=== PATIENT | male | born 1945 | race Caucasian/White ===

== ENCOUNTER → 2020-03-09 10:51 | Outpatient (BNVA) | payer MEDICARE, OTHER, SELFPAY | PROVIDERS: PCP Internal Medicine; Referring Provider Internal Medicine; Visit Provider Urology | DX: Z76.89 Persons encountering health services in other specified circumstances (principal) | CPT/HCPCS: 99202 ==

== ENCOUNTER → 2020-06-08 10:59 | Outpatient (BNVA) | payer MEDICARE, OTHER, SELFPAY | PROVIDERS: PCP Internal Medicine; Visit Provider Urology | DX: Z76.89 Persons encountering health services in other specified circumstances (principal) | CPT/HCPCS: Q3014 ==

== ENCOUNTER 2020-06-17 11:50 | Outpatient (REF) | payer MEDICARE, OTHER, SELFPAY ==
[2020-06-17 11:59] VITALS: BP 125/67; PULSE 93; RESP 16; TEMP 36.5; O2SAT 98
[2020-06-17 12:00] VITALS: BMI 27.7
--- NOTE | 2020-06-17 12:46 | PM.OP ---
Brief Operative Note Date of Service: 06/17/20 Pre-op diagnosis: elevated PSA Post-op diagnosis: same Procedure: TRUS - measurement - guided prostate nerve block - Prostate biopsy Surgeon: Sudheer Mcclelland MD Anesthesia: local Estimated blood loss (mL): 0 Pathology: other (9 cores - 6 right, 3 left) Condition: stable Disposition: same day
--- NOTE | 2020-06-17 12:47 | W.PM.OPN ---
Operative Note Operative Note Date of Service: 06/17/20 Narrative: Preoperative diagnosis: Elevated PSA Postoperative diagnosis: Elevated PSA Procedure: 1. transrectal ultrasound measurement of prostate 2. transrectal ultrasound-guided pudendal nerve block 3. transrectal ultrasound-guided prostate biopsy 6 cores right, 3 cores left Surgeon: Dr. Sudheer Mcclelland Anesthetic: Local Indications for procedure: Elevated PSA Procedure: After informed consent was verified, the patient was brought into the procedure area and lay left-hand side down on the table. Patient identity confirmed. Perioperative antibiotics confirmed. Gel was placed per rectum Ultrasound probe was placed per rectum The prostate was measured in 3 dimensions Total volume equals 30 gm There were no cystic structures and no calcifications noted and the prostate was homogeneous in nature - the rectal muscle was noticed to be overdeveloped and unable to be effectively targeted for local anesthetic A ultrasound-guided pudendal nerve block was performed using 10 cc of 1% lidocaine. 8 cc was placed at the base and 2 cc of the apex. A 9 core biopsy was performed with 6 cores on right and 3 cores on left. Two cores were taken at the apex, mid and base. Cores were spaced between lateral and medial. Left side was reduced secondary to patient discomfort. He tolerated the procedure well. Was able to ambulate to bathroom after 5 minutes. Printed instructions regarding antibiotic use and common side effects such as low-grade temperature and bleeding were given.
== END 2020-06-17 11:51 | disposition home or self-care (01) ==
LOC: HO.MS 11:50
PROVIDERS: PCP Internal Medicine; Visit Provider Urology
PROC: (CPT 55700; principal; 2020-06-17 12:00)
DX: C61 Malignant neoplasm of prostate (principal)
CPT/HCPCS: 55700; 76942; 88305; 88344

== ENCOUNTER → 2020-06-25 15:21 | Outpatient (BNVA) | payer OTHER, SELFPAY | PROVIDERS: PCP Internal Medicine; Visit Provider Urology ==

== ENCOUNTER 2020-12-27 15:02 | Outpatient (REF) | payer MEDICARE, OTHER, SELFPAY ==
[2020-12-27 16:09] LABS: PSA,Total (Free>4and<10) 4.08 ng/mL (0.00-4.00)
[2020-12-30 12:31] LABS: Free Prostate Spec Ag 0.2 ng/mL; Percent Free Prostate Spec Ag 6 % (calc) (>25); Prostate Specific Ag Total 3.3 ng/mL (< OR = 4.0)
== END 2020-12-27 15:03 | disposition home or self-care (01) ==
LOC: HO.LAB 15:02
PROVIDERS: PCP Internal Medicine; Visit Provider Urology
DX: Z12.5 Encounter for screening for malignant neoplasm of prostate (principal); N13.8 Other obstructive and reflux uropathy; N40.1 Benign prostatic hyperplasia with lower urinary tract symptoms
CPT/HCPCS: 36415; 84153; 84154

== ENCOUNTER → 2021-03-22 08:26 | Outpatient (BNVA) | payer OTHER, SELFPAY | PROVIDERS: PCP Internal Medicine; Visit Provider Urology ==

== ENCOUNTER 2021-07-27 10:58 | Outpatient (REF) | payer MEDICARE, OTHER, SELFPAY ==
[2021-07-27 12:57] LABS: PSA,Total (Free>4and<10) 2.98 ng/mL (0.00-4.00)
== END 2021-07-27 10:59 | disposition home or self-care (01) ==
LOC: HO.LAB 10:58
PROVIDERS: PCP Internal Medicine; Visit Provider Urology
DX: Z12.5 Encounter for screening for malignant neoplasm of prostate (principal); C61 Malignant neoplasm of prostate
CPT/HCPCS: 36415; 84153

== ENCOUNTER → 2021-08-09 08:21 | Outpatient (BNVA) | payer MEDICARE, OTHER, SELFPAY | PROVIDERS: PCP Internal Medicine; Visit Provider Urology | DX: C61 Malignant neoplasm of prostate (principal); N40.1 Benign prostatic hyperplasia with lower urinary tract symptoms; N13.8 Other obstructive and reflux uropathy | CPT/HCPCS: Q3014 ==

== ENCOUNTER 2022-02-01 11:17 | Outpatient (REF) | payer MEDICARE, OTHER, SELFPAY ==
[2022-02-01 12:47] LABS: Prostate Specific Antigen 3.55 ng/mL (<0.05-4.0)
== END 2022-02-01 11:18 | disposition home or self-care (01) ==
LOC: HO.LAB 11:17
PROVIDERS: PCP Internal Medicine; Visit Provider Urology
DX: Z12.5 Encounter for screening for malignant neoplasm of prostate (principal); C61 Malignant neoplasm of prostate
CPT/HCPCS: 36415; 84153

== ENCOUNTER → 2022-02-08 14:17 | Outpatient (BNVA) | payer MEDICARE, OTHER, SELFPAY | PROVIDERS: PCP Internal Medicine; Visit Provider Urology | DX: C61 Malignant neoplasm of prostate (principal) | CPT/HCPCS: 51798; 99212 ==

== ENCOUNTER 2022-06-02 14:41 | Outpatient (REF) | payer MEDICARE, OTHER, SELFPAY | END 2022-06-02 14:42 | disposition home or self-care (01) | LOC: HO.LAB 14:41 | PROVIDERS: PCP Internal Medicine; Visit Provider Urology | DX: Z12.5 Encounter for screening for malignant neoplasm of prostate (principal); C61 Malignant neoplasm of prostate | CPT/HCPCS: 36415; 84153 ==

== ENCOUNTER → 2022-06-07 13:14 | Outpatient (BNVA) | payer MEDICARE, OTHER, SELFPAY | PROVIDERS: PCP Internal Medicine; Visit Provider Urology | DX: C61 Malignant neoplasm of prostate (principal) | CPT/HCPCS: Q3014 ==

== ENCOUNTER → 2022-09-28 11:17 | Outpatient (BNVA) | payer MEDICARE, OTHER, SELFPAY | PROVIDERS: PCP Internal Medicine; Visit Provider Urology | DX: C61 Malignant neoplasm of prostate (principal) | CPT/HCPCS: Q3014 ==

== ENCOUNTER 2023-08-22 15:32 | Outpatient (AMB) | payer MEDICARE, OTHER, SELFPAY ==
--- NOTE | 2023-08-22 15:35 | A.OFFVIS_ITS ---
Intake Visit Reasons: elevated PSA Intake Note: Patient is present for PSA Allergies No Known Allergies Allergy (Verified 09/28/22 11:19) Medication List - Last Reconciled 08/22/23 by Sudheer Mcclelland MD atorvastatin 80 mg PO DAILY cephalexin 500 mg PO TID ciprofloxacin HCl 500 mg PO BID 3 days clopidogrel 75 mg PO DAILY clotrimazole 1% mL topical finasteride 5 mg PO DAILY 90 days furosemide 20 mg PO DAILY ipratropium bromide intranasal levothyroxine 137 mcg PO DAILY levothyroxine 150 mcg PO DAILY nicotine 1 patch topical DAILY pantoprazole 40 mg PO DAILY sulfacetamide sodium 10% 0 drps ophthalmic (eye) HPI Comments Details: Jayy is a very pleasant male. He is a patient of Dr. Dhillon. He is seen for the following urologic conditions - prostate cancer - active surveillance PSA 8.0 jump from 3.8 Has been off finasteride Had colorectal cancer and has recent cover colostomy Did discuss restarting finasteride and repeating prostate MRI in 3 months Stroke late 2020 with left-sided deficit Remains on finasteride for low volume, low-grade disease PSA 08/05 2.9, 02/04 3.5, 06/08 3.5, 09/05 3.8 Prostate cancer low-grade, low volume diagnosed May 2020 - initial therapy active surveillance PSA 01/04 4 F6%, 08/05 2.9 Adenocarcinoma of the prostate (T1c N0 M0, Deonna score 6, Grade Group 1) NCCN low risk localized disease Prostate cancer was diagnosed Dr Mcclelland Diagnosis was reached by - May 2020 TRUS Biopsy, PSA 6.3, 30 g - well- developed rectal muscle, if repeat biopsy needed should be under sedation Histologic type: Prostatic acinar adenocarcinoma. Histologic grade: Deonna score: 3 + 3 = 6 Tumor quantitation: Number cores positive: 1 left mid medial, 60% (Part B) Total number of cores: 9 Periprostatic fat inv.: Not identified Seminal vesicle inv.: Not identified Perineural inv.: Not identified LVI: Not identified Prostate small nodule left base PFSH Medical History BPH loc w urin obs/LUTS Elevated PSA Hypothyroidism Prostate cancer Review of Systems Const Denies chills and Denies fever(s) Card Reports no additional complaints and Denies syncope Resp Denies cough GI Denies abdominal pain and Denies heartburn Reports as per HPI and Denies change in libido Neuro Denies syncope Psych Denies change in libido Endo Denies change in libido Physical Exam Const General: cooperative, healthy appearing, comfortable and no acute distress Orientation/consciousness: patient oriented x3 HEENT Face and sinus: Yes normal facial exam Mouth: moist mucous membranes Neck Neck: Yes normal visual inspection, Yes full ROM and Yes trachea midline Chest Chest palpation & inspection: normal inspection of the chest Resp Effort & Inspection: normal respiratory effort, able to speak in complete sentences and no respiratory distress GI Inspection: Yes normal to inspection Back/Spine/Pelvis Cervical Spine: normal cervical lordosis Thoracic/Lumbar Spine: thoracic and lumbar spine normal to inspection Skin General skin exam: no rashes or lesions noted Neuro General: patient oriented x3, gait normal, tone normal and moves all extremities Extrem General: Yes normal to inspection and Yes capillary refill normal Assessment & Plan Assessment & Plan (1) Prostate cancer: Comment: May 2020 low volume, low risk Code(s): C61 - Malignant neoplasm of prostate Category: Medical Plan MRI Repeat PSA May require repeat biopsy Orders: Orders Creatinine 3 Months C61 - Malignant neoplasm of prostate MR pelvis wo/w con 3 Months C61 - Malignant neoplasm of prostate Prostate Specific Antigen 3 Months C61 - Malignant neoplasm of prostate Blood Urea Nitrogen 3 Months C61 - Malignant neoplasm of prostate Patient Instructions: Imaging studies, laboratory and physical exam results were discussed and reviewed in detail. No major barriers to patient understanding were identified. An opportunity to ask questions regarding the treatment plan was provided. All questions were answered. The patient expressed understanding and agreement with the above treatment plan. The patient is aware they should contact our office by phone for worsening of their current condition or the appearance of new urologic symptoms. Compliance is encouraged with any medications and followup testing that is ordered. It is a privilege to participate in the urologic care of your patient. If you have any questions or concerns regarding treatment for the above conditions, or other urologic issues, please do not hesitate to contact me. The office telephone contact is [phone]. This note is constructed using voice recognition software. While every effort has been made to ensure accuracy inspector balance bridge errors may have been included. Yours sincerely, Dr Sudheer Mcclelland MD, [facility] - Urology Providers of Expert, Compassionate Care for the Genitourinary System Coding Level of Care Code Est Pt Level 4 (21687) Diagnoses Prostate cancer C61
== END 2023-08-22 15:57 | disposition home or self-care (01) ==
PROVIDERS: PCP Internal Medicine; Visit Provider Urology
DX: C61 Malignant neoplasm of prostate (principal)
CPT/HCPCS: 99214

== ENCOUNTER → 2023-08-22 15:32 | Outpatient (BNVA) | payer MEDICARE, OTHER, SELFPAY | PROVIDERS: PCP Internal Medicine; Visit Provider Urology | DX: C61 Malignant neoplasm of prostate (principal) | CPT/HCPCS: 99212 ==

== ENCOUNTER 2023-11-23 12:49 | Outpatient (REF) | payer MEDICARE, OTHER, SELFPAY ==
[2023-11-23 14:06] LABS: Prostate Specific Antigen 5.07 ng/mL (<0.05-4.0)
== END 2023-11-23 12:50 | disposition home or self-care (01) ==
LOC: HO.LAB 12:49
PROVIDERS: PCP Internal Medicine; Visit Provider Urology
DX: C61 Malignant neoplasm of prostate (principal); Z12.5 Encounter for screening for malignant neoplasm of prostate
CPT/HCPCS: 36415; 84153

== ENCOUNTER 2023-11-28 11:39 | Outpatient (AMB) | payer MEDICARE, OTHER, SELFPAY ==
--- NOTE | 2023-11-28 11:42 | A.OFFVIS_ITS ---
Intake Visit Reasons: 3M Follow Up-PSA(set) Intake Note: Patient is Present for Follow Up PSA Urology Medication: Finasteride Antibiotic Allergies:None Blood Thinners:Plavix Portable Power Tool Repairer Required: No Customer Sales Consultant: Customer Sales Consultant Present Accompanied by: Spouse Allergies No Known Allergies Allergy (Verified 09/28/22 11:19) HPI Comments Details: Jayy is a very pleasant male. He is a patient of Dr. Dhillon. He is seen for the following urologic conditions - prostate cancer - active surveillance Discussion of targeted biopsy Prostate MRI shows 2 areas PI-RADS 5 1.2cm Right and left posterolateral mid gland 1 cm lesions Stroke late 2020 with left-sided deficit Remains on finasteride for low volume, low-grade disease PSA 08/05 2.9, 02/04 3.5, 06/08 3.5, 09/05 3.8, 12/07 5.1 Prostate cancer low-grade, low volume diagnosed May 2020 - initial therapy active surveillance PSA 01/04 4 F6%, 08/05 2.9 Adenocarcinoma of the prostate (T1c N0 M0, [place] score 6, Grade Group 1) NCCN low risk localized disease Prostate cancer was diagnosed Dr Mcclelland Diagnosis was reached by - May 2020 TRUS Biopsy, PSA 6.3, 30 g - well- developed rectal muscle, if repeat biopsy needed should be under sedation Histologic type: Prostatic acinar adenocarcinoma. Histologic grade: [place] score: 3 + 3 = 6 Tumor quantitation: Number cores positive: 1 left mid medial, 60% (Part B) Total number of cores: 9 Periprostatic fat inv.: Not identified Seminal vesicle inv.: Not identified Perineural inv.: Not identified LVI: Not identified Prostate small nodule left base PFSH Medical History BPH loc w urin obs/LUTS Elevated PSA Hypothyroidism Prostate cancer Review of Systems Const Denies chills and Denies fever(s) Card Reports no additional complaints and Denies syncope Resp Denies cough GI Denies abdominal pain and Denies heartburn Reports as per HPI and Denies change in libido Neuro Denies syncope Psych Denies change in libido Endo Denies change in libido Physical Exam Const General: cooperative, healthy appearing, comfortable and no acute distress Orientation/consciousness: patient oriented x3 HEENT Face and sinus: Yes normal facial exam Mouth: moist mucous membranes Neck Neck: Yes normal visual inspection, Yes full ROM and Yes trachea midline Chest Chest palpation & inspection: normal inspection of the chest Resp Effort & Inspection: normal respiratory effort, able to speak in complete sentences and no respiratory distress GI Inspection: Yes normal to inspection Back/Spine/Pelvis Cervical Spine: normal cervical lordosis Thoracic/Lumbar Spine: thoracic and lumbar spine normal to inspection Skin General skin exam: no rashes or lesions noted Neuro General: patient oriented x3, gait normal, tone normal and moves all extremities Extrem General: Yes normal to inspection and Yes capillary refill normal Assessment & Plan Assessment & Plan (1) Prostate cancer: Comment: May 2020 low volume, low risk Code(s): C61 - Malignant neoplasm of prostate Category: Medical Plan Risks, benefits and alternatives to therapy were discussed. These include but ar e not limited to infection, bleeding, damage to local organs and tissues, need for further interventions. Anesthetic risks regarding cardiac arrhythmia, blood clots, and potential mortality were discussed. The patient understands the typical recovery time and the outpatient nature of the procedure. After consideration of these risks the patient gives full informed consent and they wish to move ahead with the procedure. Targeted prostate biopsy Patient Instructions: Imaging studies, laboratory and physical exam results were discussed and reviewed in detail. No major barriers to patient understanding were identified. An opportunity to ask questions regarding the treatment plan was provided. All questions were answered. The patient expressed understanding and agreement with the above treatment plan. The patient is aware they should contact our office by phone for worsening of their current condition or the appearance of new urologic symptoms. Compliance is encouraged with any medications and followup testing that is ordered. It is a privilege to participate in the urologic care of your patient. If you have any questions or concerns regarding treatment for the above conditions, or other urologic issues, please do not hesitate to contact me. The office telephone contact is [phone]. This note is constructed using voice recognition software. While every effort has been made to ensure accuracy director of accounts payable errors may have been included. Yours sincerely, Dr Sudheer Mcclelland MD, [facility] - Urology Providers of Expert, Compassionate Care for the Genitourinary System Coding Level of Care Code Est Pt Level 3 (01231) Diagnoses Prostate cancer C61
== END 2023-11-28 12:19 | disposition home or self-care (01) ==
PROVIDERS: PCP Internal Medicine; Visit Provider Urology
DX: C61 Malignant neoplasm of prostate (principal)
CPT/HCPCS: 99213

== ENCOUNTER → 2023-11-28 11:39 | Outpatient (BNVA) | payer MEDICARE, OTHER, SELFPAY | PROVIDERS: PCP Internal Medicine; Visit Provider Urology | DX: C61 Malignant neoplasm of prostate (principal); I69.30 Unspecified sequelae of cerebral infarction; Z79.01 Long term (current) use of anticoagulants | CPT/HCPCS: 99212 ==

== ENCOUNTER 2024-03-20 13:47 | Outpatient (AMB) | payer MEDICARE, OTHER, SELFPAY ==
--- NOTE | 2024-03-20 13:47 | MHC.OFFVIS ---
Intake Visit Reasons: H&P Targeted Prostate Biopsy [phone] Intake Note: Patient is present for H&P TARGETED PROSTATE BIOPSY Urology Medication:NONE Antibiotic Allergy:NONE Blood Thinner:NONE Supervisor Tree Trimming Required: No Allergies No Known Allergies Allergy (Verified 03/24/24 10:12) HPI Comments Details: Jayy is a very pleasant male. He is a patient of Dr. Dhillon. 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 Histologic grade: Waddy score: 3 + 3 = 6 Tumor quantitation: Number cores positive: 1 left mid medial, 60% (Part B) Total number of cores: 9 Periprostatic fat inv.: Not identified Seminal vesicle inv.: Not identified Perineural inv.: Not identified LVI: Not identified Prostate MRI shows 2 areas PI-RADS 5 1.2cm Right and left posterolateral mid gland 1 cm lesions PFSH Medical History (Updated 03/28/24 @ 10:35 by Sudheer Mcclelland MD) Hormone sensitive prostate cancer History of blood transfusion History of chemotherapy Wears hearing aid in both ears Wears dentures ABSENTEE-SHAWNEE (hard of hearing) Ascending aortic aneurysm Hx of Meckel's diverticulum Gait instability Colon adenocarcinoma Presence of ileostomy Malignant neoplasm of ascending colon BPH (benign prostatic hyperplasia) HLD (hyperlipidemia) 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 CVA (cerebral vascular accident) Tobacco abuse, in remission Elevated PSA Prostate cancer BPH loc w urin obs/LUTS Hypothyroidism Surgical History Hx of colonoscopy (03/17/24) History of ankle surgery (~03/2018) S/P right colectomy (~06/2023) Hx of appendectomy Surgically created abdominal mucous fistula Hx of prostate biopsy (06/09/20) Social History (Updated 03/20/24 @ 15:32 by Bernadette Zepeda RN) Household Members: Spouse Housing: House Are you a primary respiratory care program director to a significant other at home: No Do you presently have visiting nurse or other home services: No 75 years or older and lives alone: No Patient Tobacco Use Status: Former Tobacco user Tobacco use type: Cigarette Review of Systems Const All systems reviewed & are unremarkable except as noted in HPI and below Reports no additional complaints Resp Reports no additional complaints GI Reports no additional complaints Reports as per HPI Musc Reports no additional complaints Physical Exam Telemedicine evaluation Appropriate responses Regular breathing rate and rhythm HEENT Head: Yes normal to inspection Ears: hearing grossly normal bilaterally Eyes General: appearance normal, both eyes and all related structures Neck Neck: Yes normal visual inspection Chest Chest palpation & inspection: normal inspection of the chest Resp Effort & Inspection: normal respiratory effort and able to speak in complete sentences Telehealth Telehealth Telehealth Platform: [employer] Location of provider rendering services: practice address Location of patient: address on file Patient Identification confirmed using: Name, : Yes Telehealth method: video Patient verbally consented to treatment: Yes Patient verbally consented to billing insurance company: Yes Patient informed of any privacy concerns related to visit: Yes Minutes spent on Phone/Video with Pt.: 15 Assessment & Plan Assessment & Plan (1) Prostate cancer: Comment: May 2020 low volume, low risk Code(s): C61 - Malignant neoplasm of prostate Category: Medical Plan Risks and benefits regarding trans rectal ultrasound with prostate biopsy were discussed. Options of continued surveillance, no treatment and biopsy were offered. The risks include but are not limited to, urinary tract infection, sepsis, difficulty urinating, bleeding into the rectum or bladder that requires intervention and transfusion,and failure to diagnose prostate cancer. The patient understands the options and the risks involved. They wish to proceed. Printed information was provided to ensure he remains off anticoagulation for the appropriate length of time. He may require cardiology or PCP clearance. An antibiotic will be administered prior to, and following the procedure Ultrasound guided MRI fusion Patient Instructions: Imaging studies, laboratory and physical exam results were discussed and reviewed in detail. No major barriers to patient understanding were identified. An opportunity to ask questions regarding the treatment plan was provided. All questions were answered. The patient expressed understanding and agreement with the above treatment plan. The patient is aware they should contact our office by phone for worsening of their current condition or the appearance of new urologic symptoms. Compliance is encouraged with any medications and followup testing that is ordered. It is a privilege to participate in the urologic care of your patient. If you have any questions or concerns regarding treatment for the above conditions, or other urologic issues, please do not hesitate to contact me. The office telephone contact is [phone]. This note is constructed using voice recognition software. While every effort has been made to ensure accuracy executive assistant to general counsel errors may have been included. Yours sincerely, Dr Sudheer Mcclelland MD, [facility] - Urology Providers of Expert, Compassionate Care for the Genitourinary System Coding Level of Care Code Tele Est Pt Level 3 (24327) Diagnoses Prostate cancer C61
== END 2024-03-20 14:39 | disposition home or self-care (01) ==
LOC: HO.HUSH 13:47
PROVIDERS: PCP Internal Medicine; Visit Provider Urology
DX: C61 Malignant neoplasm of prostate (principal)
CPT/HCPCS: 99213

== ENCOUNTER 2024-03-24 09:47 | Day surgery (SDC) | payer MEDICARE, OTHER, SELFPAY ==
[2024-03-20 12:12] VITALS: BMI 27.8
[2024-03-20 13:40] VITALS: BMI 30.3
--- NOTE | 2024-03-20 14:07 | P.CONAN_ITS ---
Documented by User: Aura Allen NP 03/20/24 14:21 HPI - Anesthesia Eval Consult details Narrative: 78yo M for Targeted Prostate Biopsy Follows Outside Vascular for carotid ds s/p CVA (occluded R ICA, stable near 50% stenosis), AAA (shelter stable at 4.2cm) Prostate ca surveillance Colon ca s/p hemicolectomy 06/2023 [facility] Active Problems Active Problems: All Active Problems BPH w urinary obs/LUTS (Acute) Prostate cancer (Acute) Elevated PSA (Acute) Past Medical History Medical History (Updated 03/24/24 @ 12:44 by Sudheer Mcclelland MD) History of blood transfusion History of chemotherapy Wears hearing aid in both ears Wears dentures [place] (hard of hearing) Ascending aortic aneurysm Hx of Meckel's diverticulum Gait instability Colon adenocarcinoma Presence of ileostomy Malignant neoplasm of ascending colon BPH (benign prostatic hyperplasia) HLD (hyperlipidemia) 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 CVA (cerebral vascular accident) Tobacco abuse, in remission Elevated PSA Prostate cancer BPH loc w urin obs/LUTS Hypothyroidism Surgical History Surgical History Hx of colonoscopy (03/17/24) History of ankle surgery (~03/2018) S/P right colectomy (~06/2023) Hx of appendectomy Surgically created abdominal mucous fistula Hx of prostate biopsy (06/09/20) Social History Social History (Updated 03/20/24 @ 15:32 by Bernadette Zepeda RN) Household Members: Spouse Housing: House Are you a primary home child care provider to a significant other at home: No Do you presently have visiting nurse or other home services: No Patient Tobacco Use Status: Former Tobacco user Tobacco use type: Cigarette Smoked in Last 30 Days: No Use of substances other than those prescribed or required for medical reasons: No Have you been hit, kicked, punched, or otherwise hurt by someone within the past year? If so, by whom?: No Are you DNR?: No Advance Directives: No (will bring dos) Advance Directives Information Provided: Yes Advance Directives on File: No Recently lost weight without trying: No Meds Allergies Allergy/AdvReac Type Severity Reaction Status Date / Time No Known Allergies Allergy Verified 03/24/24 10:12 Home Medications ?Medication ?Instructions ?Recorded ?Confirmed ?Last Taken ?Type atorvastatin 80 mg tablet 80 mg PO DAILY 06/25/20 03/24/24 Unknown History clopidogrel 75 mg tablet 75 mg PO DAILY 06/25/20 03/24/24 03/13/24 History furosemide 20 mg tablet 20 mg PO DAILY 02/08/22 03/24/24 Unknown History ascorbic acid (vitamin C) 1,000 mg 1,000 mg PO DAILY 03/20/24 03/24/24 Unknown History tablet (Vitamin C) aspirin 81 mg chewable tablet 81 mg PO DAILY 03/20/24 03/24/24 03/23/24 History cyanocobalamin (vitamin B-12) 1,000 mcg PO DAILY 03/20/24 03/24/24 Unknown History 1,000 mcg tablet (Vitamin B-12) ferrous sulfate 325 mg (65 mg 325 mg PO DAILY 03/20/24 03/24/24 Unknown History iron) tablet (Iron (ferrous sulfate)) levothyroxine 125 mcg tablet 125 mcg PO DAILY 03/20/24 03/24/24 03/24/24 History Exam Height,Weight and Vital Signs: Height 5 ft 11 in Weight 98.43 kg Pertinent Lab Results Pertinent Lab Results: Outside CBC and BMP 06/2023 [place] Narrative Narrative: ECHO 10/2023 Technically difficult Grossly nml LV size aith overall nml sys function. Maybe small region of hypokenisis at apex, but cannot be certain. EF 55-60% Nml RV size and sys function No hemodynamically signif valve disease mild dilated asc aorta and aortic arch for age and body surface area as above Findings roughly stable c/w 2021 echo Assessment and Plan Assessment Anesthesia Assessment: Chart Reviewed Documented by User: Pb Wesley MD 03/24/24 13:44 HPI - Anesthesia Eval Consult details Narrative: 78yo M for Targeted Prostate Biopsy Follows Outside Vascular for carotid ds s/p CVA (occluded R ICA, stable near 50% stenosis of L ICA), AAA (shelter stable at 4.2cm) Prostate ca surveillance Colon ca s/p hemicolectomy 06/2023 [facility] Past Medical History Medical History (Updated 03/24/24 @ 12:44 by Sudheer Mcclelland MD) History of blood transfusion History of chemotherapy Wears hearing aid in both ears Wears dentures [place] (hard of hearing) Ascending aortic aneurysm Hx of Meckel's diverticulum Gait instability Colon adenocarcinoma Presence of ileostomy Malignant neoplasm of ascending colon BPH (benign prostatic hyperplasia) HLD (hyperlipidemia) 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 CVA (cerebral vascular accident) Tobacco abuse, in remission Elevated PSA Prostate cancer BPH loc w urin obs/LUTS Hypothyroidism Family History Family history of problems with anesthesia: No Surgical History Surgical History Hx of colonoscopy (03/17/24) History of ankle surgery (~03/2018) S/P right colectomy (~06/2023) Hx of appendectomy Surgically created abdominal mucous fistula Hx of prostate biopsy (06/09/20) History of Problems with Anesthesia: No Social History Social History (Updated 03/20/24 @ 15:32 by Bernadette Zepeda RN) Household Members: Spouse Housing: House Are you a primary home child care provider to a significant other at home: No Do you presently have visiting nurse or other home services: No Patient Tobacco Use Status: Former Tobacco user Tobacco use type: Cigarette Smoked in Last 30 Days: No Use of substances other than those prescribed or required for medical reasons: No Have you been hit, kicked, punched, or otherwise hurt by someone within the past year? If so, by whom?: No Are you DNR?: No Advance Directives: No (will bring dos) Advance Directives Information Provided: Yes Advance Directives on File: No Recently lost weight without trying: No Meds Allergies Allergy/AdvReac Type Severity Reaction Status Date / Time No Known Allergies Allergy Verified 03/24/24 10:12 Home Medications ?Medication ?Instructions ?Recorded ?Confirmed ?Last Taken ?Type atorvastatin 80 mg tablet 80 mg PO DAILY 06/25/20 03/24/24 Unknown History clopidogrel 75 mg tablet 75 mg PO DAILY 06/25/20 03/24/24 03/13/24 History furosemide 20 mg tablet 20 mg PO DAILY 02/08/22 03/24/24 Unknown History ascorbic acid (vitamin C) 1,000 mg 1,000 mg PO DAILY 03/20/24 03/24/24 Unknown History tablet (Vitamin C) aspirin 81 mg chewable tablet 81 mg PO DAILY 03/20/24 03/24/24 03/23/24 History cyanocobalamin (vitamin B-12) 1,000 mcg PO DAILY 03/20/24 03/24/24 Unknown History 1,000 mcg tablet (Vitamin B-12) ferrous sulfate 325 mg (65 mg 325 mg PO DAILY 03/20/24 03/24/24 Unknown History iron) tablet (Iron (ferrous sulfate)) levothyroxine 125 mcg tablet 125 mcg PO DAILY 03/20/24 03/24/24 03/24/24 History Exam Airway Mallampati Class: II TM Dist: <=3cm Neck ROM: Full Denture: Upper Partial: Lower Loose/Missing/Broken Teeth: No Heart: ok Lungs: ok Assessment and Plan Assessment Anesthesia Assessment: Anesthesia Plan Discussed Final Anesthetic Review Family History of Problems with Anesthesia: No History of Problems with Anesthesia: No NPO: Yes ASA Class: IV Final Preanesthetic Review: No Changes in Pt Med Stat, Meds/Allgs Chart Reviewed, Consent Obtained/Reviewed and Anes Risks/Benef Reviewed Patient Risk: High Procedure Risk: Low Anesthetic Plan Anesthetic Plan: MAC:, Agree w/ Assess. and Plan and TIVA Disposition: Standard PACU
[2024-03-24 10:30] VITALS: BP 152/71; PULSE 91; RESP 16; TEMP 36.6; O2SAT 99; BMI 28.8
[2024-03-24] MEDS: Lactated Ringers 1,000 ML 100 ML IVCONT (10:46)
--- NOTE | 2024-03-24 12:45 | P.HPSUR_ITS ---
Pre-Procedural Eval Section A - 24 Hr Update-Section A only Date of Service: 03/24/24 The patient is an INPATIENT: No Changes since office visit: No Cold of Flu in the past 2 weeks, No New Medical Problems, No Changes in Medication and No Patient answered all questions The patient has been examined within 24 hours of the surgical procedure. The History & Physical has been completed within 30 days and I have reviewed it.: Yes Section B - Complete if H&P > 30 days Chief Complaint: Elevated prostate specific antigen [PSA] Details of Present Illness: Prostate cancer Relevant Family History (Specify if Yes): No Relevant Social History: None Present Medications: see Short Stay Collaborative assessment Medical History: No relevant PMH History of Previous Operations: No relevant previous surgery Allergies: Allergies Allergy/AdvReac Type Severity Reaction Status Date / Time No Known Allergies Allergy Verified 03/24/24 10:12 Review of Systems Sugical H&P ROS: Negative: Constitution, Cardiovascular, Respiratory, Neurological, Psychiatric, Hem-Onc, Allergic/Immunologic, Gastrointestinal, Genitourinary, Musculoskeletal, Integumentary, Endocrine and Eyes/Ears /Nose/Throat Exam Surgical H&P Exam: Normal: HEENT, Normal: Heart, Normal: Lungs, Normal: Extremities, Normal: Abdomen, Normal: Skin and Normal: Neurological Plan Diagnosis/Plan: Unchanged (MRI guided ultrasound fusion prostate biopsy) I have reviewed the history and physical and performed a pertinent physical examination on my patient. No changes have occurred unless specified. Time Spent With Patient Time: Total time managing care of this patient today ____ minutes.
--- NOTE | 2024-03-24 12:54 | PC.NURSE ---
Patient in preop, took baby aspirin yesterday. Okay to proceed with biopsy per Dr. Mcclelland.
--- NOTE | 2024-03-24 13:55 | P.OP_ITS ---
Operative Note Operative Note Date of Service: 03/24/24 Narrative: Preoperative diagnosis: Elevated PSA Postoperative diagnosis: Elevated PSA Procedure: 1. transrectal ultrasound-guided pudendal nerve block 2. MRI-US fusion image registration performed 3. transperineal ultrasound-guided prostate biopsy 15 core including targets Surgeon: Dr. Sudheer Mcclelland Anesthetic: Sedation plus local Indications for procedure: Elevated PSA Imaging PiRADS 5 lesions Procedure: After informed consent was verified, the patient was brought into the procedure area. Patient identity confirmed. Perioperative antibiotics confirmed. Safety pause time out performed. Anesthesia performed per protocol. Scrotum taped out of operative area. Iodine prep used. Perineal injection of local anesthetic. Digital guided prostate pudendal nerve block performed with 10 cc of 1% lidocaine. 5cc each side. Combination 10cc iodine with 50cc gel was mixed and placed in the rectum. Ultrasound probe was placed per rectum. Ultrasound probe stabilized on a prostate stepper with attached grid. Everlater software and hardware platform used for US image acquisition, US 3D model creation and MRI-US fusion image overlay. Ultrasound placement was made with external grid calibration for height and prostate diameter in both the transverse and longitudinal planes. Grid A-C covering right prostate and c-F covering left prostate. Numbers 1.0-2.5 covering posterior prostate and 2.5-4.0 covering anterior prostate. Once grid calibration was confirmed prostate ultrasound data acquisition was performed in the transverse fashion. The US images were registered to create model boundaries. A three dimensional ultrasound model was created using Everlater software. The model was reviewed against acquired US images. The planned needle targeting, based on prior acquisition of MRI imaging, was overlaid on the ultrasound images and targets confirmed through ultrasound review. Adjustments were then made between real time and projected model targeting locations. Based on pre-planning evaluation 15 targets had been identified. These included 2 targets PioRads 5 0 left lateral posterior zone identified lesion/s. He tolerated the procedure well. Was transferred to stable condition in the PACU. Printed instructions regarding antibiotic use and common side effects such as low-grade temperature, potential infection and bleeding were given Pathology: 16 prostate biopsy CPT 34800 Modifier 22 for complexity of procedure execution (Perineal prostate biopsy) CPT code 38064: Transrectal ultrasound; this is a diagnostic test for evaluation of the prostate and surrounding structures, looking for abnormalities or suspicious areas worrisome for cancer CPT code 26559: Ultrasonic guidance for needle placement (eg, biopsy, aspiration, injection, localization device), imaging supervision and interpretation CPT 88947: 3D rendering with interpretation and reporting of computed tomography (CT), MRI, ultrasound, or other tomographic modality with image postprocessing under concurrent supervision; not requiring image postprocessing on an [facility] workstation
[2024-03-24 14:03] VITALS: BP 138/78; PULSE 90; RESP 18; TEMP 36.3; O2SAT 96
[2024-03-24 14:18] VITALS: BP 146/83; PULSE 88; RESP 18; TEMP 36.3; O2SAT 99
== END 2024-03-24 14:42 | disposition home or self-care (01) ==
PROVIDERS: PCP Internal Medicine; Visit Provider Urology
PROC: (CPT 55700; principal; 2024-03-24 12:50)
DX: C61 Malignant neoplasm of prostate (principal); N40.0 Benign prostatic hyperplasia without lower urinary tract symptoms; R97.20 Elevated prostate specific antigen [PSA]; E03.9 Hypothyroidism, unspecified; I69.354 Hemiplegia and hemiparesis following cerebral infarction affecting left non-dominant side; Z79.02 Long term (current) use of antithrombotics/antiplatelets; Z79.899 Other long term (current) drug therapy; Z87.891 Personal history of nicotine dependence
CPT/HCPCS: 55706; 88305; J1956; J2003; J2704; J2795; J3010

== ENCOUNTER → 2024-03-24 09:47 | Outpatient (BNV) | payer MEDICARE, OTHER, SELFPAY | PROVIDERS: PCP Internal Medicine; Visit Provider Urology | DX: R97.20 Elevated prostate specific antigen [PSA] (principal) | CPT/HCPCS: 55706; 76376; 76872; 76942 ==

== ENCOUNTER 2024-04-03 13:34 | Outpatient (AMB) | payer MEDICARE, OTHER, SELFPAY ==
--- NOTE | 2024-04-03 13:34 | A.OFFVIS_ITS ---
Intake Visit Reasons: Prostate biopsy results [phone] Intake Note: Patient is present for PROSTATE BIOPSY RESULTS Urology Medication:FINASTERIDE,VITAMIN B12 Antibiotic Allergy:NONE Blood Thinner:ASPIRIN Surgical Instrument Technician Required: No Allergies No Known Allergies Allergy (Verified 04/03/24 13:35) HPI Comments Details: Jayy is a very pleasant male. He is a patient of Dr. Dhillon. He is seen for the following urologic conditions - prostate cancer - grade migration Telemedicine Evaluation 15 min Consultation [employer] Video Discussed results Grade migration from grade 1 to grade 3 Plan PET-CT Would benefit from either targeted cryotherapy versus external beam radiation Will discuss at follow-up appointment pT1, N0, M0 35 gm Prostate cancer grade migration - unfavorable intermediate Grade Group 3 NCCN 2023 Histologic grade: Deonna score: 4+3=7 (e 2.5, E 2.5, E 2.0), 3+4=7 (e 2.0, C 1.5), 3+3=6 (c 2.0) % of pattern 4: Approximately 50% of the tumor Number cores positive: 6 Total number of cores: 15 - % of tissue involved: Approximately 20% of all tissue examined Periprostatic fat inv.: Not identified Seminal vesicle inv.: Not identified Perineural inv.: Suspicious Stroke late 2020 with left-sided deficit Remains on finasteride for low volume, low-grade disease PSA 08/05 2.9, 02/04 3.5, 06/08 3.5, 09/05 3.8, 12/07 5.1 Prostate cancer low-grade, low volume diagnosed May 2020 - initial therapy active surveillance PSA 01/04 4 F6%, 08/05 2.9 Adenocarcinoma of the prostate (T1c N0 M0, Colton score 6, Grade Group 1) NCCN 2023 low risk localized disease Prostate cancer was diagnosed Dr Mcclelland Diagnosis was reached by - May 2020 TRUS Biopsy, PSA 6.3, 30 g - well- developed rectal muscle, if repeat biopsy needed should be under sedation Histologic type: Prostatic acinar adenocarcinoma. Histologic grade: Colton score: 3 + 3 = 6 Tumor quantitation: Number cores positive: 1 left mid medial, 60% (Part B) Total number of cores: 9 Periprostatic fat inv.: Not identified Seminal vesicle inv.: Not identified Perineural inv.: Not identified LVI: Not identified Prostate MRI shows 2 areas PI-RADS 5 1.2cm - 35 gm prostate Right and left posterolateral mid gland 1 cm lesions PFSH Medical History (Updated 04/03/24 @ 14:02 by Sudheer Mcclelland MD) Hormone sensitive prostate cancer History of blood transfusion History of chemotherapy Wears hearing aid in both ears Wears dentures [employer] [facility] (hard of hearing) Ascending aortic aneurysm Hx of Meckel's diverticulum Gait instability Colon adenocarcinoma Presence of ileostomy Malignant neoplasm of ascending colon BPH (benign prostatic hyperplasia) HLD (hyperlipidemia) 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 CVA (cerebral vascular accident) Tobacco abuse, in remission Elevated PSA Prostate cancer BPH loc w urin obs/LUTS Hypothyroidism Surgical History Hx of colonoscopy (03/17/24) History of ankle surgery (~03/2018) S/P right colectomy (~06/2023) Hx of appendectomy Surgically created abdominal mucous fistula Hx of prostate biopsy (06/09/20) Social History (Updated 03/20/24 @ 15:32 by Bernadette Zepeda RN) Household Members: Spouse Housing: House Are you a primary lawn care technician to a significant other at home: No Do you presently have visiting nurse or other home services: No 75 years or older and lives alone: No Patient Tobacco Use Status: Former Tobacco user Tobacco use type: Cigarette Review of Systems Const All systems reviewed & are unremarkable except as noted in HPI and below Reports no additional complaints Resp Reports no additional complaints GI Reports no additional complaints Reports as per HPI Musc Reports no additional complaints Physical Exam Telemedicine evaluation Appropriate responses Regular breathing rate and rhythm HEENT Head: Yes normal to inspection Ears: hearing grossly normal bilaterally Eyes General: appearance normal, both eyes and all related structures Neck Neck: Yes normal visual inspection Chest Chest palpation & inspection: normal inspection of the chest Resp Effort & Inspection: normal respiratory effort and able to speak in complete sentences Telehealth Telehealth Telehealth Platform: [employer] Location of provider rendering services: practice address Location of patient: address on file Patient Identification confirmed using: Name, : Yes Telehealth method: video Patient verbally consented to treatment: Yes Patient verbally consented to billing insurance company: Yes Patient informed of any privacy concerns related to visit: Yes Minutes spent on Phone/Video with Pt.: 15 Assessment & Plan Assessment & Plan (1) Prostate cancer: Comment: May 2020 low volume, low risk, March 2024 grade group 3, multi core Code(s): C61 - Malignant neoplasm of prostate Category: Medical Plan Complete staging Follow-up discussion regarding treatment therapy Patient Instructions: Imaging studies, laboratory and physical exam results were discussed and reviewed in detail. No major barriers to patient understanding were identified. An opportunity to ask questions regarding the treatment plan was provided. All questions were answered. The patient expressed understanding and agreement with the above treatment plan. The patient is aware they should contact our office by phone for worsening of their current condition or the appearance of new urologic symptoms. Compliance is encouraged with any medications and followup testing that is ordered. It is a privilege to participate in the urologic care of your patient. If you have any questions or concerns regarding treatment for the above conditions, or other urologic issues, please do not hesitate to contact me. The office telephone contact is [phone]. This note is constructed using voice recognition software. While every effort has been made to ensure accuracy director of claims errors may have been included. Yours sincerely, Dr Sudheer Mcclelland MD, [facility] - Urology Providers of Expert, Compassionate Care for the Genitourinary System Coding Level of Care Code Tele Est Pt Level 4 (94195) Diagnoses Prostate cancer C61
== END 2024-04-03 16:01 | disposition home or self-care (01) ==
LOC: HO.HUSH 13:34
PROVIDERS: PCP Internal Medicine; Visit Provider Urology
DX: C61 Malignant neoplasm of prostate (principal)
CPT/HCPCS: 99024

== ENCOUNTER → 2024-04-03 13:34 | Outpatient (BNVA) | payer MEDICARE, OTHER, SELFPAY | PROVIDERS: PCP Internal Medicine; Visit Provider Urology | DX: C61 Malignant neoplasm of prostate (principal); Z71.2 Person consulting for explanation of examination or test findings | CPT/HCPCS: 99212 ==

== ENCOUNTER 2024-05-13 11:13 | Outpatient (REF) | payer MEDICARE, OTHER, SELFPAY ==
--- NOTE | ~2024-05-13 | PE_ITS ---
EXAMINATION: FLUORINE-18 FDG PET/CT SCAN CLINICAL INFORMATION: Malignant neoplasm of prostate. TECHNIQUE: 60 minutes following the intravenous administration of 5.4 mCi of fluorine 18 PMSA, images from the skull base to proximal thigh were obtained using a combined PET/CT scanner with CT scan based attenuation correction. No oral or intravenous contrast was administered. Transverse, coronal, sagittal, and volume reconstruction projections were obtained. The radiotracer was injected intravenously through left antecubital vein, without any complications. Total CT exam dose-length product 1172 mGy-cm. * These CT images were obtained using dose optimization techniques as appropriate, variously including the following: Automated exposure control * Adjustment of mA and/or kV according to patient size (this includes techniques or standardized protocols for targeted exams where dose is matched to indication/reason for exam; i.e. extremities or head) * Use of iterative reconstruction technique COMPARISON: None available. FINDINGS: HEAD AND NECK: No abnormal radiotracer uptake. No large intracranial hemorrhage, acute territorial infarct or significant shift of midline structures. CHEST: Ports and Devices: None Lungs: No abnormal radiotracer uptake. Pleura: No significant pleural effusion. Lymph Nodes: No tracer-avid mediastinal, hilar or internal mammary or axillary lymphadenopathy. Mediastinum: There is no significant pericardial effusion/thickening. Breasts/Chest Wall: No abnormal radiotracer uptake. ABDOMEN/PELVIS: Liver/Biliary System: No focal tracer-avid liver lesion. The gallbladder appears unremarkable. Pancreas: Normal. Spleen: No abnormal radiotracer uptake. No evidence of splenomegaly. Adrenal Glands: No abnormal radiotracer uptake. Kidneys: No abnormal p.m. is a activity in the kidneys. There is a punctate activity seen within the right mid ureter in the upper pelvis. No lymph nodes are seen on CT at this site. No hydronephrosis, hydroureter or renal calculi bilaterally. Bowel: There are postsurgical changes along the midline anterior abdominal wall with a thick scar metabolically inactive. Nonspecific metallic activity seen in second, third and the fourth segment of the duodenum. The no corresponding abnormality seen on the CT. Patient may have undergone surgical changes. Correlate with clinical history. Lymph Nodes: No tracer avid retroperitoneal, mesenteric or pelvic and/or groin lymphadenopathy. Pelvic Organs: There is mild metabolic is seen in the lateral lobes of prostate gland most activity in the left lateral lobe on axial CT slice 50/3 and axial color PET slice 263/301. On CT the prostate gland is not enlarged with dystrophic central gland calcification seen. No abnormal activity seen in the lymph nodes along the pelvic wall, external iliac or inguinal lymph nodes The urinary bladder is underdistended. MUSCULOSKELETAL: No abnormal metabolic activity seen VASCULAR: Unremarkable. PET/PET CT fusion skull to thigh IMPRESSION: Intense focal metabolic activity seen in the left lateral prostate gland likely site of tumor. In addition there is mild metabolic activity seen in bilateral lateral lobes as well. There is central gland calcification on CT. No abnormal metabolic activity seen in the lymph nodes in the pelvis, inguinal region, retroperitoneum or mesentery. No abnormal metabolic activity seen in the osseous structures either. Electronically signed by: Tyree Sparrow MD 05/14/2024 07:55 AM [facility]
--- OUTSIDE RECORDS SUMMARY | 2024-05-13 12:27 | XMS_ITS | Encounter Summary ---
Author Organization [facility] Address [address] [place] [address] Care Team Providers Care State'S Attorney Name Role Phone Joey Dhillon MD Primary Care Provider Reason for Visit * Auth/Cert (Routine) Specialty Diagnoses / Procedures Referred By Kwabena t Referred To Contact Diagnoses Presence of ileostomy (CMS/HCC) Presence of colostomy (CMS/HCC) Presence of colostomy Procedures [place] CLOSURE ENTEROSTOMY LARGE/SMALL INTESTINE Gustavo Stone MD [address] [address] Referral ID Status Reason Start Date Expiration Date Visits Re quested Visits Authorized [id number] 03/12/2024 1 1 Encounter Details Date Type Department Care Team (Late st Contact Info) Description 05/05/2024 10:48 AM EST Anesthesia Event [facility] Main OR [address] [place] [address] Matt Herzog MD [address] [place], [place] [id number] Anesthesia Record Procedure Summary Procedure Name Responsible Anesthesiologist Anesthesia Start Time Anesthesia Stop Time ILEOSTOMY CLOSURE (Abdomen) Matt Herzog MD 05/05/24 1048 05/05/24 1234 Events Date Time Event Comment 05/05/2024 0921 1048 An Start 1050 In Room 1050 An Start Data The patient wa s reevaluated immediately before moderate or deep sedation use and before anesthesia induction. 1054 An Induction 1057 An Intubation Smooth inducti on, easy mask w/ 100 mm OPA, Grade I view w/ gentle CP for visualization; ETT placed, verified & secured, VSS. -OSMAN Vieira 1105 Anesthesia Ready 1116 Trav Surgical time-o ut completed. 1116 Proc Start 1134 Break I, Latonya Swann CRNA, attest that I have reviewed the pertinent information of this case with the next laundry bag punch operator assuming care of this patient (OSMAN Loyola) including a summary of events during my staffing of the case. I will be readily available via text for any additional information needed. 1200 Break I, TRINA Vieira, resumed patient care. 1222 Proc Fin 1225 An Extubation 1227 an stop data 1230 Out of Room 1230 Transport to PACU/ICU Patien t reassessed and ready for transfer, airway stable. Patient transport to designated recovery area. {Transport to PACU/ICU:[id number]} 1234 Handoff to RN I completed my handoff to the receiving nurse during which we: 1. Identified the patient 2. Identified the responsible provider 3. Reviewed the pertinent medical history 4. Discussed the surgical course 5. Reviewed intra-op anesthesia management and issues during anesthesia 6. Set expectations for post-procedure period 7. Allowed opportunity for questions and acknowledgement of understanding. 1234 An Stop Meds Name Total fentaNYL (SUBLIMAZE) injection 150 mcg propofol (DIPRIVAN) injection 10 mg/mL 1 75 mg rocuronium 100 mg ondansetron 2 mg/mL 4 mg glycopyrrolate 0.2 mg/mL 0.2 mg phenylephrine (LUIS E-SYNEPHRINE) 100 mcg/m L syringe 10 mL 500 mcg dexamethasone (DECADRON) injection 4 mg/ mL 4 mg lidocaine PF (XYLOCAINE-MPF) local injec tion 2% 100 mg ketamine (KETALAR) injection 50 mg/mL sy ringe 50 mg sugammadex (BRIDION) injection 100 mg/mL 200 mg ceFAZolin (ANCEF) 2 g in sterile water 2 0 mL IV syringe 2 g metroNIDAZOLE (FLAGYL) IVPB 500 mg 500 m g esmolol (BREVIBLOC) injection 10 mg/mL ( 10,000 mcg/mL) 60,000 mcg lactated Ringer's infusion 1,000 mL * Agents Name O2 * Blood No blood administrations on file. Lines, Drains, and Airways Type Details Placement Removal Wound Incision; Abdomen; Mid 05/05/24 1124 by Wound Other (OSTOMY SITE); Abdomen; Medial, Right 05/05/24 1135 by Peripheral IV Placement Date: 04/17 ; Existing LDA Placed by: Other (Comment) (returned goods inspector); Catheter Size: 22 G; Orientation: Posterior; Location: Hand; Site Prep: Chlorhexidine; Inserted by: ad Izquierdo rn; Insertion Attempts: 1; Patient Tolerance: Tolerated well 05/05/24 0000 by Earline Izquierdo RN Peripheral IV Placement Date: 04/17 ; Placement Time: 0908; Catheter Size: 20 G; Orientation: Posterior, Right; Location: Hand; Site Prep: Chlorhexidine; Insertion Attempts: 1; Patient Tolerance: Tolerated well; Removal Date: 05/05/24; Removal Time: 1645; Removal Reason: Infiltrated/Extravasated (nurse in pacu reported it infiltrated and was removed in PACU) 05/05/24 0908 by Danay Ford RN 05/05/24 1645 by Robson Pascual RN ETT Placement Date: 04/17 ; Placement Time: 1106 (created via procedure documentation); Mask Ventilation: 2; Technique: Direct laryngoscopy; Type: ETT; Cuffed: Yes; Blade Size: 3; Location: Oral; Insertion Attempts: 1; Placement Verification: Auscultation, Capnometry; Airway Comments: Smooth induction, easy mask w/ 100 mm OPA, Grade I view w/ gentle CP for visualization; ETT placed, verified & secured, VSS. OSMAN Fischer; Removal Date: 05/05/24; Removal Time: 1227 05/05/24 1106 by Latonya Swann CRNA 05/05/24 1227 by Latonya Swann CRNA documented in this encounter Social History Tobacco Use Types Packs/Day Years Used Date Smoking Tobacco: Former Cigarettes Smokeless Tobacco: Never Alcohol Use Standard Drinks/Week Comments Yes 6 (1 standard drink = 0.6 oz pur e alcohol) Interpersonal Safety Answer Date Record ed Physical Abuse 05/05/2024 Verbal Abuse 05/05/2024 Sex and Gender Information Value Date Recorded Sex Assigned at Male 04/29/2024 1:34 PM EST Gender Identity Male 04/29/2024 1:34 PM EST Sexual Orientation Something else 05/05/2024 8: 18 AM EST Sexual Orientation Straight 05/05/2024 8: 18 AM EST Job Start Date Occupation Industry Not on file Not on file Not on file documented as of this encounter Progress Notes * Latonya Swann CRNA - 05/05/2024 12:33 PM EST Patient: Hernan Veras Procedure Summary Date: 05/05/24 Room / Location: [facility] OR 02 / [facility] OR Anesthesia Start: 1048 Anesthesia Stop: Procedure: ILEOSTOMY CLOSURE (Abdomen) Diagnosis: Presence of ileostomy (CMS/HCC) Presence of colostomy (CMS/HCC) (Presence of colostomy) Surgeons: Gustavo Stone MD Responsible Provider: Matt Herzog MD Anesthesia Type: general ASA Status: 2 Anesthesia Plan: general Last Vitals: Vitals Value Taken Time BP 135/65 05/05/24 1233 Temp 97.8 05/05/24 1233 Pulse 86 05/05/24 1233 Resp 16 05/05/24 1233 SpO2 100 05/05/24 1233 Pain Score: 0 - No pain Anesthesia Post Evaluation Patient location during evaluation: PACU Patient participation: complete - patient participated Level of consciousness: sleepy but conscious and awake Pain score: 0 Pain management: adequate Airway patency: patent Anesthetic complications: no Cardiovascular status: acceptable Respiratory status: acceptable and spontaneous ventilation Hydration status: acceptable Comments: Patient extubated w/out incident, VSS, simple mask in place, on 6 L O2. Transferred from OR to Main PACU, stable throughout transfer, vital signs reviewed & remain stable (see nursing record), report accepted by CASE MANAGEMENT DIRECTOR. Stable on release, transfer of care guidelines followed. No complications noted upon sign-out. -OSMAN Vieira Nausea: No Vomiting: No There were no known notable events for this encounter. * Latonya Swann CRNA - 05/05/2024 11:05 AM ESTAssociated Order(s): Intubation General Information and Staff Patient location during procedure: OR Resident/LOADING AND UNLOADING SUPERVISOR: Latonya Swann CRNA Performed by: Latonya Swann CRNA Authorized by: Matt Herzog MD Intubation Additional Comments Smooth induction, easy mask w/ 100 mm OPA, Grade I view w/ gentle CP for visualization; ETT placed,verified & secured, VSS. -OSMAN Vieira Airway not difficult Urgency: elective Final Airway Details Successful airway: ETT Cuffed: yes Successful intubation technique: direct laryngoscopy Facilitating devices/methods: intubating stylet and cricoid pressure Endotracheal tube insertion site: oral Blade: Fatuma Blade size: #3 ETT size (mm): 7.5 Cormack-Lehane Classification: grade I - full view of glottis Placement verified by: chest auscultation and capnometry Measured from: teeth ETT to teeth (cm): 22 Number of attempts at approach: 1 Number of other approaches attempted: 0Final airway type: endotracheal airway Indications and Patient Condition Indications for airway management: anesthesia Spontaneous Ventilation: absent Sedation level: Yes Preoxygenated: yes Soft Tissue Damage: No Dentition Unchanged: Yes Patient position: sniffing MILS maintained throughout Mask difficulty assessment: 2 - vent by mask + OA or adjuvant +/- NMBA * Matt Herzog MD - 05/05/2024 9:19 AM EST 78 y.o. male scheduled for [[place] CLOSURE ENTEROSTOMY LARGE/SMALL INTESTINE [75661] (ILEOS*] Ht Readings from Last 1 Encounters: 04/15/24 1.829 m (72 ) Wt Readings from Last 1 Encounters: 04/15/24 95.3 kg (210 lb) Body mass index is 28.48 kg/m??. 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 Current Outpatient Medications on File Prior to Encounter Medication Sig Dispense Refill aspirin 81 mg EC tablet Take 1 tablet (81 mg total) by mouth 1 (one) time each day. atorvastatin (LIPITOR) 80 mg tablet Take 1 tablet (80 mg total) by mouth 1 (one) time each day. cyanocobalamin, vitamin B-12, 1,000 mcg capsule Take by mouth. finasteride (PROSCAR) 5 mg tablet Take 1 tablet (5 mg total) by mouth 1 (one) time each day. levothyroxine (SYNTHROID, LEVOTHROID) 125 mcg tablet Take by mouth 1 (one) time each day before breakfast. clopidogreL (PLAVIX) 75 mg tablet Take 1 tablet (75 mg total) by mouth 1 (one) time each day. Current In-hospital Medications ceFAZolin, 2 g, intravenous, Once metroNIDAZOLE, 500 mg, intravenous, Once Social History Tobacco Use Smoking status: Former Current packs/day: 1.00 Types: Cigarettes Smokeless tobacco: Never Substance Use Topics Alcohol use: Yes Alcohol/week: 6.0 standard drinks of alcohol Types: 6 Cans of beer per week Drug use: Never Is the patient a current smoker (e.g. cigarette, cigar, pip, e-cigarette, or mariajuana)? Yes [] No[x] Patient previously instructed to abstain from smoking on the day of procedure? Yes [] No[] Patient smoked on the day of procedure? Yes [] No[] ASPIRE smoking VBR: [] Not interested in quitting [] Interested in quitting- referred to treatment [] Interested in quitting - treatment provided Visit Vitals BP (!) 144/74 Pulse 94 Temp 36.6 ??C (97.9 ??F) Resp 16 Ht 1.829 m (72 ) Wt 95.3 kg (210 lb) SpO2 98% BMI 28.48 kg/m?? Smoking Status Former BSA 2.18 m?? Available cardiac studies reviewed: No results found. EKG No results found for this or any previous visit (from the past 4464 hour(s)). ECHO No results found for this or any previous visit. CATH No results found for this or any previous visit. LABS: No results found for: WBC , HGB , HCT , MCV , PLT No results found for: GLUCOSE , CALCIUM , NA , K , CO2 , CL , BUN , CREATININE No results found for: INR , PROTIME No results found for: PTT Denies cardiac, pulm, neuro, hepatic or renal s/sx. Patient meets ASA guidelines for NPO status. > 4 mets without anginal symptoms. Relevant labs, vitals, imaging, cardiac and pulmonary studies as well as HPI, Meds, Allergies, ROS,PMH, PSH, SH, and FH reviewed. Relevant Problems Cardio (+) Right internal carotid occlusion (+) Stenosis of left internal carotid artery Neuro/Psych (+) CVA (cerebral vascular accident) (CMS/HCC) (+) Stroke (CMS/HCC) Endo (+) Hypothyroidism Other (+) Colon adenocarcinoma (CMS/HCC) (+) Malignant neoplasm of ascending colon (CMS/HCC) Clinical information reviewed: Tobacco Allergies Meds Med Hx Surg Hx Fam Hx Soc Hx Anesthesia Plan ASA 2 Anesthesia Plan: general Anesthesia Considerations general ETT Anesthesia Risks Discussed dental injury, nausea, pain, sore throat, corneal abrasion, allergic reaction and serious complications Plan Factors Patient is not a current smoker Smoking cessation education has not been provided Induction method: intravenous Postoperative administration of opioids is intended. Anesthetic plan and risks discussed with patient and spouse. Use of blood products discussed with patient and spouse who. Anesthesia Plan discussed with LOADING AND UNLOADING SUPERVISOR. Anesthesia Evaluation Patient summary reviewed and Nursing notes reviewed Airway Mallampati: III Thyromental distance: >3 FB Neck ROM: fullnot intubatedno noted risk Dental (+) upper dentures and lower dentures Comment: Full upper. Partial lower. Pulmonary breath sounds clear to auscultation Cardiovascular Rhythm: regular Rate: normal Neuro/Psych (+) CVA Mental Status: alert and oriented GI/Hepatic/Renal Endo/Other (+) hypothyroidism Abdominal Abdomen: soft. Bowel sounds: normal. PONV RISK SCORE: 1 Vitals: 04/15/24 1000 05/05/24 0836 BP: (!) 144/74 Pulse: 94 Resp: 16 Temp: 36.6 ??C (97.9 ??F) SpO2: 98% Weight: 95.3 kg (210 lb) Height: 1.829 m (72 ) SpO2 Readings from Last 1 Encounters: 05/05/24 98% No results found for: WBC , RBC , HGB , HCT , PLT , MCV No Known Allergies STOP BANG: STOP-Bang Total Score: 2 (05/05/2024 8:37 AM) NPO Status: Time of Last Liquid: 30 Time of Last Solid: 1899 documented in this encounter Plan of Treatment Upcoming Encounters Date Type Department Care Team (Late st Contact Info) Description 05/20/2024 10:00 AM EST Office Visit General Surgery - [place] 175 [facility] [address] [place] [phone] Gustavo Stone MD 175 [facility] [address] [place] [address] documented as of this encounter Procedures Procedure Name Priority Date/Time Associated Diagnosis Comments TH AN ENDOTRACHEAL(NO CHARGE) Routine 05/05/2024 11:05 AM EST documented in this encounter Results * TH AN ENDOTRACHEAL(NO CHARGE) (05/05/2024 11:05 AM EST) Narrative Latonya Swann CRNA - 05/05/2024 11:05 AM EST Latonya Swann CRNA ? 05/05/2024 11:21 AM General Information and Staff Patient location during procedure: OR Resident/LOADING AND UNLOADING SUPERVISOR: Latonya Swann CRNA Performed by: Latonya Swann CRNA Authorized by: Matt Herzog MD ?? Intubation Additional Comments Smooth induction, easy mask w/ 100 mm OPA, Grade I view w/ gentle CP for visualization; ETT placed, verified & secured, VSS. ??-OSMAN Vieira Airway not difficult Urgency: elective Final Airway Details Successful airway: ETT Cuffed: yes Successful intubation technique: direct laryngoscopy Facilitating devices/methods: intubating stylet and cricoid pressure Endotracheal tube insertion site: oral Blade: Fatuma Blade size: #3 ETT size (mm): 7.5 Cormack-Lehane Classification: grade I - full view of glottis Placement verified by: chest auscultation and capnometry Measured from: teeth ETT to teeth (cm): 22 Number of attempts at approach: 1 Number of other approaches attempted: 0Final airway type: endotracheal airway Indications and Patient Condition Indications for airway management: anesthesia Spontaneous Ventilation: absent Sedation level: Yes Preoxygenated: yes Soft Tissue Damage: No Dentition Unchanged: Yes Patient position: sniffing MILS maintained throughout Mask difficulty assessment: 2 - vent by mask + OA or adjuvant +/- NMBA Matt Herzog MD ANESTHESIA ORDERABLE S documented in this encounter Visit Diagnoses Not on filedocumented in this encounter Administered Medications Inactive Administered Medications - up to 3 most recent administrations Medication Order MAR Action Action Date Dose Rate Site ceFAZolin (ANCEF) 2 g in sterile water 20 mL IV syringe 2 g, intravenous, Administer over 3 Minutes, Once, On Sun05/05/24 at 0845, For 1 dose, Preprocedure, -IV Push over 3 minutes -Administer within 60 minutes of incision, Indication: Prophylaxis-Surgical New Bag 05/05/2024 11:02 AM EST 2 g dexAMETHasone (DECADRON) injection intravenous, As needed, Starting on Sun05/05/24 at 1110, Anesthesia Intraprocedure Given 05/05/2024 11:10 AM EST 4 mg esmoloL (BREVIBLOC) injection intravenous, As needed, Starting on Sun05/05/24 at 1129, Anesthesia Intraprocedure Given 05/05/2024 12:17 PM EST 20,000 mcg Given 05/05/2024 12:03 PM EST 20,000 mcg Given 05/05/2024 11:29 AM EST 20,000 mcg fentaNYL (PF) (SUBLIMAZE) injection intravenous, As needed, Starting on Sun05/05/24 at 1048, Anesthesia Intraprocedure Given 05/05/2024 12:[address] 50 mcg Given 05/05/2024 11:27 AM EST 50 mcg Given 05/05/2024 11:00 AM EST 25 mcg glycopyrrolate (ROBINUL) injection intravenous, As needed, Starting on Sun05/05/24 at 1048, Anesthesia Intraprocedure Given 05/05/2024 11:[address] 0.1 mg Given 05/05/2024 10:48 AM EST 0.1 mg ketamine (KETALAR) injection intravenous, As needed, Starting on Sun05/05/24 at 1112, Anesthesia Intraprocedure Given 05/05/2024 12:04 PM EST 25 mg Given 05/05/2024 11:12 AM EST 25 mg lactated Ringer's infusion 75 mL/hr, intravenous, Continuous, Starting on Sun05/05/24 at 1045, Preprocedure Continued from OR 05/05/2024 12:41 PM EST 75 mL/hr 75 mL/hr New Bag 05/05/2024 12:24 PM EST 75 mL/hr New Bag 05/05/2024 10:00 AM EST 75 mL/hr lidocaine (PF) (XYLOCAINE-MPF) 2 % injection injection, As needed, Starting on Sun05/05/24 at 1054, Anesthesia Intraprocedure Given 05/05/2024 10:[address] 100 mg metroNIDAZOLE (FLAGYL) IVPB 500 mg 500 mg, intravenous, at 100 mL/hr, Administer over 60 Minutes, Once, On Sun05/05/24 at 0845, For 1 dose, Preprocedure, Administer within 60 minutes of incision. premix bag, Indication: Prophylaxis-Surgical Given 05/05/2024 11:10 AM EST 500 mg ondansetron (PF) (ZOFRAN) injection intravenous, As needed, Starting on Sun05/05/24 at 1110, Anesthesia Intraprocedure Given 05/05/2024 11:10 AM EST 4 mg phenylephrine (LUIS E-SYNEPHRINE) injection intravenous, As needed, Starting on Sun05/05/24 at 1113, Anesthesia Intraprocedure Given 05/05/2024 11:46 AM EST 100 mcg Given 05/05/2024 11:42 AM EST 100 mcg Given 05/05/2024 11:40 AM EST 100 mcg propofoL (DIPRIVAN) injection intravenous, As needed, Starting on Sun05/05/24 at 1054, Anesthesia Intraprocedure Given 05/05/2024 10:[address] 175 mg rocuronium (ZEMURON) injection intravenous, As needed, Starting on Sun05/05/24 at 1054, Anesthesia Intraprocedure Given 05/05/2024 11:26 AM EST 40 mg Given 05/05/2024 10:54 AM EST 60 mg sugammadex (BRIDION) 100 mg/mL injection intravenous, As needed, Starting on Sun05/05/24 at 1214, Anesthesia Intraprocedure Given 05/05/2024 12:[address] 200 mg documented in this encounter Care Teams State'S Attorney Relationship Specialty Start Date End Date Joey Dhillon MD [address] [place] [address] PCP - General Internal Medicine 02/29/24 documented as of this encounter
--- OUTSIDE RECORDS SUMMARY | 2024-05-13 12:27 | XMS_ITS | Clinical Summary ---
Author Organization [facility] Address [address] [place] [address] Care Team Providers Care Travel Med Surg Rn Name Role Phone Joey Dhillon MD Primary Care Provider + [phone] Allergies No known active allergies Medications Medication Sig Dispensed Refills Start Date End Date Status levothyroxine (SYNTHROID) tablet 125 mcg Take 1 tablet (125 mcg total) by mouth every morning on an empty stomach. 0 Active atorvastatin (LIPITOR) tablet 80 mg Take 1 tablet (80 mg total) by mouth daily. 0 06/12/2023 Active clopidogrel (PLAVIX) 75 MG tablet Take 1 tablet (75 mg total) by mouth daily. 0 08/24/2023 Active folic acid (FOLVITE) tablet 1 mg Take 1 tablet (1,000 mcg total) by mouth daily. for 30 days 0 06/15/2023 Active finasteride (PROSCAR) 5 MG tablet Take 1 tablet (5 mg total) by mouth daily. for 30 days 0 08/27/2023 Active levothyroxine (SYNTHROID) tablet 137 mcg Take 1 tablet (137 mcg total) by mouth daily. 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 Gait instability 07/23/2023 Social History Tobacco Use Types Packs/Day Years Used Date Smoking Tobacco: Former Cigarettes Q uit: 2019 Smokeless Tobacco: Never Alcohol Use Standard Drinks/Week Comments Yes 2 (1 standard drink = 0.6 oz pur e alcohol) Sex and Gender Information Value Date Recorded Sex Assigned at Not on file Gender Identity Not on file Sexual Orientation Not on file Job Start Date Occupation Industry Not on file Not on file Not on file Last Filed Vital Signs Vital Sign Reading Time Taken Comments Blood Pressure 127/65 09/03/2023 11:40 AM EDT Pulse 84 09/03/2023 11:40 AM EDT Temperature 36.4 ??C (97.6 ??F) 09/03/2023 11:40 AM E DT Respiratory Rate - - Oxygen Saturation 100% 09/03/2023 11:40 AM EDT Inhaled Oxygen Concentration - - Weight 86 kg (189 lb 9.6 oz) 09/03/2023 11:40 AM EDT Height 182.9 cm (6') 09/03/2023 11:40 AM EDT Body Mass Index 25.71 09/03/2023 11:40 AM EDT Plan of Treatment Health Maintenance Due Date Last Done Comments Hepatitis C Screening 1945 Depression Screening 1958 Preventative Health Evaluation 1964 DTap / Tdap / Td (1 - Tdap) 1965 Shingrix-Zoster Vaccine (1 of 2) 1965 Fall Risk Assessment 2011 Pneumococcal Vaccine (2 of 2 - PPSV23 or PCV20) 03/26/2020 01/30/2020 COVID-19 Vaccine (2 - Pfizer risk series) 07/20/2020 06/29/2020 RSV Adult > 60+ Yrs or Pregn ant (1 - 1-dose 75+ series) 2021 Influenza Vaccine (#1) 2023 01/20/2020 Hepatitis B Vaccines Aged Out No long er eligible based on patient's age to complete this topic RSV Ped < 20 months Aged Out No longe r eligible based on patient's age to complete this topic Care Teams Travel Med Surg Rn Relationship Specialty Start Date End Date Joey Dhillon MD [address] [facility] [address] [place] [address] PCP - General Internal Medicine 07/13/23
--- OUTSIDE RECORDS SUMMARY | 2024-05-13 12:27 | XMS_ITS | Encounter Summary ---
Author Organization [facility] Address [address] [place] [address] Care Team Providers Care Endodontics Dentist Name Role Phone Joey Dhillon MD Primary Care Provider Reason for Visit * Reason Onset Date Comments Medical Records 04/30/2024 Encounter Details Date Type Department Care Team (Late st Contact Info) Description 04/30/2024 Telephone [facility] Cardiology [facility] [address] [place] [phone] Joey Dhillon MD [address] [place] [address] Medical Records Social History Tobacco Use Types Packs/Day Years Used Date Smoking Tobacco: Former Cigarettes Smokeless Tobacco: Never Alcohol Use Standard Drinks/Week Comments Yes 6 (1 standard drink = 0.6 oz pur e alcohol) Interpersonal Safety Answer Date Record ed Physical Abuse 03/17/2024 Verbal Abuse 03/17/2024 Sex and Gender Information Value Date Recorded Sex Assigned at Male 04/29/2024 1:34 PM EST Gender Identity Male 04/29/2024 1:34 PM EST Sexual Orientation Something else 05/05/2024 8: 18 AM EST Sexual Orientation Straight 05/05/2024 8: 18 AM EST Job Start Date Occupation Industry Not on file Not on file Not on file documented as of this encounter Progress Notes * Dina Velazco - 04/30/2024 11:44 AM EST Faxed 11/07/2023 Echo report to [facility] Stay Att: Pat at [phone] on 03/20/2024 documented in this encounter Plan of Treatment Upcoming Encounters Date Type Department Care Team (Late st Contact Info) Description 05/20/2024 10:00 AM EST Office Visit General Surgery - [place] [address] [place] [phone] Gustavo Stone MD [address] [place] [address] documented as of this encounter Visit Diagnoses Not on filedocumented in this encounter Care Teams Endodontics Dentist Relationship Specialty Start Date End Date Joey Dhillon MD [address] [place] [id number] PCP - General Internal Medicine 02/29/24 documented as of this encounter
--- OUTSIDE RECORDS SUMMARY | 2024-05-13 12:28 | XMS_ITS | Encounter Summary ---
Author Organization [facility] Address [address] [place] [address] Care Team Providers Care Loss Prevention Agent Name Role Phone Joey Dhillon MD Primary Care Provider [phone] Reason for Visit * Auth/Cert (Routine) Specialty Diagnoses / Procedures Referred By Kwabena t Referred To Contact Diagnoses Presence of ileostomy (CMS/HCC) Presence of colostomy (CMS/HCC) Presence of colostomy Procedures [place] CLOSURE ENTEROSTOMY LARGE/SMALL INTESTINE Gustavo Stone MD [address] [address] Referral ID Status Reason Start Date Expiration Date Visits Re quested Visits Authorized [id number] 03/12/2024 1 1 Encounter Details Date Type Department Care Team (Late st Contact Info) Description 05/05/2024 10:00 AM EST - 05/05/2024 12:00 PM EST Surgery [facility] Main OR [address] [place] [address] Gustavo Stone MD [address] [address] ILEOSTOMY CLOSURE [[id number] (CPT??)] Surgery Details Date/Time Status Location OR Service Patient Class Case Class Case Type Trauma Case? 05/05/2024 10:00 AM Posted [facility] OR OR 02 General Surgery to the Floor F - Elective Panel 1 Procedure [facility] Anes Op Region Wound Class Comments ILEOSTOMY CLOSURE N/A general Abdomen Class I I/ Clean Contaminated Open ileostomy closure/mucoseal fistula - asking 120 minutes for this case Surgeon Surgeon Role Service Panel Gustavo Stone MD Primary General 1 Case Notes ERAS. documented in this encounter Social History Tobacco Use Types Packs/Day Years Used Date Smoking Tobacco: Former Cigarettes Smokeless Tobacco: Never Tobacco Cessation:Counseling Given: Not Answered Alcohol Use Standard Drinks/Week Comments Yes 6 [...] on file documented as of this encounter Last Filed Vital Signs Vital Sign Reading Time Taken Comments Blood Pressure 144/74 05/05/2024 8:36 AM EST Pulse 94 05/05/2024 8:36 AM EST Temperature 36.6 ??C (97.9 ??F) 05/05/2024 8:36 AM ES T Respiratory Rate 16 05/05/2024 8:36 AM EST Oxygen Saturation 98% 05/05/2024 8:36 AM EST Inhaled Oxygen Concentration - - Weight 95.3 kg (210 lb) 04/15/2024 10:00 AM EST Height 182.9 cm (6') 04/15/2024 10:00 AM EST Body Mass Index 29.65 05/08/2024 1:13 PM EST documented in this encounter Discharge Summaries * GIOVANNI Oliver - 05/09/2024 2:29 PM EST Discharge Final Diagnosis: Presence of ileostomy (CMS/HCC) Past Medical History: BPH Hyperlipidemia Hypothyroidism Carotid artery stenosis CVA on Plavix Colon cancer Past Surgical History: Right colectomy on 06/21/[address] Stone Ex lap, washout, resection of ileocolic anastomosis, creation of ileostomy, creation of colonic mucous fistula 06/26/[address] Stone Thyroidectomy Appendectomy HPI: 78 year old male with the above past medical history was admitted following and elective ileostomy and mucus fistula reversal on 05/05/[address] Stone. For further details, please see Dr. Stone's operative note. He was admitted to [facility]. Hospital Course: 1. Ileostomy: ERAS protocols were followed. Diet was advanced as tolerated. Patient with bowel function on POD#2. Entereg and mag ox were discontinued. He continued to have loose stools, so Metamucilwas added once daily. Will continue Metamucil on discharge. 2. Urinary retention: Patient required straight cath x 1 overnight following surgery. Was able to void, but still had elevated PVR. Flomax was initiated, will continue on discharge. 3. Atrial fibrillation with RVR: Patient became tachycardic to 130s on 05/07. EKG showed a fib with RVR. Vitals otherwise stable. Received 1 dose of IV metoprolol, TANA was consulted, and he was transferred to telemetry. He was started on a diltiazem drip and Eliquis. Echo was obtained which showed EF 60- 65%. Diltiazem drip switched to oral on 05/08, he was also on PO metoprolol. Seen by cardiologyon 05/09 who recommend long-acting diltiazem 180 mg, discontinue metoprolol, continue Eliquis 5 mg BID, and resume Plavix. Will follow-up outpatient. 4. GUSTAVO: Creatinine 1.58 on 05/06 and 1.36 on 05/08. Normalized on day of discharge. On day of discharge, his vitals and labs are stable. He is having bowel function, tolerating diet, and pain is controlled. He was evaluated by the surgical team and deemed stable for discharge home. He will follow-up with Dr. Stone as previously scheduled. Discharge Disposition: Home with services Consulting Services: [facility]- Leti Flores NP Cardiology- Dr. Tori Hernández Procedures Performed: Ileostomy and mucus fistula reversal on 05/05/[address] Stone Issues Requiring Follow-Up Care: New onset atrial fibrillation Outpatient Follow-Up Care: Future Appointments Date Time Provider Department Center 05/20/2024 10:00 AM Gustavo Stone MD [facility] Discharge Medication List: Your medication list START taking these medications Instructions Last Dose Given Next Dose Due apixaban 5 mg tablet Commonly known as: ELIQUIS Take 1 tablet (5 mg total) by mouth 2 (two) times a day. dilTIAZem CD 180 mg 24 hr capsule Commonly known as: CARDIZEM CD Take 1 capsule (180 mg total) by mouth 1 (one) time each day. oxyCODONE 5 mg immediate release tablet Commonly known as: ROXICODONE Take 1 tablet (5 mg total) by mouth every 6 (six) hours if needed for severe pain. psyllium 3.4 gram packet Commonly known as: METAMUCIL Take 1 packet by mouth 1 (one) time each day. tamsulosin 0.4 mg 24 hr capsule Commonly known as: FLOMAX Start taking on: 2024 Take 1 capsule (0.4 mg total) by mouth 1 (one) time each day. Capsules should be taken 30 minutes following the same meal each day. CHANGE how you take these medications Instructions Last Dose Given Next Dose Due acetaminophen 500 mg tablet Commonly known as: TYLENOL What changed: when to take this reasons to take this Take 2 tablets (1,000 mg total) by mouth every 8 (eight) hours. CONTINUE taking these medications Instructions Last Dose Given Next Dose Due ascorbic acid 500 mg tablet Commonly known as: VITAMIN C Take 1 tablet (500 mg total) by mouth daily. atorvastatin 80 mg tablet Commonly known as: LIPITOR Take 1 tablet (80 mg total) by mouth 1 (one) time each day. clopidogreL 75 mg tablet Commonly known as: PLAVIX Take 1 tablet (75 mg total) by mouth 1 (one) time each day. cyanocobalamin (vitamin B-12) 1,000 mcg capsule Take by mouth. ferrous sulfate 325 mg (65 mg elemental iron) tablet Take 1 tablet (325 mg total) by mouth 1 (one) time each day. finasteride 5 mg tablet Commonly known as: PROSCAR Take 1 tablet (5 mg total) by mouth 1 (one) time each day. levothyroxine 125 mcg tablet Commonly known as: SYNTHROID, LEVOTHROID Take by mouth 1 (one) time each day before breakfast. STOP taking these medications aspirin 81 mg EC tablet Where to Get Your Medications These medications were sent to [facility]/pharmacy #[id number] [facility] [address] [address] acetaminophen 500 mg tablet apixaban 5 mg tablet dilTIAZem CD 180 mg 24 hr capsule oxyCODONE 5 mg immediate release tablet psyllium 3.4 gram packet tamsulosin 0.4 mg 24 hr capsule Discharge Instructions: You underwent an ileostomy and mucous fistula reversal with Dr. Stone. You may resume a regular diet. Drink plenty of fluids to keep yourself hydrated. Remove Band-Aids 48 hours after surgery. You may shower 48 hours after surgery. Gently cleanse wounds with soap and water. Pat dry. No soaking, scrubbing, pools or hot tubs until after your follow-up appointment. Apply ice to the surgical areas as needed to reduce pain and swelling. Please continue to ambulate as tolerated. No lifting, pushing, or pulling greater than 15 pounds for the next 6 weeks[address] within 24 hours of taking narcotic pain medication. Follow-up as previously scheduled. If you do not have a follow-up appointment, please call the office to schedule one to be seen in the next 10-14 days. Call the office for any questions or concerns including fever greater than 101.5, chills, chest pain, shortness of breath, severe abdominal pain, nausea, vomiting, or signs of wound infection. Medications: Tylenol 1000 mg every 8 hours Oxycodone 5 mg every 6 hours as needed for severe pain. Do not drive within 24 hours of taking thismedication. Metamucil 1 packet daily Flomax 0.4 mg daily Eliquis 5 mg twice daily Diltiazem 180 mg daily STOP aspirin RESUME Plavix and the rest of your home medications as previously prescribed Follow-up Appointments: Follow-up with Dr. Stone as previously scheduled Follow-up with your PCP in 1-2 weeks Follow-up with cardiology. They will contact you to schedule the appointment documented in this encounter Discharge Instructions * Discharge Instructions* GIOVANNI Oliver - 05/06/2024 10:45 AM EST You underwent an ileostomy and mucous fistula reversal with Dr. Stone. You may resume a regular diet. Drink plenty of fluids to keep yourself hydrated. Remove Band-Aids 48 hours after surgery. You may shower 48 hours after surgery. Gently cleanse wounds with soap and water. Pat dry. No soaking, scrubbing, pools or hot tubs until after your follow-up appointment. Apply ice to the surgical areas as needed to reduce pain and swelling. Please continue to ambulate as tolerated. No lifting, pushing, or pulling greater than 15 pounds for the next 6 weeks[address] within 24 hours of taking narcotic pain medication. Follow-up as previously scheduled. If you do not have a follow-up appointment, please call the office to schedule one to be seen in the next 10-14 days. Call the office for any questions or concerns including fever greater than 101.5, chills, chest pain, shortness of breath, severe abdominal pain, nausea, vomiting, or signs of wound infection. Medications: Tylenol 1000 mg every 8 hours Oxycodone 5 mg every 6 hours as needed for severe pain. Do not drive within 24 hours of taking thismedication. Metamucil 1 packet daily Flomax 0.4 mg daily Eliquis 5 mg twice daily Diltiazem 180 mg daily STOP aspirin RESUME Plavix and the rest of your home medications as previously prescribed Follow-up Appointments: Follow-up with Dr. Stone as previously scheduled Follow-up with your PCP in 1-2 weeks Follow-up with cardiology. They will contact you to schedule the appointment documented in this encounter Medications at Time of Discharge Medication Sig Dispensed Refills Start Date End Date acetaminophen (TYLENOL) 500 mg tablet Take 2 tablets (1,000 mg total) by mouth every 8 (eight) hours. 30 tablet 05/09/2024 apixaban (ELIQUIS) 5 mg tablet Take 1 tablet (5 mg total) by mouth 2 (two) times a day. 60 tablet 05/09/2024 ascorbic acid (VITAMIN C) 500 mg tablet Take 1 tablet (500 mg total) by mouth daily. atorvastatin (LIPITOR) 80 mg tablet Take 1 tablet (80 mg total) by mouth 1 (one) time each day. 06/12/2023 clopidogreL (PLAVIX) 75 mg tablet Take 1 tablet (75 mg total) by mouth 1 (one) time each day. 08/24/2023 cyanocobalamin, vitamin B-12, 1,000 mcg capsule Take by mouth. dilTIAZem CD (CARDIZEM CD) 180 mg 24 hr capsule Take 1 capsule (180 mg total) by mouth 1 (one) time each day. 30 each 05/09/2024 06/08/2024 ferrous sulfate 325 mg (65 mg elemental iron) tablet Take 1 tablet (325 mg total) by mouth 1 (one) time each day. finasteride (PROSCAR) 5 mg tablet Take 1 tablet (5 mg total) by mouth 1 (one) time each day. levothyroxine (SYNTHROID, LEVOTHROID) 125 mcg tablet Take by mouth 1 (one) time each day before breakfast. oxyCODONE (ROXICODONE) 5 mg immediate release tablet Take 1 tablet (5 mg total) by mouth every 6 (six) hours if needed for severe pain. 12 tablet 05/09/2024 psyllium (METAMUCIL) 3.4 gram packet Take 1 packet by mouth 1 (one) time each day. 30 packet 05/09/2024 tamsulosin (FLOMAX) 0.4 mg 24 hr capsule Take 1 capsule (0.4 mg total) by mouth 1 (one) time each day. Capsules should be taken 30 minutes following the same meal each day. 30 capsule 2024 documented as of this encounter Ordered Prescriptions Prescription Sig Dispensed Refills Start Date End Da te dilTIAZem CD (CARDIZEM CD) 180 mg 24 hr capsule Take 1 capsule (180 mg total) by mouth 1 (one) time each day. 30 each 05/09/2024 06/08/2024 tamsulosin (FLOMAX) 0.4 mg 24 hr capsule Take 1 capsule (0.4 mg total) by mouth 1 (one) time each day. Capsules should be taken 30 minutes following the same meal each day. 30 capsule 2024 apixaban (ELIQUIS) 5 mg tablet Take 1 tablet (5 mg total) by mouth 2 (two) times a day. 60 tablet 05/09/2024 psyllium (METAMUCIL) 3.4 gram packet Take 1 packet by mouth 1 (one) time each day. 30 packet 05/09/2024 oxyCODONE (ROXICODONE) 5 mg immediate release tablet Take 1 tablet (5 mg total) by mouth every 6 (six) hours if needed for severe pain. 12 tablet 05/09/2024 acetaminophen (TYLENOL) 500 mg tablet Take 2 tablets (1,000 mg total) by mouth every 8 (eight) hours. 30 tablet 05/09/2024 documented in this encounter Discharge Disposition Disposition Code Departure Means Destination Comment s Home-Health Care Svc documented in this encounter Progress Notes * Soni Galloway RN - 05/09/2024 2:27 PM EST 05/09/24 1427 Transportation Transportation at discharge Family What day is the transport expected? 05/09/24 Final Discharge Disposition Home Health Care Services Pt medically cleared for discharge. Dispo is home with Keyla ARABELLA. Pt spouse to provide transportation. * Tori Hernández MD - 05/09/2024 12:38 PM ESTAssociated Problem(s): HLD (hyperlipidemia) Continue high-dose statin for history of vascular disease * Tori Hernández MD - 05/09/2024 12:38 PM ESTAssociated Problem(s): Paroxysmal atrial fibrillation (CMS/HCC) Postoperative atrial fibrillation with spontaneous conversion. I reviewed the pathophysiology, etiology, treatment strategies in relation to atrial fibrillation highlighting the differences between rate and rhythm control strategies. I also reviewed that several trials have indicated that the outcomes between rate and rhythm control are not significantly different. The only reason to pursue rhythm control would be for symptomatic relief. I also reviewed the importance of stroke prevention basedon the [id number] score. I reviewed that in many cases, anticoagulation is initiated to prevent cardio strokes. In his case, he is asymptomatic so rate control is perfectly fine as a strategy. He is an extremely high stroke risk given prior history of stroke and numerous other risk factors. He has already been initiated on Eliquis 5 twice daily which I agree with. Would recommend transitioning to long-acting diltiazem 180 mg daily upon discharge. Metoprolol is probably unnecessary given that while in sinus rhythm his heart rate is quite well-controlled. Because he is on Plavix at baseline for peripheral vascular disease and carotid vascular disease per his vascular surgeon, would probablyresume this when safe from a general surgery standpoint. Currently, he and his report that they have been on aspirin in lieu of Plavix awaiting the surgery. They are uncertain of how long he needs to remain on baby aspirin before transitioning back to Plavix as an outpatient postoperatively. * Gustavo Stone MD - 05/09/2024 10:52 AM EST I saw Jayy early this morning. He awakened to voice, had no specific abdominal complaints, severalbowel movements yesterday, ambulating without too much difficulty. Exam not repeated. Surgically he remains stable. If continued hospitalization is required for his coexisting medical/cardiac rhythm issues, we will ask that medicine take him on their service for eventual discharge when stable. * Leti Flores NP - 05/09/2024 10:24 AM EST Images from the original note were not included. TANA PROGRESS NOTE Date: 05/09/2024 Author: Leti Flores NP Patient ID: Hernan Veras is a 78 y.o. male : 1945 MR#: [id number] SUBJECTIVE Patient seen and examined in room 201 Awake and alert Tolerating oral Cardizem S/P Echocardiogram showing LVEF of 60-65% Successfully converted to NSR with HR 70's Denies sob or chest pain Ambulating in hallway Awaiting cardiology consultation Continues on Eliquis 5 mg BID POD # 4 Case discussed with patient, nursing staff, ICC nurse and attending MD Dr. Flowers Allergies: Patient has no known allergies. Current Medications: acetaminophen, 1,000 mg, oral, q8h JASPREET apixaban, 5 mg, oral, BID atorvastatin, 80 mg, oral, Daily dilTIAZem, 60 mg, oral, q6h finasteride, 5 mg, oral, Daily levothyroxine, 125 mcg, oral, q AM AC metoprolol tartrate, 5 mg, intravenous, Once metoprolol tartrate, 25 mg, oral, Once metoprolol tartrate, 25 mg, oral, BID psyllium, 1 packet, oral, Daily tamsulosin, 0.4 mg, oral, Daily PRN medications: buprenorphine HCL, buprenorphine HCL, ondansetron, oxyCODONE, oxyCODONE OBJECTIVE Vitals: 05/08/24 1907 05/08/24 2328 05/09/24 0327 05/09/24 0711 BP: 104/52 117/58 106/51 111/62 BP Location: Left arm Left arm Right arm Patient Position: Lying Lying Lying Pulse: 89 69 70 66 Resp: 16 16 16 Temp: 37 ??C (98.6 ??F) 36.7 ??C (98 ??F) 36.7 ??C (98 ??F) 36.3 ??C (97.3 ??F) TempSrc: Temporal Temporal Temporal SpO2: 97% 96% 97% 95% Weight: Height: Physical Exam General: 78-year-old male lying semierect in no acute distress. He is alert and oriented HEENT: Pulls are equal, round and reactive to light. No facial asymmetry. Mucous membranes moist. Cardiovascular: S1S2, no murmur appreciated. Lungs: Clear to auscultation bilaterally. No wheezing, rhonchi and or rales. Abdomen: Hypoactive bowel sounds, soft, nontender without rebound and or guarding. Extremities: No erythema and/or edema. Active range of motion all 4 extremities. Cranial Nerves: II through XII grossly intact. LABS HEMATOLOGY Lab Results Component Value Date WBC 7.6 05/09/2024 HGB 12.1 (L) 05/09/2024 HCT 37.1 (L) 05/09/2024 MCV 99.7 (H) 05/09/2024 PLT 173 05/09/2024 CHEMISTRY Lab Results Component Value Date GLUCOSE 104 (H) 05/09/2024 NA 142 05/09/2024 K 3.9 05/09/2024 CO2 26 05/09/2024 CL 111 (H) 05/09/2024 BUN 14 05/09/2024 CREATININE 1.29 05/09/2024 EGFR 57 (L) 05/09/2024 CALCIUM 8.1 (L) 05/09/2024 MG 2.2 05/09/2024 PHOS 3.0 05/09/2024 ANIONGAP 5 05/09/2024 Imaging: Transthoracic echocardiogram (TTE) complete with PRN contrast, bubble, strain, and 3D order panel Left ventricle cavity size is normal. No regional LV wall motion abnormalities noted.Left ventricular systolic function is in the normal range with an ejection fraction of 60-65%.Unable to assess diastolic function due to arrhythymia. Right ventricle cavity is mildly enlarged. Right ventricular systolic function is normal. Aortic valve leaflets are mildly thickened. Mild regurgitation. The ascending aorta is mildly dilated (4.1 cm). No significant change from November 07, 2023. ASSESSMENT & PLAN New onset Atrial fibrillation with RVR Currently in atrial fibrillation HR now controlled 79 bpm D/C Cardizem drip Transition to Oral Cardizem Echocardiogram is pending Continue to closely monitor on telemetry Secondary hypercoagulable state due to atrial fibrillation/ Colon Cancer On Eliquis BMI is 29 POD # 4 S/P Ileostomy and mucous fistula reversal (Please see operative note by Dr. Stone) Continue care and management by Surgical Team Hypothyroidism Continue levothyroxine TSH was 0.69 BPH Continue finasteride and Flomax Voiding freely Hyperlipidemia Continue statin Colon Cancer hx of perforated malignancy of the ascending colon, associated retroperitoneal abscess, complicatedcourse including initial right colectomy with takeback for anastomotic dehiscence culminating in anend ileostomy and transverse colon mucous fistula. S/p reversal of ileostomy/mucous fistula Dr. Stone on 05/06/2024. Followed by Dr. Xiao at [facility]. Anemia of chronic illness H and H stable 12 and 38 CVA with left upper extremity weakness Continue ASA, plavix and Statin Prostate Lesions notes that patient has 2 lesions and is scheduled to have a PET scan next 05/13/[address] Mathis will subsequently perform cryoablation therapy. DVT prophylaxis On Eliquis GUSTAVO Improved Creatinine now 1.19 Avoid nephrotoxins Renal dose all medications Repeat BMP in am FULL CODE My total time spent is approximately 60 minutes I have discussed the above assessment and plan with my attending physician Dr. Flowers who Agrees with the above assessment and plan. Associated attestation - Emely Flowers MD - 2024 3:20 PM EST This is a split/shared visit with Leti Flores NP. Patient seen and examined at the bedside, I independently interviewed the patient, performed physical examination, reviewed pertinent studies and performed clinical decision making. Care reviewed with Leti Flores NP, on 05/09/24, plan as below. Continue further diuresis, monitor output and electrolytes closely. Adjust medications as recommended by cardiology. Emely Flowers MD 05/10/24 3:19 PM EST * Hattie Wilkerson RN - 05/09/2024 5:29 AM EST Goals: Patient is going home Identify possible barriers to meeting goals/advancing plan of care: Stability of the patient: Moderately Stable - Low risk of patient condition declining or worsening End of Shift Summary: * Leti Flores NP - 05/08/2024 7:48 AM EST TANA PROGRESS NOTE Date: 05/08/2024 Author: Leti Flores NP Patient ID: Hernan Veras is a 78 y.o. male : 1945 MR#: [id number] SUBJECTIVE Patient seen and examined in room 201 Awake and alert Agreeable to have blood drawn now Telemetry monitoring reveals atrial fibrillation with HR 79 bpm D/C Cardizem drip Transition to oral Cardizem Denies sob or chest pain Echocardiogram pending Continues on Eliquis 5 mg BID Continue to closely monitor on telemetry Case discussed with patient, nursing staff, ICC nurse and attending MD Dr. Flowers Allergies: Patient has no known allergies. Current Medications: acetaminophen, 1,000 mg, oral, q8h JASPREET apixaban, 5 mg, oral, BID [Held by provider] aspirin, 81 mg, oral, Daily atorvastatin, 80 mg, oral, Daily [Held by provider] clopidogreL, 75 mg, oral, Daily finasteride, 5 mg, oral, Daily levothyroxine, 125 mcg, oral, q AM AC metoprolol tartrate, 5 mg, intravenous, Once metoprolol tartrate, 25 mg, oral, q6h perflutren lipid microsphere (DEFINITY) 1.3 mL in sodium chloride 0.9% 8.7 mL injection, 10 mL, intravenous, Once in imaging psyllium, 1 packet, oral, Daily tamsulosin, 0.4 mg, oral, Daily dilTIAZem, 5-15 mg/hr, Last Rate: 10 mg/hr (05/08/24 0026) PRN medications: buprenorphine HCL, buprenorphine HCL, ondansetron, oxyCODONE, oxyCODONE OBJECTIVE Vitals: 05/07/24 1540 05/07/24 1920 05/08/24 0022 05/08/24 0525 BP: 95/60 105/69 122/71 111/61 BP Location: Left arm Left arm Right arm Left arm Patient Position: Lying Lying Pulse: 89 81 83 78 Resp: 17 17 22 16 Temp: 36.8 ??C (98.2 ??F) 37.2 ??C (98.9 ??F) 37.2 ??C (98.9 ??F) 36.5 ??C (97.7 ??F) TempSrc: Temporal Temporal SpO2: 95% 97% 94% 96% Weight: Height: Physical Exam General: 78-year-old male lying semierect in no acute distress. He is alert and oriented HEENT: Pulls are equal, round and reactive to light. No facial asymmetry. Mucous membranes moist. Cardiovascular: S1S2, no murmur appreciated. Lungs: Clear to auscultation bilaterally. No wheezing, rhonchi and or rales. Abdomen: Hypoactive bowel sounds, soft, nontender without rebound and or guarding. Extremities: No erythema and/or edema. Active range of motion all 4 extremities. Cranial Nerves: II through XII grossly intact. LABS HEMATOLOGY Lab Results Component Value Date WBC 9.3 05/07/2024 HGB 12.5 (L) 05/07/2024 HCT 37.9 (L) 05/07/2024 MCV 100.3 (H) 05/07/2024 PLT 161 05/07/2024 CHEMISTRY Lab Results Component Value Date GLUCOSE 107 (H) 05/07/2024 NA 140 05/07/2024 K 3.7 05/07/2024 CO2 27 05/07/2024 CL 111 (H) 05/07/2024 BUN 13 05/07/2024 CREATININE 1.19 05/07/2024 EGFR 63 05/07/2024 CALCIUM 8.5 05/07/2024 MG 2.1 05/07/2024 PHOS 2.8 05/07/2024 ANIONGAP 2 (L) 05/07/2024 Imaging: COLONOSCOPY Anesthesia - MAC; [facility] ENDOSCOPY Narrative: [facility] Patient Name: Hernan Veras Procedure Date: 03/17/2024 7:25 AM Date of : 1945 Age: 78 Gender: Male Note Status: Finalized Attending MD: Jaun Enriquez MD, Procedure Date No Time: 03/17/2024 Procedure: Colonoscopy Indications: High risk colon cancer surveillance: Personal history of colon cancer Providers: Jaun Enriquez MD Referring MD: Jaun Enriquez MD Medicines: Monitored Anesthesia Care Complications: No immediate complications. Estimated Blood Loss: Estimated blood loss: none. Procedure: After I obtained informed consent, the scope was passed under direct vision. Throughout the procedure, the patient's blood pressure, pulse, and oxygen saturations were monitored continuously. The Colonoscope was introduced through the anus and advanced to the surgical stoma. The colonoscopy was performed without difficulty. The patient tolerated the procedure well. The quality of the bowel preparation was good. Findings: The entire examined colon appeared normal. Scope passed to directly below mucous fistula. Could see light, and feel scope directly below the fistula. The colonic mucosa was a bit friable, with some thick mucous (as I would expect) but otherwise negative. Procedure Code(s): --- Professional --- G0105, Colorectal cancer screening; colonoscopy on individual at high risk Diagnosis Code(s): --- Professional --- Z85.038, Personal history of other malignant neoplasm of large intestine CPT copyright 2020 [employer]. All rights reserved. The codes documented in this report are preliminary and upon television inspector review may be revised to meet current compliance requirements. MD Jaun Azar MD 03/17/2024 8:01:40 AM This report has been signed electronically.Jaun Enriquez MD Number of Addenda: 0 Note Initiated On: 03/17/2024 7:25 AM Scope In: Scope Out: Endoscopy Department at [facility] - [address] [place] [id number] Impression: - The entire examined colon is normal. - No specimens collected. Recommendation: - Patient has a contact number available for emergencies. The signs and symptoms of potential delayed complications were discussed with the patient. Return to normal activities tomorrow. Written discharge instructions were provided to the patient. - Resume previous diet. - Continue present medications. - Resume Plavix (clopidogrel) at prior dose today. - Repeat colonoscopy in 1 year for surveillance. ASSESSMENT & PLAN New onset Atrial fibrillation with RVR Currently in atrial fibrillation HR now controlled 79 bpm D/C Cardizem drip Transition to Oral Cardizem Echocardiogram is pending Continue to closely monitor on telemetry Secondary hypercoagulable state due to atrial fibrillation/ Colon Cancer On Eliquis BMI is 29 POD # 3 S/P Ileostomy and mucous fistula reversal (Please see operative note by Dr. Stone) Continue care and management by Surgical Team Hypothyroidism Continue levothyroxine TSH was 0.69 BPH Continue finasteride and Flomax Voiding freely Hyperlipidemia Continue statin Colon Cancer hx of perforated malignancy of the ascending colon, associated retroperitoneal abscess, complicatedcourse including initial right colectomy with takeback for anastomotic dehiscence culminating in anend ileostomy and transverse colon mucous fistula. S/p reversal of ileostomy/mucous fistula Dr. Stone on 05/06/2024. Followed by Dr. Xiao at [facility]. Anemia of chronic illness H and H stable 12 and 38 CVA with left upper extremity weakness Continue ASA, plavix and Statin Prostate Lesions notes that patient has 2 lesions and is scheduled to have a PET scan next 05/13/[address] Mathis will subsequently perform cryoablation therapy. DVT prophylaxis On Eliquis GUSTAVO Improved Creatinine now 1.19 Avoid nephrotoxins Renal dose all medications Repeat BMP in am FULL CODE My total time spent is approximately 60 minutes I have discussed the above assessment and plan with my attending physician Dr. Flowers who Agrees with the above assessment and plan. Associated attestation - Emely Flowers MD - 05/08/2024 3:58 PM EST This is a split/shared visit with Leti Flores NP. I personally performed the medical decision making (MDM) for the care of this patient on 05/08/24 as documented below With controlled currently on Cardizem drip --> transition to oral, also on metoprolol. Follow-upon echo. Potential DC next 24 hours if heart rate remains controlled with oral medications. He willneed outpatient follow-up with cardiology. We also reviewed anticoagulation and risk of stroke, apixaban initiated on 05/07. He told me he was taking aspirin and Plavix for stroke history, Plavix was stopped 5 days before his surgery and currently is on hold. He will need to reviewed with PCP whether he should continue plavix with aspirin while taking new anticoagulant -Apixaban. Emely Flowers MD 05/08/24 3:54 PM EST * Gustavo Stone MD - 05/08/2024 7:21 AM EST Patient seen and examined. In general feeling well, expected incisional discomfort, no nausea/belching but he is not eating much for some reason. Feels like he should not eat much yet. Had 4 loose bowel movements yesterday, no blood in the stool. No blood work from today; as of yesterday, hemoglobin stable since operation. Eliquis initiated yesterday. Patient also frustrated; apparently multiple attempts to draw blood yesterday, and he refused labs this morning. Heart rate better controlled, as high as about 139 yesterday, normal by palpation this morning. Abdomen soft, nondistended, infrequent bowel sounds, appropriate incisional tenderness. Voiding better on his Flomax. From my strictly surgical perspective, Jayy is ready for discharge to home today. Await 2D echo results and tana assessment. Will initiate Metamucil today to help bind up excess fluid in his stool. * Layla Bonilla RN - 05/07/2024 2:26 PM EST CM Progress Note STEPHANIE: unknown Barriers: new Afib, Cardizem gtt,s/p ileostomy and mucous fistula reversal 05/05 Plan: HOME SELF * Jyoti Andrew MD - 05/07/2024 10:52 AM EST The patient was seen and examined this morning. He states he feels well, has no major complaints. Abdominal pain well-controlled, he is tolerating his diet, has bowel function and has been able to void more freely. However was called to bedside for tachycardia to 150s. Blood pressure normal. Saturating in the mid 90s. He denies any chest pain or shortness of breath. On exam abdomen is soft, nondistended, minimally tender at incisions. No calf tenderness or swelling in extremities. Labs were repeated and are stable. EKG showed atrial fibrillation with RVR. Blood pressure is holding steady. He received 1 dose of IV metoprolol. [facility] was consulted, started Cardizem [facility]. Will continue close observation. * Bing Knight - 05/06/2024 1:06 PM EST [facility] Physical Therapy Evaluation & Treatment PT Discharge Recommendations: (P) Home independent, Other (Comment) (pt believes he is at baseline and refuses home PT) Staff Recommendations for safe patient handling: supervision and cueing for safety for gait and transfers Precautions Medical Precautions: Fall Risk, Other (Comment) (abdominal precautions due to surgical incisions) Safety Interventions: Call carlson within reach, ID band on, Bed alarm RUE Weight Bearing Status: Full LUE Weight Bearing Status: Full RLE Weight Bearing Status: Full LLE Weight Bearing Status: Full Fall prevention education provided including use of call light in hospital, use of appropriate assistive device, safe mobility techniques, and safety measures at home. PT Received On: 05/06/24 PT Start Time: 1045 PT Stop Time: 1115 PT Time Calculation (min): 30 min Precautions Medical Precautions: Fall Risk, Other (Comment) (abdominal precautions due to surgical incisions) Safety Interventions: Call carlson within reach, ID band on, Bed alarm RUE Weight Bearing Status: Full LUE Weight Bearing Status: Full RLE Weight Bearing Status: Full LLE Weight Bearing Status: Full Cognition Overall Cognitive Status: Within Functional Limits Arousal/Alertness: Appropriate responses to stimuli Orientation Level: Oriented X4 Following Commands: Follows all commands and directions without difficulty Safety Judgment: Decreased awareness of need for assistance Hearing: Intact Vision: Intact Speech: Intact Integumentary: dressed by surgeon History of Present Illness: Patient is a 78 y.o. male admitted to [facility] on 05/05/2024. Patient Active Problem List Diagnosis BPH (benign prostatic hyperplasia) Gait instability HLD (hyperlipidemia) Hypothyroidism Malignant neoplasm of ascending colon (CMS/HCC) 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 Stroke (CMS/HCC) Colon adenocarcinoma (CMS/HCC) CVA (cerebral vascular accident) (CMS/HCC) Presence of ileostomy (CMS/HCC) Presence of colostomy (CMS/HCC) Past Medical History: Diagnosis Date BPH (benign [...] [place] UNLISTED PX [employer] MESENT[employer] Social History Home Living Environment: Home Living Type of Home: House Lives With: Spouse Home Adaptive Equipment: Cane Home Living Comments: 13 stairs to second floor where bedroom/bathroom is located Home Layout: Two level Home Access: Stairs to enter with rails Entrance Stairs-Rails: Rail on both sides Entrance Stairs-Number of Steps: 3 Prior Function Level of Temple: Independent with mobility and functional transfers Ambulation Status: Community ambulator, Household ambulator Receives Help From: Family () Indoor Mobility Assistance: Independent Stairs Assistance : Independent Prior Device Use: Cane (only when walking long distances) Which is your dominant hand?: Right General Assessment 05/06/24 1045 PT Last Visit PT Received On 05/06/24 PT Time Calculation PT Start Time 1045 PT Stop Time 1115 PT Time Calculation (min) 30 min Precautions Medical Precautions Fall Risk;Other (Comment) (abdominal precautions due to surgical incisions) Safety Interventions Call carlson within reach;ID band on;Bed alarm RUE Weight Bearing Status Full LUE Weight Bearing Status Full RLE Weight Bearing Status Full LLE Weight Bearing Status Full Pain Assessment Pain Assessment 0-10 Pain Score 2 Pain Type Surgical pain Pain Location Abdomen Pain Onset Other (Comment) (after PT session and getting back in bed) Cognition Overall Cognitive Status WFL Arousal/Alertness Appropriate responses to stimuli Orientation Level Oriented X4 Following Commands Follows all commands and directions without difficulty Safety Judgment Decreased awareness of need for assistance Home Living Type of Home House Lives With Spouse Home Adaptive Equipment Cane Home Living Comments 13 stairs to second floor where bedroom/bathroom is located Home Layout Two level Home Access Stairs to enter with rails Entrance Stairs-Rails Rail on both sides Entrance Stairs-Number of Steps 3 Prior Function Level of Temple Independent with mobility and functional transfers Ambulation Status Community ambulator;Household ambulator Receives Help From Family () Indoor Mobility Assistance Independent Stairs Assistance Independent Prior Device Use Cane (only when walking long distances) Which is your dominant hand? Right Activity Tolerance Endurance Tolerates 20 - 30 min activity with multiple rests Static Sitting Balance Static Sitting-Level of Assistance Supervision Static Sitting-Balance Support Feet supported Static Standing Balance Static Standing-Level of Assistance Close supervision Dynamic Standing Balance Dynamic Standing-Level of Assistance Close supervision Bed Mobility Rolling Left and Right Assistance Standby assistance Rolling Left and Right Deficit Verbal cueing;Supervision/safety awareness (cueing to log roll rather and grab bar on side of bed rather than strain abdominal muscles pullinghimself directly up) Sitting to Lying Assistance Minimum assistance Sitting to Lying Deficit Assist lifting left leg onto bed;Assist lifting right leg onto bed;Verbal cueing;Supervision/safety awareness (assistance lifting legs onto bed but was able to bridge up and position his body on his own) Lying to Sitting Assistance Standby assistance Lying to Sitting Deficit Verbal cueing;Supervision/safety awareness (cueing to roll and then push with upper extremities rather than abdominal muscles) Transfers Sit to Stand Assistance Standby assistance Sit to Stand Deficit Steadying Ambulation Walking Assistance Standby assistance Walking Deficit Increased time to complete;Limited endurance;Supervision/safety awareness;Verbal cueing Device Single point cane (`) Distance Ambulated (ft) 250 Comments 50ft with walker and standbyA, 200 ft with cane and standbyA to and from the stairs. took break at stairs. pt sounded SOB on walk back, but took o2 and was 98%. Stairs 4 steps: Assistance Contact guard 4 steps: Deficit Supervision/safety awareness;Verbal cueing;Steadying 12 steps: Assistance Contact guard 12 steps: Deficit Steadying;Verbal cueing;Supervision/safety awareness Rails Right (uses rail with R hand bc L hand has gripping deficit from stroke) Device No device Number of Stairs 4 x 2 Stairs Comments reciprocal pattern going up stairs, step to going down. pt tried recpricol gait going down but weight was shifted anterior and intructed pt to go one stair at a time on the way down. RUE Assessment RUE Assessment Within Functional Limits LUE Assessment LUE Assessment Impaired LUE Assessment Comments weaker from previous stroke, unable to stock patcher RLE Assessment RLE Assessment Within Functional Limits LLE Assessment LLE Assessment Impaired LLE Assessment Comments slightly weaker than right but at least a 3/5 PT Assessment PT Assessment Results At baseline Prognosis Good Evaluation/Treatment Tolerance Patient tolerated treatment well Medical Staff Made Aware Yes Plan PT Discharge Recommendations Home independent PT - Evaluation Status Complete PT - OK to Discharge Yes PT Evaluation Time Entry PT Evaluation (Moderate) Time Entry 30 Treatment performed during evaluation: None performed ADDITIONAL COMMENTS: Chart reviewed. RN clears pt for session. Pt agrees to participate and presented in bed upon PT arrival. All lines in place. Gait belt utilized throughout treatment to maximize safety. Medical precautions observed appropriately. Initiated education on the importance of PT, bed mobility safety, Transfer Safety, Ambulation Safety , Therapy Plan of Care, Home Safety, Energy Conservations strategies, and importance of OOB activity . Pt verbalized understanding. EXIT STATUS: Session ended with patient in bed, tray table and call light within reach, and RN made aware. Physical Therapy Assessment/Plan Hernan Veras is a 78 y.o. male admitted to [facility] on 05/05/2024 for Presence of ileostomy (CMS/HCC) [Z93.2] Presence of colostomy (CMS/HCC) [Z93.3] . Pt presents with decreased BLE strength, balance deficits, decreased activity tolerance, and far below functional baseline. Pt performed bed mobility Stand by assist, Bedrail and HOB elevated, Transfers with Supervision, None and ambulates Supervision with Cane 250 ft . PT recommends (P) Home independent, Other (Comment) (pt believes he is at baseline [facility] PT) when medically stable for safe discharge and to optimize functional mobility and independence. Goals Encounter Problems Encounter Problems (Active) There are no active problems. Encounter Problems (Resolved) There are no resolved problems. Education Documentation Precautions, taught by Bing Knight at 05/06/2024 1:03 PM. Learner: Patient Readiness: Eager Method: Explanation, Demonstration Response: Verbalizes Understanding, Demonstrated Understanding Comment: abdominal precautions instructed to pt and was able to follow all safely. bit impulsive attimes so needs extra cueing to slow down and safely ambulate. Body Mechanics, taught by Bing Knight at 05/06/2024 1:03 PM. Learner: Patient Readiness: Eager Method: Explanation, Demonstration Response: Verbalizes Understanding, Demonstrated Understanding Comment: abdominal precautions instructed to pt and was able to follow all safely. bit impulsive attimes so needs extra cueing to slow down and safely ambulate. Mobility Training, taught by Bing Knight at 05/06/2024 1:03 PM. Learner: Patient Readiness: Eager Method: Explanation, Demonstration Response: Verbalizes Understanding, Demonstrated Understanding Comment: abdominal precautions instructed to pt and was able to follow all safely. bit impulsive attimes so needs extra cueing to slow down and safely ambulate. Education Comments No comments found. Bing Knight Associated attestation - Sofia Farris PT - 05/06/2024 1:45 PM EST Pt was integrally and physically involved in the decision making, delivery of interventions, and ongoing assessment during the pt's care session. * Ml Lucas RN - 05/06/2024 9:12 AM EST 05/06/24 0911 Initial Transition Plan Initial Transition Plan Home Discharge Planning Living Arrangements Spouse/significant other Type of Residence Private residence Assistive Devices Hearing aid - right;Hearing aid - left;Eyeglasses;Cane Support Systems Spouse/significant other Transportation Transportation at discharge Family ICC met w Pt at bedside, confirmed demographics, declined VNA. Pt anticipates D/C today, to transport. Barriers: status post ileostomy and mucous fistula reversal 05/05, urinary retention Dispo: home w * Audrey Silva RN - 05/06/2024 6:44 AM EST Problem: Sensory:Periop Procedure - Major Goal: Demonstrates/reports adequate pain control 05/06/2024 06 by Audrey Mark RN Outcome: Progressing 05/06/2024 0644 by Audrey Mark RN Outcome: Adequate for Discharge 05/06/2024 0643 by Audrey Mark RN Outcome: Progressing 05/06/2024 0643 by Audrey Mark RN Outcome: Progressing Problem: Sensory: Acute Pain Goal: Pain level will improve or be tolerable 05/06/2024 0644 by Audrey Mark RN Outcome: Progressing 05/06/2024 0644 by Audrey Mark RN Outcome: Adequate for Discharge 05/06/2024 0643 by Audrey Mark RN Outcome: Progressing Goal: Ability to develop a pain control plan will improve 05/06/2024643 by Audrey Mark RN Outcome: Progressing 05/06/2024 0644 by Audrey Mark RN Outcome: Adequate for Discharge 05/06/2024 0643 by Audrey Mark RN Outcome: Progressing Problem: Cognitive: Acute Pain Goal: Expressions of feelings of enhanced comfort will increase 05/06/2024 0644 by Audrey Mark RN Outcome: Progressing 05/06/2024 0644 by Audrey Mark RN Outcome: Adequate for Discharge 05/06/2024 0643 by Audrey Mark RN Outcome: Progressing Problem: Patient Specific Problem: Acute Pain Goal: Patient Specific Outcome 05/06/2024 0644 by Audrey Mark RN Outcome: Progressing 05/06/2024 0644 by Audrey Mark RN Outcome: Adequate for Discharge 05/06/2024 0643 by Audrey Mark RN Outcome: Progressing Problem: Urinary Retention:Urinary-Retention Goal: Understanding of proper healthcare maintenance will improve 05/06/202444 by Audrey Mark RN Outcome: Progressing 05/06/2024 0644 by Audrey Mark RN Outcome: Adequate for Discharge Goal: Amount of urine per voiding will increase 05/06/2024643 by Audrey Mark RN Outcome: Progressing 05/06/2024643 by Audrey Mark RN Outcome: Adequate for Discharge Goal: Experiences of bladder distention will decrease 05/06/2024643 by Audrey Mark RN Outcome: Progressing 05/06/2024643 by Audrey Mark RN Outcome: Adequate for Discharge Goal: Verbalization of signs and symptoms of infection will improve 05/06/2024643 by Audrey Mark RN Outcome: Progressing 05/06/2024643 by Audrey Mark RN Outcome: Adequate for Discharge Goal: Compliance with treatment plan for underlying cause of condition will improve 05/06/2024643 by Audrey Mark RN Outcome: Progressing 05/06/2024643 by Audrey Mark RN Outcome: Adequate for Discharge Goal: Patient Specific Outcome 05/06/2024643 by Audrey Mark RN Outcome: Progressing 05/06/2024643 by Audrey Mark RN Outcome: Adequate for Discharge Problem: Falls: Fall Risk (Adult IP BH) Goal: (Goal) Patient will experience maximum safety and reduce risk for falls. 05/06/2024643 by Audrey Mark RN Outcome: Progressing 05/06/2024643 by Audrey Mark RN Outcome: Adequate for Discharge Goal: Patient will not fall or injure themselves during hospitalization. 05/06/2024643 by Audrey Mark RN Outcome: Progressing 05/06/2024643 by Audrey Mark RN Outcome: Adequate for Discharge Problem: Falls: Fall Risk (Adult IP BH) Goal: (Goal) Patient will experience maximum safety and reduce risk for falls. 05/06/2024643 by Audrey Mark RN Outcome: Progressing 05/06/2024643 by Audrey Mark RN Outcome: Adequate for Discharge Goals: Identify possible barriers to meeting goals/advancing plan of care: Stability of the patient: Moderately Stable - Low risk of patient condition declining or worsening End of Shift Summary: Patient safety and comfort maintained. Patient been retaining urine had to straight cath x1. Will continue to monitor documented in this encounter H&P Notes * Gustavo Stone MD - 05/05/2024 10:18 AM EST Progress Notes Gustavo Stone MD (Physician) General Surgery Expand All Collapse All Referring MD:Joey Dhillon, Hernan Veras is a 78 y.o. year old male who presents for a follow-up visit for history of emergent presentation in June of this year with perforated malignancy of the ascending colon, associatedretroperitoneal abscess, complicated course including initial right colectomy with takeback for anas tomotic dehiscence culminating in end ileostomy and transverse colon mucous fistula. After consultation locally he transferred his oncologic care to [facility] and has completed adjuvant capecitabine. Mostrecent CT scanning in late December of this year shows no evidence of recurrent or persistent disease. He remains anxious to have his stoma is reversed. He is with his Becki as always. Intercurrent events, he will evidently be having TRUS/biopsy in [place] with Dr. Mathis and possibly cryotherapy to follow depending on results. Initial procedure scheduled for mid-March. Last colonoscopy was around 4 years ago, it would be prudent to interrogate his remaining colon prior to reversal. Currently a patient of Dr. Odalis Downey. Primary oncologist in [place] is Dr. Nabil Xiao. Patient and note that he has offered to arrange colonoscopy there, or it can be done here at home of course. ROS: GENERAL: No malaise, significant weight loss or fever RESPIRATORY: No cough, wheezing or shortness of breath CARDIOVASCULAR: No chest pain, leg swelling or palpitations GI: No abdominal discomfort, blood in stools or black stools : Mild chronic LUTS MUSCULOSKELETAL: No NEW joint pain or swelling, back pain, or muscle pain. SKIN: No lesions, rash or itching HEMATOLOGY/LYMPHOLOGY No swollen nodes. Occasional bruising, on clopidogrel ENDOCRINE: No cold or heat intolerance, polyuria, polydipsia or goiter. NEURO: Fixed post-stroke deficits PSYCH: No mood disorders PAST MEDICAL HISTORY: Patient Active Problem List Diagnosis Date Noted Presence of ileostomy (CMS/HCC) 03/07/2024 Presence of colostomy (CMS/HCC) 03/07/2024 BPH (benign prostatic hyperplasia) 01/21/2024 HLD (hyperlipidemia) 01/21/2024 Hypothyroidism 01/21/2024 Right internal carotid occlusion 01/21/2024 Stenosis of left internal carotid artery 01/21/2024 Stroke [place] 01/21/2024 Colon adenocarcinoma ([facility]) 01/21/2024 CVA (cerebral vascular accident) ([facility]) 01/21/2024 Gait instability 07/23/2023 Malignant neoplasm of ascending colon ([facility]) 07/13/2023 PAST SURGICAL HISTORY: Surgical History Past Surgical History: Procedure Laterality Date APPENDECTOMY PROCEDURE: HISTORICAL APPENDECTOMY OTHER SURGICAL HISTORY Right PROCEDURE: [place] ARTHRODESIS ANKLE OPEN OTHER SURGICAL HISTORY PROCEDURE: [place] UNLISTED PX MEC[employer]'S DIV[employer]ICULUM [employer] MESENTERY SOCIAL HISTORY: Social History Tobacco Use Smoking status: Former Current packs/day: 1.00 Types: Cigarettes Smokeless tobacco: Never Substance Use Topics Alcohol use: Yes FAMILY HISTORY: Family History No family history on file. No family status information on file. ACTIVE MEDICATIONS: Medications Taking Outpatient Medications Marked as Taking for the 03/07/24 encounter (Office Visit) with Gustavo Stone MD Medication Sig Dispense Refill atorvastatin (LIPITOR) 80 mg tablet Take 1 tablet (80 mg total) by mouth 1 (one) time each day. clopidogreL (PLAVIX) 75 mg tablet Take 1 tablet (75 mg total) by mouth 1 (one) time each day. cyanocobalamin, vitamin B-12, 1,000 mcg capsule Take by mouth. finasteride (PROSCAR) 5 mg tablet Take 1 tablet (5 mg total) by mouth 1 (one) time each day. levothyroxine sodium (TIROSINT) 137 mcg capsule Take 125 mcg by mouth. ALLERGIES: Allergies No Known Allergies PHYSICAL EXAM: Visit Vitals BP (!) 141/78 (BP Location: Left arm, Patient Position: Sitting, BP Cuff Size: Large adult) Pulse 91 Temp 36.9 ??C (98.4 ??F) (Temporal) Ht 1.854 m (73 ) Wt 99.6 kg (219 lb 8 oz) BMI 28.96 kg/m?? Smoking Status Former BSA 2.24 m?? Pleasant well nourished , well developed older white male in no acute distress. His sclera are non-icteric. His pupils are round. His extraocular muscles are grossly intact. His lungs are clear. His heart has a regular rate and rhythm. His abdomen is non-tender. Opaque bag surrounds his right lowerquadrant ileostomy, healthy transverse colon mucous fistula upper midline, small amounts of mucus drainage, well-healed midline laparotomy without hernia or wound implant, abdomen soft in general without palpable deep mass. There is no apparent organomegaly. His skin is warm without obvious cancersin the limited areas seen. He is alert and oriented to time and place and reason for this consultation. LABS: No results found for: WBC , HGB , HCT , MCV No results found for: NA , K , CO2 , CL , BUN , GLU , ALB , ALKPHOS , TP IMAGING: CT results from [facility], December 2023, as above IMPRESSION: 1. Presence of ileostomy (CMS/HCC) 2. Malignant neoplasm of ascending colon (CMS/HCC) 3. Presence of colostomy (CMS/HCC) Plan: It is reasonable to pursue reversal of his ileostomy/mucous fistula at some point over the next couple of months. He and his are really trying to push hard to get everything done immediately, which is not possible; we will try and move things along at a steady pace. I would like him to have colonoscopy of his remaining colon; I did reach out by text to Dr. Downey who agrees to bring him in for evaluation and scheduling. Any pathology found on that study will of course mandate a change in surgical planning. He needs to have his prostate issues squared away for a few weeks prior to embarking on major abdominal surgery. They understand and agree. Risks and benefits of reversal of the ileostomy/mucous fistula reviewed together. No mechanical prep indicated. Enhanced recovery protocol measures discussed. Further education provided by booking staff. Inpatient procedure at [facility], follow-up 2 weeks later if all goes well. Expected convalescence and outcome discussed. Risks include, but are not limited to, bleeding, infection, anastomotic dehiscence requiring further operation and possibly more ostomies, injury to other abdominal organs, DVT or PE, atelectasis or pneumonia, heart attack or stroke, and . I do not think any particular risk stratification necessary at this point. He needs to hold his clopidogrel at least 10 days prior to surgery but he may initiate baby aspirin. All questions asked were answered to the best of my ability. History and Physical Update ( H&P completed prior to thirty days ago) I personally reviewed the History and Physical, interviewed and examined the patient prior to surgery. No changes have occurred in the patient's condition since the History and Physical was completed. documented in this encounter Procedure Notes * GIOVANNI Granado - 05/07/2024 6:05 AM EST Subjective: Overnight events: POD 2 status post ileostomy and mucous fistula reversal. Patient was retaining urine, he has had 1 dose of Flomax and is voiding more freely. Patient developed bowel function overnight with 4-5 loose bowel movements. His abdomen is less distended. He feels much better. No chest pain or shortness of breath. No lower extremity pain or swelling. Objective: Visit Vitals BP 118/61 (BP Location: Right arm, Patient Position: Lying) Pulse 96 Temp 37.3 ??C (99.1 ??F) (Temporal) Resp 20 Intake/Output Summary (Last 24 hours) at 05/07/2024 0605 Last data filed at 05/06/2024 1700 Gross per 24 hour Intake -- Output 200 ml Net -200 ml Admission on 05/05/2024 Component Date Value Sodium 05/06/2024 139 Potassium 05/06/2024 4.5 Chloride 05/06/2024 105 CO2 05/06/2024 27 Anion Gap 05/06/2024 7 Glucose 05/06/2024 106 (H) BUN 05/06/2024 16 Creatinine 05/06/2024 1.58 (H) eGFR 05/06/2024 45 (L) BUN/Creatinine Ratio 05/06/2024 10.1 Calcium 05/06/2024 8.6 Magnesium 05/06/2024 2.1 Phosphorus 05/06/2024 4.3 WBC 05/06/2024 15.7 (H) RBC 05/06/2024 4.30 (L) Hemoglobin 05/06/2024 14.5 Hematocrit 05/06/2024 43.8 MCV 05/06/2024 101.4 (H) MCH 05/06/2024 33.6 (H) MCHC 05/06/2024 33.1 RDW 05/06/2024 12.1 Platelets 05/06/2024 263 MPV 05/06/2024 10.7 NRBC 05/06/2024 0.0 NRBC Absolute 05/06/2024 0.00 Neutrophils Relative 05/06/2024 82.7 Lymphocytes Relative 05/06/2024 9.2 Monocytes Relative 05/06/2024 7.3 Eosinophils Relative 05/06/2024 0.1 Basophils Relative 05/06/2024 0.4 Immature Granulocytes Re* 05/06/2024 0.3 Neutrophils Absolute 05/06/2024 12.98 (H) Lymphocytes Absolute 05/06/2024 1.45 Monocytes Absolute 05/06/2024 1.14 (H) Eosinophils Absolute 05/06/2024 0.01 Basophils Absolute 05/06/2024 0.06 Immature Granulocytes Ab* 05/06/2024 0.04 (H) COLONOSCOPY Anesthesia - MAC; [facility] ENDOSCOPY Narrative: [facility] GI Patient Name: Hernan Veras Procedure Date: 03/17/2024 7:25 AM Date of : 1945 Age: 78 Gender: Male Note Status: Finalized Attending MD: Jaun Enriquez MD, Procedure Date No Time: 03/17/2024 Procedure: Colonoscopy Indications: High risk colon cancer surveillance: Personal history of colon cancer Providers: Jaun Enriquez MD Referring MD: Jaun Enriquez MD Medicines: Monitored Anesthesia Care Complications: No immediate complications. Estimated Blood Loss: Estimated blood loss: none. Procedure: After I obtained informed consent, the scope was passed under direct vision. Throughout the procedure, the patient's blood pressure, pulse, and oxygen saturations were monitored continuously. The Colonoscope was introduced through the anus and advanced to the surgical stoma. The colonoscopy was performed without difficulty. The patient tolerated the procedure well. The quality of the bowel preparation was good. Findings: The entire examined colon appeared normal. Scope passed to directly below mucous fistula. Could see light, and feel scope directly below the fistula. The colonic mucosa was a bit friable, with some thick mucous (as I would expect) but otherwise negative. Procedure Code(s): --- Professional --- G0105, Colorectal cancer screening; colonoscopy on individual at high risk Diagnosis Code(s): --- Professional --- Z85.038, Personal history of other malignant neoplasm of large intestine CPT copyright 2020 [employer]. All rights reserved. The codes documented in this report are preliminary and upon television inspector review may be revised to meet current compliance requirements. MD Jaun Azar MD 03/17/2024 8:01:40 AM This report has been signed electronically.Jaun Enriquez MD Number of Addenda: 0 Note Initiated On: 03/17/2024 7:25 AM Scope In: Scope Out: Endoscopy Department at [facility] - [address] [place] [phone] Impression: - The entire examined colon is normal. - No specimens collected. Recommendation: - Patient has a contact number available for emergencies. The signs and symptoms of potential delayed complications were discussed with the patient. Return to normal activities tomorrow. Written discharge instructions were provided to the patient. - Resume previous diet. - Continue present medications. - Resume Plavix (clopidogrel) at prior dose today. - Repeat colonoscopy in 1 year for surveillance. General: no apparent distress HNT: moist mucous membranes Eyes: sclera anicteric Thorax: clear to auscultation bilaterally Cardiovascular: no murmurs, pulse regular rate and rhythm Abdomen: soft, non-tender, non-distended, bowel sounds noted, dressings changed incisions clean dryand intact Extremities: no cyanosis or edema Neurologic: alert/awake/oriented Assessment: 78 y.o male Post op day #: 2 s/p ileostomy and mucous fistula reversal performed by Dr.Daniel Stone on 05/05/24. Patient is voiding more freely following a single dose of Flomax. Plan: Patient with increased voids and stronger stream since starting Flomax. [facility]. He has developed bowel function with 4-5 loose stools. Encourage out of bedambulating hallways. Advance diet as tolerated, postop diet ordered for this morning. Patient likely ready for discharge home later today without services.. * GIOVANNI Granado - 05/06/2024 6:15 AM EST Subjective: Overnight events: POD 1 status post ileostomy and mucous fistula reversal. Stable, afebrile. Patient with urinary retention overnight requiring straight cath of 500 cc. Patient bladder scan this morning 460 cc, has not voided on his own. No chest pain or shortness of breath. No nausea or vomiting. No fever or chills. Lower extremity pain or swelling. Objective: Visit Vitals BP 130/71 (BP Location: Right arm, Patient Position: Lying) Pulse 89 Temp 37.1 ??C (98.8 ??F) (Oral) Resp 16 Intake/Output Summary (Last 24 hours) at 05/06/2024 0615 Last data filed at 05/05/2024 2300 Gross per 24 hour Intake 1110 ml Output 520 ml Net 590 ml No visits with results within 1 Day(s) from this visit. Latest known visit with results is: Abstract on 01/21/2024 Component Date Value Annual BMP Blood Test 11/19/2023 abstracted COLONOSCOPY Anesthesia - MAC; [facility] END[facility]COPY Narrative: [facility] GI Patient Name: Hernan Veras Procedure Date: 03/17/2024 7:25 AM Date of : 1945 Age: 78 Gender: Male Note Status: Finalized Attending MD: Jaun Enriquez MD, Procedure Date No Time: 03/17/2024 Procedure: Colonoscopy Indications: High risk colon cancer surveillance: Personal history of colon cancer Providers: Jaun Enriquez MD Referring MD: Jaun Enriquez MD Medicines: Monitored Anesthesia Care Complications: No immediate complications. Estimated Blood Loss: Estimated blood loss: none. Procedure: After I obtained informed consent, the scope was passed under direct vision. Throughout the procedure, the patient's blood pressure, pulse, and oxygen saturations were monitored continuously. The Colonoscope was introduced through the anus and advanced to the surgical stoma. The colonoscopy was performed without difficulty. The patient tolerated the procedure well. The quality of the bowel preparation was good. Findings: The entire examined colon appeared normal. Scope passed to directly below mucous fistula. Could see light, and feel scope directly below the fistula. The colonic mucosa was a bit friable, with some thick mucous (as I would expect) but otherwise negative. Procedure Code(s): --- Professional --- G0105, Colorectal cancer screening; colonoscopy on individual at high risk Diagnosis Code(s): --- Professional --- Z85.038, Personal history of other malignant neoplasm of large intestine CPT copyright 2020 [employer]. All rights reserved. The codes documented in this report are preliminary and upon television inspector review may be revised to meet current compliance requirements. MD Jaun Azar MD 03/17/2024 8:01:40 AM This report has been signed electronically.Jaun Enriquez MD Number of Addenda: 0 Note Initiated On: 03/17/2024 7:25 AM Scope In: Scope Out: Endoscopy Department at [facility] - [address] [place] [phone] Impression: - The entire examined colon is normal. - No specimens collected. Recommendation: - Patient has a contact number available for emergencies. The signs and symptoms of potential delayed complications were discussed with the patient. Return to normal activities tomorrow. Written discharge instructions were provided to the patient. - Resume previous diet. - Continue present medications. - Resume Plavix (clopidogrel) at prior dose today. - Repeat colonoscopy in 1 year for surveillance. General: no apparent distress HNT: moist mucous membranes Eyes: sclera anicteric Thorax: clear to auscultation bilaterally Cardiovascular: no murmurs, pulse regular rate and rhythm Abdomen: Mildly tender to palpation, softly distended with tympany, bowel sounds absent, midline dressing stained and marked otherwise incisions clean dry and intact. Extremities: no cyanosis or edema Neurologic: alert/awake/oriented Assessment: 78 y.o male Post op day #: 1 s/p reversal of ileostomy and mucous fistula performed by Dr. Gustavo Stone on 05/06/2024. Patient with urinary retention overnight requiring straight cath. No bowel function as of yet. Plan: Monitor for urinary retention with bladder scan. Encourage patient to be up and out of bed and ambulating and/or up at bedside. Encouraged incentive spirometry. Will need to resume aspirin and Plavix. Continue clears and supplements hold on advancement of diet until bowel function apparent. Morning labs pending. * Gustavo Stone MD - 05/05/2024 11:16 AM EST ILEOSTOMY CLOSURE OPERATIVE NOTE Date: 05/05/2024 Location: [facility] OR Name: Hernan Veras, : 1945, Diagnosis Pre-Op Diagnosis Codes: * Presence of ileostomy (CMS/HCC) [Z93.2] * Presence of colostomy (CMS/HCC) [Z93.3] Post-op Diagnosis * Presence of ileostomy (CMS/HCC) [Z93.2] * Presence of colostomy (CMS/HCC) [Z93.3] Procedures ILEOSTOMY CLOSURE 09024 - [place] CLOSURE ENTEROSTOMY LARGE/SMALL INTESTINE 91169 - [place] CLOSURE ENTEROSTOMY LARGE/SMALL INTESTINE 73193 - [place] CLOSURE ENTRSTMY LRG/SM INTESTINE W/RESEC & ANAST OTH THAN COLORECTAL Indications: Hernan Veras is a 78 y.o. male who is having surgery for Pre-Op Diagnosis Codes: * Presence of ileostomy (CMS/HCC) [Z93.2] * Presence of colostomy (CMS/HCC) [Z93.3]. Surgeon(s) & Weblogic Administrator(s) * Gustavo Stone MD - Primary Weblogic Administrator: Nasreen Grewal PA-C Anesthesia: general ASA: II Estimated Blood Loss: 20 mL Drains: * No LDAs found * Specimen: Ileostomy; colostomy Specimens ID Source Type Tests Collected By Collected At Frozen? Priority Lab ID 1 Colon Tissue TISSUE EXAM Gustavo Stone MD 05/05/24 [id number] Description: ILEOSTOMY (LARGER) AND COLOSTOMY Procedure Details: We identified Mr. Veras and he was given intravenous antibiotics and general anesthesia. Abdomen was shaved. Both ostomies were closed with a running locked Vicryl. Abdominal wall prep was performed and he was draped out. Timeout was done. Prior upper midline laparotomy was reopened sharply, carrying a narrow skin ellipse around his colostomy/mucous fistula which is at the apexof the incision. Dissection was carried through scar and eventually linea alba with cautery. Sharp and cautery adhesiolysis was done in the peritoneal space until we had safely the transverse colon from the attachments to the abdominal wall, adjacent small bowel loops, and greater omentum. Colostomy was now taken down fully from the abdominal wall. Additional blunt, sharp and cautery adhesiolysis was performed until we had the small bowel loops directly subjacent to his right-sided ileostomy mobilized. Elliptical incision was created around the ileostomy and taken down through subcutaneous fat to the fascia with cautery in the usual fashion. We entered a small parastomal hernia, excised the sac, took the ostomy down fully from the abdominal wall. Mesentery for the portion of theileostomy that traversed the abdominal wall was divided with LigaSure, for both the ileostomy and the colostomy. [id number]-[id number] ileocolic anastomosis was created in usual fashion with approximately 60 mm of a 75 MELLISSA blue stapler. The anastomosis was closed and the 2 ostomies amputated with transverse application of a TA 60 blue stapler. We had healthy/pulsatile capillary bleeding from multiple points along the TA staple line that was controlled with either suture ligature or cautery. Tissues are well-perfusedand there is absolutely no tension. [place] reinforced with seromuscular Vicryl per usual. With clean gloves and instruments we closed the fascia at the ileostomy site with a running 0 PDS. The midline fascia was also closed with running 0 PDS, small-bite technique. Counts at this point were correct. We irrigated both wounds. Midline was closed with skin [place], ileostomy site with deep3-0 nylon mattress sutures. Neosporin and dry dressings were applied and he was awakened and transferred recovery in stable condition. He tolerated this procedure well. His was updated. Counts are again correct. Standard debrief was carried out with all room personnel at the close of the case. Findings: As above Complications: None; patient tolerated the procedure well. Disposition: PACU - hemodynamically stable. * Danay Ford RN - 05/05/2024 9:12 AM EST SPOUSE BECKI Paul [id number] documented in this encounter Consult Notes * Tori Hernández MD - 05/09/2024 12:31 PM ESTAssociated Order(s): IP CONSULT TO CARDIOLOGY Images from the original note were not included. [facility] Cardiology- Cardiology Consultation Note PATIENT NAME: Hernan Veras ([id number]) DATE OF CONSULT: 05/09/24 REFERRING PROVIDER: Dr Flowers PRIMARY DIRECTOR OF PUBLIC SAFETY: Dr Hernández ASSESSMENT & PLAN 78 y.o. male who presented for elective ileostomy and mucous fistula reversal by Dr. Stone aftertreatment for colon cancer on 05/06/2024. On 05/07/2024, he was noted to be in postoperative atrial fibrillation with RVR. This is a new diagnosis for him. However, he was completely asymptomatic and was easily rate controlled with IV metoprolol and eventually oral diltiazem. He then spontaneously converted to sinus rhythm. This is not at all uncommon postoperatively I explained. Paroxysmal atrial fibrillation (CMS/HCC) Postoperative atrial fibrillation with spontaneous conversion. I reviewed the pathophysiology, etiology, treatment strategies in relation to atrial fibrillation highlighting the differences between rate and rhythm control strategies. I also reviewed that several trials have indicated that the outcomes between rate and rhythm control are not significantly different. The only reason to pursue rhythm control would be for symptomatic relief. I also reviewed the importance of stroke prevention basedon the [id number] score. I reviewed that in many cases, anticoagulation is initiated to prevent cardio strokes. In his case, he is asymptomatic so rate control is perfectly fine as a strategy. He is an extremely high stroke risk given prior history of stroke and numerous other risk factors. He has already been initiated on Eliquis 5 twice daily which I agree with. Would recommend transitioning to long-acting diltiazem 180 mg daily upon discharge. Metoprolol is probably unnecessary given that while in sinus rhythm his heart rate is quite well-controlled. Because he is on Plavix at baseline for peripheral vascular disease and carotid vascular disease per his vascular surgeon, would probablyresume this when safe from a general surgery standpoint. Currently, he and his report that they have been on aspirin in lieu of Plavix awaiting the surgery. They are uncertain of how long he needs to remain on baby aspirin before transitioning back to Plavix as an outpatient postoperatively. HLD (hyperlipidemia) Continue high-dose statin for history of vascular disease [facility] CARDIOLOGY RECOMMENDATIONS: Transition to long-acting diltiazem 180 mg daily of long-acting preparation Continue Eliquis 5 twice daily Ultimately, patient will need to go back on Plavix for vascular disease-would determine with surgery the timing of switching from aspirin to Plavix Discussed with Dr Flowers. SUBJECTIVE REASON FOR CONSULTATION: Paroxysmal atrial fibrillation HISTORY OF PRESENT ILLNESS: 78 y.o. male who presents for elective ileostomy and mucous fistula reversal on 05/06/2024. He has alongstanding history of colon cancer that was treated at [facility] [place] and was complicated by perforated malignancy of the ascending colon with associated retroperitoneal abscess. He had a complicated course with colectomy with takeback for anastomotic dehiscence culminating in an end ileostomy and transverse colonic mucous fistula. He had the surgery without major complications asscheduled. However the next day he went into atrial fibrillation with rapid ventricular response rate. He ultimately required treatment with both metoprolol and diltiazem for rate control. However, the next day he spontaneously converted to sinus rhythm which he remains in in the 60s. He was completely asymptomatic for all of this. He denied any palpitations. Recently he has not had any issues with chest pain, dyspnea on exertion, lightheadedness, syncope, lower extremity edema. He has never seen a carburetor mechanic because he has not had cardiac issues. He does see Dr. 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 He also has a history of an ascending aortic aneurysm as well as an abdominal aortic aneurysm-both of which are being surveyed. Workup of his atrial fibrillation, he had the echocardiogram below. Briefly it showed that he had apreserved ejection fraction. REVIEW OF SYSTEMS (ROS): Negative except as mentioned in the HPI. PAST MEDICAL HISTORY He has a past medical history of BPH (benign prostatic hyperplasia), Colon cancer (CMS/HCC) (2023),HL (hearing loss), HLD (hyperlipidemia), Hypothyroidism, Prostate CA (CMS/HCC), Right internal carotid occlusion, Stenosis of left internal carotid artery, Stroke (CMS/HCC), and Tobacco abuse. PAST SURGICAL HISTORY He has a past surgical history that includes Other surgical history (Right); Appendectomy; Other surgical history; Colonoscopy; ORIF ankle fracture; and Ileostomy (2023). SOCIAL HISTORY Tob: reports that he has quit smoking. His smoking use included cigarettes. He has never used smokeless tobacco. ETOH: reports current alcohol use of about 6.0 standard drinks of alcohol per week. Drug: reports no history of drug use. FAMILY HISTORY He family history includes Atrial fibrillation in his brother; Stroke in his father; Uterine cancerin his sister. MEDICATIONS: Current Facility-Administered Medications: acetaminophen (TYLENOL) tablet 1,000 mg, 1,000 mg, oral, q8h JASPREET, GIOVANNI Pappas, 1,000 mg at05/09/24 0611 apixaban (ELIQUIS) tablet 5 mg, 5 mg, oral, BID, GIOVANNI Gallo, 5 mg at 05/09/24 0820 atorvastatin (LIPITOR) tablet 80 mg, 80 mg, oral, Daily, Jenysa Arthur Bunn, GIOVANNI, 80 mg at 05/09/24 0821 buprenorphine HCL (BUPRENEX) injection solution 0.075 mg, 0.075 mg, intravenous, q4h PRN, GIOVANNI Pappas buprenorphine HCL (BUPRENEX) injection solution 0.15 mg, 0.15 mg, intravenous, q4h PRN, GIOVANNI Pappas dilTIAZem (CARDIZEM) immediate release tablet 60 mg, 60 mg, oral, q6h, Emely Flowers MD, 60 mg at05/09/24 1024 finasteride (PROSCAR) tablet 5 mg, 5 mg, oral, Daily, GIOVANNI Hargrove, 5 mg at 05/09/24 0821 levothyroxine (SYNTHROID, LEVOTHROID) tablet 125 mcg, 125 mcg, oral, q AM AC, GIOVANNI Pappas,125 mcg at 05/09/24 0611 metoprolol tartrate (LOPRESSOR) 5 mg in sodium chloride 0.9 % 50 mL IVPB, 5 mg, intravenous, Once, GIOVANNI Saldana metoprolol tartrate (LOPRESSOR) tablet 25 mg, 25 mg, oral, Once, Emely Flowers MD metoprolol tartrate (LOPRESSOR) tablet 25 mg, 25 mg, oral, BID, Emely Flowers MD, 25 mg at 05/09/24 1026 ondansetron (PF) (ZOFRAN) injection 4 mg, 4 mg, intravenous, q6h PRN, GIOVANNI Pappas oxyCODONE (ROXICODONE) immediate release tablet 10 mg, 10 mg, oral, q4h PRN, GIOVANNI Saldana oxyCODONE (ROXICODONE) immediate release tablet 5 mg, 5 mg, oral, q4h PRN, GIOVANNI Saldana psyllium (METAMUCIL) packet 1 packet, 1 packet, oral, Daily, Gustavo Stone MD, 1 packet at 05/09/24 0823 tamsulosin (FLOMAX) 24 hr capsule 0.4 mg, 0.4 mg, oral, Daily, GIOVANNI Granado, 0.4 mg at 05/09/24 0823 ALLERGIES: He has No Known Allergies. OBJECTIVE Vitals: 05/09/24 1057 BP: 119/64 Pulse: 66 Resp: Temp: 36.3 ??C (97.3 ??F) SpO2: 99% Body mass index is 29.65 kg/m??. PHYSICAL EXAMINATION: General/constitutional: No acute distress, pleasant and cooperative Eyes: EOMI, normal convergence HENT: Atraumatic and normocephalic, moist mucous membranes Neck: Supple, no jugular venous distention Cardiovascular: Regular rate and rhythm, 2 out of 6 systolic ejection murmur rubs or gallops Lungs: Clear to auscultation bilaterally Extremities: No cyanosis or edema MSK: Moves all extremities, normal gait Skin: Warm and dry Neuro: Alert and oriented x3, grossly nonfocal Psych: Mood and affect are appropriate LABS: Lab Results Component Value Date GLUCOSE 104 (H) 05/09/2024 CALCIUM 8.1 (L) 05/09/2024 NA 142 05/09/2024 K 3.9 05/09/2024 CO2 26 05/09/2024 CL 111 (H) 05/09/2024 BUN 14 05/09/2024 CREATININE 1.29 05/09/2024 Lab Results Component Value Date WBC 7.6 05/09/2024 HGB 12.1 (L) 05/09/2024 HCT 37.1 (L) 05/09/2024 MCV 99.7 (H) 05/09/2024 PLT 173 05/09/2024 Lab Results Component Value Date INR 0.9 05/07/2024 Lab Results Component Value Date HSTROPI 8 05/07/2024 CARDIOVASCULAR TESTING 05/05/24 TRANSTHORACIC ECHOCARDIOGRAM (TTE) COMPLETE (CONTRAST/BUBBLE/3D PRN) 05/08/2024 05/08/2024 Interpretation Summary Left ventricle cavity size is normal. No regional LV wall motion abnormalities noted.Left ventricular systolic function is in the normal range with an ejection fraction of 60-65%.Unable to assess diastolic function due to arrhythymia. Right ventricle cavity is mildly enlarged. Right ventricular systolic function is normal. Aortic valve leaflets are mildly thickened. Mild regurgitation. The ascending aorta is mildly dilated (4.1 cm). No significant change from November 07, 2023. Signed by: Marky Davis MD on 05/08/2024 1:32 PM EKG (05/07/2024) atrial fibrillation with ventricular response rate in the 150s, no significant ST-[facility] changes Thank you for allowing us to participate in this consultation. Please feel free to contact us with questions or concerns. We will continue to follow as an outpatient and are signing off. . 35 minutes was spent reviewing the medical record, imaging, labs, and seeing the patient which included explaining relevant diagnosis, providing patient education, discussing treatment options, in addition to documenting in the record. [facility] [address] [place] [address] documented in this encounter Plan of Treatment Upcoming Encounters Date Type Department Care Team (Late st Contact Info) Description 05/20/2024 10:00 AM EST Office Visit General Surgery - [place] [address] [phone] Gustavo Stone MD [address] [facility] [address] [place] [address] documented as of this encounter Procedures Procedure Name Priority Date/Time Associated Diagnosis Comments CBC WITH AUTO DIFFERENTIAL Routine 05/09/2024 6:34 AM EST CBC AND DIFFERENTIAL Routine 05/09/2024 6:34 AM EST PHOSPHORUS Routine 05/09/2024 6:34 AM EST MAGNESIUM Routine 05/09/2024 6:34 AM EST BASIC METABOLIC PANEL Routine 05/09/2024 6:34 AM EST TRANSTHORACIC ECHOCARDIOGRAM (TTE) COMPLETE W/ CONTRAST Routine 05/08/2024 1:14 PM EST Atrial fibrillation, unspecified type (CMS/HCC) EXTRA TUBES Routine 05/08/2024 9:23 AM EST CBC WITH AUTO DIFFERENTIAL Routine 05/08/2024 9:23 AM EST LT BLUE - NA CITRATE Routine 05/08/2024 9:23 AM EST COMPLETE BLOOD COUNT Timed 05/08/2024 9:23 AM EST CBC AND DIFFERENTIAL Routine 05/08/2024 9:23 AM EST BASIC METABOLIC PANEL Routine 05/08/2024 9:23 AM EST ACTIVATED PARTIAL THROMBOPLASTIN TIME STAT 05/07/2024 4:14 PM EST PROTHROMBIN TIME WITH INR STAT 05/07/2024 4:14 PM EST TROPONIN I HIGH SENSITIVITY STAT 05/07/2024 12:15 PM EST THYROID STIMULATING HORMONE Add-On 05/07/2024 12:15 PM EST B-TYPE NATRIURETIC PEPTIDE STAT 05/07/2024 12:15 PM EST HEPATIC FUNCTION PANEL STAT Add-on 05/07/2024 12:15 PM EST TROPONIN I HIGH SENSITIVITY STAT 05/07/2024 8:58 AM EST CBC WITH AUTO DIFFERENTIAL STAT 05/07/2024 8:58 AM EST CBC AND DIFFERENTIAL STAT 05/07/2024 8:58 AM EST MAGNESIUM STAT 05/07/2024 8:58 AM EST BASIC METABOLIC PANEL Routine 05/07/2024 8:58 AM EST ECG 12-LEAD STAT 05/07/2024 8:41 AM EST CBC WITH AUTO DIFFERENTIAL Routine 05/07/2024 6:25 AM EST CBC AND DIFFERENTIAL Routine 05/07/2024 6:25 AM EST PHOSPHORUS Routine 05/07/2024 6:25 AM EST MAGNESIUM Routine 05/07/2024 6:25 AM EST BASIC METABOLIC PANEL Routine 05/07/2024 6:25 AM EST PHOSPHORUS Routine 05/06/2024 6:18 AM EST MAGNESIUM Routine 05/06/2024 6:18 AM EST BASIC METABOLIC PANEL Routine 05/06/2024 6:18 AM EST CBC WITH AUTO DIFFERENTIAL Routine 05/06/2024 6:17 AM EST CBC AND DIFFERENTIAL Routine 05/06/2024 6:17 AM EST TISSUE EXAM Routine 05/05/2024 11:55 AM EST 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 documented in this encounter Results * (ABNORMAL) CBC auto differential (05/09/2024 6:34 AM EST) WBC 7.6 4.8 - 10.8 K/mcL LAB HEMETOLOGY METHOD 05/09/2024 7:22 AM EST [facility] RBC 3.70(L) 4.50 - 5.50 M/mcL LAB HEMETOLOGY METHOD 05/09/2024 7:22 AM [facility] Hemoglobin 12.1(L) 13.5 - 17.5 g/dL LAB HEMETOLOGY METHOD 05/09/2024 7:22 AM [facility] Hematocrit 37.1(L) 42.0 - 54.0 % LAB HEMETOLOGY METHOD 05/09/2024 7:22 AM [facility] MCV 99.7(H) 79.0 - 98.0 FL LAB HEMETOLOGY METHOD 05/09/2024 7:22 AM [facility] MCH 32.5(H) 27.0 - 32.0 pcg LAB HEMETOLOGY METHOD 05/09/2024 7:22 AM [facility] MCHC 32.6 32.0 - 37.0 g/dL LAB HEMETOLOGY METHOD 05/09/2024 7:22 AM [facility] RDW 12.1 11.0 - 15.0 % LAB HEMETOLOGY METHOD 05/09/2024 7:22 AM [facility] Platelets 173 130 - 400 K/mcL LAB HEMETOLOGY METHOD 05/09/2024 7:22 AM [facility] MPV 10.9 7.0 - 11.0 FL LAB HEMETOLOGY METHOD 05/09/2024 7:22 AM [facility] NRBC 0.0 <1.0 % LAB HEMETOLOGY METHOD 05/09/2024 7:22 AM [facility] NRBC Absolute 0.00 <0.10 K/mcL LAB HEMETOLOGY METHOD 05/09/2024 7:22 AM [facility] Neutrophils Relative 68.0 % LAB HEMETOLOGY METHOD 05/09/2024 7:22 AM [facility] Lymphocytes Relative 15.5 % LAB HEMETOLOGY METHOD 05/09/2024 7:22 AM [facility] Monocytes Relative 9.0 % LAB HEMETOLOGY METHOD 05/09/2024 7:22 AM [facility] Eosinophils Relative 6.3 % LAB HEMETOLOGY METHOD 05/09/2024 7:22 AM [facility] Basophils Relative 0.9 % LAB HEMETOLOGY METHOD 05/09/2024 7:22 AM [facility] Immature Granulocytes Relative 0.3 % LAB HEMETOLOGY METHOD 05/09/2024 7:22 AM [facility] Neutrophils Absolute 5.14 1.50 - 7.00 K/mcL LAB HEMETOLOGY METHOD 05/09/2024 7:22 AM [facility] Lymphocytes Absolute 1.17 1.00 - 5.00 K/mcL LAB HEMETOLOGY METHOD 05/09/2024 7:22 AM [facility] Monocytes Absolute 0.68 0.20 - 1.00 K/mcL LAB HEMETOLOGY METHOD 05/09/2024 7:22 AM [facility] Eosinophils Absolute 0.48 0.00 - 0.50 K/mcL LAB HEMETOLOGY METHOD 05/09/2024 7:22 AM [facility] Basophils Absolute 0.07 0.00 - 0.20 K/mcL LAB HEMETOLOGY METHOD 05/09/2024 7:22 AM [facility] Immature Granulocytes Absolute 0.02 0.00 - 0.03 K/mcL LAB HEMETOLOGY METHOD 05/09/2024 7:22 AM [facility] Blood Venous blood specimen / Unknown Venipuncture / Unknown 05/09/2024 6:34 AM EST 05/09/2024 6:54 AM EST Leti Flores NP LAB BLOOD ORDERABLES [facility]) [facility] [address] [place] [address], * Phosphorus (05/09/2024 6:34 AM EST) Pathologist [facility] Phosphorus 3.0 2.5 - 4.5 mg/dL LAB CHEMISTRY METHOD 05/09/2024 8:05 AM [facility] Blood Venous blood specimen / Unknown Venipuncture / Unknown 05/09/2024 6:34 AM EST 05/09/2024 6:52 AM EST Leti Flores [employer] LAB BLOOD ORDERABLES Performing Organization Address City/[facility]/ZIP Co de Phone Number [facility] [address] [place] [address], * Magnesium (05/09/2024 6:34 AM EST) [facility] Magnesium 2.2 1.9 - 2.6 mg/dL LAB CHEMISTRY METHOD 05/09/2024 8:05 AM [facility] Blood Venous blood specimen / Unknown Venipuncture / Unknown 05/09/2024 6:34 AM EST 05/09/2024 6:52 AM EST Leti Flores NP LAB BLOOD ORDERABLES Performing Organization Address City/[facility]/ZIP Co de Phone Number [facility] [address] [place] [address], * (ABNORMAL) Basic metabolic panel (05/09/2024 6:34 AM EST) Pathologist [facility] Sodium 142 133 - 145 mmol/L LAB CHEMISTRY METHOD 05/09/2024 8:05 AM [facility] Potassium 3.9 3.5 - 5.5 mmol/L LAB CHEMISTRY METHOD 05/09/2024 8:05 AM [facility] Chloride 111(H) 96 - 110 mmol/L LAB CHEMISTRY METHOD 05/09/2024 8:05 AM [facility] CO2 26 21 - 32 mmol/L LAB CHEMISTRY METHOD 05/09/2024 8:05 AM [facility] Anion Gap 5 3 - 11 LAB CHEMISTRY METHOD 05/09/2024 8:05 AM [facility] Glucose 104(H) 70 - 100 mg/dL LAB CHEMISTRY METHOD 05/09/2024 8:05 AM [facility] BUN 14 5 - 25 mg/dL LAB CHEMISTRY METHOD 05/09/2024 8:05 AM [facility] Creatinine 1.29 0.70 - 1.30 mg/dL LAB CHEMISTRY METHOD 05/09/2024 8:05 AM [facility] eGFR 57(L) >=60 mL/min/1. 73m2 LAB CHEMISTRY METHOD 05/09/2024 8:05 AM [facility] Comment:Calculation based on the??Chronic Kidney Disease Epidemiology Collaboration (CKD-EPI) equation refit??without adjustment for race. BUN/Creatinine Ratio 10.9 LAB CHEMISTRY METHOD 05/09/2024 8:05 AM [facility] Calcium 8.1(L) 8.5 - 10.5 mg/dL LAB CHEMISTRY METHOD 05/09/2024 8:05 AM [facility] Blood Venous blood specimen / Unknown Venipuncture / Unknown 05/09/2024 6:34 AM EST 05/09/2024 6:52 AM EST Leti Flores NP LAB BLOOD ORDERABLES [facility] [address] [place] [address], * (ABNORMAL) TRANSTHORACIC ECHOCARDIOGRAM (TTE) COMPLETE W/ CONTRAST (05/08/2024 1:14 PM EST) BSA 2.24 m2 CV PACS Left Atrium Minor Lucas 6.3 cm CV PACS Left Atrium Major Lucas 5.6 cm CV PACS LA Area Sys (A2C) 23 cm2 CV PACS LA Area Sys (A4C) 18 cm2 CV PACS LA Volume (BP) 56 mL CV PACS RA Area 14.3 cm2 CV PACS RA 2D Volume 35 mL CV PACS AV Regurgitation PHT 437 ms CV PACS AR Max Velocity 3.4 m/s CV PACS Aortic Sinus Valsalva 3.8 cm CV PACS Ascending Aorta 4.1 cm CV PACS MV E' Tissue Velocity Lateral 11 cm/s CV PACS MV E' Tissue Velocity Septal 10 cm/s CV PACS MV Peak E Venancio 1.30 m/s CV PACS MV Peak E Venancio 1.30 m/s CV PACS RV Diastolic Basal Dimension 4.4(A) 2.5 - 4.1 cm CV PACS RV S' 11 cm/s CV PACS TAPSE 17 mm CV PACS Ascending Aorta Index 1.86 cm/m2 CV PACS RA 2D Volume Index 16 mL/m2 CV PACS LA Volume Index (BP) 25 mL/m2 CV PACS Anatomical Region Laterality Modality Ultrasound Narrative 05/08/2024 1:32 PM EST ?Left ventricle cavity size is normal. No regional LV wall motion abnormalities noted.Left ventricular systolic function is in the normal range with an ejection fraction of 60-65%.Unable to assess diastolic function due to arrhythymia. ?Right ventricle cavity is mildly enlarged. Right ventricular systolic function is normal. ?Aortic valve leaflets are mildly thickened. Mild regurgitation. ?The ascending aorta is mildly dilated (4.1 cm). ?No significant change from November 07, 2023. Left Ventricle Left ventricle cavity size is normal. Wall thickness was not well visualized. Systolic function is normal with an ejection fraction of 60-65%. There are no regional LV wall motion abnormalities. Unable to assess diastolic function due to arrhythymia. Right Ventricle Right ventricle cavity is mildly dilated. Systolic function is normal. Left Atrium Left atrium cavity size is normal. Right Atrium Right atrium cavity is normal. Mitral Valve The leaflets are not thickened. There is no regurgitation or stenosis. Tricuspid Valve The leaflets exhibit normal excursion. There is no regurgitation or stenosis. Aortic Valve The leaflets are mildly thickened. There is mild regurgitation. There is no evidence of aortic valve stenosis. Pulmonic Valve There is no regurgitation or stenosis. Ascending Aorta The ascending aorta is mildly dilated (4.1 cm). Pericardium Pericardium appears normal. There is no pericardial effusion. Study Details Overall the study quality was technically difficult. Definity contrast was given to enhance imaging. Mert Jorgensen MD CV ECHO PROCEDURES * Light blue tube (05/08/2024 9:23 AM EST) Pathologist [facility] Extra Tube Hold for add-ons. 05/08/2024 11:01 AM EST [facility] Comment:Auto resulted. Blood Venous blood specimen / Unknown 05/08/2024 9:23 AM EST 05/08/2024 9:50 AM EST Emely Flowers MD LAB BLOOD ORDERABLES [facility] [address] [place] [address], * (ABNORMAL) CBC auto differential (05/08/2024 9:23 AM EST) [facility] WBC 9.2 4.8 - 10.8 K/mcL LAB HEMETOLOGY METHOD 05/08/2024 10:00 AM [facility] RBC 3.80(L) 4.50 - 5.50 M/mcL LAB HEMETOLOGY METHOD 05/08/2024 10:00 AM [facility] Hemoglobin 12.9(L) 13.5 - 17.5 g/dL LAB HEMETOLOGY METHOD 05/08/2024 10:00 AM [facility] Hematocrit 38.9(L) 42.0 - 54.0 % LAB HEMETOLOGY METHOD 05/08/2024 10:00 AM [facility] MCV 101.8(H) 79.0 - 98.0 FL LAB HEMETOLOGY METHOD 05/08/2024 10:00 AM [facility] MCH 33.8(H) 27.0 - 32.0 pcg LAB HEMETOLOGY METHOD 05/08/2024 10:00 AM [facility] MCHC 33.2 32.0 - 37.0 g/dL LAB HEMETOLOGY METHOD 05/08/2024 10:00 AM [facility] RDW 12.3 11.0 - 15.0 % LAB HEMETOLOGY METHOD 05/08/2024 10:00 AM [facility] Platelets 179 130 - 400 K/mcL LAB HEMETOLOGY METHOD 05/08/2024 10:00 AM [facility] MPV 10.8 7.0 - 11.0 FL LAB HEMETOLOGY METHOD 05/08/2024 10:00 AM [facility] NRBC 0.0 <1.0 % LAB HEMETOLOGY METHOD 05/08/2024 10:00 AM [facility] NRBC Absolute 0.00 <0.10 K/mcL LAB HEMETOLOGY METHOD 05/08/2024 10:00 AM [facility] Neutrophils Relative 74.2 % LAB HEMETOLOGY METHOD 05/08/2024 10:00 AM [facility] Lymphocytes Relative 13.3 % LAB HEMETOLOGY METHOD 05/08/2024 10:00 AM [facility] Monocytes Relative 7.4 % LAB HEMETOLOGY METHOD 05/08/2024 10:00 AM [facility] Eosinophils Relative 4.0 % LAB HEMETOLOGY METHOD 05/08/2024 10:00 AM [facility] Basophils Relative 0.8 % LAB HEMETOLOGY METHOD 05/08/2024 10:00 AM [facility] Immature Granulocytes Relative 0.3 % LAB HEMETOLOGY METHOD 05/08/2024 10:00 AM [facility] Neutrophils Absolute 6.81 1.50 - 7.00 K/mcL LAB HEMETOLOGY METHOD 05/08/2024 10:00 AM EST [facility] Lymphocytes Absolute 1.22 1.00 - 5.00 K/[facility] LAB HEMETOLOGY METHOD 05/08/2024 10:00 AM EST [facility] Monocytes Absolute 0.68 0.20 - 1.00 K/[facility] LAB HEMETOLOGY METHOD 05/08/2024 10:00 AM EST [facility] Eosinophils Absolute 0.37 0.00 - 0.50 K/[facility] LAB HEMETOLOGY METHOD 05/08/2024 10:00 AM EST [facility] Basophils Absolute 0.07 0.00 - 0.20 K/[facility] LAB HEMETOLOGY METHOD 05/08/2024 10:00 AM EST [facility] Immature Granulocytes Absolute 0.03 0.00 - 0.03 K/[facility] LAB HEMETOLOGY METHOD 05/08/2024 10:00 AM EST [facility] Blood Venous blood specimen / Unknown Venipuncture / Unknown 05/08/2024 9:23 AM EST 05/08/2024 9:49 AM EST Mayda DAVILA LAB BLOOD ORDERABLES [facility] [address] [place] [address], * (ABNORMAL) CBC - Every 3 Days (05/08/2024 9:23 AM EST) WBC 9.2 4.8 - 10.8 K/[facility] LAB HEMETOLOGY METHOD 05/08/2024 10:00 AM EST [facility] RBC 3.80(L) 4.50 - 5.50 M/[facility] LAB HEMETOLOGY METHOD 05/08/2024 10:00 AM EST [facility] Hemoglobin 12.9(L) 13.5 - 17.5 g/dL LAB HEMETOLOGY METHOD 05/08/2024 10:00 AM [facility] Hematocrit 38.9(L) 42.0 - 54.0 % LAB HEMETOLOGY METHOD 05/08/2024 10:00 AM [facility] MCV 101.8(H) 79.0 - 98.0 FL LAB HEMETOLOGY METHOD 05/08/2024 10:00 AM [facility] MCH 33.8(H) 27.0 - 32.0 pcg LAB HEMETOLOGY METHOD 05/08/2024 10:00 AM [facility] MCHC 33.2 32.0 - 37.0 g/dL LAB HEMETOLOGY METHOD 05/08/2024 10:00 AM [facility] RDW 12.3 11.0 - 15.0 % LAB HEMETOLOGY METHOD 05/08/2024 10:00 AM [facility] Platelets 179 130 - 400 K/mcL LAB HEMETOLOGY METHOD 05/08/2024 10:00 AM [facility] MPV 10.8 7.0 - 11.0 FL LAB HEMETOLOGY METHOD 05/08/2024 10:00 AM [facility] NRBC 0.0 <1.0 % LAB HEMETOLOGY METHOD 05/08/2024 10:00 AM [facility] NRBC Absolute 0.00 <0.10 K/mcL LAB HEMETOLOGY METHOD 05/08/2024 10:00 AM [facility] Blood Venous blood specimen / Unknown Venipuncture / Unknown 05/08/2024 9:23 AM EST 05/08/2024 9:49 AM EST Brittny DAVILA LAB BLOOD ORDERABLES [facility] [address] [place] [address], * (ABNORMAL) Basic metabolic panel (05/08/2024 9:23 AM EST) Sodium 142 133 - 145 mmol/L LAB CHEMISTRY METHOD 05/08/2024 10:33 AM [facility] Potassium 3.9 3.5 - 5.5 mmol/L LAB CHEMISTRY METHOD 05/08/2024 10:33 AM [facility] Chloride 110 96 - 110 mmol/L LAB CHEMISTRY METHOD 05/08/2024 10:33 AM [facility] CO2 26 21 - 32 mmol/L LAB CHEMISTRY METHOD 05/08/2024 10:33 AM [facility] Anion Gap 6 3 - 11 LAB CHEMISTRY METHOD 05/08/2024 10:33 AM [facility] Glucose 136(H) 70 - 100 mg/dL LAB CHEMISTRY METHOD 05/08/2024 10:33 AM [facility] BUN 14 5 - 25 mg/dL LAB CHEMISTRY METHOD 05/08/2024 10:33 AM [facility] Creatinine 1.36(H) 0.70 - 1.30 mg/dL LAB CHEMISTRY METHOD 05/08/2024 10:33 AM [facility] eGFR 54(L) >=60 mL/min/1. 73m2 LAB CHEMISTRY METHOD 05/08/2024 10:33 AM [facility] Comment:Calculation based on the??Chronic Kidney Disease Epidemiology Collaboration (CKD-EPI) equation refit??without adjustment for race. BUN/Creatinine Ratio 10.3 LAB CHEMISTRY METHOD 05/08/2024 10:33 AM [facility] Calcium 8.3(L) 8.5 - 10.5 mg/dL LAB CHEMISTRY METHOD 05/08/2024 10:33 AM [facility] Blood Venous blood specimen / Unknown Venipuncture / Unknown 05/08/2024 9:23 AM EST 05/08/2024 9:49 AM EST Mayda DAVILA LAB BLOOD ORDERABLES Performing Organization Address [facility]/ZIP Co de Phone Number [facility] [address] [place] [address], * Activated Partial Thromboplastin Time - STAT (05/07/2024 4:14 PM EST) aPTT 29.8 24.1 - 39.3 sec LAB COAGULATION METHOD 05/07/2024 5:23 PM EST [facility] Blood Venous blood specimen / Unknown Venipuncture / Unknown 05/07/2024 4:14 PM EST 05/07/2024 5:06 PM EST Brittny DAVILA LAB BLOOD ORDERABLES Performing Organization Address [facility]/ZIP Co de Phone Number [facility] [address] [place] [address], * Prothrombin Time with INR - STAT (05/07/2024 4:14 PM EST) Pathologist [facility] Protime 11.5 10.6 - 13.9 sec LAB COAGULATION METHOD 05/07/2024 5:23 PM EST [facility] INR 0.9 LAB COAGULATION METHOD 05/07/2024 5:23 PM EST [facility] Blood Venous blood specimen / Unknown Venipuncture / Unknown 05/07/2024 4:14 PM EST 05/07/2024 5:06 PM EST Brittny DAVILA LAB BLOOD ORDERABLES Performing Organization Address City/[facility]/ZIP Co de Phone Number [facility] [address] [place] [address], [place] [phone] * (ABNORMAL) Hepatic Function Panel - STAT (05/07/2024 12:15 PM EST) Total Protein 5.9(L) 6.0 - 8.0 g/dL LAB CHEMISTRY METHOD 05/07/2024 4:01 PM [facility] Albumin 3.1(L) 3.2 - 5.0 g/dL LAB CHEMISTRY METHOD 05/07/2024 4:01 PM [facility] Total Bilirubin 0.6 0.0 - 1.4 mg/dL LAB CHEMISTRY METHOD 05/07/2024 4:01 PM [facility] Bilirubin, Direct 0.2 0.0 - 0.3 mg/dL LAB CHEMISTRY METHOD 05/07/2024 4:01 PM [facility] Bilirubin, Indirect 0.4 0.0 - 1.1 mg/dL LAB CHEMISTRY METHOD 05/07/2024 4:01 PM [facility] ALT (SGPT) 27 10 - 60 unit/L LAB CHEMISTRY METHOD 05/07/2024 4:01 PM [facility] AST (SGOT) 12 10 - 42 unit/L LAB CHEMISTRY METHOD 05/07/2024 4:01 PM [facility] Alkaline Phosphatase 85 42 - 121 unit/L LAB CHEMISTRY METHOD 05/07/2024 4:01 PM [facility] Blood Venous blood specimen / Unknown Venipuncture / Unknown 05/07/2024 12:15 PM EST 05/07/2024 12:42 PM EST Brittny DAVILA LAB BLOOD ORDERABLES [facility] [address] [place] [address], * B-type natriuretic peptide (05/07/2024 12:15 PM EST) BNP 43 <=100 pcg/mL LAB CHEMISTRY METHOD 05/07/2024 1:27 PM [facility] Blood Venous blood specimen / Unknown Venipuncture / Unknown 05/07/2024 12:15 PM EST 05/07/2024 12:42 PM EST Mert Jorgensen MD LAB BLOOD ORDERABLES Performing Organization Address City/[facility]/ZIP Co de Phone Number [facility] [address] [place] [address], [place] [phone] * Troponin I high sensitivity (05/07/2024 12:15 PM EST) [facility] High Sensitivity Troponin I 8 <=79 ng/L LAB CHEMISTRY METHOD 05/07/2024 1:15 PM EST [facility] Blood Venous blood specimen / Unknown Venipuncture / Unknown 05/07/2024 12:15 PM EST 05/07/2024 12:42 PM EST Narrative [facility] - 05/07/2024 1:15 PM EST High levels of biotin in samples may falsely decrease hsTroponin values. ??Use caution when interpreting hsTroponin results in patients taking biotin who exhibit renal impairment (eGFR <60) or in patients taking more than 20 mg/day of biotin. Mert Jorgensen MD LAB BLOOD ORDERABLES Performing Organization Address City/[facility]/ZIP Co de Phone Number [facility] [address] [place] [address], [place] [phone] * Thyroid stimulating hormone (05/07/2024 12:15 PM EST) [facility] TSH 0.69 0.40 - 4.00 mcIU/mL LAB CHEMISTRY METHOD 05/07/2024 1:29 PM EST [facility] Blood Venous blood specimen / Unknown Venipuncture / Unknown 05/07/2024 12:15 PM EST 05/07/2024 12:42 PM EST Mert Jorgensen MD LAB BLOOD ORDERABLES [facility] [address] [place] [address], [place] [phone] * (ABNORMAL) CBC auto differential (05/07/2024 8:58 AM EST) [facility] Signature WBC 9.3 4.8 - 10.8 K/mcL LAB HEMETOLOGY METHOD 05/07/2024 9:13 AM [facility] RBC 3.80(L) 4.50 - 5.50 M/mcL LAB HEMETOLOGY METHOD 05/07/2024 9:13 AM [facility] Hemoglobin 12.5(L) 13.5 - 17.5 g/dL LAB HEMETOLOGY METHOD 05/07/2024 9:13 AM [facility] Hematocrit 37.9(L) 42.0 - 54.0 % LAB HEMETOLOGY METHOD 05/07/2024 9:13 AM [facility] MCV 100.3(H) 79.0 - 98.0 FL LAB HEMETOLOGY METHOD 05/07/2024 9:13 AM [facility] MCH 33.1(H) 27.0 - 32.0 pcg LAB HEMETOLOGY METHOD 05/07/2024 9:13 AM [facility] MCHC 33.0 32.0 - 37.0 g/dL LAB HEMETOLOGY METHOD 05/07/2024 9:13 AM [facility] RDW 12.2 11.0 - 15.0 % LAB HEMETOLOGY METHOD 05/07/2024 9:13 AM [facility] Platelets 161 130 - 400 K/mcL LAB HEMETOLOGY METHOD 05/07/2024 9:13 AM [facility] MPV 10.6 7.0 - 11.0 FL LAB HEMETOLOGY METHOD 05/07/2024 9:13 AM [facility] NRBC 0.0 <1.0 % LAB HEMETOLOGY METHOD 05/07/2024 9:13 AM [facility] NRBC Absolute 0.00 <0.10 K/mcL LAB HEMETOLOGY METHOD 05/07/2024 9:13 AM [facility] Neutrophils Relative 74.6 % LAB HEMETOLOGY METHOD 05/07/2024 9:13 AM [facility] Lymphocytes Relative 12.7 % LAB HEMETOLOGY METHOD 05/07/2024 9:13 AM [facility] Monocytes Relative 9.1 % LAB HEMETOLOGY METHOD 05/07/2024 9:13 AM [facility] Eosinophils Relative 2.3 % LAB HEMETOLOGY METHOD 05/07/2024 9:13 AM [facility] Basophils Relative 1.0 % LAB HEMETOLOGY METHOD 05/07/2024 9:13 AM [facility] Immature Granulocytes Relative 0.3 % LAB HEMETOLOGY METHOD 05/07/2024 9:13 AM [facility] Neutrophils Absolute 6.96 1.50 - 7.00 K/mcL LAB HEMETOLOGY METHOD 05/07/2024 9:13 AM [facility] Lymphocytes Absolute 1.18 1.00 - 5.00 K/mcL LAB HEMETOLOGY METHOD 05/07/2024 9:13 AM [facility] Monocytes Absolute 0.85 0.20 - 1.00 K/mcL LAB HEMETOLOGY METHOD 05/07/2024 9:13 AM [facility] Eosinophils Absolute 0.21 0.00 - 0.50 K/mcL LAB HEMETOLOGY METHOD 05/07/2024 9:13 AM [facility] Basophils Absolute 0.09 0.00 - 0.20 K/mcL LAB HEMETOLOGY METHOD 05/07/2024 9:13 AM [facility] Immature Granulocytes Absolute 0.03 0.00 - 0.03 K/mcL LAB HEMETOLOGY METHOD 05/07/2024 9:13 AM [facility] Blood Venous blood specimen / Unknown Venipuncture / Unknown 05/07/2024 8:58 AM EST 05/07/2024 9:08 AM EST Faith DAVILA LAB BLOOD ORDERABLES Performing Organization Address [facility] Co de Phone Number [facility] [address] [place] [address], * Troponin I high sensitivity (05/07/2024 8:58 AM EST) [facility] High Sensitivity Troponin I 6 <=79 ng/L LAB CHEMISTRY METHOD 05/07/2024 9:37 AM EST [facility] Blood Venous blood specimen / Unknown Venipuncture / Unknown 05/07/2024 8:58 AM EST 05/07/2024 9:08 AM EST Narrative [facility] - 05/07/2024 9:37 AM EST High levels of biotin in samples may falsely decrease hsTroponin values. ??Use caution when interpreting hsTroponin results in patients taking biotin who exhibit renal impairment (eGFR <60) or in patients taking more than 20 mg/day of biotin. Faith DAVILA LAB BLOOD ORDERABLES Performing Organization Address [facility] de Phone Number [facility] [address] [place] [address], * Magnesium (05/07/2024 8:58 AM EST) [facility] Magnesium 2.1 1.9 - 2.6 mg/dL LAB CHEMISTRY METHOD 05/07/2024 9:41 AM EST [facility] Blood Venous blood specimen / Unknown Venipuncture / Unknown 05/07/2024 8:58 AM EST 05/07/2024 9:08 AM EST Faith DAVILA LAB BLOOD ORDERABLES Performing Organization Address City/[facility]/ZIP Co de Phone Number [facility] [address] [place] [address], * (ABNORMAL) Basic metabolic panel (05/07/2024 8:58 AM EST) Sodium 140 133 - 145 mmol/L LAB CHEMISTRY METHOD 05/07/2024 9:47 AM EST [facility] Potassium 3.7 3.5 - 5.5 mmol/L LAB CHEMISTRY METHOD 05/07/2024 9:47 AM [facility] Chloride 111(H) 96 - 110 mmol/L LAB CHEMISTRY METHOD 05/07/2024 9:47 AM [facility] CO2 27 21 - 32 mmol/L LAB CHEMISTRY METHOD 05/07/2024 9:47 AM [facility] Anion Gap 2(L) 3 - 11 LAB CHEMISTRY METHOD 05/07/2024 9:47 AM [facility] Glucose 107(H) 70 - 100 mg/dL LAB CHEMISTRY METHOD 05/07/2024 9:47 AM [facility] BUN 13 5 - 25 mg/dL LAB CHEMISTRY METHOD 05/07/2024 9:47 AM [facility] Creatinine 1.19 0.70 - 1.30 mg/dL LAB CHEMISTRY METHOD 05/07/2024 9:47 AM [facility] eGFR 63 >=60 mL/min/1. 73m2 LAB CHEMISTRY METHOD 05/07/2024 9:47 AM [facility] Comment:Calculation based on the??Chronic Kidney Disease Epidemiology Collaboration (CKD-EPI) equation refit??without adjustment for race. BUN/Creatinine Ratio 10.9 LAB CHEMISTRY METHOD 05/07/2024 9:47 AM [facility] Calcium 8.5 8.5 - 10.5 mg/dL LAB CHEMISTRY METHOD 05/07/2024 9:47 AM [facility] Blood Venous blood specimen / Unknown Venipuncture / Unknown 05/07/2024 8:58 AM EST 05/07/2024 9:08 AM EST Faith DAVILA LAB BLOOD ORDERABLES Performing Organization Address City/[facility]/ZIP Co de Phone Number [facility] [address] [place] [address], [place] [phone] * ECG 12 lead (05/07/2024 8:41 AM EST) [facility] Ventricular Rate ECG 146 BPM G[facility] Atrial Rate 133 BPM [facility] QRS Duration 90 ms GEM[facility] Q-T Interval 294 ms GEM[facility] QTc 458 ms GEMUSE R Lucas -11 degrees GEMUSE T Lucas 35 degrees GEMUSE ECG Interpretation Critical Test Result: High HR Atrial fibrillation with rapid ventricular response Inferior infarct , age undetermined Abnormal ECG When compared with ECG of 19-JUL-2023 16:34, Atrial fibrillation has replaced Sinus rhythm Vent. rate has increased BY ??48 BPM Non-specific change in ST segment in Inferior leads Nonspecific T wave abnormality now evident in Inferior leads Confirmed by Keri SCHAFFER JOHN ([id number]) on 05/08/2024 10:40:33 AM [facility] 05/07/2024 8:41 AM EST 05/08/2024 10:40 AM EST Gustavo Stone MD ECG ORDERABLES Performing Organization Address City/[facility]/ZIP Co de Phone Number [facility] * (ABNORMAL) CBC auto differential (05/07/2024 6:25 AM EST) [facility] WBC 8.5 4.8 - 10.8 K/[facility] LAB HEMETOLOGY METHOD 05/07/2024 7:16 AM EST [facility] RBC 3.70(L) 4.50 - 5.50 M/[facility] LAB HEMETOLOGY METHOD 05/07/2024 7:16 AM EST [facility] Hemoglobin 12.4(L) 13.5 - 17.5 g/dL LAB HEMETOLOGY METHOD 05/07/2024 7:16 AM [facility] Hematocrit 38.0(L) 42.0 - 54.0 % LAB HEMETOLOGY METHOD 05/07/2024 7:16 AM [facility] MCV 102.4(H) 79.0 - 98.0 FL LAB HEMETOLOGY METHOD 05/07/2024 7:16 AM [facility] MCH 33.4(H) 27.0 - 32.0 pcg LAB HEMETOLOGY METHOD 05/07/2024 7:16 AM [facility] MCHC 32.6 32.0 - 37.0 g/dL LAB HEMETOLOGY METHOD 05/07/2024 7:16 AM [facility] RDW 12.3 11.0 - 15.0 % LAB HEMETOLOGY METHOD 05/07/2024 7:16 AM [facility] Platelets 179 130 - 400 K/mcL LAB HEMETOLOGY METHOD 05/07/2024 7:16 AM [facility] MPV 10.7 7.0 - 11.0 FL LAB HEMETOLOGY METHOD 05/07/2024 7:16 AM [facility] NRBC 0.0 <1.0 % LAB HEMETOLOGY METHOD 05/07/2024 7:16 AM [facility] NRBC Absolute 0.00 <0.10 K/mcL LAB HEMETOLOGY METHOD 05/07/2024 7:16 AM [facility] Neutrophils Relative 72.9 % LAB HEMETOLOGY METHOD 05/07/2024 7:16 AM [facility] Lymphocytes Relative 13.7 % LAB HEMETOLOGY METHOD 05/07/2024 7:16 AM [facility] Monocytes Relative 9.6 % LAB HEMETOLOGY METHOD 05/07/2024 7:16 AM [facility] Eosinophils Relative 2.6 % LAB HEMETOLOGY METHOD 05/07/2024 7:16 AM EST [facility] Basophils Relative 0.8 % LAB HEMETOLOGY METHOD 05/07/2024 7:16 AM EST [facility] Immature Granulocytes Relative 0.4 % LAB HEMETOLOGY METHOD 05/07/2024 7:16 AM [facility] Neutrophils Absolute 6.21 1.50 - 7.00 K/mcL LAB HEMETOLOGY METHOD 05/07/2024 7:16 AM EST [facility] Lymphocytes Absolute 1.17 1.00 - 5.00 K/mcL LAB HEMETOLOGY METHOD 05/07/2024 7:16 AM EST [facility] Monocytes Absolute 0.82 0.20 - 1.00 K/mcL LAB HEMETOLOGY METHOD 05/07/2024 7:16 AM EST [facility] Eosinophils Absolute 0.22 0.00 - 0.50 K/mcL LAB HEMETOLOGY METHOD 05/07/2024 7:16 AM EST [facility] Basophils Absolute 0.07 0.00 - 0.20 K/mcL LAB HEMETOLOGY METHOD 05/07/2024 7:16 AM EST [facility] Immature Granulocytes Absolute 0.03 0.00 - 0.03 K/mcL LAB HEMETOLOGY METHOD 05/07/2024 7:16 AM [facility] Blood Venous blood specimen / Unknown Venipuncture / Unknown 05/07/2024 6:25 AM EST 05/07/2024 6:39 AM EST Mayda DAVILA LAB BLOOD ORDERABLES [facility] [address] [place] [address], * Phosphorus (05/07/2024 6:25 AM EST) Phosphorus 2.8 2.5 - 4.5 mg/dL LAB CHEMISTRY METHOD 05/07/2024 7:30 AM [facility] Blood Venous blood specimen / Unknown Venipuncture / Unknown 05/07/2024 6:25 AM EST 05/07/2024 6:38 AM EST Mayda DAVILA LAB BLOOD ORDERABLES Performing Organization Address City/[facility]/ZIP Co de Phone Number [facility] [address] [place] [address], * Magnesium (05/07/2024 6:25 AM EST) Magnesium 2.2 1.9 - 2.6 mg/dL LAB CHEMISTRY METHOD 05/07/2024 7:28 AM [facility] Blood Venous blood specimen / Unknown Venipuncture / Unknown 05/07/2024 6:25 AM EST 05/07/2024 6:38 AM EST Mayda DAVILA LAB BLOOD ORDERABLES Performing Organization Address City/[facility]/ZIP Co de Phone Number [facility] [address] [place] [address], * (ABNORMAL) Basic metabolic panel (05/07/2024 6:25 AM EST) Sodium 141 133 - 145 mmol/L LAB CHEMISTRY METHOD 05/07/2024 7:30 AM [facility] Potassium 4.0 3.5 - 5.5 mmol/L LAB CHEMISTRY METHOD 05/07/2024 7:30 AM [facility] Chloride 109 96 - 110 mmol/L LAB CHEMISTRY METHOD 05/07/2024 7:30 AM [facility] CO2 29 21 - 32 mmol/L LAB CHEMISTRY METHOD 05/07/2024 7:30 AM [facility] Anion Gap 3 3 - 11 LAB CHEMISTRY METHOD 05/07/2024 7:30 AM [facility] Glucose 96 70 - 100 mg/dL LAB CHEMISTRY METHOD 05/07/2024 7:30 AM [facility] BUN 13 5 - 25 mg/dL LAB CHEMISTRY METHOD 05/07/2024 7:30 AM [facility] Creatinine 1.29 0.70 - 1.30 mg/dL LAB CHEMISTRY METHOD 05/07/2024 7:30 AM [facility] eGFR 57(L) >=60 mL/min/1. 73m2 LAB CHEMISTRY METHOD 05/07/2024 7:30 AM [facility] Comment:Calculation based on the??Chronic Kidney Disease Epidemiology Collaboration (CKD-EPI) equation refit??without adjustment for race. BUN/Creatinine Ratio 10.1 LAB CHEMISTRY METHOD 05/07/2024 7:30 AM [facility] Calcium 8.3(L) 8.5 - 10.5 mg/dL LAB CHEMISTRY METHOD 05/07/2024 7:30 AM [facility] Blood Venous blood specimen / Unknown Venipuncture / Unknown 05/07/2024 6:25 AM EST 05/07/2024 6:38 AM EST Mayda DAVILA LAB BLOOD ORDERABLES [facility] [address] [place] [address], * Phosphorus (05/06/2024 6:18 AM EST) Phosphorus 4.3 2.5 - 4.5 mg/dL LAB CHEMISTRY METHOD 05/06/2024 8:01 AM EST [facility] Blood Venous blood specimen / Unknown Venipuncture / Unknown 05/06/2024 6:18 AM EST 05/06/2024 7:21 AM EST Jeny DAVILA LAB BLOOD ORDERABLES [facility] [address] [place] [address], [place] [phone] * Magnesium (05/06/2024 6:18 AM EST) [facility] Magnesium 2.1 1.9 - 2.6 mg/dL LAB CHEMISTRY METHOD 05/06/2024 8:01 AM [facility] Blood Venous blood specimen / Unknown Venipuncture / Unknown 05/06/2024 6:18 AM EST 05/06/2024 7:21 AM EST Jeny DAVILA LAB BLOOD ORDERABLES [facility] [address] [place] [address], [place] [phone] * (ABNORMAL) Basic metabolic panel (05/06/2024 6:18 AM EST) [facility] Sodium 139 133 - 145 mmol/L LAB CHEMISTRY METHOD 05/06/2024 8:01 AM [facility] Potassium 4.5 3.5 - 5.5 mmol/L LAB CHEMISTRY METHOD 05/06/2024 8:01 AM [facility] Chloride 105 96 - 110 mmol/L LAB CHEMISTRY METHOD 05/06/2024 8:01 AM [facility] CO2 27 21 - 32 mmol/L LAB CHEMISTRY METHOD 05/06/2024 8:01 AM [facility] Anion Gap 7 3 - 11 LAB CHEMISTRY METHOD 05/06/2024 8:01 AM [facility] Glucose 106(H) 70 - 100 mg/dL LAB CHEMISTRY METHOD 05/06/2024 8:01 AM [facility] BUN 16 5 - 25 mg/dL LAB CHEMISTRY METHOD 05/06/2024 8:01 AM [facility] Creatinine 1.58(H) 0.70 - 1.30 mg/dL LAB CHEMISTRY METHOD 05/06/2024 8:01 AM EST [facility] eGFR 45(L) >=60 mL/min/1. 73m2 LAB CHEMISTRY METHOD 05/06/2024 8:01 AM [facility] Comment:Calculation based on the??Chronic Kidney Disease Epidemiology Collaboration (CKD-EPI) equation refit??without adjustment for race. BUN/Creatinine Ratio 10.1 LAB CHEMISTRY METHOD 05/06/2024 8:01 AM EST [facility] Calcium 8.6 8.5 - 10.5 mg/dL LAB CHEMISTRY METHOD 05/06/2024 8:01 AM [facility] Blood Venous blood specimen / Unknown Venipuncture / Unknown 05/06/2024 6:18 AM EST 05/06/2024 7:21 AM EST GIOVANNI Pappas LAB BLOOD ORDERABLE S [facility] [address] [place] [address], * (ABNORMAL) CBC auto differential (05/06/2024 6:17 AM EST) WBC 15.7(H) 4.8 - 10.8 K/mcL LAB HEMETOLOGY METHOD 05/06/2024 7:43 AM [facility] RBC 4.30(L) 4.50 - 5.50 M/mcL LAB HEMETOLOGY METHOD 05/06/2024 7:43 AM [facility] Hemoglobin 14.5 13.5 - 17.5 g/dL LAB HEMETOLOGY METHOD 05/06/2024 7:43 AM [facility] Hematocrit 43.8 42.0 - 54.0 % LAB HEMETOLOGY METHOD 05/06/2024 7:43 AM [facility] MCV 101.4(H) 79.0 - 98.0 FL LAB HEMETOLOGY METHOD 05/06/2024 7:43 AM [facility] MCH 33.6(H) 27.0 - 32.0 pcg LAB HEMETOLOGY METHOD 05/06/2024 7:43 AM [facility] MCHC 33.1 32.0 - 37.0 g/dL LAB HEMETOLOGY METHOD 05/06/2024 7:43 AM [facility] RDW 12.1 11.0 - 15.0 % LAB HEMETOLOGY METHOD 05/06/2024 7:43 AM [facility] Platelets 263 130 - 400 K/mcL LAB HEMETOLOGY METHOD 05/06/2024 7:43 AM [facility] MPV 10.7 7.0 - 11.0 FL LAB HEMETOLOGY METHOD 05/06/2024 7:43 AM [facility] NRBC 0.0 <1.0 % LAB HEMETOLOGY METHOD 05/06/2024 7:43 AM [facility] NRBC Absolute 0.00 <0.10 K/mcL LAB HEMETOLOGY METHOD 05/06/2024 7:43 AM [facility] Neutrophils Relative 82.7 % LAB HEMETOLOGY METHOD 05/06/2024 7:43 AM [facility] Lymphocytes Relative 9.2 % LAB HEMETOLOGY METHOD 05/06/2024 7:43 AM [facility] Monocytes Relative 7.3 % LAB HEMETOLOGY METHOD 05/06/2024 7:43 AM [facility] Eosinophils Relative 0.1 % LAB HEMETOLOGY METHOD 05/06/2024 7:43 AM [facility] Basophils Relative 0.4 % LAB HEMETOLOGY METHOD 05/06/2024 7:43 AM [facility] Immature Granulocytes Relative 0.3 % LAB HEMETOLOGY METHOD 05/06/2024 7:43 AM [facility] Neutrophils Absolute 12.98(H) 1.50 - 7.00 K/mcL LAB HEMETOLOGY METHOD 05/06/2024 7:43 AM EST [facility] Lymphocytes Absolute 1.45 1.00 - 5.00 K/mcL LAB HEMETOLOGY METHOD 05/06/2024 7:43 AM EST [facility] Monocytes Absolute 1.14(H) 0.20 - 1.00 K/mcL LAB HEMETOLOGY METHOD 05/06/2024 7:43 AM EST [facility] Eosinophils Absolute 0.01 0.00 - 0.50 K/mcL LAB HEMETOLOGY METHOD 05/06/2024 7:43 AM EST [facility] Basophils Absolute 0.06 0.00 - 0.20 K/mcL LAB HEMETOLOGY METHOD 05/06/2024 7:43 AM [facility] Immature Granulocytes Absolute 0.04(H) 0.00 - 0.03 K/mcL LAB HEMETOLOGY METHOD 05/06/2024 7:43 AM EST [facility] Blood Venous blood specimen / Unknown 05/06/2024 6:17 AM EST 05/06/2024 7:43 AM EST GIOVANNI Pappas LAB BLOOD ORDERABLE S [facility] [address] [place] [address], * Tissue exam (05/05/2024 11:55 AM EST) Final Diagnosis Colon, ileostomy (larger) and colostomy: Segment of small bowel with focal granulation tissue and adjacent skin, compatible with ileostomy. Segment of large bowel and adjacent skin, compatible with colostomy. No mass lesions, dysplasia, or neoplasia identified. Margins appear viable. 05/08/2024 9:37 AM EST [facility] Gross Description A. Colon, ileostomy (larger) and colostomy: Labeled ileostomy: . Received in red, blood-stained formalin is a focally disrupted at the center, 7.0 cm in length portion of tissue. One end shows a 2.5 cm elliptical portion of white skin which is sutured together adjacent to this is disrupted and opened bowel which has a dixon velvety mucosa and communicates to the opposing end which shows a 4.5 cm in greatest diameter sutured white skin ellipse with adjacent dixon-pink mucosa. Polyps, masses and diverticula are absent. The attached adipose tissue is unremarkable. Tow Feeder longitudinal sections from both marginal one are submitted in one cassette, two pieces. TS 05/08/2024 9:37 AM EST [facility] Disclaimer Unless otherwise specified, all tissue is 10% NB formalin fixed and paraffin embedded. 05/08/2024 9:37 AM EST [facility] Tissue (Colon) 05/05/2024 11 :55 AM EST 05/05/2024 1:42 PM EST Gustavo Stone MD LAB PATHOLOGY ORDER SANDRO [facility] [address] [place] [address], documented in this encounter Visit Diagnoses Diagnosis Presence of ileostomy (CMS/HCC)- Primary Presence of ileostomy (CMS/HCC) Presence of colostomy (CMS/HCC) Atrial fibrillation, unspecified type (CMS/HCC) Presence of colostomy (CMS/HCC) Presence of ileostomy (CMS/HCC) Presence of colostomy (CMS/HCC) documented in this encounter Admitting Diagnoses Diagnosis Presence of ileostomy (CMS/HCC) Presence of colostomy (CMS/HCC) documented in this encounter Administered Medications Inactive Administered Medications - up to 3 most recent administrations Medication Order MAR Action Action Date Dose Rate Site acetaminophen (TYLENOL) tablet 1,000 mg 1,000 mg, oral, Every 8 hours scheduled, First dose on 05/05/24 at 1400, [facility] Unit Given 05/09/2024 1:30 PM EST 1,000 mg Given 05/09/2024 6:11 AM EST 1,000 mg Given 05/08/2024 8:26 PM EST 1,000 mg apixaban (ELIQUIS) tablet 5 mg 5 mg, oral, 2 times daily, First dose on Sun05/07/24 at 2100, Indication: Atrial Fibrillation Given 05/09/2024 8:20 AM EST 5 mg Given 05/08/2024 8:23 PM EST 5 mg Given 05/08/2024 8:39 AM EST 5 mg atorvastatin (LIPITOR) tablet 80 mg 80 mg, oral, Daily, First dose on Sun05/06/24 at 0900, Phase II/On Unit Given 05/09/2024 8:21 AM EST 80 mg Given 05/08/2024 8:39 AM EST 80 mg Given 05/07/2024 8:33 AM EST 80 mg bacitracin ointment As needed, Starting on Sun05/05/24 at 1219, Intraprocedure Given 05/05/2024 12:19 PM EST 1 Application bupivacaine-EPINEPHrine (MARCAINE w/EPI) 0.25 %-1:200,000 injection As needed, Starting on Sun05/05/24 at 1116, Intraprocedure Given 05/05/2024 11:16 AM EST 60 mL buprenorphine HCL (BUPRENEX) injection solution 0.075 mg 0.075 mg, intravenous, Every 4 hours PRN, moderate pain, Starting on Sun05/05/24 at 1730, Recovery & On Unit buprenorphine HCL (BUPRENEX) injection solution 0.15 mg 0.15 mg, intravenous, Every 4 hours PRN, severe pain, Starting on Sun05/05/24 at 1730, Recovery & On Unit dilTIAZem (CARDIZEM) immediate release tablet 60 mg 60 mg, oral, Every 6 hours, First dose (after last modification) on Sun05/09/24 at 1000 Given 05/09/2024 10:24 AM EST 60 mg finasteride (PROSCAR) tablet 5 mg 5 mg, oral, Daily, First dose on Sun05/05/24 at 1630, HAZARDOUS Drug Precautions - Low Risk (Category A/NIOSH Group 3) Reproductive Risk Only: - Do NOT split, crush, or open dosage units - Single pair of ASTM standard [id number] certified chemotherapy gloves - Eye protection (goggles or face shield) required only with a potential for facial contact (i.e. concern for spitting or vomiting of the dose during or after administration) Given 05/09/2024 8:21 AM EST 5 mg Given 05/08/2024 8:39 AM EST 5 mg Given 05/07/2024 8:33 AM EST 5 mg levothyroxine (SYNTHROID, LEVOTHROID) tablet 125 mcg 125 mcg, oral, Every morning before breakfast, First dose on Sun05/06/24 at 0700, Recovery & On Unit, ORAL ROUTE: take on an empty stomach and separate from other medications. ENTERAL TUBE ROUTE: If newly initiated enteral nutrition duration is over 5 days, hold enteral nutrition 1 hour before and after drug administration, per ASPEN guidelines. Given 05/09/2024 6:11 AM EST 125 mcg Given 05/08/2024 5:58 AM EST 125 mcg Given 05/07/2024 6:32 AM EST 125 mcg metoprolol tartrate (LOPRESSOR) tablet 25 mg 25 mg, oral, 2 times daily, First dose (after last modification) on Sun05/09/24 at 0900 Given 05/09/2024 10:26 AM EST 25 mg oxyCODONE (ROXICODONE) immediate release tablet 10 mg 10 mg, oral, Every 4 hours PRN, severe pain, Starting on Sun05/06/24 at 0955, First line for severe pain (7-10) oxyCODONE (ROXICODONE) immediate release tablet 5 mg 5 mg, oral, Every 4 hours PRN, moderate pain, Starting on Sun05/06/24 at 0955, 1st line for moderate pain (4-6) psyllium (METAMUCIL) packet 1 packet 1 packet, oral, Daily, First dose on Sun05/08/24 at 0900, Give with at least 8 ounces of water or juice Given 05/09/2024 8:23 AM EST 1 packet Given 05/08/2024 8:40 AM EST 1 packet tamsulosin (FLOMAX) 24 hr capsule 0.4 mg 0.4 mg, oral, Daily, First dose on Sun05/06/24 at 2000, For oral administration: capsules should be swallowed whole (Do not crush, chew, or open). For tube administration: open capsule and administer with water (granules should NOT be crushed). Given 05/09/2024 8:23 AM EST 0.4 mg Given 05/08/2024 8:39 AM EST 0.4 mg Given 05/07/2024 8:32 AM EST 0.4 mg documented in this encounter Discontinued Medications Medication Sig Discontinue Reason Start Date End Da te pantoprazole (PROTONIX) 20 mg EC tablet Take 1 tablet (20 mg total) by mouth 1 (one) time each day. 04/15/2024 capecitabine (XELODA) 500 mg tablet Take by mouth Sig - Route: Take 3 Tablets by mouth. 04/15/2024 levothyroxine sodium (TIROSINT) 137 mcg capsule Take 125 mcg by mouth. 04/15/2024 acetaminophen (TYLENOL) 500 mg tablet Take 2 tablets (1,000 mg total) by mouth every 6 (six) hours if needed for moderate pain. Stop Taking at Discharge 07/04/2023 05/09/2024 aspirin 81 mg EC tablet Take 1 tablet (81 mg total) by mouth 1 (one) time each day. Stop Taking at Discharge 05/09/2024 documented as of this encounter Historical Medications * This list may reflect changes made after this encounter. Medication Sig Dispensed Refills Start Date End Date levothyroxine (SYNTHROID, LEVOTHROID) 125 mcg tablet Take by mouth 1 (one) time each day before breakfast. aspirin 81 mg EC tablet Take 1 tablet (81 mg total) by mouth 1 (one) time each day. 05/09/2024 added in this encounter Active and Recently Administered Medications Times are shown in EST. Scheduled Medication Order 05/07/2024 05/08/2024 05/09/2024 acetaminophen (TYLENOL) tablet 1,000 mg 1,000 mg, oral, Every 8 hours scheduled, First dose on Sun05/05/24 at 1400, Recovery & On Unit 0542 (Given - Provider: Nicole Mayes RN)1300 (Given - Provider: Sissy Erwin RN) 0024 (Given - Provider: Sandee Yoder RN)0559 (Given - Provider: Sandee Yoder, VIC)1533 (Not Given - Provider: Melinda Cardenas RN - Reason: Patient/Resident/Agen t refused - education provided )2025 (Given - Provider: Hattie Brown, RN) 0611 (Given - Provider: Hattie Wilkerson RN)1330 (Given - Provider: Kylee Mai, VIC) alvimopan (ENTEREG) capsule 12 mg (CANCELED) 12 mg, oral, Every 12 hours, First dose on Sun05/06/24 at 0900, For 14 doses, Recovery & On Unit, -Start in the morning of the day AFTER surgery -Do NOT open or crush capsule -MAX: 15 TOTAL doses (includes the Pre-Operative dose) -Nurse to contact physician for discontinuation orders at discharge or upon recovery of the GI tract (e.g., bowel sounds, flatus, or bowel movement, whichever occurs first) Alvimopan (ENTEREG??) is part of a [facility] Program and training materials, available at [facility] and in order Reference Links, must be reviewed prior to ordering, dispensing, or administration., I am aware of the [facility] Program requirements and have reviewed the [facility] Training Kits, available at [facility]: Yes 0832 (Given - Provider: Maria Dolores Ly RN)2038 (Given - Provider: Sandee Yoder, VIC) apixaban (ELIQUIS) tablet 5 mg 5 mg, oral, 2 times daily, First dose on Sun05/07/24 at 2100, Indication: Atrial Fibrillation 2039 (Given - Provider: Sandee Yoder RN) 0839 (Given - Provider: Melinda Cardenas, VIC)2022 (Given - Provider: Hattie Wilkerson RN) 0820 (Given - Provider: Kylee Mai, VIC) atorvastatin (LIPITOR) tablet 80 mg 80 mg, oral, Daily, First dose on Sun05/06/24 at 0900, Phase II/On Unit 0833 (Given - Provider: Maria Dolores Ly RN) 0839 (Given - Provider: Melinda Cardenas, VIC) 0821 (Given - Provider: Kylee Mai, VIC) dilTIAZem (CARDIZEM) bolus from infusion 5 mg (COMPLETED) 5 mg, intravenous, Administer over 2 Minutes, Once, On Sun05/07/24 at 1100, For 1 dose, Bolus from infusion. 1049 (Bolus from Bag - Provider: Sissy Erwin RN) dilTIAZem (CARDIZEM) immediate release tablet 60 mg (CANCELED) 60 mg, oral, Every 6 hours scheduled, First dose (after last modification) on Sun05/08/24 at 1000 1004 (Given - Provider: Melinda Cardenas, RN)3 (Given - Provider: aHttie Wilkerson, RN) dilTIAZem (CARDIZEM) immediate release tablet 60 mg (CANCELED) 60 mg, oral, Every 6 hours scheduled, First dose (after last modification) on Sun05/09/24 at 0200 0425 (Given - Provider: Hattie Wilkerson, RN) dilTIAZem (CARDIZEM) immediate release tablet 60 mg 60 mg, oral, Every 6 hours, First dose (after last modification) on Sun05/09/24 at 1000 1024 (Given - Provider: Kylee Mai, VIC)1600 (Canceled Entry - Provider: Automatic Discharge Provider - Comment: Automatically canceled at discontinue of medication order) dilTIAZem (CARDIZEM) injection 10 mg (COMPLETED) 10 mg, intravenous, Once, On Sun05/07/24 at 1315, For 1 dose, For IV Push - administer over 2 minutes with continuous ECG and blood pressure monitoring 1257 (Given - Provider: Sissy Erwin RN) finasteride (PROSCAR) tablet 5 mg 5 mg, oral, Daily, First dose on Sun05/05/24 at 1630, HAZARDOUS Drug Precautions - Low Risk (Category A/NIOSH Group 3) Reproductive Risk Only: - Do NOT split, crush, or open dosage units - Single pair of ASTM standard D6978 certified chemotherapy gloves - Eye protection (goggles or face shield) required only with a potential for facial contact (i.e. concern for spitting or vomiting of the dose during or after administration) 0833 (Given - Provider: Maria Dolores Ly RN) 0839 (Given - Provider: Melinda Cardenas, VIC) 0821 (Given - Provider: Kylee Mai, VIC) heparin (UFH) injection 5,000 Units (CANCELED) 5,000 Units, subcutaneous, Every 12 hours scheduled, First dose on Sun05/06/24 at 2100 0833 (Given - Provider: Maria Dolores Ly RN) levothyroxine (SYNTHROID, LEVOTHROID) tablet 125 mcg 125 mcg, oral, Every morning before breakfast, First dose on Sun05/06/24 at 0700, Recovery & On Unit, ORAL ROUTE: take on an empty stomach and separate from other medications. ENTERAL TUBE ROUTE: If newly initiated enteral nutrition duration is over 5 days, hold enteral nutrition 1 hour before and after drug administration, per ASPEN guidelines. 0632 (Given - Provider: Nicole Mayes RN) 0558 (Given - Provider: Sandee Yoder, VIC) 0611 (Given - Provider: Hattie Wilkerson RN) magnesium oxide (MAG-OX) tablet 400 mg (CANCELED) 400 mg, oral, 2 times daily, First dose on Sun05/06/24 at 0900, Recovery & On Unit 0832 (Given - Provider: Maria Dolores Ly RN)2040 (Given - Provider: Sandee Yoder, VIC) metoprolol tartrate (LOPRESSOR) 5 mg in sodium chloride 0.9 % 50 mL IVPB 5 mg, intravenous, at 100 mL/hr, Administer over 30 Minutes, Once, On Sun05/07/24 at 0900, For 1 dose, For IV Push - Administer undiluted over 2 minutes 1025 (Not Given - Provider: Sissy Erwin RN - Reason: Other - Comment: Given during rapid response.) metoprolol tartrate (LOPRESSOR) tablet 25 mg (CANCELED) 25 mg, oral, Every 6 hours, First dose on Sun05/07/24 at 1230 1239 (Given - Provider: Sissy Erwin RN)1805 (Given - Provider: Sissy Erwin RN) 0024 (Given - Provider: Sandee Yoder RN)0559 (Given - Provider: Sandee Yoder RN) metoprolol tartrate (LOPRESSOR) tablet 25 mg 25 mg, oral, Once, On Sun05/08/24 at 0915, For 1 dose 0915 (Canceled Entry - Provider: Automatic Discharge Provider - Comment: Automatically canceled at discontinue of medication order) metoprolol tartrate (LOPRESSOR) tablet 25 mg 25 mg, oral, 2 times daily, First dose (after last modification) on Sun05/09/24 at 0900 1026 (Given - Provider: Kylee Mai, VIC) metoprolol tartrate (LOPRESSOR) tablet 50 mg (CANCELED) 50 mg, oral, 2 times daily, First dose (after last modification) on Sun05/08/24 at 2100 0900 (Hold - Provider: Melinda Cardenas RN - Reason: See Provider Order)2023 (Given - Provider: Hattie Wilkerson RN) perflutren lipid microsphere (DEFINITY) 1.3 mL in sodium chloride 0.9% 8.7 mL injection (COMPLETED) 10 mL, intravenous, Administer over 10 Minutes, Once in imaging, Starting on Sun05/07/24 at 1537, For 1 dose, CV Medication Orders 1313 (Given - Provider: Hattie Briceno) psyllium (METAMUCIL) packet 1 packet 1 packet, oral, Daily, First dose on Sun05/08/24 at 0900, Give with at least 8 ounces of water or juice 0840 (Given - Provider: Melinda Cardenas RN) 0823 (Given - Provider: Kylee Mai, VIC) tamsulosin (FLOMAX) 24 hr capsule 0.4 mg 0.4 mg, oral, Daily, First dose on Sun05/06/24 at 2000, For oral administration: capsules should be swallowed whole (Do not crush, chew, or open). For tube administration: open capsule and administer with water (granules should NOT be crushed). 0832 (Given - Provider: Maria Dolores Ly RN) 0839 (Given - Provider: Melinda Cardenas RN) 0823 (Given - Provider: Kylee Mai, VIC) Continuous Medication Order 05/07/2024 05/08/2024 05/09/2024 dilTIAZem (CARDIZEM) 125 mg in sodium chloride (non-PVC) 0.9 % 125 mL (1 mg/mL) infusion (CANCELED) 5-15 mg/hr (5-15 mL/hr), intravenous, Continuous, Starting on Sun05/07/24 at 1100, GOAL EFFECT: Decrease HR to LESS than 110 BPM INITIAL RATE: 5 mg/hr USUAL DOSE RANGE: 5 - 15 mg/hr TITRATION DOSE: 2.5 mg/hr TITRATION FREQUENCY: 30 min CONTACT PRESCRIBER: -HR LESS than 60 BPM -HR GREATER than 120 BPM -SBP LESS than 80 mmHg -SBP GREATER than 180 mmHg -Prolongation of KS interval + QRS complex *Individual cases may deviate from parameters and would REQUIRE an order from the provider documented in the patient record* 1043 (New Bag - Provider: Sissy Erwin RN)1045 (New Bag - Provider: Sissy Erwin, RN)1145 (Rate/Dose Change - Provider: Sissy Erwin RN)1246 (Rate/Dose Change - Provider: Sissy Erwin RN)2038 (New Bag - Provider: Sandee Yoder, RN) 0026 (Rate/Dose Verify - Provider: Sandee Yoder, RN)1100 (Stopped - Provider: Melinda Cardenas RN) PRN Medication Order 05/07/2024 05/08/2024 05/09/2024 buprenorphine HCL (BUPRENEX) injection solution 0.075 mg 0.075 mg, intravenous, Every 4 hours PRN, moderate pain, Starting on Sun05/05/24 at 1730, Recovery & On Unit buprenorphine HCL (BUPRENEX) injection solution 0.15 mg 0.15 mg, intravenous, Every 4 hours PRN, severe pain, Starting on Sun05/05/24 at 1730, Recovery & On Unit ondansetron (PF) (ZOFRAN) injection 4 mg 4 mg, intravenous, Every 6 hours PRN, nausea, vomiting, Starting on Sun05/05/24 at 1227, Recovery & On Unit oxyCODONE (ROXICODONE) immediate release tablet 10 mg 10 mg, oral, Every 4 hours PRN, severe pain, Starting on Sun05/06/24 at 0955, First line for severe pain (7-10) 1122 (Unheld by provider - Provider: GIOVANNI Saldana) oxyCODONE (ROXICODONE) immediate release tablet 5 mg 5 mg, oral, Every 4 hours PRN, moderate pain, Starting on Sun05/06/24 at 0955, 1st line for moderate pain (4-6) 1122 (Unheld by provider - Provider: GIOVANNI Saldana) No Frequency Medication Order 05/07/2024 05/08/2024 05/09/2024 dilTIAZem (CARDIZEM) 5 mg/mL injection - ADS Override Pull (COMPLETED) Starting on Sun05/07/24 at 0925, For 1 dose, Created by cabinet override 0931 (Given - Provider: Maria Dolores Ly RN) metoprolol tartrate (LOPRESSOR) 5 mg/5 mL injection - ADS Override Pull (COMPLETED) Starting on Sun05/07/24 at 0848, For 1 dose, Created by cabinet override 0900 (Given - Provider: Christy Najera RN) documented in this encounter Orders Medications Ordered That Miller ht Not Have Been Administered Count Last Ordered Date First Ordered Date dilTIAZem (CARDIZEM) immedia te release tablet 60 mg 4 05/09/2024 05/08/2024 metoprolol tartrate (LOPRESS OR) tablet 25 mg 3 05/09/2024 05/07/2024 dilTIAZem (CARDIZEM) 125 mg in sodium chloride (non-PVC) 0.9 % 125 mL (1 mg/mL) infusion 2 05/08/2024 05/07/2024 metoprolol tartrate (LOPRESS OR) tablet 50 mg 1 05/08/2024 psyllium (METAMUCIL) packet 1 packet 1 04/17 apixaban (ELIQUIS) tablet 5 mg 1 05/07/2024 dilTIAZem (CARDIZEM) 5 mg/mL injection - ADS Override Pull 1 05/07/2024 dilTIAZem (CARDIZEM) bolus f rom infusion 5 mg 1 05/07/2024 dilTIAZem (CARDIZEM) injection 10 mg 1 04/17 metoprolol tartrate (LOPRESS OR) 5 mg in sodium chloride 0.9 % 50 mL IVPB 1 05/07/2024 metoprolol tartrate (LOPRESS OR) 5 mg/5 mL injection - ADS Override Pull 05/07/2024 perflutren lipid microsphere (DEFINITY) 1.3 mL in sodium chloride 0.9% 8.7 mL injection 1 05/07/2024 heparin (UFH) injection 5,000 Units 3 05/0605/05/2024 oxyCODONE (ROXICODONE) immed iate release tablet 10 mg 1 05/06/2024 oxyCODONE (ROXICODONE) immed iate release tablet 5 mg 2 05/06/2024 05/05/2024 sodium chloride 0.9 % bolus 500 mL 1 2024 tamsulosin (FLOMAX) 24 hr capsule 0.4 mg 1 05/06/2024 acetaminophen (TYLENOL) tablet 1,000 mg 3 0 05/05/2024 acetaminophen (TYLENOL) tablet 650 mg 1 albuterol 2.5 mg /3 mL (0.08 3 %) nebulizer solution 2.5 mg 1 05/05/2024 alvimopan (ENTEREG) capsule 12 mg 3 aspirin chewable tablet 81 mg 1 05/05/2024 atorvastatin (LIPITOR) tablet 80 mg 1 05/05 buprenorphine (BUPRENEX) inj ection 0.075 mg 2 05/05/2024 buprenorphine (BUPRENEX) injection 0.15 mg 1 05/05/2024 buprenorphine HCL (BUPRENEX) injection solution 0.075 mg 4 05/05/2024 buprenorphine HCL (BUPRENEX) injection solution 0.15 mg 1 05/05/2024 ceFAZolin (ANCEF) 2 g in augustina rile water 20 mL IV syringe 1 05/05/2024 clopidogreL (PLAVIX) tablet 75 mg 1 diphenhydrAMINE (BENADRYL) injection 25 mg 1 05/05/2024 ferrous sulfate tablet 325 mg 1 05/05/2024 finasteride (PROSCAR) tablet 5 mg 1 025 HYDROmorphone (PF) injection 0.5 mg 1 05/05 lactated Ringer's infusion 2 05/05/2024 levothyroxine (SYNTHROID, LE VOTHROID) tablet 125 mcg 1 05/05/2024 magnesium oxide (MAG-OX) tablet 400 mg meperidine (PF) (DEMEROL) 25 mg/mL injection 12.5 mg 1 05/05/2024 metroNIDAZOLE (FLAGYL) IVPB 500 mg 1 2024 ondansetron (PF) (ZOFRAN) injection 4 mg 2 05/05/2024 ondansetron ODT (ZOFRAN-ODT) disintegrating tablet 4 mg 1 05/05/2024 prochlorperazine (COMPAZINE) injection 10 mg 1 05/05/2024 prochlorperazine (COMPAZINE) suppository 25 mg 1 05/05/2024 prochlorperazine (COMPAZINE) tablet 10 mg 1 05/05/2024 sodium chloride 0.9 % flush 10 mL 2 025 Consult Count Last Ordered Date First Orde red Date IP CONSULT TO CARDIOLOGY 1 05/09/2024 POST ACUTE HOME HEALTH CARE REQUEST 1 05/09 PT Count Last Ordered Date First Orde red Date PT EVAL AND TREAT 1 05/06/2024 Admission Count Last Ordered Date First Orde red Date ADMIT TO INPATIENT 1 05/05/2024 Transfer Count Last Ordered Date First Orde red Date TRANSFER PATIENT TO NEW UNIT 1 05/07/2024 Discharge Count Last Ordered Date First Orde red Date DISCHARGE PATIENT 1 05/09/2024 documented in this encounter Care Teams Loss Prevention Agent Relationship Specialty Start Date End Date Joey Dhillon MD [address] [place] [address] PCP - General Internal Medicine 02/29/24 documented as of this encounter
--- OUTSIDE RECORDS SUMMARY | 2024-05-13 12:28 | XMS_ITS | Encounter Summary ---
Author Organization [facility] Address [address] [place] [address] Care Team Providers Care Mobile Pet Groomer Name Role Phone Joey Dhillon MD Primary Care Provider [phone] Reason for Visit * Auth/Cert (Routine) Specialty Diagnoses / Procedures Referred By Kwabena t Referred To Contact Diagnoses Presence of ileostomy (CMS/HCC) Presence of colostomy (CMS/HCC) Presence of colostomy Procedures IN CLOSURE ENTEROSTOMY LARGE/SMALL INTESTINE Gustavo Stone MD [address] [address] Referral ID Status Reason Start Date Expiration Date Visits Re quested Visits Authorized [id number] 03/12/2024 1 1 Encounter Details Date Type Department Care Team (Late st Contact Info) Description 05/05/2024 8:19 AM EST - 05/09/2024 2:31 PM EST Hospital Encounter [facility] Intermediate Care Unit [address] [place] [phone] Gustavo Stone MD [address] [address] Mert Jorgensen MD [address] [place] [address] Emely Flowers MD [address] [place] [phone] Atrial fibrillation, unspecified type (CMS/HCC) (Primary Dx); Presence of ileostomy (CMS/HCC); Presence of colostomy (CMS/HCC) Discharge Disposition: Home-Health Care [facility] Social History Tobacco Use Types Packs/Day Years [...] Sign Reading Time Taken Comments Blood Pressure 119/64 05/09/2024 10:57 AM EST Pulse 66 05/09/2024 10:57 AM EST Temperature 36.3 ??C (97.3 ??F) 05/09/2024 1 0:57 AM EST Respiratory Rate 16 05/09/2024 3:27 AM EST Oxygen Saturation 99% 05/09/2024 10: 57 AM EST Inhaled Oxygen Concentration - - Weight 99.2 kg (218 lb 11.1 oz) 05/08/2024 1:13 PM EST Height 182.9 cm (6' 0.01 ) 05/08/2024 1:13 PM ES T Body Mass Index 29.65 05/08/2024 1:13 PM [...] Stone's operative note. He was admitted to [facility]. Hospital Course: 1. Ileostomy: ERAS protocols were [...] stable. Received 1 dose of IV metoprolol, [place] was consulted, and he was transferred to [...] Discharge Disposition: Home with services Consulting Services: [place]- Leti Flores NP Cardiology- Dr. Tori Hernández Procedures Performed: Ileostomy and mucus fistula reversal on 05/05/[address] Stone Issues Requiring Follow-Up Care: New onset atrial fibrillation Outpatient Follow-Up Care: Future Appointments Date Time Provider Department Center 05/20/2024 10:00 AM Gustavo Stone MD [facility] [address] [facility] [place] Discharge Medication List: Your medication list [...] Your Medications These medications were sent to [facility]/pharmacy #[id number] [address] acetaminophen 500 mg tablet apixaban 5 mg [...] the importance of stroke prevention basedon the [id number] score. I reviewed that in many cases, [...] a 78 y.o. male : 1945 MR#: [id number] SUBJECTIVE Patient seen and examined in room [...] due to atrial fibrillation/ Colon Cancer On qu BMI is 29 POD # 4 S/P [...] Followed by Dr. Xiao at [facility] [place]. Anemia of chronic illness H and H [...] a 78 y.o. male : 1945 MR#: [id number] SUBJECTIVE Patient seen and examined in room 201 Awake and alert Agreeable to have blood drawn now Telemetry monitoring reveals atrial fibrillation with HR 79 bpm D/C Cardizem drip Transition to oral Cardizem Denies sob or chest pain Echocardiogram pending Continues on Eliquis 5 mg BID Continue to closely monitor on telemetry Case discussed with patient, nursing staff, [facility] nurse and attending MD Dr. Flowers Allergies: [...] (L) 05/07/2024 Imaging: COLONOSCOPY Anesthesia - MAC; [facility] ENDOSCOPY Narrative: [facility] GI Patient Name: Hernan Veras Procedure Date: [...] neoplasm of large intestine CPT copyright 2020 [employer]. All rights reserved. The codes documented in this report are preliminary and upon elevator serviceman review may be revised to meet current compliance requirements. MD Jaun Azar MD 03/17/2024 8:01:40 AM This report has been signed electronically.Jaun Enriquez MD Number of Addenda: 0 Note Initiated On: 03/17/2024 7:25 AM Scope In: Scope Out: Endoscopy Department at [facility] - [address] [place] [phone] Impression: - The entire examined colon is [...] Followed by Dr. Xiao at [facility] [place]. Anemia of chronic illness H and H [...] He received 1 dose of IV metoprolol. Tana was consulted, started Cardizem after [facility]. Will continue close observation. * Bing Knight - 05/06/2024 1:06 PM EST [facility] Physical Therapy Evaluation & Treatment PT Discharge [...] is a 78 y.o. male admitted to [facility] on 05/05/2024. Patient Active Problem List Diagnosis [...] ANKLE FRACTURE OTHER SURGICAL HISTORY Right PROCEDURE: IN ARTHRODESIS ANKLE OPEN OTHER SURGICAL HISTORY PROCEDURE: IN UNLISTED PX [employer]ESENT[employer] Social History Home Living Environment: Home Living Type of Home: House Lives With: Spouse Home Adaptive Equipment: Cane Home Living Comments: 13 stairs to second floor where bedroom/bathroom is located Home Layout: Two level Home Access: Stairs to enter with rails Entrance Stairs-Rails: Rail on both sides Entrance Stairs-Number of Steps: 3 Prior Function Level of Pope: Independent with mobility and functional transfers Ambulation [...] of Steps 3 Prior Function Level of Pope Independent with mobility and functional transfers Ambulation [...] Comments weaker from previous stroke, unable to 911 operator RLE Assessment RLE Assessment Within Functional Limits [...] is a 78 y.o. male admitted to [facility] on 05/05/2024 for Presence of ileostomy (CMS/HCC) [...] (Comment) (pt believes he is at baseline [facility] PT) when medically stable for safe [...] Major Goal: Demonstrates/reports adequate pain control 05/06/2024 0644 by Audrey Mark RN Outcome: [...] develop a pain control plan will improve 05/06/2024 0644 by Audrey Mark RN Outcome: [...] Understanding of proper healthcare maintenance will improve 05/06/2024643 by Audrey Mark RN [...] locally he transferred his oncologic care to [facility] and has completed adjuvant capecitabine. Mostrecent CT scanning in late December of this year shows no evidence of recurrent or persistent disease. He remains anxious to have his stoma is reversed. He is with his Becki as always. Intercurrent events, he will evidently be having TRUS/biopsy in [place] with Dr. Mathis and possibly cryotherapy to follow depending on results. Initial procedure scheduled for mid-March. Last colonoscopy was around 4 years ago, it would be prudent to interrogate his remaining colon prior to reversal. Currently a patient of Dr. Odalis Downey. Primary oncologist in [place] is Dr. Nabil Xiao. 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 [...] provided by booking staff. Inpatient procedure at [facility], follow-up 2 weeks later if all goes [...] 05/06/2024 0.04 (H) COLONOSCOPY Anesthesia - MAC; [facility] ENDOSCOPY Narrative: [facility] GI Patient Name: Hernan Veras Procedure Date: [...] neoplasm of large intestine CPT copyright 2020 [employer]. All rights reserved. The codes documented in this report are preliminary and upon elevator serviceman review may be revised to meet current compliance requirements. MD Jaun Azar MD 03/17/2024 8:01:40 AM This report has been signed electronically.Jaun Enriquez MD Number of Addenda: 0 Note Initiated On: 03/17/2024 7:25 AM Scope In: Scope Out: Endoscopy Department at [facility] - [address] [place] [phone] Impression: - The entire examined colon is [...] stronger stream since starting Flomax. [facility]. He has developed bowel [...] Test 11/19/2023 abstracted COLONOSCOPY Anesthesia - MAC; [facility] ENDOSCOPY Narrative: [facility] GI Patient Name: Hernan Veras Procedure Date: [...] neoplasm of large intestine CPT copyright 2020 [employer]. All rights reserved. The codes documented in this report are preliminary and upon elevator serviceman review may be revised to meet current compliance requirements. MD Jaun Azar MD 03/17/2024 8:01:40 AM This report has been signed electronically.Jaun Enriquez MD Number of Addenda: 0 Note Initiated On: 03/17/2024 7:25 AM Scope In: Scope Out: Endoscopy Department at [facility] - [address] [place] [phone] Impression: - The entire examined colon is [...] ILEOSTOMY CLOSURE OPERATIVE NOTE Date: 05/05/2024 Location: [facility] OR Name: Hernan Veras, : 1945, Diagnosis Pre-Op Diagnosis Codes: * Presence of ileostomy (CMS/HCC) [Z93.2] * Presence of colostomy (CMS/HCC) [Z93.3] Post-op Diagnosis * Presence of ileostomy (CMS/HCC) [Z93.2] * Presence of colostomy (CMS/HCC) [Z93.3] Procedures ILEOSTOMY CLOSURE 06599 - IN CLOSURE ENTEROSTOMY LARGE/SMALL INTESTINE 30299 - IN CLOSURE ENTEROSTOMY LARGE/SMALL INTESTINE 85513 - IN CLOSURE ENTRSTMY LRG/SM INTESTINE W/RESEC & ANAST OTH THAN COLORECTAL Indications: Hernan Veras is a 78 y.o. male who is having surgery for Pre-Op Diagnosis Codes: * Presence of ileostomy (CMS/HCC) [Z93.2] * Presence of colostomy (CMS/HCC) [Z93.3]. Surgeon(s) & Marketing Services Manager(s) * Gustavo Stone MD - Primary Marketing Services Manager: Nasreen Grewal PA-C Anesthesia: general ASA: II Estimated Blood Loss: 20 mL Drains: * No LDAs found * Specimen: Ileostomy; colostomy Specimens ID Source Type Tests Collected By Collected At Frozen? Priority Lab ID 1 Colon Tissue TISSUE EXAM Gustavo Stone MD 05/05/24 [id number] Description: ILEOSTOMY (LARGER) AND COLOSTOMY Procedure Details: [...] for both the ileostomy and the colostomy. [id number] ileocolic anastomosis was created in usual fashion [...] are well-perfusedand there is absolutely no tension. [place] reinforced with seromuscular Vicryl per usual. With [...] from the original note were not included. [facility]- Cardiology Consultation Note PATIENT NAME: Hernan Veras ([id number]) DATE OF CONSULT: 05/09/24 REFERRING PROVIDER: Dr Flowers PRIMARY MAIL ROOM CLERK: Dr Hernández ASSESSMENT & PLAN 78 y.o. [...] the importance of stroke prevention basedon the SQJ2QX2-OXMg score. I reviewed that in many cases, [...] high-dose statin for history of vascular disease [facility] RECOMMENDATIONS: Transition to long-acting diltiazem 180 [...] of colon cancer that was treated at [facility] [place] and was complicated by perforated malignancy of [...] extremity edema. He has never seen a team lead because he has not had cardiac issues. [...] tablet 80 mg, 80 mg, oral, Daily, GIOVANNI Hargrove, 80 mg at 05/09/24 0821 buprenorphine HCL [...] in addition to documenting in the record. [facility] [address] [facility] [address], [address] [place] [phone] documented in this encounter Plan of Treatment Upcoming Encounters Date Type Department Care Team (Late st Contact Info) Description 05/20/2024 10:00 AM EST Office Visit General Surgery [facility] [address] [phone] Gustavo Stone MD 175 [facility] 110 [place] [address] documented as of this encounter Procedures Procedure [...] of ileostomy (CMS/HCC) Presence of colostomy (CMS/HCC) IN CLOSURE ENTEROSTOMY LARGE/SMALL INTESTINE 05/05/2024 10:50 AM EST Presence of ileostomy (CMS/HCC) Presence of colostomy (CMS/HCC) Case Notes ERAS. documented in this encounter Results * (ABNORMAL) CBC auto differential (05/09/2024 6:34 AM EST) WBC 7.6 4.8 - 10.8 K/mcL LAB HEMETOLOGY METHOD 05/09/2024 7:22 AM EST [facility] RBC 3.70(L) 4.50 - 5.50 M/mcL LAB HEMETOLOGY METHOD 05/09/2024 7:22 AM [facility] Hemoglobin 12.1(L) 13.5 - 17.5 g/dL LAB HEMETOLOGY METHOD 05/09/2024 7:22 AM [facility] Hematocrit 37.1(L) 42.0 - 54.0 % LAB HEMETOLOGY METHOD 05/09/2024 7:22 AM [facility] MCV 99.7(H) 79.0 - 98.0 FL LAB HEMETOLOGY METHOD 05/09/2024 7:22 AM [facility] MCH 32.5(H) 27.0 - 32.0 pcg LAB HEMETOLOGY METHOD 05/09/2024 7:22 AM [facility] MCHC 32.6 32.0 - 37.0 g/dL LAB HEMETOLOGY METHOD 05/09/2024 7:22 AM [facility] RDW 12.1 11.0 - 15.0 % LAB HEMETOLOGY METHOD 05/09/2024 7:22 AM [facility] Platelets 173 130 - 400 K/mcL LAB HEMETOLOGY METHOD 05/09/2024 7:22 AM [facility] MPV 10.9 7.0 - 11.0 FL LAB HEMETOLOGY METHOD 05/09/2024 7:22 AM [facility] NRBC 0.0 <1.0 % LAB HEMETOLOGY METHOD 05/09/2024 7:22 AM [facility] NRBC Absolute 0.00 <0.10 K/mcL LAB HEMETOLOGY METHOD 05/09/2024 7:22 AM [facility] Neutrophils Relative 68.0 % LAB HEMETOLOGY METHOD 05/09/2024 7:22 AM [facility] Lymphocytes Relative 15.5 % LAB HEMETOLOGY METHOD 05/09/2024 7:22 AM [facility] Monocytes Relative 9.0 % LAB HEMETOLOGY METHOD 05/09/2024 7:22 AM [facility] Eosinophils Relative 6.3 % LAB HEMETOLOGY METHOD 05/09/2024 7:22 AM [facility] Basophils Relative 0.9 % LAB HEMETOLOGY METHOD 05/09/2024 7:22 AM [facility] Immature Granulocytes Relative 0.3 % LAB HEMETOLOGY METHOD 05/09/2024 7:22 AM [facility] Neutrophils Absolute 5.14 1.50 - 7.00 K/mcL LAB HEMETOLOGY METHOD 05/09/2024 7:22 AM [facility] Lymphocytes Absolute 1.17 1.00 - 5.00 K/mcL LAB HEMETOLOGY METHOD 05/09/2024 7:22 AM [facility] Monocytes Absolute 0.68 0.20 - 1.00 K/mcL LAB HEMETOLOGY METHOD 05/09/2024 7:22 AM [facility] Eosinophils Absolute 0.48 0.00 - 0.50 K/mcL LAB HEMETOLOGY METHOD 05/09/2024 7:22 AM [facility] Basophils Absolute 0.07 0.00 - 0.20 K/mcL LAB HEMETOLOGY METHOD 05/09/2024 7:22 AM [facility] Immature Granulocytes Absolute 0.02 0.00 - 0.03 K/mcL LAB HEMETOLOGY METHOD 05/09/2024 7:22 AM [facility] Blood Venous blood specimen / Unknown Venipuncture / Unknown 05/09/2024 6:34 AM EST 05/09/2024 6:54 AM EST Leti Flores NP LAB BLOOD ORDERABLES [facility] [address] [place] [address], * Phosphorus (05/09/2024 6:34 AM EST) [facility] Phosphorus 3.0 2.5 - 4.5 mg/dL LAB CHEMISTRY METHOD 05/09/2024 8:05 AM EST [facility] Blood Venous blood specimen / Unknown Venipuncture / Unknown 05/09/2024 6:34 AM EST 05/09/2024 6:52 AM EST Leti Flores NP LAB BLOOD ORDERABLES Performing Organization Address [facility]/ZIP Co de Phone Number [facility] [address] [place] [address], * Magnesium (05/09/2024 6:34 AM EST) [facility] Magnesium 2.2 1.9 - 2.6 mg/dL LAB CHEMISTRY METHOD 05/09/2024 8:05 AM EST [facility] Blood Venous blood specimen / Unknown Venipuncture / Unknown 05/09/2024 6:34 AM EST 05/09/2024 6:52 AM EST Leti Flores NP LAB BLOOD ORDERABLES [facility] [address] [place] [address], * (ABNORMAL) Basic metabolic panel (05/09/2024 6:34 AM EST) [facility] Sodium 142 133 - 145 mmol/L LAB CHEMISTRY METHOD 05/09/2024 8:05 AM [facility] Potassium 3.9 3.5 - 5.5 mmol/L LAB CHEMISTRY METHOD 05/09/2024 8:05 AM EST [facility] Chloride 111(H) 96 - 110 mmol/L LAB CHEMISTRY METHOD 05/09/2024 8:05 AM [facility] CO2 26 21 - 32 mmol/L LAB CHEMISTRY METHOD 05/09/2024 8:05 AM [facility] Anion Gap 5 3 - 11 LAB CHEMISTRY METHOD 05/09/2024 8:05 AM [facility] Glucose 104(H) 70 - 100 mg/dL LAB CHEMISTRY METHOD 05/09/2024 8:05 AM [facility] BUN 14 5 - 25 mg/dL LAB CHEMISTRY METHOD 05/09/2024 8:05 AM [facility] Creatinine 1.29 0.70 - 1.30 mg/dL LAB CHEMISTRY METHOD 05/09/2024 8:05 AM [facility] eGFR 57(L) >=60 mL/min/1. 73m2 LAB CHEMISTRY METHOD 05/09/2024 8:05 AM [facility] Comment:Calculation based on the??Chronic Kidney Disease Epidemiology Collaboration (CKD-EPI) equation refit??without adjustment for race. BUN/Creatinine Ratio 10.9 LAB CHEMISTRY METHOD 05/09/2024 8:05 AM [facility] Calcium 8.1(L) 8.5 - 10.5 mg/dL LAB CHEMISTRY METHOD 05/09/2024 8:05 AM [facility] Blood Venous blood specimen / Unknown Venipuncture / Unknown 05/09/2024 6:34 AM EST 05/09/2024 6:52 AM EST Leti Flores NP LAB BLOOD ORDERABLES [facility] [address] [place] [address], * (ABNORMAL) TRANSTHORACIC ECHOCARDIOGRAM (TTE) COMPLETE W/ CONTRAST (05/08/2024 1:14 PM EST) BSA 2.24 m2 CV PACS Left [facility] [place] 6.3 cm CV PACS Left [facility] [place] 5.6 cm CV PACS [place] Area Sys [...] Light blue tube (05/08/2024 9:23 AM EST) [facility] Extra Tube Hold for add-ons. 05/08/2024 11:01 AM EST [facility] Comment:Auto resulted. Blood Venous blood specimen / Unknown 05/08/2024 9:23 AM EST 05/08/2024 9:50 AM EST Emely Flowers MD LAB BLOOD ORDERABLES Performing Organization Address City/State/[facility] Co de Phone Number [facility] [address] [place] [address], * (ABNORMAL) CBC auto differential (05/08/2024 9:23 AM EST) [facility] WBC 9.2 4.8 - 10.8 K/mcL LAB HEMETOLOGY METHOD 05/08/2024 10:00 AM [facility] RBC 3.80(L) 4.50 - 5.50 M/mcL LAB HEMETOLOGY METHOD 05/08/2024 10:00 AM [facility] Hemoglobin 12.9(L) 13.5 - 17.5 g/dL LAB HEMETOLOGY METHOD 05/08/2024 10:00 AM [facility] Hematocrit 38.9(L) 42.0 - 54.0 % LAB HEMETOLOGY METHOD 05/08/2024 10:00 AM [facility] MCV 101.8(H) 79.0 - 98.0 FL LAB HEMETOLOGY METHOD 05/08/2024 10:00 AM [facility] MCH 33.8(H) 27.0 - 32.0 pcg LAB HEMETOLOGY METHOD 05/08/2024 10:00 AM [facility] MCHC 33.2 32.0 - 37.0 g/dL LAB HEMETOLOGY METHOD 05/08/2024 10:00 AM [facility] RDW 12.3 11.0 - 15.0 % LAB HEMETOLOGY METHOD 05/08/2024 10:00 AM [facility] Platelets 179 130 - 400 K/mcL LAB HEMETOLOGY METHOD 05/08/2024 10:00 AM [facility] MPV 10.8 7.0 - 11.0 FL LAB HEMETOLOGY METHOD 05/08/2024 10:00 AM [facility] NRBC 0.0 <1.0 % LAB HEMETOLOGY METHOD 05/08/2024 10:00 AM [facility] NRBC Absolute 0.00 <0.10 K/mcL LAB HEMETOLOGY METHOD 05/08/2024 10:00 AM [facility] Neutrophils Relative 74.2 % LAB HEMETOLOGY METHOD 05/08/2024 10:00 AM [facility] Lymphocytes Relative 13.3 % LAB HEMETOLOGY METHOD 05/08/2024 10:00 AM [facility] Monocytes Relative 7.4 % LAB HEMETOLOGY METHOD 05/08/2024 10:00 AM [facility] Eosinophils Relative 4.0 % LAB HEMETOLOGY METHOD 05/08/2024 10:00 AM [facility] Basophils Relative 0.8 % LAB HEMETOLOGY METHOD 05/08/2024 10:00 AM [facility] Immature Granulocytes Relative 0.3 % LAB HEMETOLOGY METHOD 05/08/2024 10:00 AM [facility] Neutrophils Absolute 6.81 1.50 - 7.00 [facility] LAB HEMETOLOGY METHOD 05/08/2024 10:00 AM EST [facility] Lymphocytes Absolute 1.22 1.00 - 5.00 K[facility] LAB HEMETOLOGY METHOD 05/08/2024 10:00 AM EST [facility] Monocytes Absolute 0.68 0.20 - 1.00 K[facility] LAB HEMETOLOGY METHOD 05/08/2024 10:00 AM EST [facility] Eosinophils Absolute 0.37 0.00 - 0.50 K[facility] LAB HEMETOLOGY METHOD 05/08/2024 10:00 AM EST [facility] Basophils Absolute 0.07 0.00 - 0.20 K[facility] LAB HEMETOLOGY METHOD 05/08/2024 10:00 AM [facility] Immature Granulocytes Absolute 0.03 0.00 - 0.03 K[facility] LAB HEMETOLOGY METHOD 05/08/2024 10:00 AM EST [facility] Blood Venous blood specimen / Unknown Venipuncture / Unknown 05/08/2024 9:23 AM EST 05/08/2024 9:49 AM EST Mayda DAVILA LAB BLOOD ORDERABLES [facility] [address] [place], [place] [address] [phone] * (ABNORMAL) CBC - Every 3 Days (05/08/2024 9:23 AM EST) WBC 9.2 4.8 - 10.8 K[facility] LAB HEMETOLOGY METHOD 05/08/2024 10:00 AM EST [facility] RBC 3.80(L) 4.50 - 5.50 M[facility] LAB HEMETOLOGY METHOD 05/08/2024 10:00 AM EST [facility] Hemoglobin 12.9(L) 13.5 - 17.5 g/dL LAB HEMETOLOGY METHOD 05/08/2024 10:00 AM [facility] Hematocrit 38.9(L) 42.0 - 54.0 % LAB HEMETOLOGY METHOD 05/08/2024 10:00 AM [facility] MCV 101.8(H) 79.0 - 98.0 FL LAB HEMETOLOGY METHOD 05/08/2024 10:00 AM [facility] MCH 33.8(H) 27.0 - 32.0 pcg LAB HEMETOLOGY METHOD 05/08/2024 10:00 AM [facility] MCHC 33.2 32.0 - 37.0 g/dL LAB HEMETOLOGY METHOD 05/08/2024 10:00 AM [facility] RDW 12.3 11.0 - 15.0 % LAB HEMETOLOGY METHOD 05/08/2024 10:00 AM [facility] Platelets 179 130 - 400 K/mcL LAB HEMETOLOGY METHOD 05/08/2024 10:00 AM [facility] MPV 10.8 7.0 - 11.0 FL LAB HEMETOLOGY METHOD 05/08/2024 10:00 AM [facility] NRBC 0.0 <1.0 % LAB HEMETOLOGY METHOD 05/08/2024 10:00 AM [facility] NRBC Absolute 0.00 <0.10 K/mcL LAB HEMETOLOGY METHOD 05/08/2024 10:00 AM [facility] Blood Venous blood specimen / Unknown Venipuncture / Unknown 05/08/2024 9:23 AM EST 05/08/2024 9:49 AM EST Brittny DAVILA LAB BLOOD ORDERABLES [facility] [address] [place] [address], * (ABNORMAL) Basic metabolic panel (05/08/2024 9:23 AM EST) Sodium 142 133 - 145 mmol/L LAB CHEMISTRY METHOD 05/08/2024 10:33 AM [facility] Potassium 3.9 3.5 - 5.5 mmol/L LAB CHEMISTRY METHOD 05/08/2024 10:33 AM [facility] Chloride 110 96 - 110 mmol/L LAB CHEMISTRY METHOD 05/08/2024 10:33 AM [facility] CO2 26 21 - 32 mmol/L LAB CHEMISTRY METHOD 05/08/2024 10:33 AM [facility] Anion Gap 6 3 - 11 LAB CHEMISTRY METHOD 05/08/2024 10:33 AM [facility] Glucose 136(H) 70 - 100 mg/dL LAB CHEMISTRY METHOD 05/08/2024 10:33 AM [facility] BUN 14 5 - 25 mg/dL LAB CHEMISTRY METHOD 05/08/2024 10:33 AM [facility] Creatinine 1.36(H) 0.70 - 1.30 mg/dL LAB CHEMISTRY METHOD 05/08/2024 10:33 AM [facility] eGFR 54(L) >=60 mL/min/1. 73m2 LAB CHEMISTRY METHOD 05/08/2024 10:33 AM [facility] Comment:Calculation based on the??Chronic Kidney Disease Epidemiology Collaboration (CKD-EPI) equation refit??without adjustment for race. BUN/Creatinine Ratio 10.3 LAB CHEMISTRY METHOD 05/08/2024 10:33 AM [facility] Calcium 8.3(L) 8.5 - 10.5 mg/dL LAB CHEMISTRY METHOD 05/08/2024 10:33 AM [facility] Blood Venous blood specimen / Unknown Venipuncture / Unknown 05/08/2024 9:23 AM EST 05/08/2024 9:49 AM EST Mayda DAVILA LAB BLOOD ORDERABLES Performing Organization Address City/[facility]/ZIP Co de Phone Number [facility] [address] [place] [address], [place] [phone] * Activated Partial Thromboplastin Time - STAT (05/07/2024 4:14 PM EST) Pathologist [facility] aPTT 29.8 24.1 - 39.3 sec LAB COAGULATION METHOD 05/07/2024 5:23 PM EST [facility] Blood Venous blood specimen / Unknown Venipuncture / Unknown 05/07/2024 4:14 PM EST 05/07/2024 5:06 PM EST Brittny DAVILA LAB BLOOD ORDERABLES Performing Organization Address [facility]/ZIP Co de Phone Number [facility] [address] [place] [address], [place] [phone] * Prothrombin Time with INR - STAT (05/07/2024 4:14 PM EST) [facility] Protime 11.5 10.6 - 13.9 sec LAB COAGULATION METHOD 05/07/2024 5:23 PM EST [facility] INR 0.9 LAB COAGULATION METHOD 05/07/2024 5:23 PM EST [facility] Blood Venous blood specimen / Unknown Venipuncture / Unknown 05/07/2024 4:14 PM EST 05/07/2024 5:06 PM EST Brittny DAVILA LAB BLOOD ORDERABLES Performing Organization Address City/[facility]/ZIP Co de Phone Number [facility] [address] [place] [address], [place] [phone] * (ABNORMAL) Hepatic Function Panel - STAT (05/07/2024 12:15 PM EST) [facility] Total Protein 5.9(L) 6.0 - 8.0 g/dL LAB CHEMISTRY METHOD 05/07/2024 4:01 PM [facility] Albumin 3.1(L) 3.2 - 5.0 g/dL LAB CHEMISTRY METHOD 05/07/2024 4:01 PM [facility] Total Bilirubin 0.6 0.0 - 1.4 mg/dL LAB CHEMISTRY METHOD 05/07/2024 4:01 PM [facility] Bilirubin, Direct 0.2 0.0 - 0.3 mg/dL LAB CHEMISTRY METHOD 05/07/2024 4:01 PM [facility] Bilirubin, Indirect 0.4 0.0 - 1.1 mg/dL LAB CHEMISTRY METHOD 05/07/2024 4:01 PM [facility] ALT (SGPT) 27 10 - 60 unit/L LAB CHEMISTRY METHOD 05/07/2024 4:01 PM [facility] AST (SGOT) 12 10 - 42 unit/L LAB CHEMISTRY METHOD 05/07/2024 4:01 PM [facility] Alkaline Phosphatase 85 42 - 121 unit/L LAB CHEMISTRY METHOD 05/07/2024 4:01 PM [facility] Blood Venous blood specimen / Unknown Venipuncture / Unknown 05/07/2024 12:15 PM EST 05/07/2024 12:42 PM EST Brittny DAVILA LAB BLOOD ORDERABLES [facility] [address] [place] [address], * B-type natriuretic peptide (05/07/2024 12:15 PM EST) BNP 43 <=100 pcg/mL LAB CHEMISTRY METHOD 05/07/2024 1:27 PM EST [facility] Blood Venous blood specimen / Unknown Venipuncture / Unknown 05/07/2024 12:15 PM EST 05/07/2024 12:42 PM EST Mert Jorgensen MD LAB BLOOD ORDERABLES Performing Organization Address [facility]/ZIP Co de Phone Number [facility] [address] [place] [address], * Troponin I high sensitivity (05/07/2024 12:15 PM EST) [facility] High Sensitivity Troponin I 8 <=79 ng/L LAB CHEMISTRY METHOD 05/07/2024 1:15 PM EST [facility] Blood Venous blood specimen / Unknown Venipuncture / Unknown 05/07/2024 12:15 PM EST 05/07/2024 12:42 PM EST Narrative [facility] - 05/07/2024 1:15 PM EST High levels of biotin in samples may falsely decrease hsTroponin values. ??Use caution when interpreting hsTroponin results in patients taking biotin who exhibit renal impairment (eGFR <60) or in patients taking more than 20 mg/day of biotin. Mert Jorgensen MD LAB BLOOD ORDERABLES Performing Organization Address [facility] Co de Phone Number [facility] [address] [place] [address], * Thyroid stimulating hormone (05/07/2024 12:15 PM EST) [facility] TSH 0.69 0.40 - 4.00 mcIU/mL LAB CHEMISTRY METHOD 05/07/2024 1:29 PM EST [facility] Blood Venous blood specimen / Unknown Venipuncture / Unknown 05/07/2024 12:15 PM EST 05/07/2024 12:42 PM EST Mert Jorgensen MD LAB BLOOD ORDERABLES Performing Organization Address City/[facility]/ZIP Co de Phone Number [facility] [address] [place] [address], * (ABNORMAL) CBC auto differential (05/07/2024 8:58 AM EST) [facility] WBC 9.3 4.8 - 10.8 K/mcL LAB HEMETOLOGY METHOD 05/07/2024 9:13 AM [facility] RBC 3.80(L) 4.50 - 5.50 M/mcL LAB HEMETOLOGY METHOD 05/07/2024 9:13 AM [facility] Hemoglobin 12.5(L) 13.5 - 17.5 g/dL LAB HEMETOLOGY METHOD 05/07/2024 9:13 AM [facility] Hematocrit 37.9(L) 42.0 - 54.0 % LAB HEMETOLOGY METHOD 05/07/2024 9:13 AM [facility] MCV 100.3(H) 79.0 - 98.0 FL LAB HEMETOLOGY METHOD 05/07/2024 9:13 AM [facility] MCH 33.1(H) 27.0 - 32.0 pcg LAB HEMETOLOGY METHOD 05/07/2024 9:13 AM [facility] MCHC 33.0 32.0 - 37.0 g/dL LAB HEMETOLOGY METHOD 05/07/2024 9:13 AM [facility] RDW 12.2 11.0 - 15.0 % LAB HEMETOLOGY METHOD 05/07/2024 9:13 AM [facility] Platelets 161 130 - 400 K/mcL LAB HEMETOLOGY METHOD 05/07/2024 9:13 AM [facility] MPV 10.6 7.0 - 11.0 FL LAB HEMETOLOGY METHOD 05/07/2024 9:13 AM [facility] NRBC 0.0 <1.0 % LAB HEMETOLOGY METHOD 05/07/2024 9:13 AM [facility] NRBC Absolute 0.00 <0.10 K/mcL LAB HEMETOLOGY METHOD 05/07/2024 9:13 AM [facility] Neutrophils Relative 74.6 % LAB HEMETOLOGY METHOD 05/07/2024 9:13 AM [facility] Lymphocytes Relative 12.7 % LAB HEMETOLOGY METHOD 05/07/2024 9:13 AM [facility] Monocytes Relative 9.1 % LAB HEMETOLOGY METHOD 05/07/2024 9:13 AM [facility] Eosinophils Relative 2.3 % LAB HEMETOLOGY METHOD 05/07/2024 9:13 AM [facility] Basophils Relative 1.0 % LAB HEMETOLOGY METHOD 05/07/2024 9:13 AM [facility] Immature Granulocytes Relative 0.3 % LAB HEMETOLOGY METHOD 05/07/2024 9:13 AM [facility] Neutrophils Absolute 6.96 1.50 - 7.00 K/mcL LAB HEMETOLOGY METHOD 05/07/2024 9:13 AM [facility] Lymphocytes Absolute 1.18 1.00 - 5.00 K/mcL LAB HEMETOLOGY METHOD 05/07/2024 9:13 AM [facility] Monocytes Absolute 0.85 0.20 - 1.00 K/mcL LAB HEMETOLOGY METHOD 05/07/2024 9:13 AM [facility] Eosinophils Absolute 0.21 0.00 - 0.50 K/mcL LAB HEMETOLOGY METHOD 05/07/2024 9:13 AM [facility] Basophils Absolute 0.09 0.00 - 0.20 K/mcL LAB HEMETOLOGY METHOD 05/07/2024 9:13 AM [facility] Immature Granulocytes Absolute 0.03 0.00 - 0.03 K/mcL LAB HEMETOLOGY METHOD 05/07/2024 9:13 AM EST [facility] Blood Venous blood specimen / Unknown Venipuncture / Unknown 05/07/2024 8:58 AM EST 05/07/2024 9:08 AM EST Faith DAVILA LAB BLOOD ORDERABLES Performing Organization Address [facility] de Phone Number [facility] [address] [place] [address], * Troponin I high sensitivity (05/07/2024 8:58 AM EST) High Sensitivity Troponin I 6 <=79 ng/L LAB CHEMISTRY METHOD 05/07/2024 9:37 AM EST [facility] Blood Venous blood specimen / Unknown Venipuncture / Unknown 05/07/2024 8:58 AM EST 05/07/2024 9:08 AM EST Narrative [facility] - 05/07/2024 9:37 AM EST High levels of biotin in samples may falsely decrease hsTroponin values. ??Use caution when interpreting hsTroponin results in patients taking biotin who exhibit renal impairment (eGFR <60) or in patients taking more than 20 mg/day of biotin. Faith DAVILA LAB BLOOD ORDERABLES Performing Organization Address [facility] Co de Phone Number [facility] [address] [place] [address], * Magnesium (05/07/2024 8:58 AM EST) Magnesium 2.1 1.9 - 2.6 mg/dL LAB CHEMISTRY METHOD 05/07/2024 9:41 AM EST [facility] Blood Venous blood specimen / Unknown Venipuncture / Unknown 05/07/2024 8:58 AM EST 05/07/2024 9:08 AM EST Faith DAVILA LAB BLOOD ORDERABLES [facility] [address] [place] [address], * (ABNORMAL) Basic metabolic panel (05/07/2024 8:58 AM EST) Sodium 140 133 - 145 mmol/L LAB CHEMISTRY METHOD 05/07/2024 9:47 AM EST [facility] Potassium 3.7 3.5 - 5.5 mmol/L LAB CHEMISTRY METHOD 05/07/2024 9:47 AM [facility] Chloride 111(H) 96 - 110 mmol/L LAB CHEMISTRY METHOD 05/07/2024 9:47 AM [facility] CO2 27 21 - 32 mmol/L LAB CHEMISTRY METHOD 05/07/2024 9:47 AM [facility] Anion Gap 2(L) 3 - 11 LAB CHEMISTRY METHOD 05/07/2024 9:47 AM [facility] Glucose 107(H) 70 - 100 mg/dL LAB CHEMISTRY METHOD 05/07/2024 9:47 AM [facility] BUN 13 5 - 25 mg/dL LAB CHEMISTRY METHOD 05/07/2024 9:47 AM [facility] Creatinine 1.19 0.70 - 1.30 mg/dL LAB CHEMISTRY METHOD 05/07/2024 9:47 AM [facility] eGFR 63 >=60 mL/min/1. 73m2 LAB CHEMISTRY METHOD 05/07/2024 9:47 AM [facility] Comment:Calculation based on the??Chronic Kidney Disease Epidemiology Collaboration (CKD-EPI) equation refit??without adjustment for race. BUN/Creatinine Ratio 10.9 LAB CHEMISTRY METHOD 05/07/2024 9:47 AM [facility] Calcium 8.5 8.5 - 10.5 mg/dL LAB CHEMISTRY METHOD 05/07/2024 9:47 AM [facility] Blood Venous blood specimen / Unknown Venipuncture / Unknown 05/07/2024 8:58 AM EST 05/07/2024 9:08 AM EST Faith DAVILA LAB BLOOD ORDERABLES Performing Organization Address [facility]/ZIP Co de Phone Number [facility] [address] [place] [address], * ECG 12 lead (05/07/2024 8:41 AM EST) Ventricular Rate ECG 146 BPM GEMUSE Atrial Rate 133 BPM GEMUSE QRS Duration 90 ms GEMUSE Q-T Interval 294 ms GEMUSE QTc 458 ms GEMUSE R [place] -11 degrees GEMUSE T [place] 35 degrees GEMUSE ECG Interpretation Critical Test [...] Inferior leads Confirmed by Keri SCHAFFER JOHN ([id number]) on 05/08/2024 10:40:33 AM GEMUSE 05/07/2024 8:41 AM EST 05/08/2024 10:40 AM EST Gustavo Stone MD ECG ORDERABLES Performing Organization Address City/[facility]/ZIP Co de Phone Number GEMUSE * (ABNORMAL) CBC auto differential (05/07/2024 6:25 AM EST) Pathologist [facility] WBC 8.5 4.8 - 10.8 K/[facility] LAB HEMETOLOGY METHOD 05/07/2024 7:16 AM EST [facility] RBC 3.70(L) 4.50 - 5.50 M/[facility] LAB HEMETOLOGY METHOD 05/07/2024 7:16 AM EST [facility] Hemoglobin 12.4(L) 13.5 - 17.5 g/dL LAB HEMETOLOGY METHOD 05/07/2024 7:16 AM [facility] Hematocrit 38.0(L) 42.0 - 54.0 % LAB HEMETOLOGY METHOD 05/07/2024 7:16 AM [facility] MCV 102.4(H) 79.0 - 98.0 FL LAB HEMETOLOGY METHOD 05/07/2024 7:16 AM [facility] MCH 33.4(H) 27.0 - 32.0 pcg LAB HEMETOLOGY METHOD 05/07/2024 7:16 AM [facility] MCHC 32.6 32.0 - 37.0 g/dL LAB HEMETOLOGY METHOD 05/07/2024 7:16 AM [facility] RDW 12.3 11.0 - 15.0 % LAB HEMETOLOGY METHOD 05/07/2024 7:16 AM [facility] Platelets 179 130 - 400 K/mcL LAB HEMETOLOGY METHOD 05/07/2024 7:16 AM [facility] MPV 10.7 7.0 - 11.0 FL LAB HEMETOLOGY METHOD 05/07/2024 7:16 AM [facility] NRBC 0.0 <1.0 % LAB HEMETOLOGY METHOD 05/07/2024 7:16 AM [facility] NRBC Absolute 0.00 <0.10 K/mcL LAB HEMETOLOGY METHOD 05/07/2024 7:16 AM [facility] Neutrophils Relative 72.9 % LAB HEMETOLOGY METHOD 05/07/2024 7:16 AM [facility] Lymphocytes Relative 13.7 % LAB HEMETOLOGY METHOD 05/07/2024 7:16 AM [facility] Monocytes Relative 9.6 % LAB HEMETOLOGY METHOD 05/07/2024 7:16 AM [facility] Eosinophils Relative 2.6 % LAB HEMETOLOGY METHOD 05/07/2024 7:16 AM EST [facility] Basophils Relative 0.8 % LAB HEMETOLOGY METHOD 05/07/2024 7:16 AM [facility] Immature Granulocytes Relative 0.4 % LAB HEMETOLOGY METHOD 05/07/2024 7:16 AM [facility] Neutrophils Absolute 6.21 1.50 - 7.00 K/mcL LAB HEMETOLOGY METHOD 05/07/2024 7:16 AM EST [facility] Lymphocytes Absolute 1.17 1.00 - 5.00 K/mcL LAB HEMETOLOGY METHOD 05/07/2024 7:16 AM [facility] Monocytes Absolute 0.82 0.20 - 1.00 K/mcL LAB HEMETOLOGY METHOD 05/07/2024 7:16 AM EST [facility] Eosinophils Absolute 0.22 0.00 - 0.50 K/mcL LAB HEMETOLOGY METHOD 05/07/2024 7:16 AM EST [facility] Basophils Absolute 0.07 0.00 - 0.20 K/mcL LAB HEMETOLOGY METHOD 05/07/2024 7:16 AM [facility] Immature Granulocytes Absolute 0.03 0.00 - 0.03 K/mcL LAB HEMETOLOGY METHOD 05/07/2024 7:16 AM EST [facility] Blood Venous blood specimen / Unknown Venipuncture / Unknown 05/07/2024 6:25 AM EST 05/07/2024 6:39 AM EST Mayda DAVILA LAB BLOOD ORDERABLES [facility] [address] [place] [address], * Phosphorus (05/07/2024 6:25 AM EST) Phosphorus 2.8 2.5 - 4.5 mg/dL LAB CHEMISTRY METHOD 05/07/2024 7:30 AM EST [facility] Blood Venous blood specimen / Unknown Venipuncture / Unknown 05/07/2024 6:25 AM EST 05/07/2024 6:38 AM EST Mayda DAVILA LAB BLOOD ORDERABLES Performing Organization Address City/[facility]/ZIP Co de Phone Number [facility] [address] [place] [address], [place] [phone] * Magnesium (05/07/2024 6:25 AM EST) Pathologist [facility] Magnesium 2.2 1.9 - 2.6 mg/dL LAB CHEMISTRY METHOD 05/07/2024 7:28 AM EST [facility] Blood Venous blood specimen / Unknown Venipuncture / Unknown 05/07/2024 6:25 AM EST 05/07/2024 6:38 AM EST Mayda DAVILA LAB BLOOD ORDERABLES Performing Organization Address City/[facility]/ZIP Co de Phone Number [facility] [address] [place] [address], * (ABNORMAL) Basic metabolic panel (05/07/2024 6:25 AM EST) Sodium 141 133 - 145 mmol/L LAB CHEMISTRY METHOD 05/07/2024 7:30 AM EST [facility] Potassium 4.0 3.5 - 5.5 mmol/L LAB CHEMISTRY METHOD 05/07/2024 7:30 AM EST [facility] Chloride 109 96 - 110 mmol/L LAB CHEMISTRY METHOD 05/07/2024 7:30 AM EST [facility] CO2 29 21 - 32 mmol/L LAB CHEMISTRY METHOD 05/07/2024 7:30 AM EST [facility] Anion Gap 3 3 - 11 LAB CHEMISTRY METHOD 05/07/2024 7:30 AM [facility] Glucose 96 70 - 100 mg/dL LAB CHEMISTRY METHOD 05/07/2024 7:30 AM [facility] BUN 13 5 - 25 mg/dL LAB CHEMISTRY METHOD 05/07/2024 7:30 AM [facility] Creatinine 1.29 0.70 - 1.30 mg/dL LAB CHEMISTRY METHOD 05/07/2024 7:30 AM [facility] eGFR 57(L) >=60 mL/min/1. 73m2 LAB CHEMISTRY METHOD 05/07/2024 7:30 AM [facility] Comment:Calculation based on the??Chronic Kidney Disease Epidemiology Collaboration (CKD-EPI) equation refit??without adjustment for race. BUN/Creatinine Ratio 10.1 LAB CHEMISTRY METHOD 05/07/2024 7:30 AM [facility] Calcium 8.3(L) 8.5 - 10.5 mg/dL LAB CHEMISTRY METHOD 05/07/2024 7:30 AM [facility] Blood Venous blood specimen / Unknown Venipuncture / Unknown 05/07/2024 6:25 AM EST 05/07/2024 6:38 AM EST Mayda DAVILA LAB BLOOD ORDERABLES [facility] [address] [place] [address], * Phosphorus (05/06/2024 6:18 AM EST) Phosphorus 4.3 2.5 - 4.5 mg/dL LAB CHEMISTRY METHOD 05/06/2024 8:01 AM EST [facility] Blood Venous blood specimen / Unknown Venipuncture / Unknown 05/06/2024 6:18 AM EST 05/06/2024 7:21 AM EST Jeny DAVILA LAB BLOOD ORDERABLES Performing Organization Address [facility]/ZIP Co de Phone Number [facility] [address] [place] [address], * Magnesium (05/06/2024 6:18 AM EST) Pathologist [facility] Magnesium 2.1 1.9 - 2.6 mg/dL LAB CHEMISTRY METHOD 05/06/2024 8:01 AM EST [facility] Blood Venous blood specimen / Unknown Venipuncture / Unknown 05/06/2024 6:18 AM EST 05/06/2024 7:21 AM EST Jeny DAVILA LAB BLOOD ORDERABLES Performing Organization Address [facility] Co de Phone Number [facility] [address] [place] [address], * (ABNORMAL) Basic metabolic panel (05/06/2024 6:18 AM EST) [facility] Sodium 139 133 - 145 mmol/L LAB CHEMISTRY METHOD 05/06/2024 8:01 AM [facility] Potassium 4.5 3.5 - 5.5 mmol/L LAB CHEMISTRY METHOD 05/06/2024 8:01 AM [facility] Chloride 105 96 - 110 mmol/L LAB CHEMISTRY METHOD 05/06/2024 8:01 AM [facility] CO2 27 21 - 32 mmol/L LAB CHEMISTRY METHOD 05/06/2024 8:01 AM [facility] Anion Gap 7 3 - 11 LAB CHEMISTRY METHOD 05/06/2024 8:01 AM [facility] Glucose 106(H) 70 - 100 mg/dL LAB CHEMISTRY METHOD 05/06/2024 8:01 AM [facility] BUN 16 5 - 25 mg/dL LAB CHEMISTRY METHOD 05/06/2024 8:01 AM [facility] Creatinine 1.58(H) 0.70 - 1.30 mg/dL LAB CHEMISTRY METHOD 05/06/2024 8:01 AM EST [facility] eGFR 45(L) >=60 mL/min/1. 73m2 LAB CHEMISTRY METHOD 05/06/2024 8:01 AM [facility] Comment:Calculation based on the??Chronic Kidney Disease Epidemiology Collaboration (CKD-EPI) equation refit??without adjustment for race. BUN/Creatinine Ratio 10.1 LAB CHEMISTRY METHOD 05/06/2024 8:01 AM [facility] Calcium 8.6 8.5 - 10.5 mg/dL LAB CHEMISTRY METHOD 05/06/2024 8:01 AM [facility] Blood Venous blood specimen / Unknown Venipuncture / Unknown 05/06/2024 6:18 AM EST 05/06/2024 7:21 AM EST GIOVANNI Pappas LAB BLOOD ORDERABLE S [facility] [address] [place] [address], * (ABNORMAL) CBC auto differential (05/06/2024 6:17 AM EST) WBC 15.7(H) 4.8 - 10.8 K/mcL LAB HEMETOLOGY METHOD 05/06/2024 7:43 AM [facility] RBC 4.30(L) 4.50 - 5.50 M/mcL LAB HEMETOLOGY METHOD 05/06/2024 7:43 AM [facility] Hemoglobin 14.5 13.5 - 17.5 g/dL LAB HEMETOLOGY METHOD 05/06/2024 7:43 AM [facility] Hematocrit 43.8 42.0 - 54.0 % LAB HEMETOLOGY METHOD 05/06/2024 7:43 AM [facility] MCV 101.4(H) 79.0 - 98.0 FL LAB HEMETOLOGY METHOD 05/06/2024 7:43 AM [facility] MCH 33.6(H) 27.0 - 32.0 pcg LAB HEMETOLOGY METHOD 05/06/2024 7:43 AM [facility] MCHC 33.1 32.0 - 37.0 g/dL LAB HEMETOLOGY METHOD 05/06/2024 7:43 AM [facility] RDW 12.1 11.0 - 15.0 % LAB HEMETOLOGY METHOD 05/06/2024 7:43 AM [facility] Platelets 263 130 - 400 K/mcL LAB HEMETOLOGY METHOD 05/06/2024 7:43 AM [facility] MPV 10.7 7.0 - 11.0 FL LAB HEMETOLOGY METHOD 05/06/2024 7:43 AM [facility] NRBC 0.0 <1.0 % LAB HEMETOLOGY METHOD 05/06/2024 7:43 AM [facility] NRBC Absolute 0.00 <0.10 K/mcL LAB HEMETOLOGY METHOD 05/06/2024 7:43 AM [facility] Neutrophils Relative 82.7 % LAB HEMETOLOGY METHOD 05/06/2024 7:43 AM [facility] Lymphocytes Relative 9.2 % LAB HEMETOLOGY METHOD 05/06/2024 7:43 AM [facility] Monocytes Relative 7.3 % LAB HEMETOLOGY METHOD 05/06/2024 7:43 AM [facility] Eosinophils Relative 0.1 % LAB HEMETOLOGY METHOD 05/06/2024 7:43 AM [facility] Basophils Relative 0.4 % LAB HEMETOLOGY METHOD 05/06/2024 7:43 AM [facility] Immature Granulocytes Relative 0.3 % LAB HEMETOLOGY METHOD 05/06/2024 7:43 AM EST [facility] Neutrophils Absolute 12.98(H) 1.50 - 7.00 K/mcL LAB HEMETOLOGY METHOD 05/06/2024 7:43 AM [facility] Lymphocytes Absolute 1.45 1.00 - 5.00 K/mcL LAB HEMETOLOGY METHOD 05/06/2024 7:43 AM [facility] Monocytes Absolute 1.14(H) 0.20 - 1.00 K/mcL LAB HEMETOLOGY METHOD 05/06/2024 7:43 AM [facility] Eosinophils Absolute 0.01 0.00 - 0.50 K/mcL LAB HEMETOLOGY METHOD 05/06/2024 7:43 AM [facility] Basophils Absolute 0.06 0.00 - 0.20 K/mcL LAB HEMETOLOGY METHOD 05/06/2024 7:43 AM [facility] Immature Granulocytes Absolute 0.04(H) 0.00 - 0.03 K/mcL LAB HEMETOLOGY METHOD 05/06/2024 7:43 AM [facility] Blood Venous blood specimen / Unknown 05/06/2024 6:17 AM EST 05/06/2024 7:43 AM EST GIOVANNI Pappas LAB BLOOD ORDERABLE S [facility] [address] [place] [address], * Tissue exam (05/05/2024 11:55 AM EST) Final Diagnosis Colon, ileostomy (larger) and colostomy: Segment of small bowel with focal granulation tissue and adjacent skin, compatible with ileostomy. Segment of large bowel and adjacent skin, compatible with colostomy. No mass lesions, dysplasia, or neoplasia identified. Margins appear viable. 05/08/2024 9:37 AM EST [facility] Gross Description A. Colon, ileostomy (larger) [...] absent. The attached adipose tissue is unremarkable. [employer] longitudinal sections from both marginal one are submitted in one cassette, two pieces. TS 05/08/2024 9:37 AM [facility] Disclaimer Unless otherwise specified, all tissue is 10% NB formalin fixed and paraffin embedded. 05/08/2024 9:37 AM [facility] Tissue (Colon) 05/05/2024 11 :55 AM EST 05/05/2024 1:42 PM EST Gustavo Stone MD LAB PATHOLOGY ORDER SANDRO [facility] [address] [place] [address], documented in this encounter Visit Diagnoses Diagnosis Presence of ileostomy (CMS/HCC)- Primary Presence of ileostomy (CMS/HCC) Presence of colostomy (CMS/HCC) Atrial fibrillation, unspecified type (CMS/HCC) Presence of colostomy (CMS/HCC) Paroxysmal atrial fibrillation (CMS/HCC) Atrial fibrillation HLD (hyperlipidemia) Other and unspecified hyperlipidemia documented in this encounter Admitting Diagnoses Diagnosis Presence of ileostomy (CMS/HCC) Presence of colostomy (CMS/HCC) documented in this encounter Administered Medications Inactive Administered Medications - up to 3 most recent administrations Medication Order MAR Action Action Date Dose Rate Site acetaminophen (TYLENOL) tablet 1,000 mg 1,000 mg, oral, Once, On Sun05/05/24 at 0845, For 1 dose, Preprocedure, Give 1 hour prior to surgery Given 05/05/2024 9:08 AM EST 1,000 mg acetaminophen (TYLENOL) tablet 1,000 mg 1,000 mg, oral, Every 8 hours scheduled, First dose on Sun05/05/24 at 1400, Recovery & On Unit Given 05/09/2024 1:30 PM EST 1,000 mg Given 05/09/2024 6:11 AM EST 1,000 mg Given 05/08/2024 8:26 PM EST 1,000 mg alvimopan (ENTEREG) capsule 12 mg 12 mg, oral, Once, On Sun05/05/24 at 0845, For 1 dose, Preprocedure, -Give medication once 5 hours to 30 minutes PRIOR to surgery with a sip of water -Do NOT open or crush capsule Alvimopan (ENTEREG??) is part of a [facility] Program and training materials, available at [facility] and in order Reference Links, must be reviewed prior to ordering, dispensing, or administration., I am aware of the [facility]vim[facility] Program requirements and have reviewed the [facility]vim[facility] Training Kits, available at [employer] [facility]: Yes Given 05/05/2024 9:09 AM EST 12 mg alvimopan (ENTEREG) capsule 12 mg 12 mg, oral, Every 12 hours, First [...] the [facility] Training Kits, available at [facility]: Yes Given 05/07/2024 8:39 PM EST 12 mg Given 05/07/2024 8:32 AM EST 12 mg Given 05/06/2024 10:53 PM EST 12 mg apixaban (ELIQUIS) tablet 5 mg 5 [...] Given 05/07/2024 8:33 AM EST 80 mg buprenorphine HCL (BUPRENEX) injection solution 0.075 mg 0.075 mg, intravenous, Every 6 hours, First dose (after last reorder) on Sun05/05/24 at 1745, Recovery [facility] On Unit Given 05/06/2024 6:55 AM EST 0.075 mg Given 05/05/2024 11:56 PM EST 0.075 mg Given 05/05/2024 5:58 PM EST 0.075 mg buprenorphine HCL (BUPRENEX) injection solution 0.075 mg 0.075 mg, intravenous, Every 4 hours PRN, moderate pain, Starting on Sun05/05/24 at 1730, Recovery & On Unit buprenorphine HCL (BUPRENEX) injection solution 0.15 mg 0.15 mg, intravenous, Every 4 hours PRN, severe pain, Starting on Sun05/05/24 at 1730, Recovery [facility] On Unit dilTIAZem (CARDIZEM) 125 mg in sodium chloride (non-PVC) 0.9 % 125 mL (1 mg/mL) infusion 5-15 mg/hr (5-15 mL/hr), intravenous, Continuous, Starting on Sun05/07/24 at 1100, GOAL EFFECT: Decrease HR to LESS than 110 BPM INITIAL RATE: 5 mg/hr USUAL DOSE RANGE: 5 - 15 mg/hr TITRATION DOSE: 2.5 mg/hr TITRATION FREQUENCY: 30 min CONTACT PRESCRIBER: -HR LESS than 60 BPM -HR GREATER than 120 BPM -SBP LESS than 80 mmHg -SBP GREATER than 180 mmHg -Prolongation of IN interval + QRS complex *Individual cases may deviate from parameters and would REQUIRE an order from the provider documented in the patient record* Rate/Dose Verify 05/08/2024 12:26 AM EST 10 mg/hr 10 mL/hr New Bag 05/07/2024 8:38 PM EST 10 mg/hr 10 mL/hr Rate/Dose Change 05/07/2024 12:46 PM EST 10 mg/hr 10 mL/ hr dilTIAZem (CARDIZEM) 5 mg/mL injection - ADS Override Pull Starting on Sun05/07/24 at 0925, For 1 dose, Created by cabinet override Given 05/07/2024 9:31 AM EST 10 mg dilTIAZem (CARDIZEM) bolus from infusion 5 mg 5 mg, intravenous, Administer over 2 Minutes, Once, On Sun05/07/24 at 1100, For 1 dose, Bolus from infusion. Bolus from Bag 05/07/2024 10:49 AM EST 5 mg dilTIAZem (CARDIZEM) immediate release tablet 60 mg 60 mg, oral, Every 6 hours scheduled, First dose (after last modification) on Sun05/08/24 at 1000 Given 05/08/2024 8:23 PM EST 60 mg Given 05/08/2024 10:04 AM EST 60 mg dilTIAZem (CARDIZEM) immediate release tablet 60 mg 60 mg, oral, Every 6 hours scheduled, First dose (after last modification) on Sun05/09/24 at 0200 Given 05/09/2024 4:25 AM EST 60 mg dilTIAZem (CARDIZEM) immediate release tablet 60 mg 60 mg, oral, Every 6 hours, First dose (after last modification) on Sun05/09/24 at 1000 Given 05/09/2024 10:24 AM EST 6 0 mg dilTIAZem (CARDIZEM) injection 10 mg 10 mg, intravenous, Once, On Sun05/07/24 at 1315, For 1 dose, For IV Push - administer over 2 minutes with continuous ECG and blood pressure monitoring Given 05/07/2024 12:57 PM EST 10 mg finasteride (PROSCAR) tablet 5 mg 5 [...] Given 05/07/2024 8:33 AM EST 5 mg heparin (UFH) injection 5,000 Units 5,000 Units, subcutaneous, Every 12 hours scheduled, First dose on Sun05/06/24 at 2100 Given 05/07/2024 8:33 AM EST 5,000 Units Left Lower Abdomen Given 05/06/2024 10:55 PM EST 5,000 Units Right Lower Abdomen lactated Ringer's infusion 100 mL/hr, intravenous, Continuous, Starting on Sun05/05/24 at 1515, Recovery (only) New Bag 05/05/2024 2:53 PM EST 100 mL/hr 100 mL/hr lactated Ringer's infusion 75 mL/hr, intravenous, Continuous, Starting on Sun05/05/24 at 1045, Preprocedure Continued from OR 05/05/2024 12:41 PM EST 75 mL/hr 75 mL/hr New Bag 05/05/2024 12:24 PM EST 75 mL/hr New Bag 05/05/2024 10:00 AM EST 75 mL/hr levothyroxine (SYNTHROID, LEVOTHROID) tablet 125 mcg 125 [...] Given 05/07/2024 6:32 AM EST 125 mcg magnesium oxide (MAG-OX) tablet 400 mg 400 mg, oral, 2 times daily, First dose on Sun05/06/24 at 0900, Recovery [facility] On Unit Given 05/07/2024 8:40 PM EST 400 mg Given 05/07/2024 8:32 AM EST 400 mg Given 05/06/2024 10:54 PM EST 400 mg metoprolol tartrate (LOPRESSOR) 5 mg/5 mL injection - ADS Override Pull Starting on Sun05/07/24 at 0848, For 1 dose, Created by cabinet override Given 05/07/2024 9:00 AM EST 5 mg metoprolol tartrate (LOPRESSOR) tablet 25 mg 25 mg, oral, Every 6 hours, First dose on Sun05/07/24 at 1230 Given 05/08/2024 5:59 AM EST 25 mg Given 05/08/2024 12:24 AM EST 25 mg Given 05/07/2024 6:05 PM EST 25 mg metoprolol tartrate (LOPRESSOR) tablet 25 mg 25 mg, oral, 2 times daily, First dose (after last modification) on Sun05/09/24 at 0900 Given 05/09/2024 10:26 AM EST 25 mg metoprolol tartrate (LOPRESSOR) tablet 50 mg 50 mg, oral, 2 times daily, First dose (after last modification) on Sun05/08/24 at 2100 Given 05/08/2024 8:24 PM EST 50 mg oxyCODONE (ROXICODONE) immediate release tablet 10 mg 10 mg, oral, Every 4 hours PRN, severe pain, Starting on Sun05/06/24 at 0955, First line for severe pain (7-10) oxyCODONE (ROXICODONE) immediate release tablet 5 mg 5 mg, oral, Every 4 hours PRN, moderate pain, Starting on Sun05/06/24 at 0955, 1st line for moderate pain (4-6) perflutren lipid microsphere (DEFINITY) 1.3 mL in sodium chloride 0.9% 8.7 mL injection 10 mL, intravenous, Administer over 10 Minutes, Once in imaging, Starting on Sun05/07/24 at 1537, For 1 dose, CV Medication Orders Given 05/08/2024 1:13 PM EST 2.5 mL psyllium (METAMUCIL) packet 1 packet 1 packet, oral, Daily, First dose on Sun05/08/24 at 0900, Give with at least 8 ounces of water or juice Given 05/09/2024 8:23 AM EST 1 packet Given 05/08/2024 8:40 AM EST 1 packet sodium chloride 0.9 % bolus 500 mL 500 mL, intravenous, at 500 mL/hr, Administer over 1 Hours, Once, On Sun05/06/24 at 1015, For 1 dose New Bag 05/06/2024 10:36 AM EST 500 mL 500 mL/hr tamsulosin (FLOMAX) 24 hr capsule 0.4 mg [...] On Unit 0542 (Given - Provider: Nicole Mayes, RN)1300 (Given - Provider: Sissy Erwin RN) 0024 (Given - Provider: Sandee Yoder, RN)0559 (Given - Provider: Sandee Yoder, RN)1533 (Not Given - Provider: Melinda Cardenas, VIC - Reason: Patient/Resident/Agen t refused - education provided )2025 (Given - Provider: Hattie Wilkerson, RN) 0611 (Given - Provider: Hattie Wilkerson, RN)1330 (Given - Provider: Kylee Mai, VIC) [...] Program and training materials, available at [facility] and in order Reference Links, must be reviewed prior to ordering, dispensing, or administration., I am aware of the [facility] Program requirements and have reviewed the [facility] Training Kits, available at [facility]: Yes 0832 (Given - Provider: Maria Dolores Ly, VIC)2038 (Given - Provider: Sandee Yoder, VIC) apixaban (ELIQUIS) tablet 5 mg 5 mg, oral, 2 times daily, First dose on Sun05/07/24 at 2100, Indication: Atrial Fibrillation 2039 (Given - Provider: Sandee Yoder, VIC) 0839 (Given - Provider: Melinda Cardenas, VIC)2022 (Given - Provider: Hattie Wilkerson, VIC) 0820 (Given - Provider: Kylee Mai, VIC) atorvastatin (LIPITOR) tablet 80 mg 80 mg, oral, Daily, First dose on Sun05/06/24 at 0900, Phase II/On Unit 0833 (Given - Provider: Maria Dolores Ly, VIC) 0839 (Given - Provider: Melinda Cardenas, VIC) 0821 (Given - Provider: Kylee Mai, VIC) dilTIAZem (CARDIZEM) bolus from infusion 5 mg (COMPLETED) 5 mg, intravenous, Administer over 2 Minutes, Once, On Sun05/07/24 at 1100, For 1 dose, Bolus from infusion. 1049 (Bolus from Bag - Provider: Sissy Eriwn, RN) dilTIAZem (CARDIZEM) immediate release tablet 60 mg (CANCELED) 60 mg, oral, Every 6 hours scheduled, First dose (after last modification) on Sun05/08/24 at 1000 1004 (Given - Provider: Melinda Cardenas, VIC)2023 (Given - Provider: Hattie Wilkerson, VIC) dilTIAZem (CARDIZEM) immediate release tablet 60 mg (CANCELED) 60 mg, oral, Every 6 hours scheduled, First dose (after last modification) on Sun05/09/24 at 0200 0425 (Given - Provider: Hattie Wilkerson, VIC) dilTIAZem (CARDIZEM) immediate release tablet 60 mg 60 mg, oral, Every 6 hours, First dose (after last modification) on Sun05/09/24 at 1000 1024 (Given - Provider: Kylee Mai RN)1600 (Canceled Entry - Provider: Automatic Discharge Provider [...] 0839 (Given - Provider: Melinda Cardenas RN) 0821 (Given - Provider: Kylee Mai RN) heparin (UFH) injection 5,000 Units (CANCELED) 5,000 [...] Dolores Ly RN)2040 (Given - Provider: Sandee Yoder RN) metoprolol tartrate (LOPRESSOR) 5 mg in sodium [...] Erwin RN) 0024 (Given - Provider: Sandee Yoder, VIC)0559 (Given - Provider: Sandee Yoder, VIC) metoprolol tartrate (LOPRESSOR) tablet 25 mg 25 [...] Cardenas RN) 0823 (Given - Provider: Kylee Mai RN) tamsulosin (FLOMAX) 24 hr capsule 0.4 mg [...] Cardenas RN) 0823 (Given - Provider: Kylee Mai RN) Continuous Medication Order 05/07/2024 05/08/2024 05/09/2024 dilTIAZem [...] -SBP GREATER than 180 mmHg -Prolongation of IN interval + QRS complex *Individual cases may deviate from parameters and would REQUIRE an order from the provider documented in the patient record* 1043 (New Bag - Provider: Sissy Erwin RN)1045 (New Bag - Provider: Sissy Erwin RN)1145 (Rate/Dose Change - Provider: Sissy Erwin RN)1246 (Rate/Dose Change - Provider: Sissy Erwin RN)2038 (New Bag - Provider: Sandee Yoder RN) 0026 (Rate/Dose Verify - Provider: Sandee Yoder RN)1100 (Stopped - Provider: Melinda Cardenas RN) [...] Ordered Date First Ordered Date dilTIAZem (CARDIZEM) 125 mg in sodium chloride (non-PVC) 0.9 % 125 mL (1 mg/mL) infusion 1 05/08/2024 dilTIAZem (CARDIZEM) immedia te release tablet 60 mg 1 05/08/2024 metoprolol tartrate (LOPRESS OR) tablet 25 mg 1 05/08/2024 metoprolol tartrate (LOPRESS OR) 5 mg in sodium chloride 0.9 % 50 mL IVPB 1 05/07/2024 oxyCODONE (ROXICODONE) immed iate release tablet 10 mg 1 05/06/2024 oxyCODONE (ROXICODONE) immed iate release tablet 5 mg 2 05/06/2024 05/05/2024 acetaminophen (TYLENOL) tablet 1,000 mg 1 0 05/05/2024 acetaminophen (TYLENOL) tablet 650 mg 1 albuterol 2.5 mg /3 mL (0.08 3 %) nebulizer solution 2.5 mg 1 05/05/2024 alvimopan (ENTEREG) capsule 12 mg 1 025 aspirin chewable tablet 81 mg 1 05/05/2024 bacitracin ointment 1 05/05/2024 bupivacaine-EPINEPHrine (MAR BRIDGET w/EPI) 0.25 %-1:200,000 injection 1 05/05/2024 buprenorphine (BUPRENEX) inj ection 0.075 mg 2 05/05/2024 buprenorphine (BUPRENEX) injection 0.15 mg 1 05/05/2024 buprenorphine HCL (BUPRENEX) injection solution 0.075 mg 3 05/05/2024 buprenorphine HCL (BUPRENEX) injection solution 0.15 mg 1 05/05/2024 ceFAZolin (ANCEF) 2 g in augustina rile water 20 mL IV syringe 1 05/05/2024 clopidogreL (PLAVIX) tablet 75 mg 1 025 diphenhydrAMINE (BENADRYL) injection 25 mg 1 05/05/2024 ferrous sulfate tablet 325 mg 1 05/05/2024 heparin (UFH) injection 5,000 Units 2 05/05 HYDROmorphone (PF) injection 0.5 mg 1 05/05 meperidine (PF) (DEMEROL) 25 mg/mL injection 12.5 [...] 05/09/2024 documented in this encounter Care Teams Mobile Pet G[employer]er Relationship Specialty Start Date End Date Joey Dhillon MD [address] [place] [address] PCP - General Internal Medicine 02/29/24 documented as of this encounter
--- OUTSIDE RECORDS SUMMARY | 2024-05-13 12:28 | XMS_ITS | Clinical Summary ---
Author Organization [address] [facility] Address [address] [place] [address] Phone Care Team Providers Care Security Auditor Name Role Phone Joey Dhillon MD Primary Care Provider Allergies No known active allergies Medications Medication Sig Dispensed Refills Start Date End Date Status finasteride (PROSCAR) 5 mg tablet Take 1 tablet (5 mg total) by mouth 1 (one) time each day. Active clopidogreL (PLAVIX) 75 mg tablet Take 1 tablet (75 mg total) by mouth 1 (one) time each day. 08/24/2023 Active cyanocobalamin, vitamin B-12, 1,000 mcg capsule Take by mouth. Active atorvastatin (LIPITOR) 80 mg tablet Take 1 tablet (80 mg total) by mouth 1 (one) time each day. 06/12/2023 Active ferrous sulfate 325 mg (65 mg elemental iron) tablet Take 1 tablet (325 mg total) by mouth 1 (one) time each day. Active ascorbic acid (VITAMIN C) 500 mg tablet Take 1 tablet (500 mg total) by mouth daily. Active levothyroxine (SYNTHROID, LEVOTHROID) 125 mcg tablet Take by mouth 1 (one) time each day before breakfast. Active acetaminophen (TYLENOL) 500 mg tablet Take 2 tablets (1,000 mg total) by mouth every 8 (eight) hours. 30 tablet 05/09/2024 Active oxyCODONE (ROXICODONE) 5 mg immediate release tablet Take 1 tablet (5 mg total) by mouth every 6 (six) hours if needed for severe pain. 12 tablet 05/09/2024 Active psyllium (METAMUCIL) 3.4 gram packet Take 1 packet by mouth 1 (one) time each day. 30 packet 05/09/2024 Active apixaban (ELIQUIS) 5 mg tablet Take 1 tablet (5 mg total) by mouth 2 (two) times a day. 60 tablet 05/09/2024 Active tamsulosin (FLOMAX) 0.4 mg 24 hr capsule Take 1 capsule (0.4 mg total) by mouth 1 (one) time each day. Capsules should be taken 30 minutes following the same meal each day. 30 capsule 2024 Active dilTIAZem CD (CARDIZEM CD) 180 mg 24 hr capsule Take 1 capsule (180 mg total) by mouth 1 (one) time each day. 30 each 05/09/2024 5 Active pantoprazole (PROTONIX) 20 mg EC tablet Take 1 tablet (20 mg total) by mouth 1 (one) time each day. 4 Discontinued levothyroxine sodium (TIROSINT) 137 mcg capsule Take 125 mcg by mouth. 4 Discontinued capecitabine (XELODA) 500 mg tablet Take by mouth Sig - Route: Take 3 Tablets by mouth. 4 Discontinued acetaminophen (TYLENOL) 500 mg tablet Take 2 tablets (1,000 mg total) by mouth every 6 (six) hours if needed for moderate pain. 07/04/2023 5 Discontinued(Sto p Taking at Discharge) aspirin 81 mg EC tablet Take 1 tablet (81 mg total) by mouth 1 (one) time each day. 5 Discontinued(Sto p Taking at Discharge) Active Problems Problem Noted Date Diagnosed Date Paroxysmal atrial fibrillation 05/09/2024 Assessment & Plan (05/09/2024 12:38 PM EST): Postoperative atrial fibrillation with spontaneous conversion. I [...] also reviewed the importance of stroke prevention based on the [id number] score. I reviewed that in many cases, [...] vascular disease per his vascular surgeon, would probably resume this when safe from a general surgery standpoint. Currently, he and his report that they have been on aspirin in lieu of Plavix awaiting the surgery. They are uncertain of how long he needs to remain on baby aspirin before transitioning back to Plavix as an outpatient postoperatively. 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/2023 Malignant neoplasm of ascending colon 07/13/2023 Resolved Problems Problem Noted Date Diagnosed Date Resolved Date Presence of ileostomy 03/07/20242024 Presence of colostomy 03/07/20242024 Encounters Date Type Department Care Team Description 05/05/2024 10:48 AM EST Anesthesia Event [facility] [place] [address] [place] [phone] Matt Herzog MD 05/05/2024 10:00 AM EST - 05/05/2024 12:00 PM EST Surgery [facility] OR [address] [place] [phone] Gustavo Stone MD ILEOSTOMY CLOSURE [[id number] (CPT??)] 05/05/2024 8:19 AM EST - 05/09/2024 2:31 PM EST Hospital Encounter [facility] [address] [place] [phone] Gustavo Stone MD Flores, Carlos M, MD Japaridze, Anna, MD Atrial fibrillation, unspecified type (CMS/HCC) (Primary Dx); Presence of ileostomy (CMS/HCC); Presence of colostomy (CMS/HCC) Discharge Disposition: Home-Health Care [facility] 04/30/2024 Telephone [facility] Cardiology [facility] [address] [facility] [address] [place] [phone] Joey Dhillon MD Medical Records 03/17/2024 7:40 AM EST Anesthesia Event [facility] Endoscopy [address] [place] [phone] Mahnaz Taylor MD 03/17/2024 6:44 AM EST - 03/17/2024 11:59 PM EST Hospital Encounter [facility] Endoscopy [address] [place] [phone] Jaun Enriquez MD Personal history of other malignant neoplasm of large intestine Discharge Disposition: Home or Self Care 03/10/2024 Telephone Gastroenterology - [address] [facility] [address] [facility] [address] [place] [phone] Bernard Tracey, AL COLON PREP 03/07/2024 10:00 AM EST Office Visit General Surgery - [place] [facility] [address] [place] [phone] Gustavo Stone MD Presence of ileostomy (CMS/HCC) (Primary Dx); Malignant neoplasm of ascending colon (CMS/HCC); Presence of colostomy (CMS/HCC) 02/21/2024 Telephone [facility] Cardiology [facility] [address] [facility] [address] [place] [phone] Tori Hernández MD medication from Last 3 Months Surgical History Surgery Date Site/Laterality Comments OTHER SURGICAL HISTORY Right PROCEDURE: ID ARTHRODESIS ANKLE OPEN APPENDECTOMY PROCEDURE: HISTORICAL APPENDECTOMY OTHER SURGICAL HISTORY PROCEDURE: ID UNLISTED PX [facility]S [facility]ERTICUL[facility] MESENTERY COLONOSCOPY ORIF ANKLE FRACTURE ILEOSTOMY 04/16/2023 - 04/15/2024 Medical History Medical History Date Comments Hypothyroidism DX:Hypothyroidis m Stroke (CMS/HCC) DX:Stroke (HCC) BPH (benign prostatic hyperplasia) DX:BPH (benign prostatic hyperplasia) HLD (hyperlipidemia) DX:HLD (hyp erlipidemia) Right internal carotid occlusion DX: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 DX:Stenosis of left internal carotid artery Tobacco abuse DX:Tobacco abuse Prostate CA (CMS/HCC) Colon cancer (CMS/HCC) 2023 HL (hearing loss) Family History Medical History Relation Name Comments Atrial fibrillation Brother Stroke Father Uterine cancer Sister Relation Name Status Comments Brother Father Sister Social History Tobacco Use Types Packs/Day Years [...] file Not on file Not on file Obstetrics History Last Filed Vital Signs Vital Sign Reading [...] Mass Index 29.65 05/08/2024 1:13 PM EST Plan of Treatment Upcoming Encounters Date Type Department Care Team (Late st Contact Info) Description 05/20/2024 10:00 AM EST Office Visit General Surgery - [place] [address] [facility] [address] [place] [phone] Gustavo Stone MD [address] [facility] [address] [place] [address] Health Maintenance Due Date Last Done Comments DTaP,Tdap,and Td Vaccines (1 - Tdap) 1964 Zoster Vaccines (1 of 2) 1964 Pneumococcal Vaccine: 65+ Years (2 of 2 - PPSV23 or PCV20) 03/26/2020 01/30/2020 Cholesterol Screening (Lipid Panel) 03/25/2022 Depression Screening 03/25/2022 Hepatitis C Screening 03/25/2022 Lung Cancer Screening (Low Dose CT) 03/25/2022 Medicare Annual Wellness Visit 03/25/2022 Social Influencers of Health Screening 03/25/2022 Falls Risk Assessment 05/09/2025 05/09/2024 RSV Immunization Patients 60+ Years Old Completed 05/09/2023 Colorectal Cancer Screening: Colonoscopy Discontinued 03/17/2024 Influenza Vaccine Completed 03/25/2024, , 02/16/2022, Additional history exists COVID-19 Vaccine Completed 04/22/2024, 02/2023, 09/05/2021, Additional history exists HIB Vaccines Aged Out No longer eligi ble based on patient's age to complete this topic HPV Vaccines Aged Out No longer eligi ble based on patient's age to complete this topic Hepatitis A Vaccines Aged Out No long er eligible based on patient's age to complete this topic Hepatitis B Vaccines Aged Out No long er eligible based on patient's age to complete this topic IPV Vaccines Aged Out No longer eligi ble based on patient's age to complete this topic MMR Vaccines Aged Out No longer eligi ble based on patient's age to complete this topic Meningococcal ACWY Vaccine Aged Out N o longer eligible based on patient's age to complete this topic RSV Immunization Patients Under 20 months Aged Out No longer eligible based on patient's age to complete this topic Varicella Vaccines Aged Out No longer eligible based on patient's age to complete this topic Medical Devices Implanted Type Area Technical Support Director Device Identifier Shelf Expiration Date Model / Serial / Lot Right Lower Leg Right: Leg Procedures Procedure Name Priority Date/Time Associated Diagnosis Comments CBC WITH AUTO DIFFERENTIAL Routine 05/09/2024 6:34 AM EST PHOSPHORUS Routine 05/09/2024 6:34 AM EST MAGNESIUM Routine 05/09/2024 6:34 AM EST BASIC METABOLIC PANEL Routine 05/09/2024 6:34 AM EST CBC AND DIFFERENTIAL Routine 05/09/2024 6:34 AM EST TRANSTHORACIC ECHOCARDIOGRAM (TTE) COMPLETE W/ CONTRAST Routine 05/08/2024 1:14 PM EST Atrial fibrillation, unspecified type (CMS/HCC) LT BLUE - NA CITRATE Routine 05/08/2024 9:23 AM EST EXTRA TUBES Routine 05/08/2024 9:23 AM EST CBC WITH AUTO DIFFERENTIAL Routine 05/08/2024 9:23 AM EST COMPLETE BLOOD COUNT Timed 05/08/2024 9:23 AM EST CBC AND DIFFERENTIAL Routine 05/08/2024 9:23 AM EST BASIC METABOLIC PANEL Routine 05/08/2024 9:23 AM EST ACTIVATED PARTIAL THROMBOPLASTIN TIME STAT 05/07/2024 4:14 PM EST PROTHROMBIN TIME WITH INR STAT 05/07/2024 4:14 PM EST HEPATIC FUNCTION PANEL STAT Add-on 05/07/2024 12:15 PM EST B-TYPE NATRIURETIC PEPTIDE STAT 05/07/2024 12:15 PM EST TROPONIN I HIGH SENSITIVITY STAT 05/07/2024 12:15 PM EST THYROID STIMULATING HORMONE Add-On 05/07/2024 12:15 PM EST CBC WITH AUTO DIFFERENTIAL STAT 05/07/2024 8:58 AM EST TROPONIN I HIGH SENSITIVITY STAT 05/07/2024 8:58 AM EST MAGNESIUM STAT 05/07/2024 8:58 AM EST BASIC METABOLIC PANEL Routine 05/07/2024 8:58 AM EST CBC AND DIFFERENTIAL STAT 05/07/2024 8:58 AM EST ECG 12-LEAD STAT 05/07/2024 8:41 AM EST CBC WITH AUTO DIFFERENTIAL Routine 05/07/2024 6:25 AM EST PHOSPHORUS Routine 05/07/2024 6:25 AM EST MAGNESIUM Routine 05/07/2024 6:25 AM EST CBC AND DIFFERENTIAL Routine 05/07/2024 6:25 AM EST BASIC METABOLIC [...] of ileostomy (CMS/HCC) Presence of colostomy (CMS/HCC) TH AN ENDOTRACHEAL(NO CHARGE) Routine 05/05/2024 11:05 AM EST ID CLOSURE ENTEROSTOMY LARGE/SMALL INTESTINE 05/05/2024 10:50 AM EST Presence of ileostomy (CMS/HCC) Presence of colostomy (CMS/HCC) Case Notes ERAS. COLONOSCOPY Routine 03/17/2024 7:58 AM EST Personal history of other malignant neoplasm of large intestine from Last 3 Months Results * (ABNORMAL) CBC auto differential (05/09/2024 6:34 AM EST) Only the most recent of5 resultswithin the time period is included. WBC 7.6 4.8 - 10.8 K/mcL LAB HEMETOLOGY METHOD 05/09/2024 7:[address] [facility] RBC 3.70(L) 4.50 - 5.50 M/mcL LAB HEMETOLOGY METHOD 05/09/2024 7:[address] [facility] Hemoglobin 12.1(L) 13.5 - 17.5 g/dL LAB HEMETOLOGY METHOD 05/09/2024 7:[address] [facility] Hematocrit 37.1(L) 42.0 - 54.0 % LAB HEMETOLOGY METHOD 05/09/2024 7:[address] [facility] MCV 99.7(H) 79.0 - 98.0 FL LAB HEMETOLOGY METHOD 05/09/2024 7:[address] [facility] MCH 32.5(H) 27.0 - 32.0 pcg LAB HEMETOLOGY METHOD 05/09/2024 7:[address] [facility] MCHC 32.6 32.0 - 37.0 g/dL LAB HEMETOLOGY METHOD 05/09/2024 7:[address] [facility] RDW 12.1 11.0 - 15.0 % LAB HEMETOLOGY METHOD 05/09/2024 7:[address] [facility] Platelets 173 130 - 400 K/mcL LAB HEMETOLOGY METHOD 05/09/2024 7:[address] [facility] MPV 10.9 7.0 - 11.0 FL LAB HEMETOLOGY METHOD 05/09/2024 7:[address] [facility] NRBC 0.0 <1.0 % LAB HEMETOLOGY METHOD 05/09/2024 7:[address] [facility] NRBC Absolute 0.00 <0.10 K/mcL LAB HEMETOLOGY METHOD 05/09/2024 7:[address] [facility] Neutrophils Relative 68.0 % LAB HEMETOLOGY METHOD 05/09/2024 7:[address] [facility] Lymphocytes Relative 15.5 % LAB HEMETOLOGY METHOD 05/09/2024 7:[address] [facility] Monocytes Relative 9.0 % LAB HEMETOLOGY METHOD 05/09/2024 7:[address] [facility] Eosinophils Relative 6.3 % LAB HEMETOLOGY METHOD 05/09/2024 7:[address] [facility] Basophils Relative 0.9 % LAB HEMETOLOGY METHOD 05/09/2024 7:[address] [facility] Immature Granulocytes Relative 0.3 % LAB HEMETOLOGY METHOD 05/09/2024 7:[address] [facility] Neutrophils Absolute 5.14 1.50 - 7.00 K/mcL LAB HEMETOLOGY METHOD 05/09/2024 7:[address] [facility] Lymphocytes Absolute 1.17 1.00 - 5.00 K/mcL LAB HEMETOLOGY METHOD 05/09/2024 7:[address] [facility] Monocytes Absolute 0.68 0.20 - 1.00 K/mcL LAB HEMETOLOGY METHOD 05/09/2024 7:[address] [facility] Eosinophils Absolute 0.48 0.00 - 0.50 K/mcL LAB HEMETOLOGY METHOD 05/09/2024 7:22 AM EST [facility] Basophils Absolute 0.07 0.00 - 0.20 K/[facility] LAB HEMETOLOGY METHOD 05/09/2024 7:22 AM EST [facility] Immature Granulocytes Absolute 0.02 0.00 - 0.03 K/[facility] LAB HEMETOLOGY METHOD 05/09/2024 7:22 AM EST [facility] Blood Venous blood specimen / Unknown Venipuncture / Unknown 05/09/2024 6:34 AM EST 05/09/2024 6:54 AM EST Leti Flores NP LAB BLOOD ORDERABLES Performing Organization Address City/[facility]/ZIP Co de Phone Number [facility] [address] [place] [address], * Phosphorus (05/09/2024 6:34 AM EST) Only the most recent of3 resultswithin the time period is included. Phosphorus 3.0 2.5 - 4.5 mg/dL LAB CHEMISTRY METHOD 05/09/2024 8:[address] [facility] Blood Venous blood specimen / Unknown Venipuncture / Unknown 05/09/2024 6:34 AM EST 05/09/2024 6:52 AM EST Leti Flores NP LAB BLOOD ORDERABLES Performing Organization Address City/[facility]/ZIP Co de Phone Number [facility] [address] [place] [address], * Magnesium (05/09/2024 6:34 AM EST) Only the most recent of4 resultswithin the time period is included. Magnesium 2.2 1.9 - 2.6 mg/dL LAB CHEMISTRY METHOD 05/09/2024 8:05 AM EST [facility] Blood Venous blood specimen / Unknown Venipuncture / Unknown 05/09/2024 6:34 AM EST 05/09/2024 6:52 AM EST Leti Crzualyshaearl SERGIO LAB BLOOD ORDERABLES [facility] [address] [place] [address], * (ABNORMAL) Basic metabolic panel (05/09/2024 6:34 AM EST) Only the most recent of5 resultswithin the time period is included. Sodium 142 133 - 145 mmol/L LAB CHEMISTRY METHOD 05/09/2024 8:[address] [facility] Potassium 3.9 3.5 - 5.5 mmol/L LAB CHEMISTRY METHOD 05/09/2024 8:[address] [facility] Chloride 111(H) 96 - 110 mmol/L LAB CHEMISTRY METHOD 05/09/2024 8:[address] [facility] CO2 26 21 - 32 mmol/L LAB CHEMISTRY METHOD 05/09/2024 8:[address] [facility] Anion Gap 5 3 - 11 LAB CHEMISTRY METHOD 05/09/2024 8:[address] [facility] Glucose 104(H) 70 - 100 mg/dL LAB CHEMISTRY METHOD 05/09/2024 8:[address] [facility] BUN 14 5 - 25 mg/dL LAB CHEMISTRY METHOD 05/09/2024 8:[address] [facility] Creatinine 1.29 0.70 - 1.30 mg/dL LAB CHEMISTRY METHOD 05/09/2024 8:[address] [facility] eGFR 57(L) >=60 mL/min/1. 73m2 LAB CHEMISTRY METHOD 05/09/2024 8:[address] [facility] Comment:Calculation based on the??Chronic Kidney Disease Epidemiology Collaboration (CKD-EPI) equation refit??without adjustment for race. BUN/Creatinine Ratio 10.9 LAB CHEMISTRY METHOD 05/09/2024 8:05 AM EST [facility] Calcium 8.1(L) 8.5 - 10.5 mg/dL LAB CHEMISTRY METHOD 05/09/2024 8:05 AM EST [facility] Blood Venous blood specimen / Unknown Venipuncture / Unknown 05/09/2024 6:34 AM EST 05/09/2024 6:52 AM EST Leti Flores NP LAB BLOOD ORDERABLES [facility] [address] [place] [address], [place] [phone] * (ABNORMAL) TRANSTHORACIC ECHOCARDIOGRAM (TTE) COMPLETE W/ CONTRAST (05/08/2024 1:14 PM EST) BSA 2.24 m2 CV PACS Left [facility] [place] 6.3 cm CV PACS Left [facility] Major [place] 5.6 cm CV PACS LA Area Sys [...] Light blue tube (05/08/2024 9:23 AM EST) Extra Tube Hold for add-ons. 05/08/2024 11:01 AM EST [facility] Comment:Auto resulted. Blood Venous blood specimen / Unknown 05/08/2024 9:23 AM EST 05/08/2024 9:50 AM EST Emely Flowers MD LAB BLOOD ORDERABLES [facility] [address] [place] [address], [place] [phone] * (ABNORMAL) CBC - Every 3 Days (05/08/2024 9:23 AM EST) [facility] WBC 9.2 4.8 - 10.8 K/mcL LAB HEMETOLOGY METHOD 05/08/2024 10:[address] [facility] RBC 3.80(L) 4.50 - 5.50 M/mcL LAB HEMETOLOGY METHOD 05/08/2024 10:[address] [facility] Hemoglobin 12.9(L) 13.5 - 17.5 g/dL LAB HEMETOLOGY METHOD 05/08/2024 10:[address] [facility] Hematocrit 38.9(L) 42.0 - 54.0 % LAB HEMETOLOGY METHOD 05/08/2024 10:[address] [facility] MCV 101.8(H) 79.0 - 98.0 FL LAB HEMETOLOGY METHOD 05/08/2024 10:[address] [facility] MCH 33.8(H) 27.0 - 32.0 pcg LAB HEMETOLOGY METHOD 05/08/2024 10:[address] [facility] MCHC 33.2 32.0 - 37.0 g/dL LAB HEMETOLOGY METHOD 05/08/2024 10:[address] [facility] RDW 12.3 11.0 - 15.0 % LAB HEMETOLOGY METHOD 05/08/2024 10:[address] [facility] Platelets 179 130 - 400 K/mcL LAB HEMETOLOGY METHOD 05/08/2024 10:[address] [facility] MPV 10.8 7.0 - 11.0 FL LAB HEMETOLOGY METHOD 05/08/2024 10:[address] [facility] NRBC 0.0 <1.0 % LAB HEMETOLOGY METHOD 05/08/2024 10:[address] [facility] NRBC Absolute 0.00 <0.10 K/mcL LAB HEMETOLOGY METHOD 05/08/2024 10:00 AM EST [facility] Blood Venous blood specimen / Unknown Venipuncture / Unknown 05/08/2024 9:23 AM EST 05/08/2024 9:49 AM EST Brittny DAVILA LAB BLOOD ORDERABLES [facility] [address] [place] [address], [place] [phone] * Activated Partial Thromboplastin Time - STAT (05/07/2024 4:14 PM EST) aPTT 29.8 24.1 - 39.3 sec LAB COAGULATION METHOD 05/07/2024 5:23 PM EST [facility] Blood Venous blood specimen / Unknown Venipuncture / Unknown 05/07/2024 4:14 PM EST 05/07/2024 5:06 PM EST Brittny DAVILA LAB BLOOD ORDERABLES [facility] [address] [place] [address], [place] [phone] * Prothrombin Time with INR - STAT (05/07/2024 4:14 PM EST) Protime 11.5 10.6 - 13.9 sec LAB COAGULATION METHOD 05/07/2024 5:23 PM EST [facility] INR 0.9 LAB COAGULATION METHOD 05/07/2024 5:23 PM EST [facility] Blood Venous blood specimen / Unknown Venipuncture / Unknown 05/07/2024 4:14 PM EST 05/07/2024 5:06 PM EST Brittny DAVILA LAB BLOOD ORDERABLES [facility] [address] [place] [address], [place] [phone] * Troponin I high sensitivity (05/07/2024 12:15 PM EST) Only the most recent of2 resultswithin the time period is included. [facility] High Sensitivity Troponin I 8 <=79 ng/L LAB CHEMISTRY METHOD 05/07/2024 1:15 PM EST [facility] Blood Venous blood specimen / Unknown Venipuncture / Unknown 05/07/2024 12:15 PM EST 05/07/2024 12:42 PM EST Narrative [facility] - 05/07/2024 1:15 PM EST High levels of biotin in samples may falsely decrease hsTroponin values. ??Use caution when interpreting hsTroponin results in patients taking biotin who exhibit renal impairment (eGFR <60) or in patients taking more than 20 mg/day of biotin. Mert Jorgensen MD LAB BLOOD ORDERABLES Performing Organization Address [facility]/ZIP Co de Phone Number [facility] [address] [place] [address], [place] [phone] * Thyroid stimulating hormone (05/07/2024 12:15 PM EST) [facility] TSH 0.69 0.40 - 4.00 mcIU/mL LAB CHEMISTRY METHOD 05/07/2024 1:29 PM EST [facility] Blood Venous blood specimen / Unknown Venipuncture / Unknown 05/07/2024 12:15 PM EST 05/07/2024 12:42 PM EST Mert Jorgensen MD LAB BLOOD ORDERABLES [facility] [address] [place] [address], [place] [phone] * B-type natriuretic peptide (05/07/2024 12:15 PM EST) BNP 43 <=100 pcg/mL LAB CHEMISTRY METHOD 05/07/2024 1:[address] [facility] Blood Venous blood specimen / Unknown Venipuncture / Unknown 05/07/2024 12:15 PM EST 05/07/2024 12:42 PM EST Mert Jorgensen MD LAB BLOOD ORDERABLES [facility] [address] [place] [address], * (ABNORMAL) Hepatic Function Panel - STAT (05/07/2024 12:15 PM EST) Pathologist [facility] Total Protein 5.9(L) 6.0 - 8.0 g/dL LAB CHEMISTRY METHOD 05/07/2024 4:[address] [facility] Albumin 3.1(L) 3.2 - 5.0 g/dL LAB CHEMISTRY METHOD 05/07/2024 4:[address] [facility] Total Bilirubin 0.6 0.0 - 1.4 mg/dL LAB CHEMISTRY METHOD 05/07/2024 4:[address] [facility] Bilirubin, Direct 0.2 0.0 - 0.3 mg/dL LAB CHEMISTRY METHOD 05/07/2024 4:[address] [facility] Bilirubin, Indirect 0.4 0.0 - 1.1 mg/dL LAB CHEMISTRY METHOD 05/07/2024 4:[address] [facility] ALT (SGPT) 27 10 - 60 unit/L LAB CHEMISTRY METHOD 05/07/2024 4:[address] [facility] AST (SGOT) 12 10 - 42 unit/L LAB CHEMISTRY METHOD 05/07/2024 4:[address] [facility] Alkaline Phosphatase 85 42 - 121 unit/L LAB CHEMISTRY METHOD 05/07/2024 4:[address] [facility] Blood Venous blood specimen / Unknown Venipuncture / Unknown 05/07/2024 12:15 PM EST 05/07/2024 12:42 PM EST Brittny DAVILA LAB BLOOD ORDERABLES Performing Organization Address [facility]/ZIP Co de Phone Number [facility] [address] [place] [address], * ECG 12 lead (05/07/2024 8:41 AM EST) Ventricular Rate ECG 146 BPM G[facility] Atrial Rate 133 BPM G[facility] QRS Duration 90 ms GEMUSE Q-T Interval 294 ms GEMUSE QTc 458 ms GEMUSE R Iona -11 degrees GEMUSE T Iona 35 degrees GEMUSE ECG Interpretation Critical Test [...] Inferior leads Confirmed by Keri SCHAFFER JOHN ([id number]) on 05/08/2024 10:40:33 AM GEM[facility] 05/07/2024 8:41 AM EST 05/08/2024 10:40 AM EST Gustavo Stone MD ECG ORDERABLES Performing Organization Address [facility]/ZIP Co de Phone Number GEMUSE * Tissue exam (05/05/2024 11:55 AM EST) Final Diagnosis Colon, ileostomy (larger) and colostomy: Segment of small bowel with focal granulation tissue and adjacent skin, compatible with ileostomy. Segment of large bowel and adjacent skin, compatible with colostomy. No mass lesions, dysplasia, or neoplasia identified. Margins appear viable. 05/08/2024 9:37 AM EST [facility] Gross Description A. Colon, ileostomy [...] absent. The attached adipose tissue is unremarkable. Explosives Operator longitudinal sections from both marginal one are submitted in one cassette, two pieces. TS 05/08/2024 9:37 AM EST [facility] Disclaimer Unless otherwise specified, all tissue is 10% NB formalin fixed and paraffin embedded. 05/08/2024 9:37 AM EST [facility] Tissue (Colon) 05/05/2024 11 :55 AM EST 05/05/2024 1:42 PM EST Gustavo Stone MD LAB PATHOLOGY ORDER [facility] [address] [place] [address], * TH AN ENDOTRACHEAL(NO CHARGE) (05/05/2024 11:05 AM EST) Narrative Latonya Swann CRNA - 05/05/2024 11:05 AM EST Latonya Swann CRNA ? 05/05/2024 11:21 AM General Information and Staff Patient location during procedure: OR Resident/WASHROOM ATTENDANT: Latonya Swann CRNA Performed by: Latonya Swann [...] NMBA Matt Herzog MD ANESTHESIA ORDERABLE S * COLONOSCOPY Anesthesia - MAC; [facility] ENDOSCOPY (03/17/2024 7:58 AM EST) Anatomical Region Laterality Modality Endoscopy 03/17/2024 7:25 AM EST Impressions 03/17/2024 8:01 AM EST - The entire examined colon is normal. ? - No specimens collected. Recommendation: ?- Patient has a contact number available for ? emergencies. The signs and symptoms of potential ? delayed complications were discussed with the patient. ? Return to normal activities tomorrow. Written ? discharge instructions were provided to the patient. ? - Resume previous diet. ? - Continue present medications. ? - Resume Plavix (clopidogrel) at prior dose today. ? - Repeat colonoscopy in 1 year for surveillance. Narrative 03/17/2024 8:01 AM EST [facility] GI Patient Name: Hernan Veras Procedure Date: 03/17/2024 7:25 AM Date of : 1945 Age: 78 Gender: Male Note Status: Finalized Attending MD: Jaun Enriquez MD, Procedure Date No Time: 03/17/2024 Procedure: ? Colonoscopy Indications: ? High risk colon cancer surveillance: Personal history ? of colon cancer Providers: ? Jaun Enriquez MD Referring MD: ?Jaun Enriquez MD Medicines: ? Monitored Anesthesia Care Complications: ? No immediate complications. Estimated Blood Loss: ? Estimated blood loss: none. Procedure: ? After I obtained informed consent, the scope was ? passed under direct vision. Throughout the procedure, ? the patient's blood pressure, pulse, and oxygen ? saturations were monitored continuously. The ? Colonoscope was introduced through the anus and ? advanced to the surgical stoma. The colonoscopy was ? performed without difficulty. The patient tolerated ? the procedure well. The quality of the bowel ? preparation was good. Findings: ?The entire examined colon appeared normal. Scope ? passed to directly below mucous fistula. Could see ? light, and feel scope directly below the fistula. The ? colonic mucosa was a bit friable, with some thick ? mucous (as I would expect) but otherwise negative. Procedure Code(s): ? --- Professional --- ? G0105, Colorectal cancer screening; colonoscopy on ? individual at high risk Diagnosis Code(s): ? --- Professional --- ? Z85.038, Personal history of other malignant neoplasm ? of large intestine CPT copyright 2020 [employer]. All rights reserved. The codes documented in this report are preliminary and upon molded rubber goods cutter review may be revised to meet current compliance requirements. MD Jaun Azar MD 03/17/2024 8:01:40 AM This report has been signed electronically.Jaun Enriquez MD Number of Addenda: 0 Note Initiated On: 03/17/2024 7:25 AM Scope In: Scope Out: ? Endoscopy Department at [facility] - [address] [place] [address], ? [place] [address] Procedure Note Jaun Enriquez MD - 03/17/2024 [facility] GI Patient Name: Hernan Veras Procedure Date: 03/17/2024 7:25 AM Date of : 1945 Age: 78 Gender: Male Note Status: Finalized Attending MD: Jaun Enriquez MD, Procedure Date No Time: 03/17/2024 Procedure: Colonoscopy Indications: High risk colon cancer surveillance: Personalhistory of colon cancer Providers: Jaun Enriquez MD Referring MD: Jaun Enriquez MD Medicines: Monitored Anesthesia Care Complications: No immediate complications. Estimated Blood Loss: Estimated blood loss: none. Procedure: After I obtained informed consent, the scope was passed under direct vision. Throughout theprocedure, the patient's blood pressure, pulse, and oxygen [...] light, and feel scope directly below the fistula.The colonic mucosa was a bit friable, with some thick mucous (as I would expect) but otherwisenegative. Procedure Code(s): --- Professional --- G0105, Colorectal cancer screening; colonoscopy on individual at high risk Diagnosis Code(s): --- Professional --- Z85.038, Personal history of other malignantneoplasm of large intestine CPT copyright 2020 [employer]. All rights reserved. The codes documented in this report are preliminary and upon molded rubber goods cutter reviewmay be revised to meet current compliance requirements. MD Jaun Azar MD 03/17/2024 8:01:40 AM This report has been signed electronically.Jaun Enriquez MD Number of Addenda: 0 Note Initiated On: 03/17/2024 7:25 AM Scope In: Scope Out: Endoscopy Department at [facility] - [address] [place] [phone] IMPRESSION: - The entire examined colon is normal. - No specimens collected. Recommendation: - Patient has a contact number available for emergencies. The signs and symptoms of potential delayed complications were discussed with thepatient. Return to normal activities tomorrow. Written discharge instructions were provided to thepatient. - Resume previous diet. - Continue present medications. - Resume Plavix (clopidogrel) at prior dosetoday. - Repeat colonoscopy in 1 year for surveillance. Jaun Enriquez MD GI~PROCEDURE ORDERAB LES from Last 3 Months Advance Directives Documents on File Type Date Recorded Patient Explosives Operator Expl anation Health Care Decision (hx) 07/06/2023 Becki Veras ADVANCE DIRECTIVE Health Care Decision (hx) 05/05/2022 HE ALTH CARE PROXY Health Care Decision (hx) 05/05/2022 HE ALTH CARE PROXY Health Care Decision (hx) 05/05/2022 HE ALTH CARE PROXY Health Care Decision (hx) 05/05/2022 HE ALTH CARE PROXY Health Care Decision (hx) 05/05/2022 HE ALTH CARE PROXY Health Care Decision (hx) 05/05/2022 HE ALTH CARE PROXY Health Care Decision (hx) 05/05/2022 HE ALTH CARE PROXY Health Care Decision (hx) 05/05/2022 HE ALTH CARE PROXY Health Care Decision (hx) 05/05/2022 HE ALTH CARE PROXY Health Care Decision (hx) 05/05/2022 HE ALTH CARE PROXY Health Care Decision (hx) 05/05/2022 HE ALTH CARE PROXY Health Care Decision (hx) 05/05/2022 HE ALTH CARE PROXY Health Care Decision (hx) 05/05/2022 HE ALTH CARE PROXY Healthcare Agents on File Name Relationship Healthcare Agent Relationship Communication Becki Veras Spouse Health Care Agent [email or web address] Care Teams Security Auditor Relationship Specialty Start Date End Date Joey Dhillon MD [address] [place] [address] PCP - General Internal Medicine 02/29/24
== END 2024-05-13 11:14 | disposition home or self-care (01) ==
LOC: HO.PET 11:13
PROVIDERS: PCP Internal Medicine; Visit Provider Urology
DX: Z13.89 Encounter for screening for other disorder (principal)

== ENCOUNTER 2024-05-15 09:56 | Outpatient (AMB) | payer MEDICARE, OTHER, SELFPAY ==
--- NOTE | 2024-05-15 09:58 | A.OFFVIS_ITS ---
Intake Visit Reasons: PET CT followup(Pending) Intake Note: Patient is present for PET CT F/U Urology Medication:FINASTERIDE,VITAMIN B12 Antibiotic Allergy:NONE Blood Thinner:ASPIRIN Buhr Dresser Required: No Allergies No Known Allergies Allergy (Verified 05/15/24 09:59) HPI Comments Details: Jayy is a very pleasant male. He is a patient of Dr. Dhillon. He is seen for the following urologic conditions - prostate cancer - grade migration Discussed results Grade migration from grade 1 to grade 3 PET-CT follow-up - Would benefit from either targeted cryotherapy versus external beam radiation 10/07 MRI 1.4 cm left lateral base lesion pT1, N0, M0 35 gm Due to his prior stroke with deficit suggest targeted therapy would treat cancer in single setting. Unable to stay still for external beam radiation. Prostate cancer grade migration - unfavorable intermediate Grade Group 3 NCCN 2023 Histologic grade: Stromsburg score: 4+3=7 (e 2.5, E 2.5, E 2.0), 3+4=7 (e 2.0, C 1.5), 3+3=6 (c 2.0) % of pattern 4: Approximately 50% of the tumor Number cores positive: 6 Total number of cores: 15 - % of tissue involved: Approximately 20% of all tissue examined Periprostatic fat inv.: Not identified Seminal vesicle inv.: Not identified Perineural inv.: Suspicious Stroke late 2020 with left-sided deficit Remains on finasteride for low volume, low-grade disease PSA 08/05 2.9, 02/04 3.5, 06/08 3.5, 09/05 3.8, 12/07 5.1 Prostate cancer low-grade, low volume diagnosed May 2020 - initial therapy active surveillance PSA 01/04 4 F6%, 08/05 2.9 Adenocarcinoma of the prostate (T1c N0 M0, Deonna score 6, Grade Group 1) NCCN 2023 low risk localized disease Prostate cancer was diagnosed Dr Mcclelland Diagnosis was reached by - May 2020 TRUS Biopsy, PSA 6.3, 30 g - well- developed rectal muscle, if repeat biopsy needed should be under sedation Histologic type: Prostatic acinar adenocarcinoma. Histologic grade: Stromsburg score: 3 + 3 = 6 Tumor quantitation: Number cores positive: 1 left mid medial, 60% (Part B) Total number of cores: 9 Periprostatic fat inv.: Not identified Seminal vesicle inv.: Not identified Perineural inv.: Not identified LVI: Not identified Prostate MRI shows 2 areas PI-RADS 5 1.2cm - 35 gm prostate Right and left posterolateral mid gland 1 cm lesions PFSH Medical History (Updated 04/03/24 @ 14:02 by Sudheer Mcclelland MD) Hormone sensitive prostate cancer History of blood transfusion History of chemotherapy Wears hearing aid in both ears Wears dentures OMAHA (hard of hearing) Ascending aortic aneurysm Hx of Meckel's diverticulum Gait instability Colon adenocarcinoma Presence of ileostomy Malignant neoplasm of ascending colon BPH (benign prostatic hyperplasia) HLD (hyperlipidemia) 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 CVA (cerebral vascular accident) Tobacco abuse, in remission Elevated PSA Prostate cancer BPH loc w urin obs/LUTS Hypothyroidism Surgical History Hx of colonoscopy (03/17/24) History of ankle surgery (~03/2018) S/P right colectomy (~06/2023) Hx of appendectomy Surgically created abdominal mucous fistula Hx of prostate biopsy (06/09/20) Social History (Updated 03/20/24 @ 15:32 by Bernadette Zepeda RN) Household Members: Spouse Housing: House Are you a primary care asst to a significant other at home: No Do you presently have visiting nurse or other home services: No 75 years or older and lives alone: No Patient Tobacco Use Status: Former Tobacco user Tobacco use type: Cigarette Review of Systems Const Denies chills and Denies fever(s) Card Reports no additional complaints and Denies syncope Resp Denies cough GI Denies abdominal pain and Denies heartburn Reports as per HPI and Denies change in libido Neuro Denies syncope Psych Denies change in libido Endo Denies change in libido Physical Exam Const General: cooperative, healthy appearing, comfortable and no acute distress Orientation/consciousness: patient oriented x3 HEENT Face and sinus: Yes normal facial exam Mouth: moist mucous membranes Neck Neck: Yes normal visual inspection, Yes full ROM and Yes trachea midline Chest Chest palpation & inspection: normal inspection of the chest Resp Effort & Inspection: normal respiratory effort, able to speak in complete sentences and no respiratory distress GI Inspection: Yes normal to inspection Back/Spine/Pelvis Cervical Spine: normal cervical lordosis Thoracic/Lumbar Spine: thoracic and lumbar spine normal to inspection Skin General skin exam: no rashes or lesions noted Neuro General: patient oriented x3, gait normal, tone normal and moves all extremities Extrem General: Yes normal to inspection and Yes capillary refill normal Assessment & Plan Assessment & Plan (1) Prostate cancer: Comment: May 2020 low volume, low risk, March 2024 grade group 3, multi core Code(s): C61 - Malignant neoplasm of prostate Category: Medical Plan Risks, benefits and alternatives to therapy were discussed. These include but are not limited to infection, bleeding, damage to local organs and tissues, need for further interventions. Anesthetic risks regarding cardiac arrhythmia, blood clots, and potential mortality were discussed. The patient understands the typical recovery time and the outpatient nature of the procedure. After consideration of these risks the patient gives full informed consent and they wish to move ahead with the procedure. - targeted prostate cryotherapy Patient Instructions: This note is constructed using voice recognition software. While every effort has been made to ensure accuracy comic book designer errors may have been included. Imaging studies, laboratory and physical exam results were discussed and reviewed in detail. No major barriers to patient understanding were identified. An opportunity to ask questions regarding the treatment plan was provided. All questions were answered. The patient expressed understanding and agreement with the above treatment plan. The patient is aware they should contact our office by phone for worsening of their current condition or the appearance of new urologic symptoms. Compliance is encouraged with any medications and followup testing that is ordered. It is a privilege to participate in the urologic care of your patient. If you have any questions or concerns regarding treatment for the above conditions, or other urologic issues, please do not hesitate to contact me. The office telephone contact is [phone]. Sincerely, Dr Sudheer Mcclelland MD, [facility] - Urology Compassionate Specialist Care for the Genitourinary System Coding Level of Care Code Est Pt Level 4 (80454) Diagnoses Prostate cancer C61
== END 2024-05-15 11:05 | disposition home or self-care (01) ==
PROVIDERS: PCP Internal Medicine; Visit Provider Urology
DX: C61 Malignant neoplasm of prostate (principal)
CPT/HCPCS: 99214

== ENCOUNTER → 2024-05-15 09:56 | Outpatient (BNVA) | payer MEDICARE, OTHER, SELFPAY | PROVIDERS: PCP Internal Medicine; Visit Provider Urology | DX: C61 Malignant neoplasm of prostate (principal) | CPT/HCPCS: 99212 ==

== ENCOUNTER 2024-09-15 05:57 | Day surgery (SDC) | payer MEDICARE, OTHER, SELFPAY ==
--- OUTSIDE RECORDS SUMMARY | 2024-08-22 10:41 | XMS_ITS | Encounter Summary ---
Author Organization [facility] Address [address] [place] [address] Care Team Providers Care Power System Operator Name Role Phone Joey Dhillon MD Primary Care Provider Reason for Visit * Reason Comments Follow-up Ostomy Encounter Details Date Type Department Care Team ([facility] st Contact Info) Description 08/19/2024 9:30 AM EDT Office Visit General Surgery [facility] [address] [facility] [address] [place] [phone] Gustavo Stone MD [address] [facility] [address] [place] [address] Malignant neoplasm of ascending colon (CMS/HCC V24, CMS/HCC V28) (Primary Dx) Social History Tobacco Use Types Packs/Day Years Used Date Smoking Tobacco: Former Cigarettes Smokeless Tobacco: Never Alcohol Use Standard Drinks/Week Comments Yes 6 (1 standard drink = 0.6 oz pur e alcohol) Interpersonal Safety Answer Date Record ed Physical Abuse 05/05/2024 Verbal Abuse 05/05/2024 Sex and Gender Information Value Date Recorded Sex Assigned at Male 04/29/2024 1:34 PM EST Legal Sex Male 9:08 PM EST Gender Identity Male 04/29/2024 1:34 PM EST Sexual Orientation Something else 05/05/2024 8: 18 AM EST Sexual Orientation Straight 05/05/2024 8: 18 AM EST documented as of this encounter Last Filed Vital Signs Vital Sign Reading Time Taken Comments Blood Pressure 126/72 08/19/2024 9:21 AM EDT Pulse 93 08/19/2024 9:21 AM EDT Temperature - - Respiratory Rate - - Oxygen Saturation - - Inhaled Oxygen Concentration - - Weight 100 kg (221 lb) 08/19/2024 9:21 AM EDT Height - - Body Mass Index 29.16 07/18/2024 11:06 AM EDT documented in this encounter Progress Notes * Gustavo Stone MD - 08/19/2024 9:30 AM EDT Jayy and his return for a scheduled 3-month interval visit following his recovery from ileostomy closure. He has had no adverse health issues or oncologic findings in the interval. He has frequent follow-up, quarterly I believe, with his oncologist at [facility]. Most recent CT was performed June of this year with no concern for recurrence. Blood work also apparently looks good. Eating well, bowel habits remain primarily loose and irregular but he is not doing anything proactive including using Metamucil, Imodium, or other helpful agents. He acknowledges this. His rolled her eyes. On exam no incisional hernias, early wound implant, or abdominal or right flank tenderness. I will plan to see them yearly, starting next April, which will be about a year after his reversal. He has aggressive follow-up in [place] and does not need to waste time here unless there are surgically-treatable issues identified. documented in this encounter Plan of Treatment Upcoming Encounters Date Type Department Care Team (Late st Contact Info) Description 09/16/2024 11:10 AM EDT Office Visit [facility] [address] [facility] [address] [place] [phone] Dereje Alford NP [address] [place] [address] 04/21/2025 9:45 AM EST Office Visit General Surgery - [place] [address] [facility] [address] [place] [phone] Gustavo Stone MD [address] [place] [phone] documented as of this encounter Visit Diagnoses Diagnosis Malignant neoplasm of ascending colon (CMS/HCC V24, CMS/HCC V28)- Primary Malignant neoplasm of ascending colon documented in this encounter Care Teams Power System Operator Relationship Specialty Start Date End Date Joey Dhillon MD [address] [place] [id number] PCP - General Internal Medicine 02/29/24 documented as of this encounter
--- OUTSIDE RECORDS SUMMARY | 2024-08-22 10:41 | XMS_ITS | Clinical Summary ---
Author Organization [facility] Address [address] [place] [address] Care Team Providers Care Morning Caregiver Name Role Phone Joey Dhillon MD Primary Care Provider + [phone] Allergies No known active allergies Medications Medication [...] age to complete this topic Care Teams Morning Caregiver Relationship Specialty Start Date End Date Joey Dhillon MD [address] [facility] [address] [place] [address] PCP - General Internal Medicine 07/13/23
--- OUTSIDE RECORDS SUMMARY | 2024-08-22 10:41 | XMS_ITS | Clinical Summary ---
Author Organization [facility] Address [address] [place] [address] Phone Care Team Providers Care Rental Manager Name Role Phone Joey Dhillon MD Primary Care Provider [phone] Allergies No known active allergies Medications finasteride (PROSCAR) 5 mg tablet Take 1 tablet (5 mg total) by mouth 1 (one) time each day. Active clopidogreL (PLAVIX) 75 mg tablet Take 1 tablet (75 mg total) by mouth 1 (one) time each day. 4 Active cyanocobalamin, vitamin B-12, 1,000 mcg capsule Take by mouth. Activ e atorvastatin (LIPITOR) 80 mg tablet Take 1 tablet (80 mg total) by mouth 1 (one) time each day. 4 Active ferrous sulfate 325 mg (65 mg elemental iron) tablet Take 1 tablet (325 mg total) by mouth 1 (one) time each day. Active ascorbic acid (VITAMIN C) 500 mg tablet Take 1 tablet (500 mg total) by mouth daily. Active levothyroxine (SYNTHROID, LEVOTHROID) 125 mcg tablet Take by mouth 1 (one) time each day before breakfast. Active apixaban (ELIQUIS) 5 mg tablet Take 1 tablet (5 mg total) by mouth 2 (two) times a day. 60 tablet 5 Active tamsulosin (FLOMAX) 0.4 mg 24 hr capsule Take 1 capsule (0.4 mg total) by mouth 1 (one) time each day. Capsules should be taken 30 minutes following the same meal each day. 30 capsule 5 Active dilTIAZem CD (CARDIZEM CD) 180 mg 24 hr capsule Take 1 capsule (180 mg total) by mouth 1 (one) time each day. 30 each 5 Active diphenhydrAMINE -acetaminophen (Tylenol PM Extra Strength) 25-500 mg per tablet Take 1 tablet by mouth at bedtime as needed for sleep. Active Active Problems Problem Noted Date Diagnosed Date CKD (chronic kidney disease) 07/17/2024 Urinary retention 07/17/2024 Atrial fibrillation with RVR ([facility] V24, [facility]/ CC V28) 07/17/2024 GUSTAVO (acute kidney injury) ([facility] V24) 07/18/19 25 Paroxysmal atrial fibrillation ([facility] V24, [facility] V28) 05/09/2024 Assessment & Plan (07/18/2024 12:21 PM EDT): He is in normal sinus rhythm at the appointment today. He denies any abnormal bleeding. He is rate controlled with diltiazem, is on Eliquis for CVA prophylaxis. Patient has significantly elevated chads 2 vascular score, and has history of CVA. Should remain anticoagulated. I am going to order a 48-hour Holter monitor to assess for pauses or average heart rate. I suspect we may need to titrate up diltiazem. Orders: Cardiac holter monitor (<= 48 hours); Future Assessment & Plan (05/09/2024 12:38 PM EST): [...] importance of stroke prevention based on the [id number] score. I reviewed that in many cases, [...] 01/21/2024 HLD (hyperlipidemia) 01/21/2024 Assessment & Plan (07/18/2024 12:21 PM EDT): Patient is utilizing atorvastatin 80 mg p.o. daily. Assessment & Plan (05/09/2024 12:38 PM EST): Continue high-dose statin for history of vascular disease Hypothyroidism 01/21/2024 Right internal carotid occlusion 01/21/2024 Stenosis of left internal carotid artery 024 Stroke ([facility] V24, [facility] V28) 01/21/2024 Colon adenocarcinoma ([facility]/HCC V24, CMS/HCC V28) 01/21/2024 CVA (cerebral vascular accident) (CMS/HCC V24, [facility] [place] V28) 01/21/2024 Gait instability 07/23/2023 Malignant neoplasm of ascend ing colon ([facility]/HCC V24, CMS/HCC V28) 07/13/2023 Resolved Problems Problem Noted Date Diagnosed Date Resolved Date Presence of ileostomy ([facility]/H CC V24, [facility]/HCC V28) 03/07/2024 05/08/2024 Presence of colostomy (CMS/H CC V24, [facility]/HCC V28) 03/07/2024 05/08/2024 Encounters Date Type Department Care Team Description 08/19/2024 9:30 AM EDT Office Visit General Surgery [address] [id number] Gustavo Stone MD Malignant neoplasm of ascending colon (CMS/HCC V24, CMS/HCC V28) (Primary Dx) 08/07/2024 3:00 PM EDT Ancillary Procedure [facility] Cardiology [facility] [address] [place] [phone] Paroxysmal atrial fibrillation (CMS/HCC V24, CMS/HCC V28) 07/25/2024 Telephone [facility] - [address] [place] [phone] Tori Bartlett MD Cryotherapy; Medication 07/18/2024 11:10 AM EDT Office Visit [facility] - [address] [place] [phone] Dereje Alford NP Atrial fibrillation, unspecified type (CMS/HCC V24, CMS/HCC V28) (Primary Dx); Hyperlipidemia, unspecified hyperlipidemia type; Paroxysmal atrial fibrillation (CMS/HCC V24, CMS/HCC V28); Hypertension, unspecified type 07/11/2024 Telephone [facility] - [address] [place] [phone] Tori Bartlett MD left hand / medication (Left hand / medication) from Last 3 Months Surgical History Surgery Date Site/Laterality Comments OTHER SURGICAL HISTORY Right PROCEDURE: [place] ARTHRODESIS ANKLE OPEN APPENDECTOMY PROCEDURE: HISTORICAL APPENDECTOMY OTHER SURGICAL HISTORY PROCEDURE: [place] UNLISTED PX MECKEL'S DIVERTICULUM & MESENTERY COLONOSCOPY ORIF ANKLE FRACTURE ILEOSTOMY 04/16/2023 - 04/15/2024 Medical History Medical History Date Comments Hypothyroidism DX:Hypothyroidis m Stroke (CMS/HCC V24, CMS/HCC V28) DX:Stroke (HCC) BPH (benign prostatic hyperplasia) DX:BPH (benign prostatic hyperplasia) HLD (hyperlipidemia) DX:HLD (hyp erlipidemia) Right internal carotid occlusion DX: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 DX:Stenosis of left internal carotid artery Tobacco abuse DX:Tobacco abuse Prostate CA (CMS/HCC V24, CMS/HCC V28) Colon cancer (CMS/HCC V24, CMS/HCC V28) 2023 HL (hearing loss) Hypertension BPH (benign prostatic hyperplasia) Carotid artery stenosis Family History Medical History Relation Name Comments Atrial fibrillation Brother 1 Stroke Brother 2 Calvin Stroke Father Uterine cancer Sister Relation Name Status Comments Brother 1 Brother 2 Calvin Father Sister Social History Tobacco Use Types [...] Orientation Straight 05/05/2024 8: 18 AM EST Obstetrics History Last Filed Vital Signs Vital Sign Reading Time Taken Comments Blood Pressure 126/72 08/19/2024 9:21 AM EDT Pulse 93 08/19/2024 9:21 AM EDT Temperature 36.4 ??C (97.5 ??F) 05/20/2024 9:41 AM ES T Respiratory Rate 16 05/09/2024 3:27 AM EST Oxygen Saturation 98% 07/18/2024 11:06 AM EDT Inhaled Oxygen Concentration - - Weight 100 kg (221 lb) 08/19/2024 9:21 AM EDT Height 185.4 cm (6' 1 ) 07/18/2024 11:06 AM EDT Body Mass Index 29.16 07/18/2024 11:06 AM EDT Plan of Treatment Upcoming Encounters Date Type Department Care Team (Late st Contact Info) Description 09/16/2024 11:10 AM EDT Office Visit [facility] [address] [facility] [address] [place] [phone] Dereje Alford NP [address] [place], [place] [id number] 04/21/2025 9:45 AM EST Office Visit General Surgery - [place] [facility] [address] [place] [phone] Gustavo Stone MD [facility] [address] [place] [address] Health Maintenance Due Date Last Done Comments DTaP,Tdap,and Td Vaccines (1 - Tdap) 1964 Zoster Vaccines (1 of 2) 1964 Pneumococcal Vaccine: 50+ Years (2 of 2 - PPSV23) 03/26/2020 01/30/2020 Cholesterol Screening (Lipid Panel) 03/25/2022 Depression Screening 03/25/2022 Hepatitis C Screening 03/25/2022 Lung Cancer Screening (Low Dose CT) 03/25/2022 Medicare Annual Wellness Visit 03/25/2022 Social Influencers of Health Screening 03/25/2022 COVID-19 Vaccine (7 - Pfizer risk season) 2024 04/22/2024, 06/24/2022, 09/05/2021, Additional history exists Falls Risk Assessment 05/09/2025 05/09/2024 Hypertension/CHF/CAD Annual BMP Blood Test 08/15/2025 08/15/2024, 06/20/2024, 05/09/2024, Additional history exists RSV Immunization Adult Patients Completed 05/09/2023 Colorectal Cancer Screening: Colonoscopy Discontinued 03/17/2024 Influenza Vaccine Completed 03/25/2024, , 02/16/2022, Additional history exists HIB Vaccines Aged Out [...] patient's age to complete this topic Meningococcal B Vaccine Aged Out No l onger eligible based on patient's age to complete this topic RSV Immunization Patients Under 20 months Aged Out No longer eligible based on patient's age to complete this topic Varicella Vaccines Aged Out No longer eligible based on patient's age to complete this topic Medical Devices Implanted Type Area Cotton Classer Device Identifier Shelf Expiration Date Model / Serial / Lot Right Lower Leg Right: Leg Procedures Procedure Name Priority Date/Time Associated Diagnosis Comments CARDIAC HOLTER MONITOR (REPORT GENERATED IN HOUSE) Routine 08/07/2024 2:30 PM EDT Paroxysmal atrial fibrillation (CMS/HCC V24, CMS/HCC V28) ECG 12-LEAD Routine 07/18/2024 11:47 AM EDT Atrial fibrillation, unspecified type (CMS/HCC V24, CMS/HCC V28) BASIC METABOLIC PANEL Routine 05/09/2024 6:34 AM EST COLONOSCOPY Routine 03/17/2024 7:58 AM EST Personal history of other malignant neoplasm of large intestine from Last 3 Months or Most Recently Relevant to Health Maintenance Results * CARDIAC HOLTER MONITOR (REPORT GENERATED IN HOUSE) (08/07/2024 2:30 PM EDT) Anatomical Region Laterality Modality Cardiac Diagnost ic Narrative 08/12/2024 8:22 AM EDT ?Normal sinus rhythm with a short atrial run of 19 beats at 154 bpm. ??No sustained atrial or ventricular arrhythmias [facility] DIAGNOSTIC [facility]ING DEPARTMENT [address] [place] [address] TEL: FAX: Type of Test: 48 Hour Holter Monitor Date of Test: 08/07/2024 Ordering Provider: Dereje Alford NP Reason for Test: Paroxysmal Atrial Fibrillation [facility] Funeral Arranger Findings: 1: Normal Sinus Rhythm. 2: Rare PACs, aberrant beats, atrial pairs, and a few atrial runs; longest atrial run lasting 19 beats with rates up to 154 bpm. 3: Rare PVCs. 4: No significant pause noted, longest R-R was 1.3 seconds at 1:51 AM. 5: Diary returned with no symptoms noted. Impression: Normal sinus rhythm with a 19 beat atrial run at 154 bpm. ?? Otherwise, no sustained atrial or ventricular arrhythmias and no bradycardia or pauses us Dereje Alford NP [facility] C[facility]IAC SERVICES PROCEDURES F inal Result * ECG 12 lead (07/18/2024 11:47 AM EDT) Ventricular Rate ECG 97 BPM GEMUSE Atrial Rate 97 BPM GEMUSE P-R Interval 168 ms GEMUSE QRS Duration 82 ms GEMUSE Q-T Interval 346 ms GEMUSE QTc 439 ms GEMUSE P Wave [place] 10 degrees GEMUSE R [place] -15 degrees GEMUSE T [place] 36 degrees GEMUSE ECG Interpretation Normal sinus rhythm Inferior infarct (cited on or before 07-MAY-2024) Abnormal ECG When compared with ECG of 07-MAY-2024 08:41, Sinus rhythm has replaced Atrial fibrillation Vent. rate has decreased BY ??49 BPM Confirmed by TORI BARTLETT ([id number]) on 07/31/2024 12:41:38 PM GEMUSE 07/18/2024 11:1 1 AM EDT 07/31/2024 12:41 PM EDT us Dereje Alford NP ECG ORDERABLES Edited Result - Final GEMUSE * COLONOSCOPY Anesthesia - MAC; [facility] ENDOSCOPY (03/17/2024 7:58 AM EST) Anatomical Region [...] for surveillance. Narrative 03/17/2024 8:01 AM EST [facility] GI Patient Name: Hernan Veras Procedure [...] ? of large intestine CPT copyright 2020 [employer]. All rights reserved. The codes documented in this report are preliminary and upon pastry decorator review may be revised to meet current compliance requirements. MD Jaun Azar MD 03/17/2024 8:01:40 AM This report has been signed electronically.Jaun Enriquez MD Number of Addenda: 0 Note Initiated On: 03/17/2024 7:25 AM Scope In: Scope Out: ? Endoscopy Department at [facility] - [address] [place] [address], ? [place] [address] Procedure Note Jaun Enriquez MD - 03/17/2024 [facility] GI Patient Name: Hernan Veras Procedure [...] malignantneoplasm of large intestine CPT copyright 2020 [employer]. All rights reserved. The codes documented in this report are preliminary and upon pastry decorator reviewmay be revised to meet current compliance requirements. MD Jaun Azar MD 03/17/2024 8:01:40 AM This report has been signed electronically.Jaun Enriquez MD Number of Addenda: 0 Note Initiated On: 03/17/2024 7:25 AM Scope In: Scope Out: Endoscopy Department at [facility] - [address] [place] [phone] IMPRESSION: - The entire examined colon is [...] year for surveillance. Jaun Enriquez MD GI~PROCEDURE ORDERABLES Final R esult from Last 3 Months or Most Recently Relevant to Health Maintenance Insurance MEDICARE [facility] Advance Directives Documents on File Type Date Recorded Patient Brick Pointer Expl anation Health Care Decision (hx) 07/06/2023 [...] Communication Becki Veras Spouse Health Care Agent [email or web address] Care Teams Rental Manager Relationship Specialty Start Date End Date Joey Dhillon MD [address] [place] [address] PCP - General Internal Medicine 02/29/24
[2024-09-11 13:57] VITALS: BMI 28.8
--- NOTE | 2024-09-12 09:58 | HO.ANESPROP2 ---
Documented by User: Aura Allen NP 09/12/24 10:11 HPI - Anesthesia Eval Consult details Narrative: 79yo M for Cryosugical Ablation Prostate Follows [facility] for Afib (eliquis - to bridge with lovenox), Htn, Hld. Optimized to proceed with prostate procedure per 09/10/24 office eval. Follows Vascular surgery for carotid stenosis, CVA 2020 on plavix. Stable 01/2024 office visit [facility] Active Problems Active Problems: All Active Problems BPH w urinary obs/LUTS (Acute) Prostate cancer (Acute) Elevated PSA (Acute) Prostate cancer (Acute) Past Medical History Medical History Ascending aorta dilatation PAF (paroxysmal atrial fibrillation) Hormone sensitive prostate cancer History of blood transfusion History of chemotherapy Wears hearing aid in both ears Wears dentures THREE AFFILIATED (hard of hearing) Ascending aortic aneurysm Hx of Meckel's diverticulum Gait instability Colon adenocarcinoma Presence of ileostomy Malignant neoplasm of ascending colon BPH (benign prostatic hyperplasia) HLD (hyperlipidemia) 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 CVA (cerebral vascular accident) Tobacco abuse, in remission Elevated PSA Prostate cancer BPH loc w urin obs/LUTS Hypothyroidism Family History Family history of problems with anesthesia: No Surgical History Surgical History S/P closure of ileostomy (04/2024) History of prostate biopsy (03/24/24) Hx of colonoscopy (03/17/24) History of ankle surgery (~03/2018) S/P right colectomy (~06/2023) Hx of appendectomy Surgically created abdominal mucous fistula Hx of prostate biopsy (06/09/20) History of Problems with Anesthesia: No Social History Social History Household Members: Spouse Housing: House Are you a primary health care technician to a significant other at home: No Do you presently have visiting nurse or other home services: No Patient Tobacco Use Status: Former Tobacco user Tobacco use type: Cigarette Use of substances other than those prescribed or required for medical reasons: No Are you DNR?: No Advance Directives: No Advance Directives Information Provided: Yes Advance Directives on File: No Meds Allergies Allergy/AdvReac Type Severity Reaction Status Date / Time No Known Allergies Allergy Verified 09/15/24 06:20 Home Medications ?Medication ?Instructions ?Recorded ?Confirmed ?Last Taken ?Type atorvastatin 80 mg tablet 80 mg PO DAILY 06/25/20 09/11/24 Unknown History clopidogrel 75 mg tablet 75 mg PO DAILY 06/25/20 09/11/24 09/05/24 History furosemide 20 mg tablet 20 mg PO DAILY 02/08/22 09/11/24 Unknown History ascorbic acid (vitamin C) 1,000 mg 1,000 mg PO DAILY 03/20/24 09/11/24 Unknown History tablet (Vitamin C) aspirin 81 mg chewable tablet 81 mg PO DAILY 03/20/24 09/11/24 09/14/24 History cyanocobalamin (vitamin B-12) 1,000 mcg PO DAILY 03/20/24 09/11/24 Unknown History 1,000 mcg tablet (Vitamin B-12) ferrous sulfate 325 mg (65 mg 325 mg PO DAILY 03/20/24 09/11/24 Unknown History iron) tablet (Iron (ferrous sulfate)) levothyroxine 125 mcg tablet 125 mcg PO DAILY 03/20/24 09/11/24 09/15/24 History apixaban 5 mg tablet (Eliquis) 5 mg PO BID 07/25/24 09/11/24 09/09/24 History diltiazem HCl 180 mg 180 mg PO DAILY 07/25/24 09/11/24 09/15/24 History capsule,extended release 24 hr enoxaparin 100 mg/mL subcutaneous 100 mg subcut Q12H 09/11/24 09/11/24 09/14/24 History syringe Exam Height,Weight and Vital Signs: Height 6 ft 1 in Weight 99 kg Narrative Narrative: ECHO 04/2024 -LV cavity size nml. No RWMA. LV sys function nml with EF 60-65%. Unable to assess diastolic function d/t arrhythmia -RV cavity is mildly enlarded. RV sys function is nml. -Aortic valve leaflets mildly thickened. Mild regurg -Asc aorta mildly dilated at 4.1cm -No signif change from 10/2023 Carotid 04/2023 Occlusion of the R ICA L iCA with 60-69% stenosis (likely less than 50% d/t contralateral occlusion causing falsely elevated) Assessment and Plan Assessment Anesthesia Assessment: Chart Reviewed Final Anesthetic Review Family History of Problems with Anesthesia: No History of Problems with Anesthesia: No Documented by User: Haile Child MD 09/15/24 07:27 [facility] Past Medical History Medical History Ascending aorta dilatation PAF (paroxysmal atrial fibrillation) Hormone sensitive prostate cancer History of blood transfusion History of chemotherapy Wears hearing aid in both ears Wears dentures THREE AFFILIATED (hard of hearing) Ascending aortic aneurysm Hx of Meckel's diverticulum Gait instability Colon adenocarcinoma Presence of ileostomy Malignant neoplasm of ascending colon BPH (benign prostatic hyperplasia) HLD (hyperlipidemia) 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 CVA (cerebral vascular accident) Tobacco abuse, in remission Elevated PSA Prostate cancer BPH loc w urin obs/LUTS Hypothyroidism Functional capacity: uses cane/walker Surgical History Surgical History S/P closure of ileostomy (04/2024) History of prostate biopsy (03/24/24) Hx of colonoscopy (03/17/24) History of ankle surgery (~03/2018) S/P right colectomy (~06/2023) Hx of appendectomy Surgically created abdominal mucous fistula Hx of prostate biopsy (06/09/20) Social History Social History Household Members: Spouse Housing: House Are you a primary health care technician to a significant other at home: No Do you presently have visiting nurse or other home services: No Patient Tobacco Use Status: Former Tobacco user Tobacco use type: Cigarette Use of substances other than those prescribed or required for medical reasons: No Are you DNR?: No Advance Directives: No Advance Directives Information Provided: Yes Advance Directives on File: No Meds Allergies Allergy/AdvReac Type Severity Reaction Status Date / Time No Known Allergies Allergy Verified 09/15/24 06:20 Home Medications ?Medication ?Instructions ?Recorded ?Confirmed ?Last Taken ?Type atorvastatin 80 mg tablet 80 mg PO DAILY 06/25/20 09/11/24 Unknown History clopidogrel 75 mg tablet 75 mg PO DAILY 06/25/20 09/11/24 09/05/24 History furosemide 20 mg tablet 20 mg PO DAILY 02/08/22 09/11/24 Unknown History ascorbic acid (vitamin C) 1,000 mg 1,000 mg PO DAILY 03/20/24 09/11/24 Unknown History tablet (Vitamin C) aspirin 81 mg chewable tablet 81 mg PO DAILY 03/20/24 09/11/24 09/14/24 History cyanocobalamin (vitamin B-12) 1,000 mcg PO DAILY 03/20/24 09/11/24 Unknown History 1,000 mcg tablet (Vitamin B-12) ferrous sulfate 325 mg (65 mg 325 mg PO DAILY 03/20/24 09/11/24 Unknown History iron) tablet (Iron (ferrous sulfate)) levothyroxine 125 mcg tablet 125 mcg PO DAILY 03/20/24 09/11/24 09/15/24 History apixaban 5 mg tablet (Eliquis) 5 mg PO BID 07/25/24 09/11/24 09/09/24 History diltiazem HCl 180 mg 180 mg PO DAILY 07/25/24 09/11/24 09/15/24 History capsule,extended release 24 hr enoxaparin 100 mg/mL subcutaneous 100 mg subcut Q12H 09/11/24 09/11/24 09/14/24 History syringe Exam Airway Mallampati Class: III TM Dist: >3cm Neck ROM: Full Denture: Upper Partial: Lower Loose/Missing/Broken Teeth: No Heart: rrr Lungs: cta Assessment and Plan Final Anesthetic Review ASA Class: III Final Preanesthetic Review: No Changes in Pt Med Stat, Meds/Allgs Chart Reviewed and Consent Obtained/Reviewed Patient Risk: Intermediate Procedure Risk: Low Anesthetic Plan Anesthetic Plan: GA Disposition: Standard PACU
[2024-09-15] VITALS (7 sets, daily range): BP systolic 135–161; BP diastolic 63–84; PULSE 75–81; RESP 16–18; TEMP 36.7–36.9; O2SAT 97–99; BMI 28.2
[2024-09-15] MEDS: Lactated Ringers 1,000 ML 100 ML IVCONT (06:27)
--- NOTE | 2024-09-15 07:40 | MHC.SHP ---
Pre-Procedural Eval Section A - 24 Hr Update-Section A only Date of Service: 09/15/24 The patient is an INPATIENT: No Changes since office visit: No Cold of Flu in the past 2 weeks, No New Medical Problems, No Changes in Medication and No Patient answered all questions The patient has been examined within 24 hours of the surgical procedure. The History & Physical has been completed within 30 days and I have reviewed it.: Yes Section B - Complete if H&P > 30 days Chief Complaint: Malignant neoplasm of prostate Allergies: Allergies Allergy/AdvReac Type Severity Reaction Status Date / Time No Known Allergies Allergy Verified 09/15/24 06:20 Plan Diagnosis/Plan: Unchanged (cryotherapy prostate targeted) I have reviewed the history and physical and performed a pertinent physical examination on my patient. No changes have occurred unless specified. Time Spent With Patient Time: Total time managing care of this patient today ____ minutes.
[2024-09-15] MEDS: levoFLOXacin 500 MG TABLET PO (07:44)
--- NOTE | 2024-09-15 09:17 | P.OP_ITS ---
Operative Note Operative Note Date of Service: 09/15/24 Narrative: Preoperative diagnosis: Prostate Cancer Postoperative diagnosis: Prostate Cancer Procedure: 1. Hawk catheter placement 1. Transrectal Ultrasound prostate 2. Creation of 3D transrectal US model with image registration and model correction including overlap of virtual targeted locations 3. Ultrasound guidance of cryotherapy needle and probe placement 4. Transperineal ultrasound-guided prostate cryotherapy 5. Cystoscopy with catheter placement Surgeon: Dr. Sudheer Mcclelland Anesthetic: LMA Indications for procedure: Prostate Cancer - 1.2 cm left posterior base 3+4 with 3+3 lesion right posterior Procedure: After informed consent was verified, the patient was brought into the procedure area. Patient identity confirmed. Perioperative antibiotics confirmed. Safety pause time out performed. Anesthesia performed per protocol. Scrotum taped out of operative area. Iodine prep used. Perineal injection of local anesthetic performed. Ultrasound probe was placed per rectum with adequate lubrication. Ultrasound probe stabilized on a prostate stepper with attached grid. Ultrasound placement was made with external grid calibration for height and prostate diameter in both the transverse and longitudinal planes. Grid A-C covering right prostate and c-F covering left prostate. Numbers 1.0-2.5 covering posterior prostate and 2.5-4.0 covering anterior prostate. [employer] software and hardware platform was used for Ultrasound image acquisition, manual image registration and Ultrasound model creation, and MRI virtual target overlay. Once grid calibration was confirmed prostate ultrasound data acquisition was performed in the stepwise transverse fashion. US prostate image registration was performed using transverse and sagittal generated images. Model boundaries were marked based off acquired images. A three dimensional ultrasound model was created using [employer] software. The model was reviewed against acquired US images. The planned lesion ice ball target, based on prior acquisition of MRI imaging, was overlaid on the ultrasound images and targets confirmed through ultrasound review. Adjustments were then made between real time and projected model targeting locations. - 2 sonia probes with mid seed probe Based on pre-planning evaluation the prostate target cryotherapy areas were identified as follows - left base posterior 1.5cm lesion on MRI Cryotherapy area coverage was achieved with - 2- [email or web address] Ice Sonia needle and Seed needle The first cryotherapy needle was advanced under real time ultrasound at the target coordinates so the tip was just visible at the base of the prostate/bladder interface. Images were reviewed to ensure adequate clearance was obtained between both the urethra, with a hawk catheter, and the location of the external urethral sphincter. Once in place the needle was quick frozen to stick the prostate to the needle. This allowed placement of the temperature monitoring probe that was placed 5mm into apical prostate tissue near the sphincter for intraprocedural monitoring. 2nd and 3rd needle placed. Cryotherapy cycling was performed as follows - Initial cryotherapy -140C for 8 mins - Active thaw 3 min followed by passive thaw 10 min - Second cryotherapy cycle -140 for 8 mins Ice ball was monitored in real time through US imaging. Clear demarcation boundary was seen with an appropriate penumbra covering the target lesion area. Temperature montioring was performed ensuring that sphincter adjacent tissue did not drop below 5C. Hawk catheter placed after first cycle. Cystoscopy used for placement. At the completion of the second cryotherapy cycle active thaw was performed for 3 min. The probe was then rotated and carefully withdrawn. Temperature probe was removed. He tolerated the procedure well. Was transferred to stable condition in the PACU. Printed instructions regarding antibiotic use and common side effects such as low-grade temperature, potential infection and bleeding were given CPT codes 43115 - Hawk catheter placement 46500: Transrectal ultrasound; this is a diagnostic test for evaluation of the prostate and surrounding structures, looking for abnormalities or suspicious areas worrisome for cancer 50228: 3D rendering with interpretation and reporting of computed tomography (CT), MRI, ultrasound, or other tomographic modality with image postprocessing under concurrent supervision; not requiring image postprocessing on an independent workstation - construction of 3D model with TRUS and ongoing refinement of model positioning during procedure 85121: Ultrasonic guidance for needle placement (eg, biopsy, aspiration, injection, localization device), imaging supervision and interpretation 73040 - Perineal prostate cryotherapy
--- NOTE | 2024-09-15 10:27 | PC.NURSE ---
Conflicting information received regarding when patient should restart his anticoagulation medications (Plavix and Eliquis). This RN was told verbally that the pt should not resume anticoags until catheter is removed and is cleared at follow up appt. A [place] message was received from Dr Mcclelland stating that the patient should resume anticoags in 5 days. The follow up appt is 8 days from today. No instructions regarding anticoag medications was written in the discharge instructions. Unable to clarify as surgeon is in surgery with another patient at this time. Family instructed to contact office tomorrow to clarify.
== END 2024-09-15 11:06 | disposition home or self-care (01) ==
PROVIDERS: PCP Internal Medicine; Visit Provider Urology
PROC: (CPT 55873; principal; 2024-09-15 07:30)
DX: C61 Malignant neoplasm of prostate (principal); C18.2 Malignant neoplasm of ascending colon; Z92.21 Personal history of antineoplastic chemotherapy; Z90.49 Acquired absence of other specified parts of digestive tract; N40.1 Benign prostatic hyperplasia with lower urinary tract symptoms; R97.20 Elevated prostate specific antigen [PSA]; I69.354 Hemiplegia and hemiparesis following cerebral infarction affecting left non-dominant side; R26.89 Other abnormalities of gait and mobility; K57.30 Diverticulosis of large intestine without perforation or abscess without bleeding; H91.93 Unspecified hearing loss, bilateral; I48.0 Paroxysmal atrial fibrillation; E78.5 Hyperlipidemia, unspecified; Z97.4 Presence of external hearing-aid; Z79.01 Long term (current) use of anticoagulants; Z79.82 Long term (current) use of aspirin; Z79.899 Other long term (current) drug therapy; Z87.891 Personal history of nicotine dependence; Z98.890 Other specified postprocedural states
CPT/HCPCS: 55873; 51702; C1769; C2618; J0131; J2003; J2405; J2704; J2795; J3010

== ENCOUNTER → 2024-09-15 05:57 | Outpatient (BNV) | payer MEDICARE, OTHER, SELFPAY | PROVIDERS: PCP Internal Medicine; Visit Provider Urology | DX: C61 Malignant neoplasm of prostate (principal) | CPT/HCPCS: 55873; 76376; 76872 ==

== ENCOUNTER → 2024-09-23 09:33 | Outpatient (BNVA) | payer MEDICARE, OTHER, SELFPAY | PROVIDERS: PCP Internal Medicine; Visit Provider Urology | DX: Z13.89 Encounter for screening for other disorder (principal) ==

== ENCOUNTER 2024-11-26 12:55 | Outpatient (REF) | payer MEDICARE, OTHER, SELFPAY ==
--- OUTSIDE RECORDS SUMMARY | 2024-11-26 13:28 | XMS_ITS | Encounter Summary ---
Author Organization [facility] Address [address] [address] [place] [phone] Phone Care Team Providers Care Tipple Oiler Name Role Phone Joey Dhillon MD Primary Care Provider Joey Dhillon MD Unavailable [phone] Nabil Xiao MD Unavailable Sudheer Mcclelland MD Unavailable [phone] Encounter Details Date Type Department Care Team (Late st Contact Info) Description 12/10/2023 Procedure Pass [facility], [facility] [place] [address] [facility] [place] [address] Social History Tobacco Use Types Packs/Day Years Used Date Smoking Tobacco: Former Cigarettes - 2019 Smokeless Tobacco: Never Child or Family Care Answer Date Record ed Do you have problems with on e of the following making it difficult for you to work, study, or receive health care? No 08/31/2023 Education Answer Date Recorded Are you interested in more education? Not on yulia e 08/11/2022 Are you concerned about learning? Not on file 08/11/2022 No 08/11/2022 No 08/11/2022 Food Answer Date Recorded Within the past 6 months we worried whether our food would run out before we got money to buy more. Never True 08/31/2023 Within the past 6 months the food we bought just didn't last and we didn't have enough money to get more. Never True Residential Stability Answer Date Recor ded What is your housing situation today? I have debra quiroga 08/31/2023 How many times have you move d in the past 12 months? Zero (I did not move) 08/31/2023 Paying for Meds Answer Date Recorded Do you have trouble paying for medicines? No 08/31/2023 Paying Utility Bills Answer Date Record ed Do you have trouble paying your heating or elect ricity bill? No 08/31/2023 Transportation Answer Date Recorded Has the lack of transportati on kept you from medical appointments or from getting medications? No 08/31/2023 Digital Access Answer Date Recorded No 09/11/2022 No 09/11/2022 Reliable internet access at home? Not on file 09/11/2022 Device with a working camera? Not on file Sex and Gender Information Value Date Recorded Sex Assigned at Male 08/16/2023 12:28 PM EDT Legal Sex Male 8:46 AM EDT Gender Identity Male 08/16/2023 12:28 PM EDT Sexual Orientation Straight 08/16/2023 12 :28 PM EDT documented as of this encounter Plan of Treatment Upcoming Encounters Date Type Department Care Team (Late st Contact Info) Description 10/13/2024 Procedure Pass [facility] [address] [place] [address] 10/13/2024 Procedure Pass [facility] [address] [place] [address] 01/06/2025 11:45 AM EDT Appointment [facility] [address] [place] [address] Nabil Xiao MD [address] [place], [place] [address] [place] [address] [email or web address] 01/12/2025 1:30 PM EDT Blood Draw Laboratory Services, [facility] [address] [facility] [place] [address] Nabil Xiao MD [address] [place] [address] [email or web address] 01/12/2025 2:30 PM EDT [facility] [address] [facility] [place] [address] Nabil Xiao MD [address] [place] [address] [email or web address] 04/16/2025 Hospital Encounter [facility] Endoscopy Department [address] [place] [address] Anay Gómez MD, MPH [address] [place] [address] [email or web address] 04/16/2025 Procedure Pass [facility] Endoscopy Department [address] [place] [address] Scheduled Procedures Name Priority Associated Diagnoses Date/Ti me COLONOSCOPY Colon adenocarcinoma documented as of this encounter Visit Diagnoses Not on filedocumented in this encounter Care Teams Tipple Oiler Relationship Specialty Start Date End Date Joey Dhillon MD [address] [place] [address] PCP - General Internal Medicine 09/29/16 Joey Dhillon MD [address] [place] [address] Internal Medicine 08/16/23 Nabil Xiao MD [address] [place] [address] [email or web address] 08/16/23 Sudheer Mcclelland MD [address] [place] [address] Urology 10/08/23 documented as of this encounter Additional Source Comments The information contained in this document represents components of the legal health record. It is not the complete legal health record.[facility]
--- OUTSIDE RECORDS SUMMARY | 2024-11-26 13:29 | XMS_ITS | Clinical Summary ---
Author Organization 175 [facility] Address [address] [place] [address] Phone Care Team Providers Care Ammunition Components Inspector Name Role Phone Joey Dhillon MD Primary Care Provider Allergies No known active allergies Medications finasteride [...] times a day. 60 tablet 05/09/2024 Active dilTIAZem CD (CARDIZEM CD) 180 mg 24 hr capsule Take 1 capsule (180 mg total) by mouth 1 (one) time each day. 30 each 05/09/2024 Active diphenhydrAMINE -acetaminophen (Tylenol PM Extra Strength) 25-500 mg per tablet Take 1 tablet by mouth at bedtime as needed for sleep. Active Active Problems Problem Noted Date Diagnosed Date Small bowel obstruction ([facility] V24, [facility] V2 8) 10/26/2024 Ascending aorta dilatation ([facility] V24) 025 Assessment & Plan (09/05/2024 10:18 AM EDT): We will update echocardiogram next year. Most recent measurement 4.2 cm. CKD (chronic kidney disease) 07/17/2024 Urinary retention 07/17/2024 Atrial fibrillation with RVR ([facility] V24, [facility]/ [facility] V28) 07/17/2024 GUSTAVO (acute kidney injury) ([facility] V24) 07/18/19 25 Paroxysmal atrial fibrillation ([facility] V24, [facility] V28) 05/09/2024 Assessment & Plan (09/05/2024 10:18 AM EDT): Patient is in normal sinus rhythm at the appointment today. Is not having any palpitations or any anginal symptoms. Does have elevated [id number] score so should remain anticoagulated. Does have history of CVA. Rate controlled with diltiazem. Assessment & Plan (07/18/2024 12:21 PM EDT): [...] importance of stroke prevention based on the [id number] score. I reviewed that in many cases, [...] 01/21/2024 HLD (hyperlipidemia) 01/21/2024 Assessment & Plan (09/05/2024 10:18 AM EDT): Patient is utilizing high-dose atorvastatin. Continue with that. Continue to adhere to a healthy cardiac diet. Will update lipid panel at next follow-up appointment. Assessment & Plan (07/18/2024 12:21 PM EDT): Patient is utilizing atorvastatin 80 mg p.o. daily. Assessment & Plan (05/09/2024 12:38 PM EST): Continue high-dose statin for history of vascular disease Hypothyroidism 01/21/2024 Right internal carotid occlusion 01/21/2024 Stenosis of left internal carotid artery 024 Stroke (CMS/HCC V24, CMS/HCC V28) 01/21/2024 Colon adenocarcinoma (CMS/HCC V24, CMS/HCC V28) 01/21/2024 CVA (cerebral vascular accident) (CMS/[facility] V24, C [facility]/HCC V28) 01/21/2024 Gait instability 07/23/2023 Malignant neoplasm of ascend ing colon (CMS/HCC V24, CMS/HCC V28) 07/13/2023 Resolved Problems Problem Noted Date Diagnosed Date Resolved Date Presence of ileostomy (CMS/H CC V24, CMS/HCC V28) 03/07/2024 05/08/2024 Presence of colostomy (CMS/H CC V24, CMS/HCC V28) 03/07/2024 05/08/2024 Encounters Date Type Department Care Team Description 10/26/2024 2:01 PM EDT - 10/28/2024 1:56 PM EDT Hospital Encounter [facility] [address] [place] [address] Alex Thornton MD Shapiro, Benjamin, DO Surendran, Anupama, MD Right lower quadrant abdominal pain (Primary Dx); Small bowel obstruction ([facility] V24, CMS/[facility] V28) Discharge Disposition: Home or Self Care 09/11/2024 Telephone [facility] [address] [facility] [address] [place] [address] Joey Dhillon MD Medical Records 09/09/2024 Telephone [facility] - [facility] [address] [facility] [address] [place] [address] Tori Hernández MD OTHER (Holding Eiliquis for procedure. ) 09/05/2024 9:40 AM EDT Office Visit [facility] - [facility] [address] [facility] [address] [place] [address] Dereje Alford NP Preop examination (Primary Dx); Hyperlipidemia, unspecified hyperlipidemia type; Paroxysmal atrial fibrillation (CMS/HCC V24, CMS/[facility] V28); Ascending aorta dilatation ([facility] V24) from Last 3 Months Surgical History Surgery Date Site/Laterality Comments OTHER SURGICAL HISTORY Right PROCEDURE: ND ARTHRODESIS ANKLE OPEN APPENDECTOMY PROCEDURE: HISTORICAL APPENDECTOMY OTHER SURGICAL HISTORY PROCEDURE: ND UNLISTED PX [employer] MESENTERY COLONOSCOPY ORIF ANKLE FRACTURE ILEOSTOMY 04/16/2023 - 04/15/2024 Medical History Medical History Date Comments Hypothyroidism DX:Hypothyroidis m Stroke ([facility] V24, [facility] V28) DX:Stroke (HCC) BPH (benign prostatic hyperplasia) DX:BPH (benign prostatic hyperplasia) HLD (hyperlipidemia) DX:HLD (hyp erlipidemia) Right internal carotid occlusion DX: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 DX:Stenosis of left internal carotid artery Tobacco abuse DX:Tobacco abuse Prostate CA ([facility] V24, [facility] V28) Colon cancer ([facility] V24, [facility] V28) 2023 HL (hearing loss) Hypertension BPH [...] Safety Answer Date Record ed Physical Abuse 10/26/2024 Verbal Abuse 10/26/2024 Sex and Gender Information Value Date Recorded Sex Assigned at Male 04/29/2024 1:34 PM EST Legal Sex Male 9:08 PM EST Gender Identity Male 04/29/2024 1:34 PM EST Sexual Orientation Something else 05/05/2024 8: 18 AM EST Sexual Orientation Straight 05/05/2024 8: 18 AM EST Obstetrics History Last Filed Vital Signs Vital Sign Reading Time Taken Comments Blood Pressure 111/41 10/28/2024 11:10 AM EDT Pulse 73 10/28/2024 11:10 AM EDT Temperature 36.5 C (97.7 F) 10/28/2024 11:10 AM EDT Respiratory Rate 16 10/28/2024 8:07 AM EDT Oxygen Saturation 96% 10/28/2024 11:10 AM EDT Inhaled Oxygen Concentration - - Weight 71.8 kg (158 lb 6 oz) 10/26/2024 7:26 PM EDT Height 185.4 cm (6' 1 ) 10/26/2024 1:56 PM EDT Body Mass Index 20.9 10/26/2024 1:56 PM EDT Plan of Treatment Upcoming Encounters Date Type Department Care Team (Late st Contact Info) Description 12/17/2024 11:10 AM EDT Office Visit [facility] - [facility] [address] [facility] [address] [place] [address] Dereje Alford NP [address] [place] [address] 04/21/2025 9:45 AM EST Office Visit General Surgery - [place] [address] [facility] [address] [place] [address] Gustavo Stone MD 175 [facility] [address] [place] [address] Health Maintenance Due Date Last Done Comments DTaP,Tdap,and Td Vaccines (1 - Tdap) 1964 Zoster Vaccines (1 of 2) 1964 Pneumococcal Vaccine: 50+ Years (2 of 2 - PPSV23) 01/29/2021 01/30/2020 Cholesterol Screening (Lipid Panel) 03/25/2022 Hepatitis C Screening 03/25/2022 Lung Cancer Screening (Low Dose CT) 03/25/2022 Medicare Annual Wellness Visit 03/25/2022 Social Influencers of Health Screening 03/25/2022 Depression Screening 04/16/2024 COVID-19 Vaccine (7 - Pfizer risk 2023- season) 2024 04/22/2024, 06/24/2022, 09/05/2021, Additional history exists Influenza Vaccine (#1) 2024 , 04/12/2023, 02/16/2022, Additional history exists Falls Risk Assessment 10/28/2025 10/28/2024 Hypertension/CHF/CAD Annual BMP Blood Test 10/28/2025 10/28/2024, 10/27/2024, 10/26/2024, Additional history exists RSV Immunization Adult Patients Completed 05/09/2023 Colorectal Cancer Screening: Colonoscopy Discontinued 03/17/2024 HIB Vaccines Aged Out No longer eligi [...] this topic Medical Devices Implanted Type Area Mathematics Lecturer Device Identifier Shelf Expiration Date Model / Serial / Lot Right Lower Leg Right: Leg Procedures Procedure Name Priority Date/Time Associated Diagnosis Comments LT BLUE - NA CITRATE Routine 10/28/2024 6:06 AM EDT EXTRA TUBES Routine 10/28/2024 6:06 AM EDT CBC WITH AUTO DIFFERENTIAL Routine 10/28/2024 6:06 AM EDT MAGNESIUM Routine 10/28/2024 6:06 AM EDT BASIC METABOLIC PANEL Routine 10/28/2024 6:06 AM EDT CBC AND DIFFERENTIAL Routine 10/28/2024 6:06 AM EDT CBC WITH AUTO DIFFERENTIAL Routine 10/27/2024 5:27 AM EDT CBC AND DIFFERENTIAL Routine 10/27/2024 5:27 AM EDT BASIC METABOLIC PANEL Routine 10/27/2024 5:27 AM EDT XR ABDOMEN 1 VIEW STAT 10/26/2024 7:[address] ABDOMEN PELVIS W CONTRAST STAT 10/26/2024 5:30 PM EDT CBC WITH AUTO DIFFERENTIAL STAT 10/26/2024 1:57 PM EDT LIPASE STAT 10/26/2024 1:57 PM EDT COMPREHENSIVE METABOLIC PANEL STAT 10/26/2024 1:57 PM EDT CBC AND DIFFERENTIAL STAT 10/26/2024 1:57 PM EDT ECG 12-LEAD Routine 09/05/2024 9:34 AM EDT Preop examination COLONOSCOPY Routine 03/17/2024 7:58 AM EST Personal history of other malignant neoplasm of large intestine from Last 3 Months or Most Recently Relevant to Health Maintenance Results * (ABNORMAL) CBC auto differential (10/28/2024 6:06 AM EDT) Only the most recent of3 resultswithin the time period is included. WBC 6.4 4.8 - 10.8 K/mcL LAB HEMETOLOGY METHOD 10/28/2024 6:53 AM EDT [facility] RBC 4.40(L) 4.50 - 5.50 M/mcL LAB [facility]EM[facility]OLOG[facility] Hemoglobin 13.4(L) 13.5 - 17.5 g/dL LAB HEMETOLOGY METHOD 10/28/2024 6:53 AM EDT [facility] Hematocrit 41.8(L) 42.0 - 54.0 % LAB HEMETOLOGY METHOD 10/28/2024 6:53 AM EDT [facility] MCV 95.0 79.0 - 98.0 FL LAB HEMETOLOGY METHOD 10/28/2024 6:53 AM [facility] MCH 30.5 27.0 - 32.0 pcg LAB HEMETOLOGY METHOD 10/28/2024 6:53 AM T [facility] MCHC 32.1 32.0 - 37.0 g/dL LAB HEMETOLOGY METHOD 10/28/2024 6:53 AM [facility] RDW 12.9 11.0 - 15.0 % LAB HEMETOLOGY METHOD 10/28/2024 6:53 AM [facility] Platelets 186 130 - 400 K/mcL LAB HEMETOLOGY METHOD 10/28/2024 6:53 AM [facility] MPV 10.3 7.0 - 11.0 FL LAB HEMETOLOGY METHOD 10/28/2024 6:53 AM [facility] NRBC 0.0 <1.0 % LAB HEMETOLOGY METHOD 10/28/2024 6:53 AM [facility] NRBC Absolute 0.00 <0.10 K/mcL LAB HEMETOLOGY METHOD 10/28/2024 6:53 AM [facility] Neutrophils Relative 60.9 % LAB HEMETOLOGY METHOD 10/28/2024 6:53 AM [facility] Lymphocytes Relative 21.8 % LAB HEMETOLOGY METHOD 10/28/2024 6:53 AM [facility] Monocytes Relative 8.9 % LAB HEMETOLOGY METHOD 10/28/2024 6:53 AM [facility] Eosinophils Relative 7.0 % LAB HEMETOLOGY METHOD 10/28/2024 6:53 AM [facility] Basophils Relative 1.1 % LAB HEMETOLOGY METHOD 10/28/2024 6:53 AM [facility] Immature Granulocytes Relative 0.3 % LAB HEMETOLOGY METHOD 10/28/2024 6:53 AM [facility] Neutrophils Absolute 3.92 1.50 - 7.00 K/mcL LAB HEMETOLOGY METHOD 10/28/2024 6:53 AM EDT [facility] Lymphocytes Absolute 1.40 1.00 - 5.00 K/mcL LAB HEMETOLOGY METHOD 10/28/2024 6:53 AM EDT [facility] Monocytes Absolute 0.57 0.20 - 1.00 K/mcL LAB HEMETOLOGY METHOD 10/28/2024 6:53 AM EDT [facility] Eosinophils Absolute 0.45 0.00 - 0.50 K/[facility] LAB HEMETOLOGY METHOD 10/28/2024 6:53 AM EDT [facility] Basophils Absolute 0.07 0.00 - 0.20 K/[facility] LAB HEMETOLOGY METHOD 10/28/2024 6:53 AM EDT [facility] Immature Granulocytes Absolute 0.02 0.00 - 0.03 K/[facility] LAB HEMETOLOGY METHOD 10/28/2024 6:53 AM EDT [facility] Blood Venous blood specimen / Unknown Venipuncture / Unknown 10/28/2024 6:06 AM EDT 10/28/2024 6:35 AM EDT us Leti Flores NP LAB BLOOD ORDERABLES Final Resul t Performing Organization Address City/[facility] Co de Phone Number [facility] [address] [place] [address], * Light blue tube (10/28/2024 6:06 AM EDT) Extra Tube Hold for add-ons. 10/28/2024 8:01 AM EDT [facility] Comment:Auto resulted. Blood Venous blood specimen / Unknown Venipuncture / Unknown 10/28/2024 6:06 AM EDT 10/28/2024 6:37 AM EDT us Elba Pritchett MD LAB BLOOD ORDERABLES Final Result [facility] [address] [place] [address], [place] [phone] * Magnesium (10/28/2024 6:06 AM EDT) Pathologist [facility] Magnesium 2.2 1.9 - 2.6 mg/dL LAB CHEMISTRY METHOD 10/28/2024 7:03 AM EDT [facility] Blood Venous blood specimen / Unknown Venipuncture / Unknown 10/28/2024 6:06 AM EDT 10/28/2024 6:35 AM EDT Leti Flores NP LAB BLOOD ORDERABLES Final Resul t Performing Organization Address [facility] Co de Phone Number [facility] [address] [place] [address], [place] [phone] * Basic metabolic panel (10/28/2024 6:06 AM EDT) Only the most recent of2 resultswithin the time period is included. Pathologist [facility] Sodium 142 133 - 145 mmol/L LAB CHEMISTRY METHOD 10/28/2024 7:03 AM [facility] Potassium 4.0 3.5 - 5.5 mmol/L LAB CHEMISTRY METHOD 10/28/2024 7:03 AM [facility] Chloride 109 96 - 110 mmol/L LAB CHEMISTRY METHOD 10/28/2024 7:03 AM [facility] CO2 29 21 - 32 mmol/L LAB CHEMISTRY METHOD 10/28/2024 7:03 AM [facility] Anion Gap 4 3 - 11 LAB CHEMISTRY METHOD 10/28/2024 7:03 AM [facility] Glucose 88 70 - 100 mg/dL LAB CHEMISTRY METHOD 10/28/2024 7:03 AM [facility] BUN 11 5 - 25 mg/dL LAB CHEMISTRY METHOD 10/28/2024 7:03 AM EDT [facility] Creatinine 1.20 0.70 - 1.30 mg/dL LAB CHEMISTRY METHOD 10/28/2024 7:03 AM EDT [facility] eGFR 62 >=60 mL/min/1. 73m2 LAB CHEMISTRY METHOD 10/28/2024 7:03 AM EDT [facility] Comment:Calculation based on the Chronic Kidney Disease Epidemiology Collaboration (CKD-EPI) equation refit without adjustment for race. BUN/Creatinine Ratio 9.2 LAB CHEMISTRY METHOD 10/28/2024 7:03 AM EDT [facility] Calcium 8.9 8.5 - 10.5 mg/dL LAB CHEMISTRY METHOD 10/28/2024 7:03 AM EDT [facility] Blood Venous blood specimen / Unknown Venipuncture / Unknown 10/28/2024 6:06 AM EDT 10/28/2024 6:35 AM EDT us Leti Flores DEV MANAGER LAB BLOOD ORDERABLES Final Resul t [facility] [address] [place] [address], [place] [phone] * XR Abdomen 1 View (10/26/2024 7:42 PM EDT) Anatomical Region Laterality Modality Body Radiographic Lis ging 10/27/2024 8:13 AM EDT Impressions 10/27/2024 8:14 AM EDT Impression: NG tube well-positioned within the stomach. Telerad GIOVANNI ([id number]) -------- FINAL REPORT -------- Dictated By: Chela Glass Dictated Date: 10/27/2024 08:13 ET Assigned Physician: Chela Glass Reviewed and Electronically Signed By: Chela Glass Signed Date: 10/27/2024 08:14 ET Workstation ID: [id number] Transcribed By: Self Edit Transcribed Date: 10/27/2024 08:13 ET Narrative 10/27/2024 8:14 AM EDT History: NG tube placement. Comparison: 06/26/23 Findings: Portable AP supine abdomen from 7:35 PM. A nasogastric tube traverses the esophagus and terminates in the stomach. The proximal sidehole lies below the level of the diaphragm. Mildly dilated small bowel loops are noted. Procedure Note Chela Glass MD - 10/27/2024 History: NG tube placement. Comparison: 06/26/23 Findings: Portable AP supine abdomen from 7:35 PM. A nasogastric tube traverses theesophagus and terminates in the stomach. The proximal sidehole lies belowthe level of the diaphragm. Mildly dilated small bowel loops are noted. IMPRESSION: Impression: NG tube well-positioned within the stomach. Telerad PA ([id number]) -------- FINAL REPORT -------- Dictated By: Chela Glass Dictated Date: 10/27/2024 08:13 ET Assigned Physician: Chela Glass Reviewed and Electronically Signed By: Chela Glass Signed Date: 10/27/2024 08:14 ET Workstation ID: [id number] Transcribed By: Self Edit Transcribed Date: 10/27/2024 08:13 ET us Juan M Cuevas DO IMG XR PROCEDURES Final Resu lt * CT Abdomen Pelvis w Contrast (10/26/2024 5:30 PM EDT) Anatomical Region Laterality Modality Body Computed Tomogra phy 10/26/2024 6:02 PM EDT Addenda Addendum by Baron Hahn MD on 10/26/2024 6:06 PM EDT ADDENDUM: Receipt of this report by the clinical staff was confirmed with MARTINE RUEDA on Oct 26, 2024 18:06:00 EDT. This document has been electronically signed by: Kelly Matias on 10/26/2024 18:06:58 Impressions 10/26/2024 6:02 PM EDT 1. Findings concerning for early small bowel obstruction, with transition point at the anastomosis of the distal small bowel and the large bowel. Differential also includes partial small bowel obstruction or diffuse ileus. This document has been electronically signed by: Baron Hahn MD on 10/26/2024 18:02:10 Narrative 10/26/2024 6:02 PM EDT INDICATION: Abdominal pain, acute, nonlocalized CT abdomen and pelvis with contrast Comparison: None provided Findings: Small hiatal hernia present. Heart size is normal. Coronary artery calcifications are present. The spleen, adrenal glands, pancreas, gallbladder are unremarkable. Kidneys are normal in size and there is no hydronephrosis. No ureteral stones. There is fatty infiltration of the liver. Liver is normal in size. There is a incidental 1 cm lipoma in the 3rd portion of the duodenum. There has been a previous right hemicolectomy. Anastomosis of the distal small bowel and the large bowel contains fecalized material, but does not appear significantly mechanically narrowed, however the large bowel distal to the anastomosis is normal caliber. Distal small bowel loops are fluid-filled and mildly dilated, measuring up to 3.5 cm. Wall calcifications of the abdominal aorta present. There is a severe narrowing of the proximal SMA. Celiac artery is minimally narrowed. LIS appears patent. No aneurysm of the abdominal aorta. No free air. No pneumatosis. No bowel wall thickening. Appendix is absent. Trace fluid and stranding in the mesentery present. No karolina ascites. Urinary bladder is unremarkable. No acute fracture. Anterior fusion of the SI joints. Procedure Note Baron Hahn MD - 10/26/2024 INDICATION: Abdominal pain, acute, nonlocalized CT abdomen and pelvis with contrast Comparison: None provided Findings: Small hiatal hernia present. Heart size is normal. Coronary artery calcifications are present. The spleen, adrenal glands, pancreas, gallbladder are unremarkable. Kidneys are normal in size and there is no hydronephrosis. No ureteral stones. There is fatty infiltration of the liver. Liver is normal in size. There is a incidental 1 cm lipoma in the 3rd portion of the duodenum. There has been a previous right hemicolectomy. Anastomosis of the distal small bowel and the large bowel contains fecalized material, but doesnot appear significantly mechanically narrowed, however the large boweldistal to the anastomosis is normal caliber. Distal small bowel loops are fluid-filled and mildly dilated, measuring up to 3.5 cm. Wall calcifications of the abdominal aorta present. There is a severe narrowing of the proximal SMA. Celiac artery is minimally narrowed. LIS appears patent. No aneurysm of the abdominal aorta. No free air. No pneumatosis. No bowel wall thickening. Appendix is absent. Trace fluid and stranding in the mesentery present. No karolina ascites. Urinary bladder is unremarkable. No acute fracture. Anterior fusion of the SI joints. IMPRESSION: 1. Findings concerning for early small bowel obstruction, withtransition point at the anastomosis of the distal small bowel and the large bowel. Differential also includes partial small bowel obstruction or diffuse ileus. This document has been electronically signed by: Baron Hahn MD on 10/26/2024 18:02:10 [place] MD IMG CT PROCEDURES Edited Result - Final * Lipase (10/26/2024 1:57 PM EDT) Pathologist [facility] Lipase 24 13 - 75 unit/L LAB CHEMISTRY METHOD 10/26/2024 2:53 PM EDT [facility] Blood Venous blood specimen / Unknown Venipuncture / Unknown 10/26/2024 1:57 PM EDT 10/26/2024 2:20 PM EDT Raffy Ulloa MD LAB BLOOD ORDERABLES Final Result [facility] [address] [place] [address], * (ABNORMAL) Comprehensive metabolic panel (10/26/2024 1:57 PM EDT) Sodium 141 133 - 145 mmol/L LAB CHEMISTRY METHOD 10/26/2024 2:53 PM EDT [facility] Potassium 4.7 3.5 - 5.5 mmol/L LAB CHEMISTRY METHOD 10/26/2024 2:53 PM EDT [facility] Chloride 108 96 - 110 mmol/L LAB CHEMISTRY METHOD 10/26/2024 2:53 PM EDT [facility] CO2 26 21 - 32 mmol/L LAB CHEMISTRY METHOD 10/26/2024 2:53 PM [facility] Anion Gap 7 3 - 11 LAB CHEMISTRY METHOD 10/26/2024 2:53 PM [facility] Glucose 123(H) 70 - 100 mg/dL LAB CHEMISTRY METHOD 10/26/2024 2:53 PM [facility] BUN 13 5 - 25 mg/dL LAB CHEMISTRY METHOD 10/26/2024 2:53 PM [facility] Creatinine 1.40(H) 0.70 - 1.30 mg/dL LAB CHEMISTRY METHOD 10/26/2024 2:53 PM [facility] eGFR 51(L) >=60 mL/min/1. 73m2 LAB CHEMISTRY METHOD 10/26/2024 2:53 PM [facility] Comment:Calculation based on the Chronic Kidney Disease Epidemiology Collaboration (CKD-EPI) equation refit without adjustment for race. BUN/Creatinine Ratio 9.3 LAB CHEMISTRY METHOD 10/26/2024 2:53 PM [facility] Calcium 9.8 8.5 - 10.5 mg/dL LAB CHEMISTRY METHOD 10/26/2024 2:53 PM [facility] AST (SGOT) 17 10 - 42 unit/L LAB CHEMISTRY METHOD 10/26/2024 2:53 PM [facility] ALT (SGPT) 36 10 - 60 unit/L LAB CHEMISTRY METHOD 10/26/2024 2:53 PM [facility] Alkaline Phosphatase 108 42 - 121 unit/L LAB CHEMISTRY METHOD 10/26/2024 2:53 PM [facility] Total Protein 7.8 6.0 - 8.0 g/dL LAB CHEMISTRY METHOD 10/26/2024 2:53 PM [facility] Albumin 4.3 3.2 - 5.0 g/dL LAB CHEMISTRY METHOD 10/26/2024 2:53 PM EDT [facility] Total Bilirubin 0.6 0.0 - 1.4 mg/dL LAB CHEMISTRY METHOD 10/26/2024 2:53 PM EDT [facility] Blood Venous blood specimen / Unknown Venipuncture / Unknown 10/26/2024 1:57 PM EDT 10/26/2024 2:20 PM EDT Raffy Ulloa MD LAB BLOOD ORDERABLES Final Result [facility] [address] [place] [address], [place] [phone] * ECG 12 lead (09/05/2024 9:34 AM EDT) Ventricular Rate ECG 86 BPM GEMUSE Atrial Rate 86 BPM GEMUSE P-R Interval 188 ms GEMUSE QRS Duration 90 ms GEMUSE Q-T Interval 358 ms GEMUSE QTc 428 ms GEMUSE P Wave [place] 14 degrees GEMUSE R [place] -18 degrees GEMUSE T [place] 12 degrees GEMUSE ECG Interpretation Normal sinus rhythm Inferior infarct (cited on or before 07-MAY-2024) Abnormal ECG When compared with ECG of 18-JUL-2024 11:11, No significant change was found Confirmed by TORI HERNÁNDEZ ([id number]) on 10/06/2024 9:27:59 AM GEMUSE 09/05/2024 9:25 AM EDT 10/06/2024 9:27 AM EDT Dereje Alford NP ECG ORDERABLES Edited Result - Final GEMUSE * COLONOSCOPY [facility]est[place] - [facility] ENDOSCOPY (03/17/2024 7:58 AM EST) Anatomical [...] for surveillance. Narrative 03/17/2024 8:01 AM EST [facility] GI Patient Name: Carli Veras Procedure Date: 03/17/2024 7:25 AM Date [...] neoplasm of large intestine CPT copyright 2020 [employer]. All rights reserved. The codes documented in this report are preliminary and upon floor representative review may be revised to meet current compliance requirements. MD Jaun Azar MD 03/17/2024 8:01:40 AM This report has been signed electronically.Jaun Enriquez MD Number of Addenda: 0 Note Initiated On: 03/17/2024 7:25 AM Scope In: Scope Out: Endoscopy Department at [facility] - [address] [place] [phone] Procedure Note Jaun Enriquez MD - 03/17/2024 [facility] GI Patient Name: Carli Veras Procedure Date: 03/17/2024 7:25 AM Date [...] malignantneoplasm of large intestine CPT copyright [address] [employer]. All rights reserved. The codes documented in this report are preliminary and upon floor representative reviewmay be revised to meet current compliance requirements. MD Jaun Azar MD 03/17/2024 8:01:40 AM This report has been signed electronically.Jaun Enriquez MD Number of Addenda: 0 Note Initiated On: 03/17/2024 7:25 AM Scope In: Scope Out: Endoscopy Department at [address] [place] [address] IMPRESSION: - The entire examined colon is [...] Recently Relevant to Health Maintenance Insurance MEDICARE [facility] Advance Directives Documents on File Type Date Recorded Patient Product Development Coordinator Expl anation Health Care Decision (hx) 07/06/2023 [...] Decision (hx) 05/05/2022 HE ALTH CARE PROXY * Full Code - Confirmed (Latest Code Status on File) Date Activated Date Inactivated Comments 10/26/2024 9:48 PM 10/28/2024 4:[address] atus was ascertained in the following way: Code status discussion: discussion with patient To update the patient's code status, place a code status order. Do not modify or discontinue any currently active code status orders. Healthcare Agents on File Name Relationship Healthcare Agent Relationship Communication Becki Veras Spouse Health Care Agent [email or web address] Care Teams Ammunition Components Inspector Relationship Specialty Start Date End Date Joey Dhillon MD [address] [place] [address] PCP - General Internal Medicine 02/29/24
--- OUTSIDE RECORDS SUMMARY | 2024-11-26 13:29 | XMS_ITS | Clinical Summary ---
Author Organization [facility] Address [address] [place] [address] Care Team Providers Care Karate Teacher Name Role Phone Joey Dhillon MD Primary Care Provider + [phone] Allergies No known active allergies Medications Medication [...] 84 09/03/2023 11:40 AM EDT Temperature 36.4 C (97.6 F) 09/03/2023 11:40 AM EDT Respiratory Rate - - Oxygen Saturation 100% [...] 1-dose 75+ series) 2021 Influenza Vaccine (#1) 2024 01/20/2020 Hepatitis B Vaccines Aged Out No long er eligible based on patient's age to complete this topic RSV Ped < 20 months Aged Out No longe r eligible based on patient's age to complete this topic Care Teams Karate Teacher Relationship Specialty Start Date End Date Joey Dhillon MD [address] [place] [address] PCP - General Internal Medicine 07/13/23
[2024-11-26 14:47] LABS: Prostate Specific Antigen 0.12 ng/mL (<0.05-4.0)
== END 2024-11-26 12:56 | disposition home or self-care (01) ==
LOC: HO.LAB 12:55
PROVIDERS: Visit Provider Urology
DX: Z12.5 Encounter for screening for malignant neoplasm of prostate (principal); R97.20 Elevated prostate specific antigen [PSA]
CPT/HCPCS: 36415; 84153

== ENCOUNTER 2024-12-16 11:00 | Outpatient (AMB) | payer MEDICARE, OTHER, SELFPAY ==
--- NOTE | 2024-12-16 11:18 | A.OFFVIS_ITS ---
Intake Visit Reasons: Prostate Cancer follow up Intake Note: Patient is present for: POST-OP FOLLOW UP Urology Medication:FINASTERIDE,VITAMIN B12 Blood Thinner:ASPIRIN, ELIQUIS Net Wpf Developer Required: No Accompanied by: Spouse Allergies No Known Allergies Allergy (Verified 12/16/24 11:23) HPI Comments Details: Jayy is a very pleasant male. He is a patient of Dr. Dhillon. He is seen for the following urologic conditions - prostate cancer - grade migration Follow-up from targeted cryotherapy Performed 10/08 PSA - 12/08 0.12 Finasteride back to Sunday, Sunday, Sunday 4 month follow-up check PSA 10/07 MRI 1.4 cm left lateral base lesion pT1, N0, M0 35 gm Due to his prior stroke with deficit suggest targeted therapy would treat cancer in single setting. Unable to stay still for external beam radiation. Prostate cancer grade migration - unfavorable intermediate Grade Group 3 NCCN 2023 Histologic grade: Deonna score: 4+3=7 (e 2.5, E 2.5, E 2.0), 3+4=7 (e 2.0, C 1.5), 3+3=6 (c 2.0) % of pattern 4: Approximately 50% of the tumor Number cores positive: 6 Total number of cores: 15 - % of tissue involved: Appr oximately 20% of all tissue examined Periprostatic fat inv.: Not identified Seminal vesicle inv.: Not identified Perineural inv.: Suspicious Stroke late 2020 with left-sided deficit Remains on finasteride for low volume, low-grade disease PSA 08/05 2.9, 02/04 3.5, 06/08 3.5, 09/05 3.8, 12/07 5.1 Prostate cancer low-grade, low volume diagnosed May 2020 - initial therapy active surveillance PSA 01/04 4 F6%, 08/05 2.9 Adenocarcinoma of the prostate (T1c N0 M0, Media score 6, Grade Group 1) NCCN 2023 low risk localized disease Prostate cancer was diagnosed Dr Mcclelland Diagnosis was reached by - May 2020 TRUS Biopsy, PSA 6.3, 30 g - well- developed rectal muscle, if repeat biopsy needed should be under sedation Histologic type: Prostatic acinar adenocarcinoma. Histologic grade: Media score: 3 + 3 = 6 Tumor quantitation: Number cores positive: 1 left mid medial, 60% (Part B) Total number of cores: 9 Periprostatic fat inv.: Not identified Seminal vesicle inv.: Not identified Perineural inv.: Not identified LVI: Not identified Prostate MRI shows 2 areas PI-RADS 5 1.2cm - 35 gm prostate Right and left posterolateral mid gland 1 cm lesions PFSH Medical History Ascending aorta dilatation PAF (paroxysmal atrial fibrillation) Hormone sensitive prostate cancer History of blood transfusion History of chemotherapy Wears hearing aid in both ears Wears dentures [place] (hard of hearing) Ascending aortic aneurysm Hx of Meckel's diverticulum Gait instability Colon adenocarcinoma Presence of ileostomy Malignant neoplasm of ascending colon BPH (benign prostatic hyperplasia) HLD (hyperlipidemia) 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 CVA (cerebral vascular accident) Tobacco abuse, in remission Elevated PSA Prostate cancer BPH loc w urin obs/LUTS Hypothyroidism Surgical History S/P closure of ileostomy (04/2024) History of prostate biopsy (03/24/24) Hx of colonoscopy (03/17/24) History of ankle surgery (~03/2018) S/P right colectomy (~06/2023) Hx of appendectomy Surgically created abdominal mucous fistula Hx of prostate biopsy (06/09/20) Social History Household Members: Spouse Housing: House Are you a primary rn urgent care to a significant other at home: No Do you presently have visiting nurse or other home services: No 75 years or older and lives alone: No Patient Tobacco Use Status: Former Tobacco user Tobacco use type: Cigarette Use of substances other than those prescribed or required for medical reasons: No Review of Systems Const Denies chills and Denies fever(s) Card Reports no additional complaints and Denies syncope Resp Denies cough GI Denies abdominal pain and Denies heartburn Reports as per HPI and Denies change in libido Neuro Denies syncope Psych Denies change in libido Endo Denies change in libido Physical Exam Const General: cooperative, healthy appearing, comfortable and no acute distress Orientation/consciousness: patient oriented x3 HEENT Face and sinus: Yes normal facial exam Mouth: moist mucous membranes Neck Neck: Yes normal visual inspection, Yes full ROM and Yes trachea midline Chest Chest palpation & inspection: normal inspection of the chest Resp Effort & Inspection: normal respiratory effort, able to speak in complete sentences and no respiratory distress GI Inspection: Yes normal to inspection Back/Spine/Pelvis Cervical Spine: normal cervical lordosis Thoracic/Lumbar Spine: thoracic and lumbar spine normal to inspection Skin General skin exam: no rashes or lesions noted Neuro General: patient oriented x3, gait normal, tone normal and moves all extremities Extrem General: Yes normal to inspection and Yes capillary refill normal Assessment & Plan Assessment & Plan (1) Prostate cancer: Comment: May 2020 low volume, low risk, March 2024 grade group 3, multi core Code(s): C61 - Malignant neoplasm of prostate Category: Medical (2) BPH w urinary obs/LUTS: Code(s): N40.1 - Benign prostatic hyperplasia with lower urinary tract symptoms; N13.8 - Other obstructive and reflux uropathy Category: Medical Plan 4 month follow-up check PSA Orders: Orders Prostate Specific Antigen 4 Months C61 - Malignant neoplasm of prostate Medications: Refilled finasteride 5 mg PO DAILY 90 tabs 2RF 90 days C61 - Malignant neoplasm of prostate, N40.1 - Benign prostatic hyperplasia with lower urinary tract symptoms, R33.9 - Retention of urine, unspecified, R97.20 - Elevated prostate specific antigen [PSA] Patient Instructions: This note is constructed using voice recognition software. While every effort has been made to ensure accuracy stitch bonding machine tender helper errors may have been included. Imaging studies, laboratory and physical exam results were discussed and reviewed in detail. No major barriers to patient understanding were identified. An opportunity to ask questions regarding the treatment plan was provided. All questions were answered. The patient expressed understanding and agreement with the above treatment plan. The patient is aware they should contact our office by phone for worsening of their current condition or the appearance of new urologic symptoms. Compliance is encouraged with any medications and followup testing that is ordered. It is a privilege to participate in the urologic care of your patient. If you have any questions or concerns regarding treatment for the above conditions, or other urologic issues, please do not hesitate to contact me. The office telephone contact is [phone]. Sincerely, Dr Sudheer Mcclelland MD, [facility] - Urology Compassionate Specialist Care for the Genitourinary System Coding Level of Care Code Est Pt Level 3 (53710) Complex EM visit Add On G2211 Diagnoses Prostate cancer C61 BPH w urinary obs/LUTS N40.1; N13.8
--- OUTSIDE RECORDS SUMMARY | 2024-12-16 12:39 | XMS_ITS | Encounter Summary ---
Author Organization [facility] Address [address] [facility] [address] [place] [address] Phone Care Team Providers Care Air Hole Driller Name Role Phone Joey Dhillon MD Primary Care Provider Joey Dhillon MD Unavailable Nabil Xiao MD Unavailable Sudheer Mcclelland MD Unavailable Encounter Details Date Type Department Care Team (Late st Contact Info) Description 03/03/2024 Procedure Pass [facility] Imaging Department, [facility] [place], [place] [address] [facility], Floor [address] [place] [address] Social History Tobacco Use Types Packs/Day Years [...] st Contact Info) Description 10/13/2024 Procedure Pass [facility] [address] [place] [address] 10/13/2024 Procedure Pass [facility] [address] [place] [address] 01/06/2025 11:45 AM EDT Appointment [facility] [address] [place] [address] Nabil Xiao MD [address] [place], [place] [address] [place] [address] [email or web address] 01/12/2025 1:30 PM EDT Blood Draw Laboratory Services, [facility] [address] [facility], 2nd [place] [address] Nabil Xiao MD [address] [place] [address] [email or web address] 01/12/2025 2:30 PM EDT Office Visit [facility], [facility] [address] [facility], 10th [place] [address] Nabil Xiao MD [address] [place] [address] [email or web address] 04/16/[address] [facility] Endoscopy Department [address] [place] [address] Anay Gómez MD, MPH [address] [place] [address] [email or web address] 04/16/[address] [facility] Endoscopy Department [address] [place] [address] Scheduled Procedures Name Priority Associated Diagnoses Date/Ti me COLONOSCOPY Colon adenocarcinoma documented as of this encounter Visit Diagnoses Not on filedocumented in this encounter Care Teams Air Hole Driller Relationship Specialty Start Date End Date Joey Dhillon MD [address] [place] [address] PCP - General Internal Medicine 09/29/16 Joey Dhillon MD [address] [place] [address] Internal Medicine 08/16/23 Nabil Xiao MD [address] [place] [address] [email or web address] Medical Oncology 08/16/23 Sudheer Mcclelland MD [address] [place] [address] Urology 10/08/23 documented as of this encounter Additional Source Comments The information contained in this document represents components of the legal health record. It is not the complete legal health record.[facility]
--- OUTSIDE RECORDS SUMMARY | 2024-12-16 12:39 | XMS_ITS | Encounter Summary ---
Author Organization [facility] Address [address] [facility] [address] [place] [address] Phone Care Team Providers Care Research Management Associate Name Role Phone Joey Dhillon MD Primary Care Provider Joey Dhillon MD Unavailable [phone] Nabil Xiao MD Unavailable Sudheer Mcclelland MD Unavailable Encounter Details Date Type Department Care Team (Late st Contact Info) Description 12/10/2023 Procedure Pass [facility] Imaging Department, [facility] [place], [place] [address] [facility], Floor [address]1 [place] [address] Social History Tobacco Use Types Packs/Day Years [...] st Contact Info) Description 10/13/2024 Procedure Pass [facility] [address] [place] [address] 10/13/2024 Procedure Pass [facility] [address] [place] [address] 01/06/2025 11:45 AM EDT Appointment [facility] [address] [place] [address] Nabil Xiao MD [address] [place], [place] [address] [address] [email or web address] 01/12/2025 1:30 PM EDT Blood Draw Laboratory Services, [facility] [address] [facility], 2nd [place] [address] Nabil Xiao MD [address] [place] [address] [email or web address] 01/12/2025 2:30 PM EDT Office Visit [facility], [facility] [address] [facility], 10th [place] [address] Nabil Xiao MD [address] [place] [address] [email or web address] 04/16/2025 Hospital Encounter [facility] Endoscopy Department [address] [place] [address] Anay Gómez MD, MPH [address] [place] [address] [email or web address] 04/16/2025 Procedure Pass [facility] Endoscopy Department [address] [place] [address] Scheduled Procedures Name Priority Associated Diagnoses Date/Ti me COLONOSCOPY Colon adenocarcinoma documented as of this encounter Visit Diagnoses Not on filedocumented in this encounter Care Teams Research Management Associate Relationship Specialty Start Date End Date Joey Dhillon MD [address] [place] [address] PCP - General Internal Medicine 09/29/16 Joey Dhillon MD [address] [place] [address] Internal Medicine 08/16/23 Nabil Xiao MD [address] [place] [address] [email or web address], [email or web address] Medical Oncology 08/16/23 Sudheer Mcclelland MD [address] [place] [address] Urology 10/08/23 documented as of this encounter Additional Source Comments The information contained in this document represents components of the legal health record. It is not the complete legal health record.[facility]
--- OUTSIDE RECORDS SUMMARY | 2024-12-16 12:39 | XMS_ITS | Clinical Summary ---
Author Organization 175 [facility] Address [address] [place] [address] Phone Care Team Providers Care Tree Trimming Line Technician Name Role Phone Joey Dhillon MD Primary Care Provider [phone] Allergies No known active allergies Medications finasteride [...] Noted Date Diagnosed Date Small bowel obstruction ([facility] V24, [facility] V2 8) 10/26/2024 Ascending aorta dilatation ([facility] V24) 025 Assessment & Plan (09/05/2024 10:18 AM EDT): We will update echocardiogram next year. Most recent measurement 4.2 cm. CKD (chronic kidney disease) 07/17/2024 Urinary retention 07/17/2024 Atrial fibrillation with RVR ([facility] V24, [facility]/ CC V28) 07/17/2024 GUSTAVO (acute kidney injury) ([facility] V24) 07/18/19 25 Paroxysmal atrial fibrillation ([facility] V24, [facility] /[facility] V28) 05/09/2024 Assessment & Plan (09/05/2024 10:18 AM EDT): Patient is in normal sinus rhythm at the appointment today. Is not having any palpitations or any anginal symptoms. Does have elevated [id number] score so should remain anticoagulated. Does have [...] importance of stroke prevention based on the [id number] score. I reviewed that in many cases, [...] CMS/HCC V28) 01/21/2024 CVA (cerebral vascular accident) ([facility] V24, C NC/[facility] V28) 01/21/2024 Gait instability 07/23/2023 Malignant neoplasm of ascend ing colon ([facility] V24, [facility] V28) 07/13/2023 Resolved Problems Problem Noted Date Diagnosed Date Resolved Date Presence of ileostomy (CMS/H CC V24, [facility] V28) 03/07/2024 05/08/2024 Presence of colostomy ([facility]/H CC V24, [facility] V28) 03/07/2024 05/08/2024 Encounters Date Type Department Care Team Description 10/26/2024 2:01 PM EDT - 10/28/2024 1:56 PM EDT Hospital Encounter [facility] Intermediate Care Unit [address] [place] [phone] Alex Thornton MD Shapiro, Benjamin, DO Surendran, Anupama, MD Right lower quadrant abdominal pain (Primary Dx); Small bowel obstruction ([facility] V24, [facility] V28) Discharge Disposition: Home or Self Care from Last 3 Months Surgical History Surgery Date Site/Laterality Comments OTHER SURGICAL HISTORY Right PROCEDURE: [place] ARTHRODESIS ANKLE OPEN APPENDECTOMY PROCEDURE: HISTORICAL APPENDECTOMY OTHER SURGICAL HISTORY PROCEDURE: [place] UNLISTED PX MECKEL'S DIVERTICUL[employer] & MESENTERY COLONOSCOPY ORIF ANKLE FRACTURE ILEOSTOMY 04/16/2023 - 04/15/2024 Medical History Medical History Date Comments Hypothyroidism DX:Hypothyroidis m Stroke ([facility] V24, [facility] V28) DX:Stroke (HCC) BPH (benign prostatic hyperplasia) DX:BPH (benign prostatic hyperplasia) HLD (hyperlipidemia) DX:HLD (hyp erlipidemia) Right internal carotid occlusion DX: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 DX:Stenosis of left internal carotid artery Tobacco abuse DX:Tobacco abuse Prostate CA ([facility] V24, [facility] V28[facility] Colon cancer ([facility] V24, [facility] V28) 2023 HL (hearing loss) Hypertension BPH [...] Description 12/17/2024 11:10 AM EDT Office Visit [facility] - [facility] [address] [facility] [address] [place] [phone] Dereje Alford NP [address] [place] [address] [address] [place] [address] 04/21/2025 9:45 AM EST Office Visit General Surgery - [place] [address] [facility] [address] [place] [address] Gustavo Stone MD [address] [place] [phone] Health Maintenance Due Date Last Done Comments [...] 04/16/2024 COVID-19 Vaccine (7 - Pfizer risk season) [...] this topic Medical Devices Implanted Type Area Wind Energy Technician Device Identifier Shelf Expiration Date Model / [...] AND DIFFERENTIAL STAT 10/26/2024 1:57 PM EDT COLONOSCOPY Routine 03/17/2024 7:58 AM EST Personal history of other malignant neoplasm of large intestine from Last 3 Months or Most Recently Relevant to Health Maintenance Results * (ABNORMAL) CBC auto differential (10/28/2024 6:06 AM EDT) Only the most recent of3 resultswithin the time period is included. WBC 6.4 4.8 - 10.8 K/mcL LAB HEMETOLOGY METHOD 10/28/2024 6:53 AM [facility] RBC 4.40(L) 4.50 - 5.50 M/mcL LAB HEMETOLOGY METHOD 10/28/2024 6:53 AM [facility] Hemoglobin 13.4(L) 13.5 - 17.5 g/dL LAB HEMETOLOGY METHOD 10/28/2024 6:53 AM [facility] Hematocrit 41.8(L) 42.0 - 54.0 % LAB HEMETOLOGY METHOD 10/28/2024 6:53 AM [facility] MCV 95.0 79.0 - 98.0 FL LAB HEMETOLOGY METHOD 10/28/2024 6:53 AM [facility] MCH 30.5 27.0 - 32.0 pcg LAB HEMETOLOGY METHOD 10/28/2024 6:53 AM [facility] MCHC 32.1 32.0 - 37.0 g/dL LAB HEMETOLOGY METHOD 10/28/2024 6:53 AM [facility] RDW 12.9 11.0 - 15.0 % LAB HEMETOLOGY METHOD 10/28/2024 6:53 AM [facility] Platelets 186 130 - 400 K/mcL LAB HEMETOLOGY METHOD 10/28/2024 6:53 AM [facility] MPV 10.3 7.0 - 11.0 FL LAB HEMETOLOGY METHOD 10/28/2024 6:53 AM [facility] NRBC 0.0 <1.0 % LAB HEMETOLOGY METHOD 10/28/2024 6:53 AM [facility] NRBC Absolute 0.00 <0.10 K/mcL LAB HEMETOLOGY METHOD 10/28/2024 6:53 AM [facility] Neutrophils Relative 60.9 % LAB HEMETOLOGY METHOD 10/28/2024 6:53 AM [facility] Lymphocytes Relative 21.8 % LAB HEMETOLOGY METHOD 10/28/2024 6:53 AM [facility] Monocytes Relative 8.9 % LAB HEMETOLOGY METHOD 10/28/2024 6:53 AM [facility] Eosinophils Relative 7.0 % LAB HEMETOLOGY METHOD 10/28/2024 6:53 AM [facility] Basophils Relative 1.1 % LAB HEMETOLOGY METHOD 10/28/2024 6:53 AM [facility] Immature Granulocytes Relative 0.3 % LAB HEMETOLOGY METHOD 10/28/2024 6:53 AM [facility] Neutrophils Absolute 3.92 1.50 - 7.00 K/mcL LAB HEMETOLOGY METHOD 10/28/2024 6:53 AM [facility] Lymphocytes Absolute 1.40 1.00 - 5.00 K/mcL LAB HEMETOLOGY METHOD 10/28/2024 6:53 AM [facility] Monocytes Absolute 0.57 0.20 - 1.00 K/mcL LAB HEMETOLOGY METHOD 10/28/2024 6:53 AM [facility] Eosinophils Absolute 0.45 0.00 - 0.50 K/mcL LAB HEMETOLOGY METHOD 10/28/2024 6:53 AM [facility] Basophils Absolute 0.07 0.00 - 0.20 K/mcL LAB HEMETOLOGY METHOD 10/28/2024 6:53 AM [facility] Immature Granulocytes Absolute 0.02 0.00 - 0.03 K/mcL LAB HEMETOLOGY METHOD 10/28/2024 6:53 AM [facility] Blood Venous blood specimen / Unknown Venipuncture / Unknown 10/28/2024 6:06 AM EDT 10/28/2024 6:35 AM EDT us Leti Flores NP LAB BLOOD ORDERABLES Final Resul t Performing Organization Address [facility] de Phone Number [facility] [address] [place] [address], [place] [phone] * Light blue tube (10/28/2024 6:06 AM EDT) [facility] Extra Tube Hold for add-ons. 10/28/2024 8:01 AM EDT [facility] Comment:Auto resulted. Blood Venous blood specimen / Unknown Venipuncture / Unknown 10/28/2024 6:06 AM EDT 10/28/2024 6:37 AM EDT Elba Pritchett MD LAB BLOOD ORDERABLES Final Result Performing Organization Address [facility] de Phone Number [facility] [address] [place] [address], [place] [phone] * Magnesium (10/28/2024 6:06 AM EDT) [facility] Magnesium 2.2 1.9 - 2.6 mg/dL LAB CHEMISTRY METHOD 10/28/2024 7:03 AM EDT [facility] Blood Venous blood specimen / Unknown Venipuncture / Unknown 10/28/2024 6:06 AM EDT 10/28/2024 6:35 AM EDT us Leti Flores NP LAB BLOOD ORDERABLES Final Resul t Performing Organization Address [facility] de Phone Number [facility] [address] [place] [address], [place] [phone] * Basic metabolic panel (10/28/2024 6:06 AM EDT) Only the most recent of2 resultswithin the time period is included. [facility] Sodium 142 133 - 145 mmol/L LAB CHEMISTRY METHOD 10/28/2024 7:03 AM [facility] Potassium 4.0 3.5 - 5.5 mmol/L LAB CHEMISTRY METHOD 10/28/2024 7:03 AM [facility] Chloride 109 96 - 110 mmol/L LAB CHEMISTRY METHOD 10/28/2024 7:03 AM [facility] CO2 29 21 - 32 mmol/L LAB CHEMISTRY METHOD 10/28/2024 7:03 AM [facility] Anion Gap 4 3 - 11 LAB CHEMISTRY METHOD 10/28/2024 7:03 AM [facility] Glucose 88 70 - 100 mg/dL LAB CHEMISTRY METHOD 10/28/2024 7:03 AM [facility] BUN 11 5 - 25 mg/dL LAB CHEMISTRY METHOD 10/28/2024 7:03 AM [facility] Creatinine 1.20 0.70 - 1.30 mg/dL LAB CHEMISTRY METHOD 10/28/2024 7:03 AM [facility] eGFR 62 >=60 mL/min/1. 73m2 LAB CHEMISTRY METHOD 10/28/2024 7:03 AM [facility] Comment:Calculation based on the Chronic Kidney Disease Epidemiology Collaboration (CKD-EPI) equation refit without adjustment for race. BUN/Creatinine Ratio 9.2 LAB CHEMISTRY METHOD 10/28/2024 7:03 AM [facility] Calcium 8.9 8.5 - 10.5 mg/dL LAB CHEMISTRY METHOD 10/28/2024 7:03 AM [facility] Blood Venous blood specimen / Unknown Venipuncture / Unknown 10/28/2024 6:06 AM EDT 10/28/2024 6:35 AM EDT us Leti Flores NP LAB BLOOD ORDERABLES Final Resul t [facility] ([facility] [address] [place] [address], [place] [phone] * XR Abdomen 1 View (10/26/2024 7:42 PM EDT) Anatomical Region Laterality Modality Body Radiographic Lis ging 10/27/2024 8:13 AM EDT Impressions 10/27/2024 8:14 AM EDT Impression: NG tube well-positioned within the stomach. Telerad GIOVANNI ([id number]) -------- FINAL REPORT -------- Dictated By: Chela Glass Dictated Date: 10/27/2024 08:13 ET Assigned Physician: Chela Glass Reviewed and Electronically Signed By: Chela Glass Signed Date: 10/27/2024 08:14 ET Workstation ID: [id number] Transcribed By: Self Edit Transcribed Date: 10/27/2024 [...] tube well-positioned within the stomach. Telerad PA ([id number]) -------- FINAL REPORT -------- Dictated By: Chela Glass Dictated Date: 10/27/2024 08:13 ET Assigned Physician: Chela Glass Reviewed and Electronically Signed By: Chela lGass Signed Date: 10/27/2024 08:14 ET Workstation ID: [id number] Transcribed By: Self Edit Transcribed Date: 10/27/2024 08:13 ET us Juan M Cuevas DO IMG XR PROCEDURES Final Resu lt * CT Abdomen Pelvis w Contrast (10/26/2024 5:30 PM EDT) Anatomical Region Laterality Modality Body Computed Tomogra phy 10/26/2024 6:02 PM EDT Addenda Addendum by Baron Hanh MD on 10/26/2024 6:06 PM EDT ADDENDUM: [...] MD on 10/26/2024 18:02:10 Alex Thornton MD IM CT PROCEDURES Edited Result - Final * Lipase (10/26/2024 1:57 PM EDT) Lipase 24 13 - 75 unit/L LAB CHEMISTRY METHOD 10/26/2024 2:53 PM EDT [facility] Blood Venous blood specimen / Unknown Venipuncture / Unknown 10/26/2024 1:57 PM EDT 10/26/2024 2:20 PM EDT us Raffy Ulloa MD LAB BLOOD ORDERABLES Final Result [facility] [address] [place] [address], [place] [phone] * (ABNORMAL) Comprehensive metabolic panel (10/26/2024 1:57 PM EDT) Pathologist [facility] Sodium 141 133 - 145 mmol/L LAB CHEMISTRY METHOD 10/26/2024 2:53 PM EDT [facility] Potassium 4.7 3.5 - 5.5 mmol/L LAB CHEMISTRY METHOD 10/26/2024 2:53 PM [facility] Chloride 108 96 - 110 mmol/L LAB CHEMISTRY METHOD 10/26/2024 2:53 PM [facility] CO2 26 21 - 32 mmol/L LAB CHEMISTRY METHOD 10/26/2024 2:53 PM [facility] Anion Gap 7 3 - 11 LAB CHEMISTRY METHOD 10/26/2024 2:53 PM T [facility] Glucose 123(H) 70 - 100 mg/dL LAB CHEMISTRY METHOD 10/26/2024 2:53 PM [facility] BUN 13 5 - 25 mg/dL LAB CHEMISTRY METHOD 10/26/2024 2:53 PM T [facility] Creatinine 1.40(H) 0.70 - 1.30 mg/dL LAB CHEMISTRY METHOD 10/26/2024 2:53 PM [facility] eGFR 51(L) >=60 mL/min/1. 73m2 LAB CHEMISTRY METHOD 10/26/2024 2:53 PM [facility] Comment:Calculation based on the Chronic Kidney Disease Epidemiology Collaboration (CKD-EPI) equation refit without adjustment for race. BUN/Creatinine Ratio 9.3 LAB CHEMISTRY METHOD [facility]24 [facility] Calcium 9.8 8.5 - 10.5 mg/dL LAB CHEMISTRY METHOD 10/26/2024 2:53 PM EDT [facility] AST (SGOT) 17 10 - 42 unit/L LAB CHEMISTRY METHOD 10/26/2024 2:53 PM [facility] ALT (SGPT) 36 10 - 60 unit/L LAB CHEMISTRY METHOD 10/26/2024 2:53 PM EDT [facility] Alkaline Phosphatase 108 42 - 121 unit/L LAB CHEMISTRY METHOD 10/26/2024 2:53 PM EDT [facility] Total Protein 7.8 6.0 - 8.0 g/dL LAB CHEMISTRY METHOD 10/26/2024 2:53 PM EDT [facility] Albumin 4.3 3.2 - 5.0 g/dL LAB CHEMISTRY METHOD 10/26/2024 2:53 PM EDT [facility] Total Bilirubin 0.6 0.0 - 1.4 mg/dL LAB CHEMISTRY METHOD 10/26/2024 2:53 PM EDT [facility] Blood Venous blood specimen / Unknown Venipuncture / Unknown 10/26/2024 1:57 PM EDT 10/26/2024 2:20 PM EDT Raffy Ulloa MD LAB BLOOD ORDERABLES Final Result [facility] [address] [place] [address], * COLONOSCOPY Anesthesia - MAC; [facility] ENDOSCOPY (03/17/2024 7:58 AM EST) Anatomical Region [...] for surveillance. Narrative 03/17/2024 8:01 AM EST [facility] GI Patient Name: Carli Veras Procedure [...] neoplasm of large intestine CPT copyright 2020 [employer]. All rights reserved. The codes documented in this report are preliminary and upon supervisor agricultural education review may be revised to meet current compliance requirements. MD Jaun Azar MD 03/17/2024 8:01:40 AM This report has been signed electronically.Jaun Enriquez MD Number of Addenda: 0 Note Initiated On: 03/17/2024 7:25 AM Scope In: Scope Out: Endoscopy Department at [facility] - [address] [place] [phone] Procedure Note Jaun Enriquez MD - 03/17/2024 [facility] GI Patient Name: Carli Veras Procedure [...] malignantneoplasm of large intestine CPT copyright 2020 [employer]. All rights reserved. The codes documented in this report are preliminary and upon supervisor agricultural education reviewmay be revised to meet current compliance requirements. MD Jaun Azar MD 03/17/2024 8:01:40 AM This report has been signed electronically.Jaun Enriquez MD Number of Addenda: 0 Note Initiated On: 03/17/2024 7:25 AM Scope In: Scope Out: Endoscopy Department at [facility] - [address] [place] [phone] IMPRESSION: - The entire examined colon is [...] Recently Relevant to Health Maintenance Insurance MEDICARE [facility] Advance Directives Documents on File Type Date Recorded Patient Top Knitter Expl anation Health Care Decision (hx) 07/06/2023 Becki Eda ADVANCE DIRECTIVE Health Care Decision (hx) 05/05/2022 [...] Communication Becki Veras Spouse Health Care Agent [email or web address] Care Teams Tree Trimming Line Technician Relationship Specialty Start Date End Date Joey Dhillon MD [address] [place] [address] PCP - General Internal Medicine 02/29/24
--- OUTSIDE RECORDS SUMMARY | 2024-12-16 12:39 | XMS_ITS | Clinical Summary ---
Author Organization [facility] Address [address] [place] [address] Care Team Providers Care Safety Teacher Name Role Phone Joey Dhillon MD Primary Care Provider + [phone] Allergies No known active allergies Medications Medication [...] age to complete this topic Care Teams Safety Teacher Relationship Specialty Start Date End Date Joey Dhillon MD [address] [place] [address] PCP - General Internal Medicine 07/13/23
--- OUTSIDE RECORDS SUMMARY | 2024-12-16 12:39 | XMS_ITS | Encounter Summary ---
Author Organization [facility] Address [address] [facility] [address] [place] [address] Phone Care Team Providers Care Dairy Supplies Sales Representative Name Role Phone Joey Dhillon MD Primary Care Provider Joey Dhillon MD Unavailable Nabil Xiao MD Unavailable Sudheer Mcclelland MD Unavailable Encounter Details Date Type Department Care Team (Late st Contact Info) Description 12/10/2023 Procedure Pass [facility], [facility] [place], [place] [address] [facility], Floor [address]1 [place] [address] Social History Tobacco Use Types Packs/Day Years [...] st Contact Info) Description 10/13/2024 Procedure Pass [facility] [address] [place] [address] 10/13/2024 Procedure Pass [facility] [address] [place] [address] 01/06/2025 11:45 AM EDT Appointment [facility] [address] [place] [address] Nabil Xiao MD [address] [place], [place] [address] [place] [address] [email or web address] 01/12/2025 1:30 PM EDT Blood Draw Laboratory Services, [facility] [address] [facility], 2nd [place] [address] Nabil Xiao MD [address] [place] [address] [email or web address] 01/12/2025 2:30 PM EDT Office Visit [facility], [facility] [address] [facility], 10th [place] [address] Nabil Xiao MD [address] [place] [address] [email or web address] 04/16/2025 Hospital Encounter [facility] Endoscopy Department [address] [place] [address] Anay Gómez MD, MPH [address] [place] [address] [email or web address] 04/16/2025 Procedure Pass [facility] Endoscopy Department [address] [place] [address] Scheduled Procedures Name Priority Associated Diagnoses Date/Ti me COLONOSCOPY Colon adenocarcinoma documented as of this encounter Visit Diagnoses Not on filedocumented in this encounter Care Teams Dairy Supplies Sales Representative Relationship Specialty Start Date End Date Joey Dhillon MD [address] [place] [address] PCP - General Internal Medicine 09/29/16 Joey Dhillon MD [address] [place] [address] Internal Medicine 08/16/23 Nabil Xiao MD [address] [place] [phone] [email or web address] Medical Oncology 08/16/23 Sudheer Mcclelland MD [address] [place] [address] Urology 10/08/23 documented as of this encounter Additional Source Comments The information contained in this document represents components of the legal health record. It is not the complete legal health record.[facility]
--- OUTSIDE RECORDS SUMMARY | 2024-12-16 12:39 | XMS_ITS | Encounter Summary ---
Author Organization [facility] Address [address] [address] [place] [address] Phone Care Team Providers Care Coach Mechanic Name Role Phone Joey Dhillon MD Primary Care Provider Joey Dhillon MD Unavailable Nabil Xiao MD Unavailable Sudheer Mcclelland MD Unavailable Encounter Details Date Type Department Care Team (Late st Contact Info) Description 03/03/2024 Procedure Pass [facility] Imaging Department, [facility] [place], [place] [address] [facility], Floor [address] [place] [address] Social History Tobacco Use Types Packs/Day Years [...] st Contact Info) Description 10/13/2024 Procedure Pass [facility] [address] [place] [address] 10/13/2024 Procedure Pass [facility] [address] [place] [address] 01/06/2025 11:45 AM EDT Appointment [facility] [address] [place] [address] Nabil Xiao MD [address] [place], [place] [address] [place] [address] [email or web address] 01/12/2025 1:30 PM EDT Blood Draw Laboratory Services, [facility] [address] [facility], 2nd [place] [address] Nabil Xiao MD [address] [place] [address] [email or web address] 01/12/2025 2:30 PM EDT Office Visit [facility], [facility] [address] [facility], 10th [place] [address] Nabil Xiao MD [address] [place] [address] [email or web address] 04/16/2025 Hospital Encounter [facility] Endoscopy Department [address] [place] [address] Anay Gómez MD, MPH [address] [place] [address] [email or web address] 04/16/2025 Procedure Pass [facility] Endoscopy Department [address] [place] [address] Scheduled Procedures Name Priority Associated Diagnoses Date/Ti me COLONOSCOPY Colon adenocarcinoma documented as of this encounter Visit Diagnoses Not on filedocumented in this encounter Care Teams Coach Mechanic Relationship Specialty Start Date End Date Joey Dhillon MD [address] [place] [address] PCP - General Internal Medicine 09/29/16 Joey Dhillon MD [address] [place] [address] Internal Medicine 08/16/23 Nabil Xiao MD [address] [place] [phone] [email or web address] Medical [email or web address] 08/16/23 Sudheer Mcclelland MD [address] [place] [address] Urology 10/08/23 documented as of this encounter Additional Source Comments The information contained in this document represents components of the legal health record. It is not the complete legal health record.[facility]
--- OUTSIDE RECORDS SUMMARY | 2024-12-16 12:39 | XMS_ITS | Clinical Summary ---
Author Organization [facility] Address [address] [facility] [address] [place] [address] Phone Care Team Providers Care Cardiac Technician Name Role Phone Joey Dhillon MD Primary Care Provider [phone] Joey Dhillon MD Unavailable Nabil Xiao MD Unavailable Sudheer Mcclelland MD Unavailable Allergies No known active allergies Medications atorvastatin (LIPITOR) 80 MG tablet Take 80 mg by mouth daily. Active clopidogrel (PLAVIX) 75 mg tablet Take 75 mg by mouth daily. Active cyanocobalamin, vitamin B-12, 1,000 mcg Cap Take by mouth. Active finasteride (PROSCAR) 5 mg tablet take 1 tablet by mouth every day for 30 days Active levothyroxine (SYNTHROID, LEVOTHROID) 125 MCG tablet Take 1 tablet by mouth every morning. 08/01/2023 Active ascorbic acid, vitamin C, (VITAMIN C) 500 MG tablet Take 500 mg by mouth daily. Active ELIQUIS 5 mg tablet Take 5 mg by mouth 2 (two) times a day. Active dilTIAZem (CARDIZEM LA) 180 mg 24 hr tablet Take 1 tablet by mouth every morning. 06/10/2024 Active ferrous sulfate 325 mg (65 mg [place] iron) tablet Take 325 mg by mouth daily with breakfast. Active tamsulosin (FLOMAX) 0.4 mg Cap Take 0.4 mg by mouth. 2024 Active Active Problems Patient Care Coordination No te Formatting of this note migh t be different from the original. 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 024 CVA (cerebral vascular accident) 08/31/2023 Gait instability 07/23/2023 Encounters Date Type Department Care Team Description 10/14/2024 Orders Only Infusion Therapy Services [address] [facility] [place] [address] Nabil Xiao MD Colon adenocarcinoma (Primary Dx) 10/13/2024 3:00 PM EDT Office Visit [facility], [facility] [address] [facility] [place] [address] Nabil Xiao MD Colon adenocarcinoma (Primary Dx) 09/18/2024 Orders Only [facility], [facility] [address] [facility], [address] [place] [address] Nabil Xiao MD Colon adenocarcinoma (Primary Dx) from Last 3 Months Social History Tobacco Use Types Packs/Day Years Used Date Smoking Tobacco: Former Cigarettes 1 - 2019 Smokeless Tobacco: Never Tobacco Cessation:Counseling Given: Not Answered Child or Family Care Answer Date Record [...] your housing situation today? I have debra sing 08/31/2023 How many times have you move [...] Orientation Straight 08/16/2023 12 :28 PM EDT Last Filed Vital Signs Vital Sign Reading Time Taken Comments Blood Pressure 146/76 10/13/2024 2:14 PM EDT Pulse 88 10/13/2024 2:14 PM EDT Temperature 36.7 C (98 F) 10/13/2024 2:14 PM EDT Respiratory Rate 18 10/13/2024 2:14 PM EDT Oxygen Saturation 95% 10/13/2024 2:14 PM EDT Inhaled Oxygen Concentration - - Weight 98.9 kg (218 lb 0.6 oz) 10/13/2024 2:14 P M EDT Height 179.5 cm (5' 10.67 ) 03/03/2024 2:[address] Body Mass Index 30.7 03/03/2024 2:10 PM EST Plan of Treatment Upcoming Encounters Date Type Department Care Team (Late st Contact Info) Description 10/13/2024 Procedure Pass [facility] [address] [place] [address] 10/13/2024 Procedure Pass [facility] [address] [place] [address] 01/06/2025 11:45 AM EDT Appointment [facility] [address] [place] [address] Nabil Xiao MD [address] [place] [address] [email or web address] 01/12/2025 1:30 PM EDT Blood Draw Laboratory Services, [address] [place] [address] Nabil Xiao MD [address] [place] [address] [email or web address] 01/12/2025 2:30 PM EDT Office Visit [facility], [address] [place] [address] Nabil Xiao MD [address] [place] [address] [email or web address] 04/16/2025 Hospital Encounter [facility] Endoscopy Department [address] [place] [address] Anay Gómez MD, MPH [address] [place] [address] [email or web address] 04/16/2025 Procedure Pass [facility] Endoscopy Department [address] [place] [address] Scheduled Procedures Name Priority Associated Diagnoses Date/Ti me COLONOSCOPY Colon adenocarcinoma Health Maintenance Due Date Last Done Comments Adult Td,Tdap Booster 1945 SMOKING Hx and SMOKELESS TOBACCO SCREENING 1959 HEPATITIS C SCREENING 1964 ZOSTER VACCINES (1 of 2) 1965 PNEUMOCOCCAL VACCINES (50+ years) (2 of 2 - PPSV23) 03/26/2020 01/30/2020 INFLUENZA VACCINE (#1) 2024 , 04/12/2023, 02/16/2022, Additional history exists COVID-19 VACCINE ( season) 2024 04/22/2024, 06/24/2022, 09/05/2021, Additional history exists TSH LEVEL 05/07/2025 05/07/2024, 10/08/2023 DEPRESSION SCREENING 06/16/2025 06/16/2024 CREATININE LEVEL 10/13/2025 10/13/2024, 05/2024, 06/20/2024, Additional history exists RSV VACCINE Completed 05/09/2023 HEPATITIS A VACCINES Aged Out No long er eligible based on patient's age to complete this topic HIB VACCINES Aged Out No longer eligi ble based on patient's age to complete this topic MENINGOCOCCAL VACCINES (ACWY) Aged Out No longer eligible based on patient's age to complete this topic MENINGOCOCCAL VACCINES (B) Aged Out N o longer eligible based on patient's age to complete this topic Medical Devices Not on file Procedures Procedure Name Priority Date/Time Associated Diagnosis Comments LAB ADD ON Routine 10/13/2024 2:38 PM EDT Colon adenocarcinoma CARCINOEMBRYONIC ANTIGEN (CEA) Routine 10/13/2024 1:41 PM EDT MAGNESIUM Routine 10/13/2024 1:41 PM EDT Colon adenocarcinoma COMPREHENSIVE METABOLIC PANEL Routine 10/13/2024 1:41 PM EDT Colon adenocarcinoma HC BLOOD COUNT COMPLETE AUTO&AUTO DIFRNTL WBC Routine 10/13/2024 1:41 PM EDT Colon adenocarcinoma TSH Routine 10/08/2023 12:56 PM EDT Colon adenocarcinoma from Last 3 Months or Most Recently Relevant to Health Maintenance Results * Lab Add On: CEA (10/13/2024 2:38 PM EDT) TEST REQUESTED CEA [facility] LIC# [id number] Comments (Chemistry) TEST TO BE ADDED ON TO EXISTING SPECIMEN [facility] LIC# [id number] Blood 10/13/2024 2:38 PM EDT 10/13/2024 3:51 PM EDT us Nabil Xiao MD LAB BLOOD ORDERABLES Final Resul t [facility] LIC# [id number] [address] [place] [address] * (ABNORMAL) Comprehensive metabolic panel (10/13/2024 1:41 PM EDT) SODIUM 143 136 - 145 mmol/L [facility] LIC# [id number] POTASSIUM 4.2 3.4 - 5.1 mmol/L [facility] LIC# [id number] CHLORIDE 106 98 - 107 mmol/L [facility] LIC# [id number] CO2 24 22 - 31 mmol/L [facility] LIC# [id number] BUN 16 6 - 23 mg/dL [facility] LIC# [id number] CREATININE 1.34(H) 0.50 - 1.20 mg/dL [facility] LIC# [id number] GLUCOSE 133(H) 70 - 100 mg/dL [facility] LIC# [id number] ALBUMIN 4.4 3.5 - 5.2 g/dL [facility] LIC# [id number] TOTAL PROTEIN 7.1 6.4 - 8.3 g/dL [facility] LIC# [id number] CALCIUM 9.0 8.8 - 10.7 mg/dL [facility] LIC# [id number] ALKALINE PHOSPHATASE 104 40 - 129 U/L [facility] LIC# [id number] TOTAL BILIRUBIN 0.3 0.2 - 1.2 mg/dL [facility] LIC# [id number] AST 15 <41 U/L [facility] LIC# [id number] ALT 23 <42 U/L [facility] LIC# [id number] GLOBULIN 2.7 2.3 - 4.2 g/dL [facility] LIC# [id number] EGFR 54(L) >59 mL/min/1.7 3m2 [facility] LIC# [id number] Comment:Estimated glomerular filtration rate calculated using the CKD-EPI refit equation. ANION GAP 13 7 - 17 mmol/L [facility] LIC# [id number] Blood 10/13/2024 1:41 PM EDT 10/13/2024 2:04 PM EDT us Nabil Xiao MD LAB BLOOD ORDERABLES Final Resul t [facility] LIC# [id number] [address] [place] [address] * (ABNORMAL) CBC and differential (10/13/2024 1:41 PM EDT) WBC 8.13 4.00 - 10.00 K/uL [facility] LIC# [id number] RBC 4.86 4.50 - 6.40 M/uL [facility] LIC# [id number] HGB 15.2 13.5 - 18.0 g/dL [facility] LIC# [id number] HCT 45.2 40.0 - 54.0 % [facility] LIC# [id number] PLT 207 150 - 450 K/uL [facility] LIC# [id number] MCV 93.0 80.0 - 100.0 fL [facility] LIC# [id number] MCH 31.3 27.0 - 32.0 pg [facility] LIC# [id number] MCHC 33.6 32.0 - 36.0 g/dL [facility] LIC# [id number] RDW 12.7 11.5 - 14.5 % [facility] LIC# [id number] MPV 10.3 8.4 - 12.0 fL [facility] LIC# [id number] NRBC 0.00 0 /100 WBCs [facility] LIC# [id number] ABSOLUTE NRBC 0.00 0 K/uL [facility] LIC# [id number] DIFF METHOD Auto [facility] LIC# [id number] NEUTS 65.7 48.0 - 76.0 % [facility] LIC# [id number] LYMPHS 18.7 18.0 - 41.0 % [facility] LIC# [id number] MONOS 8.0 4.0 - 11.0 % [facility] LIC# [id number] EOS 6.4(H) 0.0 - 5.0 % [facility] LIC# [id number] BASOS 1.0 0.0 - 1.5 % [facility] LIC# [id number] % IMMATURE GRANS 0.2 0.0 - 1.0 % [facility] LIC# [id number] ABSOLUTE NEUTS 5.34 1.92 - 7.60 K/uL [facility] LIC# [id number] ABSOLUTE LYMPHS 1.52 0.72 - 4.10 K/uL [facility] LIC# [id number] ABSOLUTE MONOS 0.65 0.16 - 1.10 K/uL [facility] LIC# [id number] ABSOLUTE EOS 0.52(H) 0.00 - 0.50 K/uL [facility] LIC# [id number] ABSOLUTE BASOS 0.08 0.00 - 0.15 K/uL [facility] LIC# [id number] ABS IMMATURE GRANS 0.02 0.00 - 0.10 K/uL [facility] LIC# [id number] Blood 10/13/2024 1:41 PM EDT 10/13/2024 2:04 PM EDT us Nabil Xiao MD LAB BLOOD ORDERABLES Final Resul t Performing Organization Address [facility] Co de Phone Number [facility] LIC# [id number] [address] [place] [address] * Magnesium (10/13/2024 1:41 PM EDT) MAGNESIUM 2.3 1.7 - 2.6 mg/dL [facility] LIC# [id number] Blood 10/13/2024 1:41 PM EDT 10/13/2024 2:04 PM EDT Nabil Xiao MD LAB BLOOD ORDERABLES Final Resul t Performing Organization Address [facility] Co de Phone Number [facility] LIC# [id number] [address] [place] [address] * Carcinoembryonic antigen (CEA) (10/13/2024 1:41 PM EDT) CEA 2.1 0 - 3.7 ng/mL [facility] LIC# [id number] Comment: CEA REFERENCE RANGE: NON-SMOKERS: < 3.8 ng/mL SMOKERS: < 5.0 ng/mL 10/13/2024 1:41 PM EDT 10/13/2024 2:04 PM EDT Nabil Xiao MD LAB BLOOD ORDERABLES Final Resul t Performing Organization Address [facility] Co de Phone Number [facility] LIC# [id number] [address] [place], [place] [id number] * TSH (10/08/2023 12:56 PM EDT) TSH 1.69 0.27 - 4.20 uIU/mL [facility] LIC# [id number] Blood 10/08/2023 12:5 6 PM EDT 10/08/2023 1:17 PM EDT Danica Babin CNP LAB BLOOD ORDERABLES Final Result [facility] LIC# [id number] [address] [place] [address] from Last 3 Months or Most Recently Relevant to Health Maintenance Insurance MEDICARE ENHANCE SUPPLEMENT MEDICARE PART A & B MEDICARE ENHANCE SUPPLEMENT MEDICARE PART A & B [facility] Address: [id number] MEDICARE PART A & B MEDICARE ENHANCE SUPPLEMENT [facility] Address: [address] [place] [place] [id number] MEDICARE PART A & B MEDICARE PART A & B MEDICARE PART A & B Care Teams Cardiac Technician Relationship Specialty Start Date End Date Joey Dhillon MD [address] [place] [address] PCP - General Internal Medicine 09/29/16 Joey Dhillon MD [address] [place] [address] Internal Medicine 08/16/23 Nabil Xiao MD [address] [place] [phone] [email or web address] 08/16/23 Sudheer Mcclelland MD [address] [place] [phone] (work) Urology 10/08/23 Additional Source Comments The information contained in this document represents components of the legal health record. It is not the complete legal health record.[facility]
--- OUTSIDE RECORDS SUMMARY | 2024-12-16 12:39 | XMS_ITS ---
Author Organization [facility] Address [address] [facility] [address] [place] [address] Phone Care Team Providers Care Testing Specialist Name Role Phone Joey Dhillon MD Primary Care Provider Joey Dhillon MD Unavailable Nabil Xiao MD Unavailable Sudheer Mcclelland MD Unavailable Active Problems Patient Care Coordination No te [...] (cerebral vascular accident) 08/31/2023 Gait instability 07/23/2023 Current Treatment and Therapy Plans CAPECITABINE* Plan Start Date:09/18/2023 Plan Provider:Nabil Xiao MD Linked Problems Colon adenocarcinoma Treatment Medications Current Day (Day 1 , Cycle 2 - Planned for 10/09/2023) Next Day (Day 1, Cycle 3 - Planned for 10/30/2023) capecitabine (XELODA) capecitabine (XELO DA) 500 MG tablet capecitabine (XELODA) 500 MG tablet HYDRATION & SUPPORTIVE CARE* Plan Start Date:03/19/2024 Plan Provider:Nabil Xiao MD Linked Problems Colon adenocarcinoma Treatment Medications No medications scheduled. Past Treatment and Therapy Plans No past plan information found.
== END 2024-12-16 11:45 | disposition home or self-care (01) ==
LOC: HO.HUSH 11:04
PROVIDERS: PCP Internal Medicine; Visit Provider Urology
DX: C61 Malignant neoplasm of prostate (principal); N40.1 Benign prostatic hyperplasia with lower urinary tract symptoms; N13.8 Other obstructive and reflux uropathy
CPT/HCPCS: 99213; G2211

== ENCOUNTER → 2024-12-16 11:00 | Outpatient (BNVA) | payer MEDICARE, OTHER, SELFPAY | PROVIDERS: PCP Internal Medicine; Visit Provider Urology | DX: C61 Malignant neoplasm of prostate (principal); N40.1 Benign prostatic hyperplasia with lower urinary tract symptoms; N13.8 Other obstructive and reflux uropathy | CPT/HCPCS: 99212 ==

== ENCOUNTER 2025-03-24 12:33 | Outpatient (REF) | payer MEDICARE, OTHER, SELFPAY ==
[2025-03-24 13:55] LABS: Prostate Specific Antigen 0.12 ng/mL (<0.05-4.0)
== END 2025-03-24 12:34 | disposition home or self-care (01) ==
LOC: HO.LAB 12:33
PROVIDERS: PCP Internal Medicine; Visit Provider Urology
DX: C61 Malignant neoplasm of prostate (principal); Z12.5 Encounter for screening for malignant neoplasm of prostate
CPT/HCPCS: 36415; 84153